=== PATIENT | male | born 1980 | race Caucasian/White ===

== ENCOUNTER 2018-06-07 19:01 | Emergency (ER) | payer OTHER ==
[~2018-06-07] VITALS: Ht 182.9 cm; Wt 86.2 kg
== END 2018-06-07 19:57 | disposition left against medical advice (07) ==
LOC: ED 19:01
DX: Z53.21 Procedure and treatment not carried out due to patient leaving prior to being seen by health care provider (principal)

== ENCOUNTER 2018-06-22 14:40 | Emergency (ER) | payer OTHER ==
[~2018-06-22] VITALS: Ht 182.9 cm; Wt 86.2 kg
--- OUTSIDE RECORDS SUMMARY | ~2018-06-22 | XMS | Encounter Summary ---
Demographics + + + | Address | [address] | | | [place] [address] | + + + | Home Phone | | + + + | Preferred Language | Unknown | + + + | Marital Status | Single | + + + | Baptism Affiliation | Unknown | + + + | Race | White | + + + | Ethnic Group | Not or | + + + Author + + + | Author | [facility] | + + + | Organization | [facility] | + + + | Address | Unknown | + + + | Phone | Unavailable | + + + Support + + +---------+ + | Name | Relationship | Address | Phone | + + +---------+ + | Dandre Acosta | ECON | Unknown | | + + +---------+ + Care Team Providers + +------+ + | Care Template Clerk Name | Role | Phone | + +------+ + | Maddison Sailajabettie PICKETTP | PCP | | + +------+ + Reason for Visit + + + | Reason | Comments | + + + | [facility] | [facility] | | Equipment (DME) | | | Orders | | + + + Encounter Details +--------+--------+ + + + | Date | Type | Department | Care Team | Description | +--------+--------+ + + + | 06/03/ | Refill | Leobardo Pedroza | Lidia Holguin | [facility] | | 2019 | | Diabetes Health | MD Kenny [address] [facility] | Equipment (DME) | | | | Center at Physicians | [address] | Orders ([facility]) | | | | Pavilion [address] | [facility] [place] | | | | | [facility] | [address] | | | | | Road Physicians | [phone] | | | | | [address] | | | | | | Physicians Pavilion | | | | | | [facility] [place] | | | | | | [address] | | | | | | [phone] | | | +--------+--------+ + + + [...] on file | | + + + as of this encounter Plan of Treatment +--------+---------+ + + + | Date | Type | Specialty | Care Team | Description | +--------+---------+ + + + | 08/22/ | Office | Endocrinology, | Lidia Holguin | | | 2019 | Visit | Diabetes & Morris Cox MD [address] | | | | | Metabolism | [address] | | | | | | [place], [place] | | | | | | [address] | | | | | | [phone] | | | | | | | | +--------+---------+ + + + as of this encounter Visit Diagnoses Not on filein this encounter"
--- OUTSIDE RECORDS SUMMARY | ~2018-06-22 | XMS | Clinical Summary ---
Demographics + + + | Address | [address] | | | [place] [address] | + + + | Home Phone | | + + + | Preferred Language | Unknown | + + + | Marital Status | Single | + + + | Yazidi Affiliation | Unknown | + + + [...] Team Providers + +------+ + | Care Bindery Library Technical Assistant Name | Role | Phone | + +------+ + | Sailaja Washburn | PP | | + +------+ + Source Comments JOSE FRANCISCO [facility] InPatient.[facility] Allergies + + + + + [...] | | + + +-------+---------+------+------+-------+ | Insulin Ava | 1 each. | | | / [...] | | + + +-------+---------+------+------+-------+ | Fish Oil-[place]-3 | Take by mouth. | | | [...] of | | Present Illness:CBGs:14-day avg = 55110-wjb avg = 197CBG this AM | | = 325Has new girlfriend - been going out to dinner a lot.Little | | exercise.Planning on taking a contract job for 3 months in | | [place].Needing to get supplies to cover him for this.Has not | | applied for Cover [place] because leaving to [place] soon. Will | | when he returns.Worried [...] of Present Illness:CBGs:14-day avg = | | 70127-lpb avg = 197CBG this AM = 325Has new girlfriend - been | | going out to dinner a lot.Little exercise.Planning on taking a | | contract job for 3 months in [place].Needing to get supplies to | | cover him for this.Has not applied for Cover [place] because | | leaving to [place] soon. Will when he returns.Worried about | [...] a contract job for 3 months in [place]. | |Needing to get supplies to cover him for this. | |Has not applied for Cover [place] because leaving to [place] soon. Will when he returns. | | [...] | Visit | | MD Kenny [address] | | | | | | [address] | | | | | | [place], [place] | | | | | | [address] | | | | | | [phone] | | | | | | | [...] 12/09/2011 | | | vaccination (#1) | 8 | | | + + + + [...] | | | | PST | complication ([facility]) | results section. | + +--------+ + + + | NM COLLECTION | Routin | 04/20/2018 | Type 1 diabetes | | | CAPILLARY BLOOD | e | 9:49 AM | mellitus with | | | SPECIMEN | | PST | complication ([facility]) | | + +--------+ + + + [...] | JOSE FRANCISCO [place] | [address] | [place], [place] | | | KARI RODRIGUEZ OF CARE | [address] | [address] | | | TESTS | | | [...] | | | + +--------+ +--------+-------+---------+ | CURATOR OF PHOTOGRAPHY AND PRINTS MEDICAID | CURATOR OF PHOTOGRAPHY AND PRINTS | xxxxxxxx | Medica | | | [...] | [birth year] | Home: | [address] | | | al/Fam | | 1980 | [phone] | [place] [address] | | | vidal | | | [phone] | | + +--------+ +--------+ + +
--- OUTSIDE RECORDS SUMMARY | ~2018-06-22 | XMS | Encounter Summary ---
Demographics + + + | Address | [address] | | | [place] [address] | + + + | Home Phone | | + + + | Preferred Language | Unknown | + + + | Marital Status | Single | + + + | Pentecostal Affiliation | Unknown | + + + | Race | White | + + + | Ethnic Group | Not or | + + + Author + + + | Author | [facility] | + + + | Organization | [facility] | + + + | Address | Unknown | + + + | Phone | Unavailable | + + + Support + + +---------+ + | Name | Relationship | Address | Phone | + + +---------+ + | Dandre Acosta | ECON | Unknown | | + + +---------+ + Care Team Providers + +------+ + | Care Human Machine Interface Engineer Name | Role | Phone | + +------+ + | Sailaja Washburn PATIENT SUPPORT ASSISTANT | PCP | | + +------+ + [...] | | mellitus | [address] | [facility] | | | | | with | [address] | Mailcode: | | | | | complication | [place], [place] | [address] | | | | | ([facility]) | [address] | Physicians | | | | | Nutrition - | Phone: | Tiar[address] MOREIR[address] | | | | | Analyze carb | [phone] | [address] | | | | | intake at | Fax: | [place], [place] | | | | | meals, | [phone] | [address] | | | | | patterns, | | Phone: | | | | | dosing | | [phone] | | | | | strategy | | Fax: | | | | | Procedures | | [phone] | | | | | CONSULT TO [...] | Visit | Diabetes Health | [address] [facility] | mellitus with | | | | Center at [facility] | [address] | complication (HCC) | | | | Pavilion [address] | [facility] [place] [place] | (Primary Dx) | | | | [facility] | [address] | | | | | Road Mailcode: | [phone] | | | | | [facility]icians | | | | | | [address] | | | | | | [place], [place] | | | | | | [address] | | | | | | [phone] | | | +--------+---------+ + + + [...] at age 13. Circumstance: ryan sosa, in [place] at the time, moved to [place] 14 years ago. Dad has type 1 [...] morning on a good day. Works in [employer], so job is also fairly active. Notices [...] and services clinic has to offer includ [facility]. Offered my continued support and education to [...] Moderately Stable Follow-up: MNT/DSMT Rosita [address]ik RD [facility] DIABETES [facility] AT [address] Mailcode: [address] [place] [address] in this encounter Plan of Treatment +--------+---------+ + + + | Date | Type | Specialty | Care Team | Description | +--------+---------+ + + + | 08/22/ | Office | Endocrinology, | Lidia Holguin | | | 2018 | Visit | Diabetes & | MD Kenny [address] [place] [address] | | | | | Metabolism | [facility] | | | | | | [place], [place] | | | | | | [address] | | | | | | [phone] | | | | | | | | +--------+---------+ + + + as of this encounter Procedures + +--------+ + + + | Procedure Name | Priori | Date/Time | Associated Diagnosis | Comments | | | ty | | | | + +--------+ + + + | NC MNT INITIAL | Routin | 05/25/2018 | [...]
--- OUTSIDE RECORDS SUMMARY | ~2018-06-22 | XMS | Encounter Summary ---
Demographics + + + | Address | [address] | | | [place] [address] | + + + | Home Phone | | + + + | Preferred Language | Unknown | + + + | Marital Status | Single | + + + | Congregation Affiliation | Unknown | + + + [...] Team Providers + +------+ + | Care Highway Engineer Name | Role | Phone | + +------+ + | Sailaja Washburn SUBGRADE ROLLER OPERATOR | PCP | | + +------+ + [...] | | mellitus | [address] | [facility] | | | | | with | [address] | Mailcode: | | | | | complication | [place], [place] | [address] | | | | | ([facility]) | [address] | Physicians | | | | | Nutrition - | Phone: | Tiarra MOREIRA | | | | | Analyze carb | [phone] | [address] | | | | | intake at | Fax: | [place], [place] | | | | | meals, | [phone] | [address] | | | | | patterns, | | Phone: | | | | | dosing | | [phone] | | | | | strategy | | Fax: | | | | | Procedures | | [phone] | | | | | CONSULT TO [...] | Visit | Diabetes Health | [address] [facility] | mellitus with | | | | Center at [facility] | [address] | complication (HCC) | | | | Pavilion [address] | [facility] [place] | (Primary Dx) | | | | [facility] | [address] | | | | | Road Mailcode: | [phone] | | | | | [facility] | | | | | | [address] | | | | | | [place], [place] | | | | | | [address] | | | | | | [phone] | | | +--------+---------+ + + + [...] in [place] at the time, moved to [place] 14 [...] morning on a good day. Works in [employer], so job is also fairly active. Notices [...] and services clinic has to offer includ [facility]. Offered my continued support and education to [...] Moderately Stable Follow-up: MNT/DSMT Rosita Mal[address] RD [facility] DIABETES [facility] AT [address] Mailcode: [address] [place] [address] in this encounter Plan of Treatment +--------+---------+ + + + | Date | Type | Specialty | Care Team | Description | +--------+---------+ + + + | 08/22/ | Office | Endocrinology, | Lidia Holguin | | | 2018 | Visit | Diabetes & | MD Kenny [address] [place] [address] | | | | | Metabolism | [facility] | | | | | | [place], [place] | | | | | | [address] | | | | | | [phone] | | | | | | | | +--------+---------+ + + + as of this encounter Procedures + +--------+ + + + | Procedure Name | Priori | Date/Time | Associated Diagnosis | Comments | | | ty | | | | + +--------+ + + + | ID MNT INITIAL | Routin | 05/25/2018 | [...]
--- OUTSIDE RECORDS SUMMARY | ~2018-06-22 | XMS | Clinical Summary ---
Demographics + + + | Address | [address] | | | [place] [address] | + + + | Home Phone | | + + + | Preferred Language | Unknown | + + + | Marital Status | Single | + + + | Jew Affiliation | Unknown | + + + [...] Team Providers + +------+ + | Care Mud Mill Tender Name | Role | Phone | + +------+ + | Sailaja Washburn | PP | | + +------+ + Source Comments JOSE FRANCISCO [facility] fully [facility] InPatient.[facility] Allergies + + + + + [...] | | + + +-------+---------+------+------+-------+ | Insulin [place] | 1 each. | | | / [...] | | + + +-------+---------+------+------+-------+ | Fish Oil-[place]-3 | Take by mouth. | | | [...] of | | Present Illness:CBGs:14-day avg = 82187-ddl avg = 197CBG this AM | | = 325Has new girlfriend - been going out to dinner a lot.Little | | exercise.Planning on taking a contract job for 3 months in | | [place].Needing to get supplies to cover him for this.Has not | | applied for Cover [place] because leaving to [place] soon. Will | | when he returns.Worried [...] of Present Illness:CBGs:14-day avg = | | 40796-thb avg = 197CBG this AM = 325Has new girlfriend - been | | going out to dinner a lot.Little exercise.Planning on taking a | | contract job for 3 months in [place].Needing to get supplies to | | cover him for this.Has not applied for Cover [place] because | | leaving to [place] soon. Will when he returns.Worried about | [...] a contract job for 3 months in [place]. | |Needing to get supplies to cover him for this. | |Has not applied for Cover [place] because leaving to [place] soon. Will when he returns. | | [...] Rd | | | | | | [place], [place] | | | | | | [address] | | | | | | [phone] | | | | | | | [...] | + +--------+ + + + | HI MNT INITIAL | Routin | 05/25/2018 | [...] | | | | PST | complication ([facility]) | results section. | + +--------+ + + + | HI COLLECTION | Routin | 04/20/2018 | Type 1 diabetes | | | CAPILLARY BLOOD | e | 9:49 AM | mellitus with | | | SPECIMEN | | PST | complication ([facility]) | | + +--------+ + + + [...] [place] | [address] | [place], [place] | | | KARI RODRIGUEZ OF CARE | [address] | [address] | | | TESTS | | | [...] | | | + +--------+ +--------+-------+---------+ | ELECTRIC MOTOR REPAIRMAN MEDICAID | ELECTRIC MOTOR REPAIRMAN | xxxxxxxx | Medica | | | [...] | 1980 | [phone] | [place] [address] | | | vidal | | | [phone] | | + +--------+ +--------+ + +
--- OUTSIDE RECORDS SUMMARY | ~2018-06-22 | XMS | Encounter Summary ---
Demographics + + + | Address | [address] | | | [place] [address] | + + + | Home Phone [...] Author + + + | Author | [facility] | + + + | Organization | [facility] | + + + | Address | Unknown | + + + | Phone | Unavailable | + + + Support + + +---------+ + | Name | Relationship | Address | Phone | + + +---------+ + | Dandre Acosta | ECON | Unknown | | + + +---------+ + Care Team Providers + +------+ + | Care Precision Millwright Name | Role | Phone | + +------+ + | Sailaja Washburn SALES ACCOUNT EXECUTIVE | PCP | | + +------+ + [...] | | mellitus | [address] | [address] | | | | | with | [address] | Mailcode: | | | | | complication | [place], [place] | [address] | | | | | ([facility]) | [address] | Physicians | | | | | Review | Phone: | Tiarra MOREIRA | | | | | optimizing | [phone] | [address] | | | | | sensor | Fax: | [place], [place] | | | | | technology | [phone] | [address] | | | | | Procedures | | Phone: | | | | | CONSULT TO | | [phone] | | | | | ADULT | | Fax: | | | | | DIABETES - | | [phone] | | | | | EDUCATION | [...] | | mellitus | [address] | [facility] | | | | | with | [address] | Mailcode: | | | | | complication | [place], [place] | [address] | | | | | ([facility]) | [address] | Physicians | | | | | Nutrition - | Phone: | Tiarra ANTONIO | | | | | Analyze carb | [phone] | [address] | | | | | intake at | Fax: | [place], [place] | | | | | meals, | [phone] | [address] | | | | | patterns, | | Phone: | | | | | dosing | | [phone] | | | | | strategy | | Fax: | | | | | Procedures | | [phone] | | | | | CONSULT TO [...] | | | | | mellitus | [address] | [facility] | | | | | with | Street | Road | | | | | hypoglycemia | [place], [place] | Physicians | | | | | without | [address] | [address] [facility] | | | | | coma Type 1 | Phone: | [address] | | | | | diabetes | [phone] | Physicians | | | | | mellitus | Fax: | Pavilion | | | | | without | [phone] | [place], [place] | | | | | complication | | [address] | | | | | s | | Phone: | | | | | Procedures | | [phone] | | | | | CONSULT TO | | Fax: | | | | | DIABETES | | [phone] | | | | | ENDO | [...] | | Pavilion [address] | [place], [place] | (Primary Dx) | | | | [address] | [address] | | | | | Road Physicians | [phone] | | | | | [address] | | | | | | Physicians Pavilion | | | | | | [place], [place] | | | | | | [address] | | | | | | [phone] | | | +--------+---------+ + + + [...] schedule as much as possible Please contact [facility] [phone] for any questions Lab Results Component Value [...] a low blood sugar. Please visit the [facility] Website for information on what's [...] may be different f rom the original. [facility] PCP: RODNEY Cardoso Referring Physician: Christian Rodriguez ND [address] [place] [address] Reason for referral: Evaluate Type 1 Diabetes HPI: Gregory is a 38 y.o. male referred for evaluation of Type 1 Diabetes. Diabetes history: He was diagnosed with diabetes in 1992 at age 13. Circumstance: hospitalized, in [place] at the time ---- moved to [place] [...] diabetes care: Living situation: grew up in [place] ---- moved to [place]--wanted to live somewhere [...] by mouth once daily at bedtime. Fish Oil-[place]-3 Fatty Acids 300-1,000 mg oral capsule Take [...] scale, up to 30 units daily Insulin [place] (Disposable) 31 gauge x 5/16" needle 1 [...] ROS: Review of systems as stated in [facility]. Other pertinent review of systems includes: Weight: [...] 1992 at age 13. Circumstance: hospitalized, in [place] at the time ---- moved to [place] 14 years ago Treatment history: Has been on NPH, Novolog, Humalog, Levemir, Lantus and now Basaglar Pump/sensor history-- never on a pump---started Dexcom 6 months ago (G5) but challenges wit h insurance coverage Has working transmitter/sensor right now but every 3 months it takes about a month to proce ss the paperwork through [facility] and insurance History of acute complications: Severe [...] sensor use for awareness of trends In [employer] so very active throughout the day [...] as much as possible Please contact [facility] [phone] for any questions Lab Results Component Value Date A1C 5.5 04/20/2018 Schedule upcoming appointments: Nutrition visit to review meal patterns, activity and stress related trends Technology visit to refine use of sensor Sensor order --- You have history of testing 10 to 12 times daily when not on sensor and Keep up routine monitoring and use of current sensor Ask [facility] to send us supply requests Follow hypoglycemic [...] a low blood sugar. Please visit the [facility] Website for information on what's new at our diabetes center. Let us know if you would like to sign up for a class or a one o n one diabetes education visit. Please meet with your primary care provider routinely for your medical care and annual chec k ups 2. See orders Orders Placed This Encounter ID Collection Capillary Blood Specimen [[id number]] only for Adults CONSULT TO ADULT DIABETES - NUTRITION (MNT) CONSULT TO ADULT DIABETES - EDUCATION (DIABETES SELF-MANAGEMENT) HEMOGLOBIN A1C,POC [[id number]}] Lidia Holguin MD [facility] AT [facility] 1ST FLOOR [address] [facility] [address] [place] [address] I spent 55 minutes with [...] | Diabetes & | MD Kenny [address] [facility] | | | | | Metabolism | [address] | | | | | | [place], [place] | | | | | | [address] | | | | | | [phone] | | | | | | | [...] + +--------+ + + + | ID COLLECTION | Routin | 04/20/2018 | Type 1 diabetes | | | CAPILLARY BLOOD | e | 9:49 AM | mellitus with | | | SPECIMEN | | PST | complication ([facility]) | | + +--------+ + + + [...] [place] | [address] | [place], [place] | | | KARI RODRIGUEZ OF CARE | [facility] | [address] | | | TESTS | | | [...]
--- OUTSIDE RECORDS SUMMARY | ~2018-06-22 | XMS | Encounter Summary ---
Demographics + + + | Address | [address] | | | [place] [address] | + + + | Home Phone [...] Author + + + | Author | [facility] | + + + | Organization | [facility] | + + + | Address | Unknown | + + + | Phone | Unavailable | + + + Support + + +---------+ + | Name | Relationship | Address | Phone | + + +---------+ + | Dandre Acosta | ECON | Unknown | | + + +---------+ + Care Team Providers + +------+ + | Care Feed In Worker Name | Role | Phone | + +------+ + | Maddison Sailajabettie PICKETTP | PCP | | + +------+ + Reason for Visit + + + | Reason | Comments | + + + | [facility] | [place] | | Equipment (DME) | | | Orders | | + + + Encounter Details +--------+--------+ + + + | Date | Type | Department | Care Team | Description | +--------+--------+ + + + | 06/03/ | Refill | Leobardo Pedroza | Lidia Holguin | [facility] | | 2019 | | Diabetes Health | MD Kenny [address] [facility] | Equipment (DME) | | | | Center at Physicians | [address] | Orders ([place]) | | | | Pavilion [address] | [facility] [place] | | | | | [facility] | [address] | | | | | Road Physicians | [phone] | | | | | [address] | | | | | | Physicians Pavilion | | | | | | [facility] [place] | | | | | | [address] | | | | | | [phone] | | | +--------+--------+ + + + [...] | | | | | | [place], [place] | | | | | | [address] | | | | | | [phone] | | | | | | | | +--------+---------+ + + + as of this encounter Visit Diagnoses Not on filein this encounter"
--- OUTSIDE RECORDS SUMMARY | ~2018-06-22 | XMS | Encounter Summary ---
Demographics + + + | Address | [address] | | | [place] [address] | + + + | Home Phone | | + + + | Preferred Language | Unknown | + + + | Marital Status | Single | + + + | Protestant Affiliation | Unknown | + + + [...] Team Providers + +------+ + | Care Operations Research Scientist Name | Role | Phone | + +------+ + | Sailaja Washburn AGRISCIENCE INSTRUCTOR | PCP | | + +------+ [...] | | | | | complication | [place], [place] | [address] | | | | | ([facility]) | [address] | Physicians | | | | | Review | Phone: | Tiarra MOREIRA | | | | | optimizing | [phone] | 140 | | | | | sensor | Fax: | [place], [place] | | | | | technology | [phone] | [address] | | | | | Procedures | | Phone: | | | | | CONSULT TO | | [phone] | | | | | ADULT | | Fax: | | | | | DIABETES - | | [phone] | | | | | EDUCATION | [...] | | mellitus | [address] | [facility] | | | | | with | [address] | Mailcode: | | | | | complication | [place], [place] | [address] | | | | | ([facility]) | [address] | Physicians | | | | | Nutrition - | Phone: | Tiarra ANTONIO | | | | | Analyze carb | [phone] | 140 | | | | | intake at | Fax: | [place], [place] | | | | | meals, | [phone] | [address] | | | | | patterns, | | Phone: | | | | | dosing | | [phone] | | | | | strategy | | Fax: | | | | | Procedures | | [phone] | | | | | CONSULT TO [...] | | | mellitus | [place] | [facility] | | | | | with | Street | Road | | | | | hypoglycemia | [place], [place] | Physicians | | | | | without | [address] | [address] | | | | | coma Type 1 | Phone: | 140 | | | | | diabetes | [phone] | Physicians | | | | | mellitus | Fax: | Pavilion | | | | | without | [phone] | [place], [place] | | | | | complication | | [address] | | | | | s | | Phone: | | | | | Procedures | | [phone] | | | | | CONSULT TO | | Fax: | | | | | DIABETES | | [phone] | | | | | ENDO | [...] | | Pavilion [address] | [place], [place] | (Primary Dx) | | | | [address] | [address] | | | | | Road Physicians | [phone] | | | | | [address] | | | | | | Physicians Pavilion | | | | | | [place], [place] | | | | | | [address] | | | | | | [phone] | | | +--------+---------+ + + + [...] possible Please contact [facility] [phone] for any questions Lab Results Component Value [...] RODNEY Cardoso Referring Physician: Christian Rodriguez ND [address] [place] [address] Reason for referral: Evaluate Type 1 Diabetes HPI: Gregory is a 38 y.o. male referred for evaluation of Type 1 Diabetes. Diabetes history: He was diagnosed with diabetes in 1992 at age 13. Circumstance: hospitalized, in [place] at the time ---- moved to [place] 14 years ago Treatment history: Has been [...] diabetes care: Living situation: grew up in [place] ---- moved to [place]--wanted to live somewhere that was health, mom when he was 23 He grew up with a lot of fried and fast food in the home. Dad has type 1 diabetes. Has t wo sisters. Lives in [place]. Lives alone. In physical therapy for cyst [...] by mouth once daily at bedtime. Fish Oil-[place]-3 Fatty Acids 300-1,000 mg oral capsule Take [...] scale, up to 30 units daily Insulin [place] (Disposable) 31 gauge x 5/16" needle 1 [...] ROS: Review of systems as stated in [facility]. Other pertinent review of systems includes: Weight: [...] 1992 at age 13. Circumstance: hospitalized, in [place] at the time ---- moved to [place] 14 years ago Treatment history: Has been on NPH, Novolog, Humalog, Levemir, Lantus and now Basaglar Pump/sensor history-- never on a pump---started Dexcom 6 months ago (G5) but challenges wit h insurance coverage Has working transmitter/sensor right now but every 3 months it takes about a month to proce ss the paperwork through [place] and insurance History of acute complications: Severe [...] sensor use for awareness of trends In [employer] so very active throughout the day [...] as much as possible Please contact Leobardo [facility] [phone] for any questions Lab Results Component Value Date A1C 5.5 04/20/2018 Schedule upcoming appointments: Nutrition visit to review meal patterns, activity and stress related trends Technology visit to refine use of sensor Sensor order --- You have history of testing 10 to 12 times daily when not on sensor and Keep up routine monitoring and use of current sensor Ask [place] to send us supply requests Follow hypoglycemic [...] 2. See orders Orders Placed This Encounter ME Collection Capillary Blood Specimen [[id number]] only for Adults CONSULT TO ADULT DIABETES - NUTRITION (MNT) CONSULT TO ADULT DIABETES - EDUCATION (DIABETES SELF-MANAGEMENT) HEMOGLOBIN A1C,POC [[id number]}] Lidia Holguin MD [facility] AT PPV 1ST FLOOR [address] [facility] [address] [place] [address] I spent 55 minutes with [...] | Diabetes & | MD Kenny [address] [facility] | | | | | Metabolism | [address] | | | | | | [place], [place] | | | | | | [address] | | | | | | [phone] | | | | | | | [...] + +--------+ + + + | ME COLLECTION | Routin | 04/20/2018 | Type 1 diabetes | | | CAPILLARY BLOOD | e | 9:49 AM | mellitus with | | | SPECIMEN | | PST | complication ([facility]) | | + +--------+ + + [...] [place] | [address] | [place], [place] | | | KARI RODRIGUEZ OF CARE | [facility] | [address] | | | TESTS | | | [...]
--- OUTSIDE RECORDS SUMMARY | 2018-06-22 14:48 | XMS ---
PreManage Notification: DOREEN GRIFFIN Security Architecture Internship Events 1 event(s) in the past 18 months Most recent security events: Elopement at [facility] 06/07/2018 19:01 - Other Details: PATIENT LWBS. CRITERIA MET - [facility] - 2 Visits in 30 Days CARE PROVIDERS RODNEY MARTINEZ Current PHONE: [phone] [address] Clinic/Center: Federally Qualified 11/28/2017-Current [facility] ([facility]) [facility]: [phone] [facility] 12/12/2017-12/12/2018 Behavioral PHONE: [phone] BERNARD SHAFFER Current PHONE: [phone] EDITH GIRON Diesel Truck Mechanic Current PHONE: [phone] Simran Merrill Job Analysis Manager Current PHONE: [phone] CINTHYA MCKEONor: Mental Health Current PHONE: [phone] [facility] Mental Health Provider 06/21/2017-12/21/2017 PHONE: Unknown KADI GARCIA GENESISKEILY Primary Care 11/29/2017-[facility] DENTAL [facility] PHONE: [phone] [facility] Care 02/15/2018-[facility] PRIMARY CARE PHONE: [phone] Simran Merrlil Primary Care Current PHONE: Unknown [facility] Primary [facility] Current PHONE: Unknown [facility] Mental Health Provider 09/15/2017-Current PHONE: Unknown [facility] 08/18/2017-[facility] PHONE: [phone] BERNARD SHAFFER Primary [facility] Current PHONE: Unknown RODNEY MARTINEZ Primary Care Current PHONE: Unknown [facility] 05/05/2017-[facility] INTERNAL [facility] PHONE: [phone] [facility] Primary [facility] Current PHONE: Unknown [facility] Other 10/31/2015-Current MATHEUS PHONE: Unknown JEANNINE YORK Primary Care Current PHONE: Unknown SARABJIT JEAN Primary Care 10/29/2014-Current PHONE: [phone] MANPREET MANRIQUEZ Primary Care Current PHONE: Unknown Brayden has no Care Guidelines for this patient. Kwasi VISIT COUNT (12 MO.) 10 Miguel Michelle 2 FERNANDA Seaman TOTAL 12 NOTE: Visits indicate total known visits. ED/UCC VISIT TRACKING (12 MO.) 06/22/2018 14:41 FERNANDA [place] TYPE: Emergency COMPLAINT: - POSS STAPH INFECTION 06/07/2018 19:01 FERNANDA [place] TYPE[place] Emergency COMPLAINT: - ANXIETY DIAGNOSES: - Procedure and treatment not carried out due to patient leaving prior to being seen by health care provider 10/04/2017 01:24 Legmagdiel Pinto [place] TYPE: Emergency DIAGNOSES: - Abscess - Pain in thoracic spine - Other chronic pain 09/03/2017 14:36 Legmagdiel Pinto [facility] [place] TYPE: Emergency DIAGNOSES: - Shoulder spasm 08/26/2017 12:20 Legmagdiel Pinto [place] TYPE[place] Emergency DIAGNOSES: - MED REQ 08/25/2017 11:34 Legacy Blair [facility] [place] TYPE: Emergency DIAGNOSES: - muscle spasms 08/19/2017 22:35 Shabanamagdiel Blair [place] TYPE: Emergency DIAGNOSES: - Hypoglycemia, unspecified - Hypoglycemia/nerve pain 08/01/2017 08:07 Shabanamagdiel Blair [place] TYPE: Emergency DIAGNOSES: - MUSCLE SPASMS 07/15/2017 10:46 Shabanamagdiel Blair [facility] [place] TYPE: Emergency DIAGNOSES: - Panic Attack 07/15/2017 01:08 Shabanamagdiel Blair [facility] [place] TYPE: Emergency DIAGNOSES: - Generalized anxiety disorder - CYST ON SPINE 07/13/2017 14:19 Legmagdiel Pinto [facility] [place] TYPE: Emergency DIAGNOSES: - Chest pain, unspecified - chest tightness 07/03/2017 09:32 Miguel Pinto Jew [facility] TYPE: Emergency DIAGNOSES: - SOB - Pain in thoracic spine - Chest pain, unspecified - Type 1 diabetes mellitus without complications INPATIENT VISIT TRACKING (12 MO.) No inpatient visits to display in this time frame [email or web address]
[2018-06-22] MEDS ORDERED: LANTUS SOL100 UNIT/1 SUB-Q (14:54)
[2018-06-22] MEDS ORDERED: MIRTAZAPINE15 MG PO (14:54)
[2018-06-22] MEDS ORDERED: GABAPENTIN100 MG PO (14:54)
[2018-06-22] MEDS ORDERED: DULOXETINE HCL60 MG PO (14:54)
[2018-06-22] MEDS ORDERED: VITAMIN D32000 UNI1 PO (14:54)
[2018-06-22] MEDS ORDERED: BACLOFEN5 MG PO (14:55)
[2018-06-22] MEDS ORDERED: DOXYCYCLINE HYC50 M2 PO (15:08)
[2018-06-22] MEDS ORDERED: DOXYCYCLINE HY100 MG PO (15:08)
== END 2018-06-22 15:17 | disposition home or self-care (01) ==
LOC: ED 14:40
DX: A49.02 Methicillin resistant Staphylococcus aureus infection, unspecified site (principal); E10.9 Type 1 diabetes mellitus without complications; Z87.891 Personal history of nicotine dependence; Z88.5 Allergy status to narcotic agent; Z88.0 Allergy status to penicillin; Z79.899 Other long term (current) drug therapy; Z79.4 Long term (current) use of insulin
CPT/HCPCS: 99283

== ENCOUNTER 2018-07-08 14:45 | Emergency (ER) | payer OTHER ==
[~2018-07-08] VITALS: Ht 182.9 cm; Wt 82.6 kg
--- OUTSIDE RECORDS SUMMARY | ~2018-07-08 | XMS | Encounter Summary ---
Demographics + + + | Address | [address] | | | [place] [address] | + + + | Home Phone [...] Team Providers + +------+ + | Care Pick Pack Worker Name | Role | Phone | + +------+ + | Maddison Sailajabettie PICKETTP | PCP | | + +------+ + Reason for Visit + + + | Reason | Comments | + + + | [facility] | [place] | | Equipment (DME) | | | Orders | | + + + Encounter Details +--------+--------+ + + + | Date | Type | Department | Care Team | Description | +--------+--------+ + + + | 06/03/ | Refill | Leobardo Pedroza | Lidia Holguin | [facility] | | 2019 | | Diabetes Health | MD Kenny [address] [facility] | Equipment (DME) | | | | Center at Physicians | [address] | Orders ([place]) | | | | Pavilion [address] | [facility] [place] | | | | | Denis [facility] | [address] | | | | | Road Physicians | [phone] | | | | | [address] | | | | | | Physicians Pavilion | | | | | | [facility] [place] | | | | | | [address] | | | | | | [phone] | | | +--------+--------+ + + + [...] Rd | | | | | | [place], [place] | | | | | | [address] | | | | | | [phone] | | | | | | | | +--------+---------+ + + + as of this encounter Visit Diagnoses Not on filein this encounter"
--- OUTSIDE RECORDS SUMMARY | ~2018-07-08 | XMS | Encounter Summary ---
Demographics + + + | Address | [address] | | | [place] [address] | + + + | Home Phone | | + + + | Preferred Language | Unknown | + + + | Marital Status | Single | + + + | Shinto Affiliation | Unknown | + + + | Race | White | + + + | Ethnic Group | Not or | + + + Author + + + | Author | [facility] | + + + | Organization | [facility] | + + + | Address | Unknown | + + + | Phone | Unavailable | + + + Support + + +---------+ + | Name | Relationship | Address | Phone | + + +---------+ + | Dandre Acosta | ECON | Unknown | | + + +---------+ + Care Team Providers + +------+ + | Care Water Sander Name | Role | Phone | + +------+ + | Sailaja Washburn LATHE SANDER | PCP | | + +------+ + [...] Metabolism | diabetes | [address] | [address] | | | | | mellitus | [address] | [facility] | | | | | with | [address] | Mailcode: | | | | | complication | [place], [place] | [address] | | | | | ([facility]) | [address] | Physicians | | | | | Nutrition - | Phone: | Tiarra MOREIRA | | | | | Analyze carb | [phone] | 140 | | | | | intake at | Fax: | [place], [place] | | | | | meals, | [phone] | [address] | | | | | patterns, | | Phone: | | | | | dosing | | [phone] | | | | | strategy | | Fax: | | | | | Procedures | | [phone] | | | | | CONSULT TO [...] | Visit | Diabetes Health | [address] [facility] | mellitus with | | | | Center at [facility] | [address] | complication (HCC) | | | | Pavilion [address] | [facility] [place] | (Primary Dx) | | | | [facility] | [address] | | | | | Road Mailcode: | [phone] | | | | | PPV Physicians | | | | | | [address] | | | | | | [place], [place] | | | | | | [address] | | | | | | [phone] | | | +--------+---------+ + + + [...] + + + as of this encounter Instructions Patient Instructions - Rosita Malik, RD - 05/24/2018 10:40 AM PDTKeep track of what activ ities are causing the lows and implement tips from the safe exercising with type 1 diabetes handout to help [...] sna ck to help with overnight lows. in this encounter Progress Notes Rosita Malik, RD - 05/24/2018 10:40 AM PDTFormatting of this note may be different from t adarsh romero. Patient Instructions Keep track of what activities [...] diabetes in 1992 at age 13. Circumstance: ryan sosa, in [place] at the time, moved to [place] 14 years ago. Dad has type 1 [...] bar he brought with him to visit. Radha ded him with guidelines for carb counting foods with sugar alcohols. Had discussion around s upplements. Verbalizes understanding Activity- Very active on most days. Activities include Martial Arts, swimming, yoga and fr ee weights. Swims 10 laps per day --- usually 30 minutes in the morning on a good day. Works in [employer], so job is also fairly active. Notices [...] and services clinic has to offer includ [facility]. Offered my continued support and education [...] Moderately Stable Follow-up: MNT/DSMT Rosita Malik RD [facility] DIABETES [facility] AT [address] Mailcode: [address] [place] [address] in this encounter Plan of Treatment +--------+---------+ + + + | Date | Type | Specialty | Care Team | Description | +--------+---------+ + + + | 08/22/ | Office | Endocrinology, | Lidia Holguin | | | 2018 | Visit | Diabetes & | MD Kenny [address] [place] [address] | | | | | Metabolism | [facility] | | | | | | [place], [place] | | | | | | [address] | | | | | | [phone] | | | | | | | | +--------+---------+ + + + as of this encounter Procedures + +--------+ + + + | Procedure Name | Priori | Date/Time | Associated Diagnosis | Comments | | | ty | | | | + +--------+ + + + | [place] MNT INITIAL | Routin | 05/25/2018 | Type 1 diabetes | | | ASSESSMNT X15MIN | e | 4:52 PM | mellitus with | | | | | PDT | complication (HCC) | | + +--------+ + + + in this encounter Visit Diagnoses + + | Diagnosis | + + | Type 1 diabetes mellitus with complication (HCC) - Primary | + + | Type I (juvenile type) diabetes mellitus with unspecified complication, not stated as | | uncontrolled | + +
--- OUTSIDE RECORDS SUMMARY | ~2018-07-08 | XMS | Clinical Summary ---
Demographics + + + | Address | [address] | | | [place] [address] | + + + | Home Phone | | + + + | Preferred Language | Unknown | + + + | Marital Status | Single | + + + | Methodist Affiliation | Unknown | + + + [...] Team Providers + +------+ + | Care Spinal Surgeon Name | Role | Phone | + +------+ + | Sailaja Washburn | PP | | + +------+ + Source Comments JOSE FRANCISCO is fully live on both [facility] and [facility] InPatient.[facility] Allergies + + + + + + [...] + + + Current Medications + + +-------+---------+------+------+-------+ | Prescription | Sig. | Disp. | Refills | Star | End | Statu | | | | | | t | Date | s | | | | | | Date | | | + + +-------+---------+------+------+-------+ | ibuprofen 800 mg | Take by mouth. | | | 08/29 | | Activ | | oral tablet | | | | 2 | | e | | | | | | 16 | | | + + +-------+---------+------+------+-------+ | gabapentin 100 mg | Take 100 mg by mouth | | | 07/30 | | Activ | | oral capsule | once daily at | | | 0/20 | | e | | | bedtime. | | | 18 | | | + + +-------+---------+------+------+-------+ | Insulin [place] | 1 each. | | | / | | Activ | | (Disposable) 31 | | | | 8 | | e | | gauge x 5/16" needle | | | | 15 | | | + + +-------+---------+------+------+-------+ | baclofen 10 mg | Take 10 mg by mouth | | | | | Activ | | oral tablet | once daily at | | | | | e | | | bedtime. | | | | | | + + +-------+---------+------+------+-------+ | DULoxetine 20 mg | Take 20 mg by mouth | | | | | Activ | | oral capsule,delayed | once daily at | | | | | e | | release(DR/EC) | bedtime. | | | | | | + + +-------+---------+------+------+-------+ | magnesium chloride | Take by mouth. | | | | | Activ | | SR 64 mg oral | | | | | | e | | tablet,delayed | | | | | | | | release (DR/EC) | | | | | | | + + +-------+---------+------+------+-------+ | melatonin 3 mg | Dissolve on tongue | | | | | Activ | | oral | and swallow. | | | | | e | | tablet,disintegratin | | | | | | | | g | | | | | | | + + +-------+---------+------+------+-------+ | Fish Oil-[place]-3 | Take by mouth. | | | | | Activ | | Fatty Acids | | | | | | e | | 300-1,000 mg oral | | | | | | | | capsule | | | | | | | + + +-------+---------+------+------+-------+ | Cholecalciferol | TAKE 1 TABLET BY | | 11 | 08/0 | | Activ | | (Vitamin D3) 2,000 | MOUTH EVERY DAY FOR | | | 2/20 | | e | | unit oral tablet | dietary SUPPLEMENT | | | 18 | | | + + +-------+---------+------+------+-------+ | ascorbic acid | Take 500 mg by mouth | | | | | Activ | | (vitamin C) 500 mg | two times daily. | | | | | e | | oral tablet | | | | | | | + + +-------+---------+------+------+-------+ | mirtazapine 15 mg | Take 15 mg by mouth | | | | | Activ | | oral tablet | once daily in the | | | | | e | | | evening. | | | | | | + + +-------+---------+------+------+-------+ | insulin lispro | Inject under the | | | | | Activ | | (Human) [...] | | | | | + + +-------+---------+------+------+-------+ | insulin | Inject 22 Units | | | | | Activ | | glargine,hum.rec.anl | under the skin | | | | | e | | og (BASAGLAR UNIQUEIKPEN | (SUBC) once daily at | | | | | | | U-100 INSULIN SUBQ) | bedtime. | | | | | | + + +-------+---------+------+------+-------+ | Blood-Glucose | 1 each by NOT | | | 09/29 | | Activ | | Sensor (DEXCOM G5-G4 | APPLICABLE route. | | | 10/18 | | e | | SENSOR) device | | | | 17 | | | + + +-------+---------+------+------+-------+ Active Problems + + + | Problem [...] + | Overview: Last Assessment & Plan: Doreen reports that he has | | been [...] | have been stopped or discontinued because Doreen reports that he is | | having adverse drug effects.During today's visit, Celexa was | | discontinued. This is because Doreen reports that in the past, | | SSRIs have contributed to suicidal ideation.Diagnosis of bipolar | | is on the differential. He reports genetic loading of bipolar | | disorder, stating that his mother had a diagnosis of bipolar. He | | denies carrying former diagnosis of bipolar. Most of Doreen's | | late teens and 20s were [...] clonidine 0.1 mg twice | | daily.Given Doreen's history of polysubstance use, I do not [...] + + | Amphetamine and psychostimulant dependence (HCC) | 07/20/2013 | + + + + + | Overview: Overview: | | Early remission. Last use was : 05/09/2013 | + + + + + | Drug dependence (HCC) | 07/20/2013 | + + + + + | Overview: Overview: | | Overview: | | Early remission. Last use was : 05/09/2013 | | | | Overview: | | Overview: | | Early remission. Last use was : 05/09/2013 | + + + + + | Type 1 diabetes mellitus (HCC) | 11/20/2008 | + + + + + | Overview: Overview: T1DM - Uses HumaLOG and Lantus | | insulin.Currently uninsured.Last Assessment & Plan: History of | | Present Illness:CBGs:14-day avg = 19860-zym avg = 197CBG this AM | | = 325Has new girlfriend - been going out to dinner a lot.Little | | exercise.Planning on taking a contract job for 3 months in | | [place].Needing to get supplies to cover him for this.Has not | | applied for Cover [place] because leaving to [place] soon. Will | | when he returns.Worried [...] of Present Illness:CBGs:14-day avg = | | 64796-caw avg = 197CBG this AM = 325Has new girlfriend - been | | going out to dinner a lot.Little exercise.Planning on taking a | | contract job for 3 months in [place].Needing to get supplies to | | cover him for this.Has not applied for Cover [place] because | | leaving to [place] soon. Will when he returns.Worried about | [...] a contract job for 3 months in [place]. | |Needing to get supplies to cover him for this. | |Has not applied for Cover [place] because leaving to [place] soon. Will when he returns. | | [...] Description | +--------+---------+ + + + | 06/03/ | Refill | | Lidia Holguin | Durable Medical | | 2019 | | | MD Kenny | Equipment (DME) | | | | | | Orders (Tosin) | +--------+---------+ + + + | 05/24/ | Office | | Rosita Malik [address] | Type 1 diabetes | | 2019 | Visit | | | mellitus with | | | | | | complication (HCC) | | | | | | (Primary Dx) | +--------+---------+ + + + | 04/20/ | Office | | Lidia Holguin | Type 1 diabetes | | 2019 | Visit | | MD Kenny | [...] Pressure | 118/66 | 04/20/2018 9:49 AM PST | + + + + | Pulse | 78 | 04/20/2018 9:49 AM PST | + + + + | Temperature [...] kg (191 lb) | 04/20/2018 9:49 AM PST | + + + + | Height | 184.8 cm (6' 0.75") | 04/20/2018 9:49 AM PST | + + + + | Body Mass Index | 25.37 | 04/20/2018 9:49 AM PST | + + + + Plan of Treatment +--------+---------+ + + + | Date | Type | Specialty | Care Team | Description | +--------+---------+ + + + | 08/22/ | Office | | Lidia Holguin | | | 2019 | Visit | | MD Kenny [address] | | | | | | [address] | | | | | | [place], [place] | | | | | | [address] | | | | | | [phone] | | | | | | | | +--------+---------+ + + + + + + + + | Health Maintenance | Due Date | Last Done | Comments | + + + + + | CHOLESTEROL | | | | | SCREENING | 2 | | | + + + + + | CREATININE | | | | | | 2 | | | + + + + + | Diabetic eye exam | | | | | | 2 | | | + + + + + | Medical attention | | | | | for nephropathy | 2 | | | + + + + + | HEMOGLOBIN A1C | | 04/20/2018 | | | | 9 | | | + + + + + | Influenza (Flu) | | 12/09/2011 | | | vaccination (Season | 9 | | | | Ended) | | | | + + + + + | MONOFILAMENT FOOT | | 04/20/2018 | | | EXAM | 0 | | | + + + + + | DIABETES | | 05/25/2018 | | | SELF-MANAGEMENT | 0 | | | | EDUCATION | | | | + + + + + | Pneumococcal (Adult) | Completed | 10/08/2011 | | + + + + + Procedures + +--------+ + + + | Procedure Name | Priori | Date/Time | Associated Diagnosis | Comments | | | ty | | | | + +--------+ + + + | MT MNT INITIAL | Routin | 05/25/2018 | [...] | + +--------+ + + + | MT COLLECTION | Routin | 04/20/2018 | Type 1 diabetes | | | CAPILLARY BLOOD | e | 9:49 AM | mellitus with | | | SPECIMEN | | PST | complication (HCC) | | + +--------+ + + + from Last 3 Months Results HEMOGLOBIN A1C,POC (04/20/2018 10:03 AM) + +-------+ + + | Component | Value | Ref Range | Performed At | + +-------+ + + | HEMOGLOBIN A1C,POC | 5.5 | 4.0 - 5.7 % | [facility] | | | | | [facility] | | | | | CARE TESTS | + +-------+ + + + + | Specimen | + + | Blood - Blood | + + + + + + + | Performing | Address | City/State/Zipcode | Phone Number | | Organization | | | | + + + + + | [facility] | [address] | [place], [place] | | | [facility] | [address] | [address] | | | TESTS | | | | + + + + + from Last 3 Months Insurance + +--------+ +--------+-------+---------+ | Payer | Benefi | Subscriber | Type | Phone | Address | | | t Plan | ID | | | | | | / | | | | | | | Group | | | | | + +--------+ +--------+-------+---------+ | RIVER DRIVER MEDICAID | RIVER DRIVER | xxxxxxxx | Medica | | | | | [place] | | id | | | | | [place] | | | | | + +--------+ +--------+-------+---------+ + +--------+ +--------+ + + | Guarantor Name | Accoun | Relation to | Date | Phone | Billing Address | | | t Type | Patient | of | | | | | | | | | | + +--------+ +--------+ + + | DOREEN ACOSTA | Person | Self [birth year] | Home: | [address] | | 1979 | [phone] | [place] [address] | | | [address]idal | | | [phone] | | + +--------+ +--------+ + +
--- OUTSIDE RECORDS SUMMARY | ~2018-07-08 | XMS | Encounter Summary ---
Demographics + + + | Address | [address] | | | [place] [address] | + + + | Home Phone | | + + + | Preferred Language | Unknown | + + + | Marital Status | Single | + + + | Sabianist Affiliation | Unknown | + + + | Race | White | + + + | Ethnic Group | Not or | + + + Author + + + | Author | [facility] | + + + | Organization | [facility] | + + + | Address | Unknown | + + + | Phone | Unavailable | + + + Support + + +---------+ + | Name | Relationship | Address | Phone | + + +---------+ + | Dandre Acosta | ECON | Unknown | | + + +---------+ + Care Team Providers + +------+ + | Care Form Presser Name | Role | Phone | + +------+ + | Sailaja Washburn ASSEMBLER HYDRAULIC BACKHOE | PCP | | + +------+ + [...] | | mellitus | [address] | [address] | | | | | with | [address] | Mailcode: | | | | | complication | [place], [place] | [address] | | | | | ([facility]) | [address] | Physicians | | | | | Review | Phone: | Tiarra MOREIRA | | | | | optimizing | [phone] | [address] | | | | | sensor | Fax: | [place], [place] | | | | | technology | [phone] | [address] | | | | | Procedures | | Phone: | | | | | CONSULT TO | | [phone] | | | | | ADULT | | Fax: | | | | | DIABETES - | | [phone] | | | | | EDUCATION | [...] | | mellitus | [address] | [facility] | | | | | with | [address] | Mailcode: | | | | | complication | [place], [place] | [address] | | | | | ([facility]) | [address] | Physicians | | | | | Nutrition - | Phone: | Tiarra ANTONIO | | | | | Analyze carb | [phone] | [address] | | | | | intake at | Fax: | [place], [place] | | | | | meals, | [phone] | [address] | | | | | patterns, | | Phone: | | | | | dosing | | [phone] | | | | | strategy | | Fax: | | | | | Procedures | | [phone] | | | | | CONSULT TO [...] Diabetes & | Type 1 | Christian Godinez ND | Adult [facility] | | | | Metabolism | diabetes | [address] | | | | | mellitus | [place] | [facility] | | | | | with | Street | Road | | | | | hypoglycemia | [place], [place] | Physicians | | | | | without | [phone] | [facility] | | | | | coma Type 1 | Phone: | [address] | | | | | diabetes | [phone] | Physicians | | | | | mellitus | Fax: | Pavilion | | | | | without | [phone] | [place], [place] | | | | | complication | | [address] | | | | | s | | Phone: | | | | | Procedures | | [phone] | | | | | CONSULT TO | | Fax: | | | | | DIABETES | | [phone] | | | | | ENDO | [...] | | Pavilion [address] | [place], [place] | (Primary Dx) | | | | [address] | [address] | | | | | Road Physicians | [phone] | | | | | [facility] [address] | | | | | | Physicians Pavilion | | | | | | [place], [place] | | | | | | [address] | | | | | | [phone] | | | +--------+---------+ + + + [...] AM PST | + + + + in this encounter Instructions Patient Instructions - Lidia Holguin MD - 04/20/2018 9:45 AM PSTFormatting of this note may be different from the original. Great to [...] schedule as much as possible Please contact [facility] [phone] for any questions Lab Results Component Value [...] a low blood sugar. Please visit the [facility] Website for information on what's new at our diabetes center. Let us know if you would like to sign up for a class or a one o n one diabetes education visit. Please meet with your primary care provider routinely for your medical care and annual chec k ups in this encounter Progress Notes Solange Lucas MA - 04/20/2018 9:49 AM PST Finger stick performed in clinic for a capillary A1c. Lidia Holguin MD - 04/20/2018 9:45 AM PSTFormatting of this note may be different f rom the original. [facility] PCP: RODNEY Cardoso Referring Physician: Christian Rodriguez ND [address] [place] [address] Reason for referral: Evaluate Type 1 Diabetes HPI: Gregory is a 38 y.o. male referred for evaluation of Type 1 Diabetes. Diabetes history: He was diagnosed with diabetes in 1992 at age 13. Circumstance: hospitalized, in [place] at the time ---- moved to [place] 14 years ago Treatment history: Has been [...] diabetes care: Living situation: grew up in [place] ---- moved to [place]--wanted to live somewhere that was health, mom when he was 23 He grew up with a lot of fried and fast food in the home. Dad has type 1 diabetes. Has t wo sisters. Lives in [place]. Lives alone. In physical therapy for cyst [...] by mouth once daily at bedtime. Fish Oil-[place]-3 Fatty Acids 300-1,000 mg oral capsule Take [...] scale, up to 30 units daily Insulin [place] (Disposable) 31 gauge x 5/16" needle 1 [...] ROS: Review of systems as stated in [facility]. Other pertinent review of systems includes: Weight: [...] 1992 at age 13. Circumstance: hospitalized, in [place] at the time ---- moved to [place] 14 years ago Treatment history: Has been on NPH, Novolog, Humalog, Levemir, Lantus and now Basaglar Pump/sensor history-- never on a pump---started Dexcom 6 months ago (G5) but challenges wit h insurance coverage Has working transmitter/sensor right now but every 3 months it takes about a month to proce ss the paperwork through [facility] and insurance History of acute complications: Severe [...] sensor use for awareness of trends In [employer] so very active throughout the day [...] as much as possible Please contact [facility] [phone] for any questions Lab Results Component Value Date A1C 5.5 04/20/2018 Schedule upcoming appointments: Nutrition visit to review meal patterns, activity and stress related trends Technology visit to refine use of sensor Sensor order --- You have history of testing 10 to 12 times daily when not on sensor and Keep up routine monitoring and use of current sensor Ask [facility] to send us supply requests Follow hypoglycemic [...] a low blood sugar. Please visit the [facility] Website for information on what's new at our diabetes center. Let us know if you would like to sign up for a class or a one o n one diabetes education visit. Please meet with your primary care provider routinely for your medical care and annual chec k ups 2. See orders Orders Placed This Encounter [place] Collection Capillary Blood Specimen [[id number]] only for Adults CONSULT TO ADULT DIABETES - NUTRITION (MNT) CONSULT TO ADULT DIABETES - EDUCATION (DIABETES SELF-MANAGEMENT) HEMOGLOBIN A1C,POC [[id number]}] Lidia Holguin MD [facility] 1ST FLOOR [address] [facility] [address] [place] [address] I spent 55 minutes with the patient. Greater than 50% of the time was spent counseling the patient regarding goals of care, glucose monitoring, insulin management,sensor technology, hypoglycemia avoidance, diabetes education, care coordination. in this encounter Plan of Treatment +--------+---------+ + + + | Date | Type | Specialty | Care Team | Description | +--------+---------+ + + + | 08/22/ | Office | Endocrinology, | Lidia Holguin | | | 2019 | Visit | Diabetes & | MD Kenny [address] [facility] | | | | | Metabolism | [address] | | | | | | [place], [place] | | | | | | [address] | | | | | | [phone] | | | | | | | [...] | + +--------+ + + + | WI COLLECTION | Routin | 04/20/2018 | Type 1 diabetes | | | CAPILLARY BLOOD | e | 9:49 AM | mellitus with | | | SPECIMEN | | PST | complication ([facility]) | | + +--------+ + + + in this encounter Results HEMOGLOBIN A1C,POC (04/20/2018 10:03 AM) + [...] [facility] | [address] | [place], [place] | | | [facility]ARE | [facility] | [address] | | | TESTS | | | | + + + + + in this encounter Visit Diagnoses + + | Diagnosis | + + | Type 1 diabetes mellitus with complication (HCC) - Primary | + + | Type I (juvenile type) diabetes mellitus with unspecified complication, not stated as | | uncontrolled | + +
--- OUTSIDE RECORDS SUMMARY | ~2018-07-08 | XMS | Clinical Summary ---
Demographics + + + | Address | [address] | | | [place] [address] | + + + | Home Phone [...] Team Providers + +------+ + | Care Client Architect Name | Role | Phone | + +------+ + | Sailaja Washburn | PP | | + +------+ + Source Comments [facility] and [facility] InPatient.[facility] Allergies + + + + + [...] | | + + +-------+---------+------+------+-------+ | Insulin [place] | 1 each. | | | / [...] | | + + +-------+---------+------+------+-------+ | Fish Oil-[place]-3 | Take by mouth. | | | [...] of | | Present Illness:CBGs:14-day avg = 80905-nhb avg = 197CBG this AM | | = 325Has new girlfriend - been going out to dinner a lot.Little | | exercise.Planning on taking a contract job for 3 months in | | [place].Needing to get supplies to cover him for this.Has not | | applied for Cover [place] because leaving to [place] soon. Will | | when he returns.Worried [...] of Present Illness:CBGs:14-day avg = | | 52868-yjm avg = 197CBG this AM = 325Has new girlfriend - been | | going out to dinner a lot.Little exercise.Planning on taking a | | contract job for 3 months in [place].Needing to get supplies to | | cover him for this.Has not applied for Cover [place] because | | leaving to [place] soon. Will when he returns.Worried about | [...] a contract job for 3 months in [place]. | |Needing to get supplies to cover him for this. | |Has not applied for Cover [place] because leaving to [place] soon. Will when he returns. | | [...] [address] | | | | | | [place], [place] | | | | | | [address] | | | | | | [phone] | | | | | | | [...] + +--------+ + + + | AL MNT INITIAL | Routin | 05/25/2018 | [...] + +--------+ + + + | AL COLLECTION | Routin | 04/20/2018 | Type [...] [facility] | [address] | [place], [place] | | | [facility] | [address] | [address] | | | TESTS | | | [...] | | | + +--------+ +--------+-------+---------+ | IT SOFTWARE DEVELOPER MEDICAID | IT SOFTWARE DEVELOPER | xxxxxxxx | Medica | | | [...] | 1979 | [phone] | [place] [address] | | | vidal | | | [phone] | | + +--------+ +--------+ + +
--- OUTSIDE RECORDS SUMMARY | ~2018-07-08 | XMS | Encounter Summary ---
Demographics + + + | Address | [address] | | | [place] [address] | + + + | Home Phone | | + + + | Preferred Language | Unknown | + + + | Marital Status | Single | + + + | Taoism Affiliation | Unknown | + + + | Race | White | + + + | Ethnic Group | Not or | + + + Author + + + | Author | [facility] | + + + | Organization | [facility] | + + + | Address | Unknown | + + + | Phone | Unavailable | + + + Support + + +---------+ + | Name | Relationship | Address | Phone | + + +---------+ + | Dandre Acosta | ECON | Unknown | | + + +---------+ + Care Team Providers + +------+ + | Care Company Laborer Name | Role | Phone | + +------+ + | Sailaja Washburn DOOR TO DOOR LEAD GENERATION | PCP | | + +------+ + [...] | | mellitus | [address] | [facility] | | | | | with | [address] | Mailcode: | | | | | complication | [place], [place] | [address] | | | | | ([facility]) | [address] | Physicians | | | | | Nutrition - | Phone: | Tiarra MOREIRA | | | | | Analyze carb | [phone] | [address] | | | | | intake at | Fax: | [place], [place] | | | | | meals, | [phone] | [address] | | | | | patterns, | | Phone: | | | | | dosing | | [phone] | | | | | strategy | | Fax: | | | | | Procedures | | [phone] | | | | | CONSULT TO [...] | Visit | Diabetes Health | [address] [facility] | mellitus with | | | | Center at [facility] | [address] | complication (HCC) | | | | Pavilion [address] | [facility] [place] | (Primary Dx) | | | | [facility] | [address] | | | | | Road Mailcode: | [phone] | | | | | [facility] | | | | | | [address] | | | | | | [place], [place] | | | | | | [address] | | | | | | [phone] | | | +--------+---------+ + + + [...] in [place] at the time, moved to [place] 14 years ago. Dad has type 1 [...] morning on a good day. Works in [employer], so job is also fairly active. Notices [...] and services clinic has to offer includ [facility]. Offered my continued support and education to [...] Moderately Stable Follow-up: MNT/DSMT [address]ita [address] [facility] DIABETES [facility] AT [address] Mailcode: [address] [place] [address] in this encounter Plan of Treatment +--------+---------+ + + + | Date | Type | Specialty | Care Team | Description | +--------+---------+ + + + | 08/22/ | Office | Endocrinology, | Lidia Holguin | | | 2018 | Visit | Diabetes & | MD Kenny [address] [place] [address] | | | | | Metabolism | [facility] | | | | | | [place], [place] | | | | | | [address] | | | | | | [phone] | | | | | | | | +--------+---------+ + + + as of this encounter Procedures + +--------+ + + + | Procedure Name | Priori | Date/Time | Associated Diagnosis | Comments | | | ty | | | | + +--------+ + + + | ME MNT INITIAL | Routin | 05/25/2018 | [...]
--- OUTSIDE RECORDS SUMMARY | ~2018-07-08 | XMS | Encounter Summary ---
Demographics + + + | Address | [address] | | | [place] [address] | + + + | Home Phone | | + + + | Preferred Language | Unknown | + + + | Marital Status | Single | + + + | Confucianism Affiliation | Unknown | + + + | Race | White | + + + | Ethnic Group | Not or | + + + Author + + + | Author | [facility] | + + + | Organization | [facility] | + + + | Address | Unknown | + + + | Phone | Unavailable | + + + Support + + +---------+ + | Name | Relationship | Address | Phone | + + +---------+ + | Dandre Acosta | ECON | Unknown | | + + +---------+ + Care Team Providers + +------+ + | Care Data Virtualization Consultant Name | Role | Phone | + +------+ + | Maddison Sailajabettie PICKETTP | PCP | | + +------+ + Reason for Visit + + + | Reason | Comments | + + + | [facility] | [place] | | Equipment (DME) | | | Orders | | + + + Encounter Details +--------+--------+ + + + | Date | Type | Department | Care Team | Description | +--------+--------+ + + + | 06/03/ | Refill | Leobardo Pedroza | Lidia Holguin | [facility] | | 2019 | | Diabetes Health | MD Kenny [address] [facility] | Equipment (DME) | | | | Center at Physicians | [address] | Orders ([place]) | | | | Pavilion [address] | [facility] [place] | | | | | [facility] | [address] | | | | | Road Physicians | [phone] | | | | | [facility] [place] [address] | | | | | | Physicians Pavilion | | | | | | [facility] [place] | | | | | | [address] | | | | | | [phone] | | | +--------+--------+ + + + [...] Rd | | | | | | [place], [place] | | | | | | [address] | | | | | | [phone] | | | | | | | | +--------+---------+ + + + as of this encounter Visit Diagnoses Not on filein this encounter"
--- OUTSIDE RECORDS SUMMARY | ~2018-07-08 | XMS | Encounter Summary ---
Demographics + + + | Address | [address] | | | [place] [address] | + + + | Home Phone [...] Team Providers + +------+ + | Care Canvas Goods Fabricator Name | Role | Phone | + +------+ + | Sailaja Washburn MANUSCRIPT EDITOR | PCP | | + +------+ + [...] | | mellitus | Kevin Staley | [address] | | | | | with | [address] | Mailcode: | | | | | complication | [place], [place] | PPV05 | | | | | ([facility]) | [address] | Physicians | | | | | Review | Phone: | Tiarra MOREIRA | | | | | optimizing | [phone] | [address] | | | | | sensor | Fax: | [place], [place] | | | | | technology | [phone] | [address] | | | | | Procedures | | Phone: | | | | | CONSULT TO | | [phone] | | | | | ADULT | | Fax: | | | | | DIABETES - | | [phone] | | | | | EDUCATION | [...] | | mellitus | Kevin Staley | [facility] | | | | | with | [address] | Mailcode: | | | | | complication | [place], [place] | [address]PV05 | | | | | ([facility]) | [address] | Physicians | | | | | Nutrition - | Phone: | Tiarra ANTONIO | | | | | Analyze carb | [phone] | [address] | | | | | intake at | Fax: | [place], [place] | | | | | meals, | [phone] | [address] | | | | | patterns, | | Phone: | | | | | dosing | | [phone] | | | | | strategy | | Fax: | | | | | Procedures | | [phone] | | | | | CONSULT TO [...] | | | | | mellitus | Chrisman | [facility] | | | | | with | Street | Road | | | | | hypoglycemia | [place], [place] | Physicians | | | | | without | [address] | [facility] | | | | | coma Type 1 | Phone: | [address] | | | | | diabetes | [phone] | Physicians | | | | | mellitus | Fax: | Pavilion | | | | | without | [phone] | [place], [place] | | | | | complication | | [address] | | | | | s | | Phone: | | | | | Procedures | | [phone] | | | | | CONSULT TO | | Fax: | | | | | DIABETES | | [phone] | | | | | ENDO | [...] | Pavilion [address] | [place], [place] | (Primary Dx) | | | | [address] | [address] | | | | | Road Physicians | [phone] | | | | | [facility] [address] | | | | | | Physicians Pavilion | | | | | | [place] | | | | | | [address] | | | | | | [phone] | | | +--------+---------+ + + + [...] schedule as much as possible Please contact [facility] [phone] for any questions Lab Results Component Value [...] a low blood sugar. Please visit the [facility] Website for information on what's [...] may be different f rom the original. [facility] PCP: RODNEY Cardoso Referring Physician: Christian Rodriguez ND [address] [place] [address] Reason for referral: Evaluate Type 1 Diabetes HPI: Gregory is a 38 y.o. male referred for evaluation of Type 1 Diabetes. Diabetes history: He was diagnosed with diabetes in 1992 at age 13. Circumstance: hospitalized, in [place] at the time ---- moved to [place] 14 years ago Treatment history: Has been [...] age 19 ---- attributes this to drugs, tiffnay ellion, parents getting --- no recent hospitalization [...] grew up in [place] ---- moved to [place]--wanted to live somewhere that was health, mom when he was 23 He grew up with a lot of fried and fast food in the home. Dad has type 1 diabetes. Has t wo sisters. Lives in [place]. Lives alone. In physical therapy for cyst [...] by mouth once daily at bedtime. Fish Oil-[place]-3 Fatty Acids 300-1,000 mg oral capsule Take [...] scale, up to 30 units daily Insulin [place] (Disposable) 31 gauge x 5/16" needle 1 [...] ROS: Review of systems as stated in [place]. Other pertinent review of systems includes: Weight: [...] [place] at the time ---- moved to [place] 14 years ago Treatment history: Has been on NPH, Novolog, Humalog, Levemir, Lantus and now Basaglar Pump/sensor history-- never on a pump---started Dexcom 6 months ago (G5) but challenges wit h insurance coverage Has working transmitter/sensor right now but every 3 months it takes about a month to proce ss the paperwork through [employer] and insurance History of acute complications: Severe [...] sensor use for awareness of trends In [employer] so very active throughout the day [...] as much as possible Please contact Leobardo [facility] [phone] for any questions Lab Results Component Value Date A1C 5.5 04/20/2018 Schedule upcoming appointments: Nutrition visit to review meal patterns, activity and stress related trends Technology visit to refine use of sensor Sensor order --- You have history of testing 10 to 12 times daily when not on sensor and Keep up routine monitoring and use of current sensor Ask [employer] to send us supply requests Follow hypoglycemic [...] a low blood sugar. Please visit the [facility] Website for information on what's new at our diabetes center. Let us know if you would like to sign up for a class or a one o n one diabetes education visit. Please meet with your primary care provider routinely for your medical care and annual chec k ups 2. See orders Orders Placed This Encounter [place] Collection Capillary Blood Specimen [[id number]] only for Adults CONSULT TO ADULT DIABETES - NUTRITION (MNT) CONSULT TO ADULT DIABETES - EDUCATION (DIABETES SELF-MANAGEMENT) HEMOGLOBIN A1C,POC [[id number]}] Lidia Holguin MD [facility] 1ST FLOOR [address] [facility] [address] [place] [address] I spent 55 minutes with [...] | Diabetes & | MD Kenny [address] [facility] | | | | | Metabolism | [address] | | | | | | [place], [place] | | | | | | [address] | | | | | | [phone] | | | | | | | [...] | + +--------+ + + + | [place] COLLECTION | Routin | 04/20/2018 | Type [...] [place]LEY | [address] | [place], [place] | | | KARI RODRIGUEZ OF CARE | [facility] | [address] | | | TESTS | | | [...]
[~2018-07-08 14:45] MED LIST: BACLOFEN5 MG PO; DOXYCYCLINE HY100 MG PO; DOXYCYCLINE HYC50 M2 PO; DULOXETINE HCL60 MG PO; GABAPENTIN100 MG PO; LANTUS SOL100 UNIT/1 SUB-Q; MIRTAZAPINE15 MG PO; VITAMIN D32000 UNI1 PO
--- OUTSIDE RECORDS SUMMARY | 2018-07-08 14:48 | XMS ---
PreManage Notification: DOREEN GRIFFIN Security Band Master Events 1 event(s) in the past 18 months Most recent security events: Elopement at [facility] 06/07/2018 19:01 - Other Details: PATIENT LWBS. CRITERIA MET - Group Notification - [facility] - Has Care Guidelines - [facility] - 2 Visits in 30 Days CARE PROVIDERS RODNEY MARTINEZor Current PHONE: [phone] [address] [facility]: Federally Qualified 11/28/2017-Current [facility] ([facility]) PHONE: [phone] [facility]: Multi-Specialty 12/12/2017-12/12/2018 Behavioral PHONE: [phone] BERNARD SHAFFER Current PHONE: [phone] EDITH GIRON Strip Catcher Current PHONE: [phone] Simran Merrill Current PHONE: [phone] CINTHYA [place]: Mental Health Current PHONE: [phone] [facility] Mental Health Provider 06/21/2017-12/21/2017 PHONE: Unknown KADI BIANCHI Primary Care 11/29/2017-[facility] DENTAL CLINIC PHONE: [phone] [facility] 02/15/2018-[facility] PRIMARY CARE PHONE: [phone] Simran Merrill Primary Care Current PHONE: Unknown [facility] Primary [facility] Current PHONE: Unknown Lisa Mensah Mental Health Provider 09/15/2017-Current PHONE: Unknown [facility] Primary Care 08/18/2017-[facility] INTERNAL [facility] PHONE: [phone] BERNARD SHAFFER Primary Care Current PHONE: Unknown RODNEY MARTINEZ Primary Care Current PHONE: Unknown [facility] Current PHONE: Unknown [facility] Other 10/31/2015-Current [facility] PHONE: Unknown JEANNINE YORK Primary Care Current PHONE: Unknown SARABJIT JEAN Primary Care 10/29/2014-Current PHONE: [phone] Brayden has no Care Guidelines for this patient. Care History Medical/Surgical 06/24/2018 [facility] - CHW SPOKE WITH PATIENT- PATIENT HAS BEEN WAITING FOR [facility] TO RECEIVE AND REVIEW MEDICAL RECORDS SINCE APRIL. - CHW PROVIDED [facility] CARE [facility]IN[facility] CONTACT NUMBER AND ADDRESS TO ESTABLISH CARE. PATIENT STATED HE WOULD BE IN CONTACT WITH [facility] ON Wednesday06/27/18 AND WILL CALL CHW WITH UPDATES. E.D. VISIT COUNT (12 MO.) [address] [facility] TOTAL 12 NOTE: Visits indicate total known visits. ED/UCC VISIT TRACKING (12 MO.) 07/08/2018 14:46 [facility] [place] TYPE: Emergency COMPLAINT: - POSS INFECTION 06/22/2018 14:41 [place] [place] TYPE: Emergency COMPLAINT: - POSS STAPH INFECTION DIAGNOSES: - Methicillin resistant Staphylococcus aureus infection, unspecified site - Personal history of nicotine dependence - Other half-way (current) drug therapy - Type 1 diabetes mellitus without complications - Allergy status to narcotic agent status - FPC (current) use of insulin - Allergy status to penicillin 06/07/2018 19:01 [place] TYPE: Emergency COMPLAINT: - ANXIETY DIAGNOSES: - Procedure and treatment not carried out due to patient leaving prior to being seen by health care provider 10/04/2017 01:24 [facility] [place] TYPE: Emergency DIAGNOSES: - Abscess - Pain in thoracic spine - Other chronic pain 09/03/2017 14:36 [facility] [place] TYPE: Emergency DIAGNOSES: - Shoulder spasm 08/26/2017 12:20 [facility] [place] TYPE: Emergency DIAGNOSES: - MED REQ 08/25/2017 11:34 [facility] [place] TYPE: Emergency DIAGNOSES: - muscle spasms 08/19/2017 22:35 Miguel [place] TYPE: Emergency DIAGNOSES: - Hypoglycemia, unspecified - Hypoglycemia/nerve pain 08/01/2017 08:07 [facility] [place] TYPE: Emergency DIAGNOSES: - MUSCLE SPASMS 07/15/2017 10:46 Miguel [place] TYPE: Emergency DIAGNOSES: - Panic Attack 07/15/2017 01:08 Miguel [place] TYPE: Emergency DIAGNOSES: - Generalized anxiety disorder - CYST ON SPINE 07/13/2017 14:19 [place] [place] TYPE: Emergency DIAGNOSES: - Chest pain, unspecified - chest tightness INPATIENT VISIT TRACKING (12 MO.) No inpatient visits to display in this time frame [email or web address]
[2018-07-08] MEDS ORDERED: BACTRIM DS TAB1 EACH PO (15:21)
== END 2018-07-08 15:32 | disposition home or self-care (01) ==
LOC: ED 14:45
DX: S01.20XA Unspecified open wound of nose, initial encounter (principal); S01.80XA Unspecified open wound of other part of head, initial encounter; L08.9 Local infection of the skin and subcutaneous tissue, unspecified; E10.9 Type 1 diabetes mellitus without complications; Z87.891 Personal history of nicotine dependence; Z88.0 Allergy status to penicillin; Z88.5 Allergy status to narcotic agent; Z79.4 Long term (current) use of insulin; Z79.899 Other long term (current) drug therapy; X58.XXXA Exposure to other specified factors, initial encounter
CPT/HCPCS: 87070; 87205; 99283

== ENCOUNTER 2018-07-11 13:18 | Emergency (ER) | payer OTHER ==
[~2018-07-11] VITALS: Ht 182.9 cm; Wt 82.5 kg
--- OUTSIDE RECORDS SUMMARY | ~2018-07-11 | XMS | Encounter Summary ---
Demographics + + + | Address | [address] | | | [place] [address] | + + + | Home Phone | | + + + | Preferred Language | Unknown | + + + | Marital Status | Single | + + + | Latter Day Affiliation | Unknown | + + + | Race | White | + + + | Ethnic Group | Not or | + + + Author + + + | Author | [facility] | + + + | Organization | [facility] | + + + | Address | Unknown | + + + | Phone | Unavailable | + + + Support + + +---------+ + | Name | Relationship | Address | Phone | + + +---------+ + | Dandre Acosta | ECON | Unknown | | + + +---------+ + Care Team Providers + +------+ + | Care Manager Creative Name | Role | Phone | + [...] | | | | | [place], | [place], [place] | | | | | | [place] | [address] | | | | | | [address] | Phone: | | | | | | Phone: | [phone] | | | | | | [phone] | Fax: | | | | | | Fax: | [phone] | | | | | | [phone] | | +--------+--------+ + + + + Encounter Details +--------+---------+ + + + | Date | Type | Department | Care Team | Description | +--------+---------+ + + + | 10/27/ | Office | [facility] at | Alvin Martin MD | Depressive disorder | | 2018 | Visit | [facility] [address] | [address] | (Primary Dx); Type 1 | | | | [address] [place], [place] | [place], [place] | diabetes mellitus | | | | [address] | [address] | with complication | | | | [phone] | [phone] | (HCC); Chest wall | | | [...] 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 He does have well-controlled diabetes with a [...] under the skin (SUBC). Sliding scale Insulin [place] (Disposable) 31 gauge x 5/16" needle 1 [...] use No Alcohol marijuana drugs Originally from [place], relocated to [place] because of health and environment in [facility] , lived briefly in [place]. He states that although he does not have any identified medical decision-maker a person by the name of Gurjit Sawyer (a lean six sigma black belt from [place]) would be that person. He does have 2 sister s and a father in [facility]. Physical Exam: Constitutional: There were no vitals [...] Alvin Martin MD I spent 45 minutes cshk-nt-mfpt with the patient. I spent more than [...] Rd | | | | | | [place], [place] | | | | | | [address] | | | | | | [phone] | | | | | | | [...]
--- OUTSIDE RECORDS SUMMARY | ~2018-07-11 | XMS | Encounter Summary ---
Demographics + + + | Address | [address] | | | [place] [address] | + + + | Home Phone | | + + + | Preferred Language | Unknown | + + + | Marital Status | Single | + + + | Alevism Affiliation | Unknown | + + + | Race | White | + + + | Ethnic Group | Not or | + + + Author + + + | Author | [facility] | + + + | Organization | [facility] | + + + | Address | Unknown | + + + | Phone | Unavailable | + + + Support + + +---------+ + | Name | Relationship | Address | Phone | + + +---------+ + | Dandre Acosta | ECON | Unknown | | + + +---------+ + Care Team Providers + +------+ + | Care Ux Designer Name | Role | Phone | + +------+ + | No Pcp Per Patient | PCP | Unavailable | + +------+ + Reason for Visit Physical Therapy (Routine) +--------+--------+ + + + + | Status | Reason | Specialty | Diagnoses / | Referred By | Referred To | | | | | Procedures | Contact | Contact | +--------+--------+ + + + + | Closed | | Physical | Diagnoses | Neil, | [facility] | | | | Therapy | Myofascial | Camelia D, | [address] | | | | | pain | PA-C [address] | | | | | Arachnoid | [address] | Mailcode: | | | | | cyst | [address] | | | | | Procedures | [place] | for Health | | | | | PHYSICAL | [address] | and Healing, | | | | | THERAPY | Phone: | 1st floor | | | | | REFERRAL | [phone] | [facility] [place] | | | | | | Fax: | [address] | | | | | | [phone] | Phone: | | | | | | | [phone] | | | | | | | Fax: | | | | | | | [phone] | +--------+--------+ + + + + Encounter Details +--------+---------+ + + + | Date | Type | Department | Care Team | Description | +--------+---------+ + + + | 08/19/ | Office | [facility] | Dissinger, | Chronic right-sided | | 2018 | Visit | Therapy Services at | Keely, PT [address] | thoracic back pain | | | | [facility] | [facility] [address] | (Primary Dx); Cyst | | | | [address] | [place], [place] | of spinal meninges | | | | Mailcode: CH3P | [address] | | | | | [facility] | | | | | | and Healing, 1st | | | | | | floor [place], [place] | | | | | | [address] | | | | | | [phone] | | | +--------+---------+ + + + [...] documented as of this encounter Progress Notes Keely Davis, PT - 08/19/2017 10:00 AM PDT Insurance: Payor: [facility] MEDICAID / Plan: [facility] [employer] HEALTH SHARE / Product Type: Medicaid / Non-Medicare [facility] PHYSICAL THERAPY EVALUATION Past Medical History: Diagnosis Date Anxiety and depression Methamphetamine abuse Type 1 diabetes mellitus (HCC) Past Surgical History Procedure Laterality Date None Current Outpatient Prescriptions: acetaminophen 500 mg oral tablet, Take by mouth., Disp: , Rfl: cyclobenzaprine 10 mg oral tablet, Take 5-10 mg by mouth three times daily as needed. , Dis p: , Rfl: gabapentin 100 mg oral capsule, [...] (SUBC). Sliding scale, Disp: , Rfl: Insulin [place] (Disposable) 31 gauge x 5/16" needle, 1 each., Disp: , Rfl: propranolol 10 mg oral tablet, Take 5 mg by mouth once daily., Disp: , Rfl: Previous physical therapy treatment or alternative treatments for this condition includes: physical therapy. Results of previous treatment: Somewhat effective. Concurrent medical treatment: none. SUBJECTIVE: 08/19/2017 History of Presenting Problems: Gregory is a [...] a pain clinic to see a counselo r there, currently seeing someone at [facility]. Tingling static electricity going down his lef [...] body, qi gong daily (adjusted), meditating. OBJECTIVE: Pt ambulation into PT without assistive device. Posture/Observation: rounded shoulders. Strength: 5/5 strength throughout, pain with resisted right shoulder abduction Special Tests: Empty Can positive on right, lift off positive on right Range Of Motion: Generally within functional limits throughout. Sensation: numbness and tingling: location of deficit some tingling in bilateral legs, some intermittent tingling/heaviess in left arm Motor Control: within normal limits Balance: Not formally assessed Gait: Deviations: within normal limits. Vision and eye movements: no problems reported. Treatment: Evaluation and instruction in stretches Education: Rehabilitation diagnosis and plan of FPC program: Exercise Date given Cat/Cow stretch 08/19/2017 Cross body shoulder stretch 08/19/2017 Hamstring stretch seated 08/19/2017 ASSESSMENT: Pt presents with right upper thoracic and low back pain that has been ongoing since last ye ar despite trying many avenues to address it. Suggested pt report his "freezing"/weakness/fa lling symptoms from previous day, in addition to ongoing limb heaviness, to his physician, aure warren these were somewhat concerning given the recent MRI findings of arachnoid spinal cyst. Madhu mane will benefit from skilled physical therapy to address his back pain. Goals: 12 wks Goal: Date Set Status Pt will be 100% independent in home exercise program 08/19/2017 Pt will use less pain medication throughout the day/night 08/19/2017 Pt will be able to return to work 08/19/2017 See topics above to identify problem areas and goals Personal factors/Comorbidities: Musculoskeletal and Neuromuscular Communication: No noted deficits, Psychosocial: No noted deficits, Moderate 1-2 Body structures & functions, Activity limitations, participation restrictions: Musculoskele nichole , ROM and Neuromuscular Work/school, Community, Social and Recreational sport Moderate - 3 or more Stability of condition: Very slow to stagnant progression of recovery Moderate - Evolving Clinical decision making: Moderate level of skill to determine plan of care and implement donna woods Moderate - Moderate complexity Complexity: Moderate - 05037 The patient requires services that can be safely and effectively performed only by a qualif ied therapist to address the aforementioned and highlighted problems and goals. Goals discussed and agreed upon with patient and/or family. Individual cultural and social needs addressed. Rehab Potential: Good, if Gregory carries through with home exercise program. This note is to serve as the discharge summary if the patient fails to attend further Physi khurram Therapy appointments or contact the therapist regarding any change in their status. Keely Davis, PT [facility] 1ST FLOOR Scheduled Appointment time: 10:00 AM Treatment began: 10:05 Treatment ended: 10:50 Patient was seen for a total of 45 minutes of treatment time. 45 minutes was in direct cont act care as described above and on completed flow sheets. Treatment Interventions duration in minutes: Procedure:Physical Therapy Evaluation and Ther apeutic Activities 15 min PLAN OF CARE (Established 08/19/2017 to be updated every 60 days): Treatment Plan Summary: Pain management strategies, strengthening, stretching, manual thera py Procedure Codes: Re-evaluation 57299, Therapeutic Exercise 06456, Manual Therapy 02988, Th erapeutic Activities 50456 and Neuromuscular Reeducation 19646 Minutes per session: 45 Total number of visits: 12 Frequency: 1 per week Duration: 12 weeks (must exceed or match Medicare service period request) Service period from: 08/19/2017 to: - (Medicare must match duration or be no greater than 90 days if proposed duration is greater than 3 months) Start of care: 08/19/2017 Referral information Authorizing Provider: CAMELIA NEIL [[id number]] Onset/Referral Date: 08/17/17 Primary/Referral Diagnosis: M54.6, G89.29 Chronic right-sided thoracic back pain G96.19 Cyst of spinal meninges Next progress report 10/19/2017 Insurance: Payor: [employer] MEDICAID / Plan: [employer] SHARE / Product Type: Medicaid / G-code:Medicare: G-code due by 10/19/2017 Number visits authorized: 1 Number visits used: 1 Outcome Measure 08/19/2017 Start Back 08/20/2017 #1: [...] Assessment Intermediate Risk . documented in this encounter Plan of Treatment +--------+---------+ + + + | Date | Type | Specialty | Care Team | Description | +--------+---------+ + + + | 08/22/ | Office | Endocrinology, | Lidia Holguin | | | 2019 | Visit | Diabetes & | MD Kenny [address] [facility] | | | | | Metabolism | [address] | | | | | | [place], [place] | | | | | | [address] | | | | | | [phone] | | | | | | | | +--------+---------+ + + + documented as of this encounter Procedures + +--------+ + + + | Procedure Name | Priori | Date/Time | Associated Diagnosis | Comments | | | ty | | | | + +--------+ + + + | AL THERAPEUTIC | Routin | 08/20/2017 | Chronic | | | ACTIVITIES | e | 8:58 AM | right-sided thoracic | | | | | PDT | back pain Cyst of | | | | | | spinal meninges | | + +--------+ + + + documented in this encounter Visit Diagnoses + + | Diagnosis | + + | Chronic right-sided thoracic back pain - Primary | + + | Cyst of spinal meninges Disorders of meninges, not elsewhere classified | + + documented in this encounter
--- OUTSIDE RECORDS SUMMARY | ~2018-07-11 | XMS | Encounter Summary ---
Demographics + + + | Address | [address] | | | [place] [address] | + + + | Home Phone | | + + + | Preferred Language | Unknown | + + + | Marital Status | Single | + + + | Tenriism Affiliation | Unknown | + + + [...] Team Providers + +------+ + | Care Fruit Express Agent Name | Role | Phone | + [...] | Myofascial | Edward D, | [address] | | | | | pain | PA-C [address] | | | | | Arachnoid | [address] | Mailcode: | | | | | cyst | [address] | | | | | Procedures | [place] | for Health | | | | | PHYSICAL | [address] | and Healing, | | | | | THERAPY | Phone: | 1st floor | | | | | REFERRAL | [phone] | [facility] [place] | | | | | | Fax: | [address] | | | | | | [phone] | Phone: | | | | | | | [phone] | | | | | | | Fax: | | | | | | | [phone] | +--------+--------+ + + + + Consultation (Routine) +--------+---------+ + + + + | Status | Reason | Specialty | Diagnoses / | Referred By | Referred To | | | | | Procedures | Contact | Contact | +--------+---------+ + + + + | Closed | Other | Pain Medicine | Diagnoses | Neil, | [facility] | | | | / Pain | Myofascial | Edward D, | [address] | | | | Management | pain | [address] | [address] | | | | | Arachnoid | [address] | Code: CH15P | | | | | cyst | [facility] | | | | | Procedures | [place] | Health and | | | | | CONSULT TO | [address] | , | | | | | PAIN | Phone: | Floor | | | | | MANAGEMENT | [phone] | [place], [place] | | | | | | Fax: | [address] | | | | | | [phone] | Phone: | | | | | | | [phone] | | | | | | | Fax: | | | | | | | [phone] | +--------+---------+ + + + + Consultation (Routine) + +--------+ + + + + | Status | Reason | Specialty | Diagnoses / | Referred By | Referred To | | | | | Procedures | Contact | Contact | + +--------+ + + + + | Pending | | | Diagnoses | Jolynn, | | | Review | | | Myofascial | Edward Cerda, | | | | | | pain | PA-C [address] | | | | | | Arachnoid | [address] | | | | | | cyst | [place], | | | | | | Procedures | [place] | | | | | | [facility] | [address] | | | | | | - EXTERNAL | Phone: | | | | | | ONLY | [phone] | | | | | | | Fax: | | | | | | | [phone] | | + +--------+ + + + [...] | | spine | [facility] | [address] | | | | | | [address] | [place], [place] | | | | | | Physicians | [address] | | | | | | [address] | Phone: | | | | | | Mother | [phone] | | | | | | [address] | Fax: | | | | | | [address] | [phone] | | | | | | Susana | | | | | | | [place] [address] | | | | | | | Phone: | | | | | | | [phone] | | | | | | | Fax: | | | | | | | [phone] | | +--------+--------+ + + + + Encounter Details +--------+---------+ + + + | Date | Type | Department | Care Team | Description | +--------+---------+ + + + | 08/17/ | Office | [facility] at | Edward Neil, | Myofascial pain | | 2018 | Visit | [place] [address] | [place] [address] | (Primary Dx); | | | | Ave [place], [place] | Ave [place], [place] | Arachnoid cyst | | | | [address] | [address] | | | | | [phone] | [phone] | | | | | | | [...] questionna cesar that will be scanned into Moment. Current medication list: Current Outpatient Prescriptions Medication [...] under the skin (SUBC). Sliding scale Insulin [place] (Disposable) 31 gauge x 5/16" needle 1 [...] present. I spent at least 40 minutes xxld-hb-jtar with the patient. I spent more than 50% of this vi sit in coordination of care and counseling in which we discussed diagnosis, treatment, imagi ng studies and follow-up. Edward Neil PA-C [facility] [place] [address] [place] [address] [facility] OPEN NOTE [[id number]] documented in this e ncounter Plan of Treatment +--------+---------+ + + + | Date | Type | Specialty | Care Team | Description | +--------+---------+ + + + | 08/22/ | Office | Endocrinology, | Lidia Holguin | | | 2019 | Visit | Diabetes & | MD Kenny [address] | | | | | Metabolism | [address] | | | | | | [place], [place] | | | | | | [address] | | | | | | [phone] | | | | | | | [...]
--- OUTSIDE RECORDS SUMMARY | ~2018-07-11 | XMS | Clinical Summary ---
Demographics + + + | Address | [address] | | | [place] [address] | + + + | Home Phone | | + + + | Preferred Language | Unknown | + + + | Marital Status | Single | + + + | Druze Affiliation | Unknown | + + + [...] Team Providers + +------+ + | Care Penciller Name | Role | Phone | + +------+ + | Sailaja Washburn | PP | | + +------+ + Source Comments JOSE FRANCISCO is fully live on both Epic[facility] Ambulatory and [facility] InPatient.[facility] Allergies + [...] | + + + +---------+------+------+-------+ | Insulin [place] | 1 each. | | 0 | 08/2 | | Activ | | (Disposable) 31 | | | | 8/20 | | e | | gauge x 5/16" needle | | | | 15 | | | + + + +---------+------+------+-------+ | baclofen 10 mg | Take 10 mg by mouth | | 0 | | | Activ | | oral tablet | once daily at | | | | | e | | | bedtime. | | | | | | + + + +---------+------+------+-------+ | DULoxetine 20 mg | Take 20 mg by mouth | | 0 | [...] | + + + +---------+------+------+-------+ | Fish Oil-[place]-3 | Take by mouth. | | 0 [...] | | | e | | og (BASAGLAR KWIKPEN | (SUBC) once daily at | | | | | | | U-100 INSULIN SUBQ) | bedtime. | | | | | | + + + +---------+------+------+-------+ | Blood-Glucose | 1 each by NOT | | 0 | 09/29 | | Activ | | Sensor (DEXCOM G5-G4 | APPLICABLE route. | | | 10/18 | | e | | SENSOR) device [...] of | | Present Illness:CBGs:14-day avg = 05233-qjg avg = 197CBG this AM | | = 325Has new girlfriend - been going out to dinner a lot.Little | | exercise.Planning on taking a contract job for 3 months in | | [place].Needing to get supplies to cover him for this.Has not | | applied for [employer] [place] because leaving to [place] soon. Will | | when he returns.Worried [...] of Present Illness:CBGs:14-day avg = | | 66927-uqa avg = 197CBG this AM = 325Has new girlfriend - been | | going out to dinner a lot.Little exercise.Planning on taking a | | contract job for 3 months in [place].Needing to get supplies to | | cover him for this.Has not applied for [employer] [place] because | | leaving to [place] soon. Will when he returns.Worried about | [...] a contract job for 3 months in [place]. | |Needing to get supplies to cover him for this. | |Has not applied for [employer] [place] because leaving to [place] soon. Will when he returns. | | [...] other CV risks. | + + Encounters +--------+---------+ + + + | Date | Type | Specialty | Care Team | Description | +--------+---------+ + + + | 07/11/ | Refill | | Lidia Holguin | Durable Medical | | 2019 | | | S, | Equipment (DME) | | | | | | Orders ([place]) | +--------+---------+ + + + | 06/03/ | Refill | | Lidia Holguin | Durable Medical | | 2019 | | | S, | Equipment (DME) | | | | | | Orders ([place]) | +--------+---------+ + + + | 05/24/ | Office | | [address] Mal[address] | Type 1 diabetes | | 2018 | Visit | | | mellitus with | | | | | | complication (HCC) | | | | | | (Primary Dx) | +--------+---------+ + + + | 04/20/ | Office | | Lidia Holguin | Type 1 diabetes | | 2018 | Visit | | MD Kenny | mellitus with | | | | | | complication (HCC) | | | | | | (Primary Dx) | +--------+---------+ + + + from Last [...] + + | 08/22/ | Office | | Lidia Holguin | | | 2019 | Visit | | MD Kenny [address] [facility] | | | | | | [address] | | | | | | [place], [place] | | | | | | [address] | | | | | | [phone] | | | | | | | [...] + + + + | Pneumococcal | | | | | vaccination (1 of 1 | 8 | | | | - PPSV23) | | | | + + + + + | Diabetic eye exam | | | | | | 2 | | | + + + + + | Medical attention | | | | | for nephropathy | 2 | | | + + + + + | Hemoglobin A1c | | 04/20/2018 | | | | 9 | | | + + + + + | Influenza (Flu) | | 12/09/2011 | | | vaccination (Season | 9 | | | | Ended) | | | | + + + [...] | + +--------+ + + + | [place] MNT INITIAL | Routin | 05/25/2018 | [...] | + +--------+ + + + | NM COLLECTION | Routin | 04/20/2018 | Type 1 diabetes | | | CAPILLARY BLOOD | e | 9:49 AM | mellitus with | | | SPECIMEN | | PST | complication (HCC) | | + +--------+ + + + from Last 3 Months Results HEMOGLOBIN A1C,POC (04/20/2018 10:03 AM PST) + +-------+ + + + | Component | Value | Ref Range | Performed | Pathologist | | | | | At | Signature | + +-------+ + + + | HEMOGLOBIN | 5.5 | 4.0 - 5.7 % | [facility] - | | | A1C,POC | | | [place] | | | | | | [place], [place] | | | | | | OF [...] [place] | [address] | [place], [place] | | | [place] POINT OF CARE | [facility] | [address] | | | TESTS | | | [...] | | | + +--------+ +--------+-------+---------+--------+ | WASTEWATER DESIGN ENGINEER MEDICAID | WASTEWATER DESIGN ENGINEER | xxxxxxxx | | | | Medica [...] Self | [birth year] | [address] | | | al/Fam | | 1980 | [phone] | [place] [address] | | | vidal | | | 1 (Home) | | + +--------+ +--------+ + +
--- OUTSIDE RECORDS SUMMARY | ~2018-07-11 | XMS | Encounter Summary ---
Demographics + + + | Address | [address] | | | [place] [address] | + + + | Home Phone [...] Team Providers + +------+ + | Care Financial Aid Manager Name | Role | Phone | + +------+ + PCP | Unavailable | + +------+ + Encounter Details +--------+ + + + + | Date | Type | Department | Care Team | Description | +--------+ + + + + | 07/27/ | Document-Sc | UNKNOWN DEPARTMENT | Unknown . | | | 2013 | anned | [address] [facility] | | | | | | [facility] | | | | | | [place], [place] | | | | | | [address] | | | +--------+ + + + [...] Visit | Diabetes & Morris Cox MD [address] | | | | | Metabolism | [address] | | | | | | [place], [place] | | | | | | [address] | | | | | | [phone] | | | | | | | | +--------+---------+ + + + documented as of this encounter Visit Diagnoses Not on filedocumented in this encounter"
--- OUTSIDE RECORDS SUMMARY | ~2018-07-11 | XMS | Encounter Summary ---
Demographics + + + | Address | [address] | | | [place] [address] | + + + | Home Phone [...] + + + | Author | [facility] | + + + | Organization | [facility] | + + + | Address | Unknown | + + + | Phone | Unavailable | + + + Support + + +---------+ + | Name | Relationship | Address | Phone | + + +---------+ + | Dandre Acosta | ECON | Unknown | | + + +---------+ + Care Team Providers + +------+ + | Care Gum Cook Name | Role | Phone | + [...] | | | 2017 | on | [facility] [address] | [place] [address] | | | | | [place] [facility] [place] | [place] [facility] [place] | | | | | [address] | [address] | | | | | [phone] | [phone] | | | | | | | [...] Visit | Diabetes & | MD Kenny [address] [facility] | | | | | Metabolism | [address] | | | | | | [place] | | | | | | [address] | | | | | | [phone] | | | | | | | | +--------+---------+ + + + documented as of this encounter Visit Diagnoses Not on filedocumented in this encounter"
--- OUTSIDE RECORDS SUMMARY | ~2018-07-11 | XMS | Encounter Summary ---
Demographics + + + | Address | [address] | | | [place] [address] | + + + | Home Phone | | + + + | Preferred Language | Unknown | + + + | Marital Status | Single | + + + | Zoroastrian Affiliation | Unknown | + + + | Race | White | + + + | Ethnic Group | Not or | + + + Author + + + | Author | [facility] | + + + | Organization | [facility] | + + + | Address | Unknown | + + + | Phone | Unavailable | + + + Support + + +---------+ + | Name | Relationship | Address | Phone | + + +---------+ + | Dandre Acosta | ECON | Unknown | | + + +---------+ + Care Team Providers + +------+ + | Care Retail Coverage Merchandiser Lead Name | Role | Phone | + [...] visit | | 2018 | | [facility] [address] | [place] [address] | yesterday) | | | | [place] Mailcode: [id number] | [place], [place] | | | | | [facility] | [address] | | | | | and Char[place], | [phone] | | | | | Floor [place], [place] | | | | | | [address] | | | | | | [phone] | | | +--------+ + + + [...] | Diabetes & | MD Kenny [address] [facility] | | | | | Metabolism | [address] | | | | | | [place], [place] | | | | | | [address] | | | | | | [phone] | | | | | | | | +--------+---------+ + + + documented as of this encounter Visit Diagnoses Not on filedocumented in this encounter"
--- OUTSIDE RECORDS SUMMARY | ~2018-07-11 | XMS | Encounter Summary ---
Demographics + + + | Address | [address] | | | [place] [address] | + + + | Home Phone | | + + + | Preferred Language | Unknown | + + + | Marital Status | Single | + + + | Restorationism Affiliation | Unknown | + + + | Race | White | + + + | Ethnic Group | Not or | + + + Author + + + | Author | [facility] | + + + | Organization | [facility] | + + + | Address | Unknown | + + + | Phone | Unavailable | + + + Support + + +---------+ + | Name | Relationship | Address | Phone | + + +---------+ + | Dandre Acosta | ECON | Unknown | | + + +---------+ + Care Team Providers + +------+ + | Care Ict Quality Assurance Engineer Name | Role | Phone | + +------+ + | Sailaja Washburn NAIL GALVANIZER | PCP | | + +------+ + [...] mellitus | [address] | [facility] | | | | | with | [address] | Mailcode: | | | | | complication | [place], [place] | PPV05 | | | | | ([facility]) | [address] | Physicians | | | | | Nutrition - | Phone: | Tiarra [address] | | | | | Analyze carb | [phone] | [address] | | | | | intake at | Fax: | [place], [place] | | | | | meals, | [phone] | [address] | | | | | patterns, | | Phone: | | | | | dosing | | [phone] | | | | | strategy | | Fax: | | | | | Procedures | | [phone] | | | | | CONSULT TO [...] | Visit | Diabetes Health | [address] [facility] | mellitus with | | | | Center at [facility] | [address] | complication (HCC) | | | | Pavilion [address] | [facility] [place] | (Primary Dx) | | | | [facility] | [address] | | | | | Road Mailcode: | [phone] | | | | | [address] Physicians | | | | | | [address] | | | | | | [place], [place] | | | | | | [address] | | | | | | [phone] | | | +--------+---------+ + + + [...] encounter Patient Instructions Patient Instructions Rosita Malik, LORA - 05/24/2018 10:40 AM PDTKeep track of [...] at age 13. Circumstance: ryan sosa, in [place] at the time, moved to [place] 14 years ago. Dad has type 1 [...] bar he brought with him to visit. Provi ded him with guidelines for carb counting foods with sugar alcohols. Had discussion around s upplements. Verbalizes understanding Activity- Very active on most days. Activities include Martial Arts, swimming, yoga and fr ee weights. Swims 10 laps per day --- usually 30 minutes in the morning on a good day. Works in [employer], so job is also fairly active. Notices [...] and services clinic has to offer includ [facility]. Offered my continued support and education [...] Moderately Stable Follow-up: MNT/DSMT Rosita Malik RD [facility] DIABETES [facility] [address] [place] [address] Mailcode: [address] [place] [address] documented in this enc ounter Plan of Treatment +--------+---------+ + + + | Date | Type | Specialty | Care Team | Description | +--------+---------+ + + + | 08/22/ | Office | Endocrinology, | Lidia Holguin | | | 2019 | Visit | Diabetes & | MD Kenny [address] [place] [address] | | | | | Metabolism | [facility] [address] | | | | | | [place], [place] | | | | | | [address] | | | | | | [phone] | | | | | | | | +--------+---------+ + + + documented as of this encounter Procedures + +--------+ + + + | Procedure Name | Priori | Date/Time | Associated Diagnosis | Comments | | | ty | | | | + +--------+ + + + | [place] MNT INITIAL | Routin | 05/25/2018 | [...]
--- OUTSIDE RECORDS SUMMARY | ~2018-07-11 | XMS | Encounter Summary ---
Demographics + + + | Address | [address] | | | [place] [address] | + + + | Home Phone | | + + + | Preferred Language | Unknown | + + + | Marital Status | Single | + + + | Gnosticist Affiliation | Unknown | + + + [...] Team Providers + +------+ + | Care Typewriter Mechanic Name | Role | Phone | + +------+ + | Linda Lizarraga COMMUNICATION CENTER COORDINATOR | PCP | | + +------+ + [...] | | | spine | [facility] | [address] | | | | | | [address] | [place], [place] | | | | | | Physicians | [address] | | | | | | [address] | Phone: | | | | | | Mother | [phone] | | | | | | [address] | Fax: | | | | | | [address] | [phone] | | | | | | [place], | | | | | | | [place] [address] | | | | | | | Phone: | | | | | | | [phone] | | | | | | | Fax: | | | | | | | [phone] | | + +--------+ + + + + Encounter Details +--------+---------+ + + + | Date | Type | Department | Care Team | Description | +--------+---------+ + + + | 12/22/ | Office | [facility] at | Edward Neil, | Arachnoid cyst | | 2018 | Visit | [facility] [address] | PA-C [address] | (Primary Dx) | | | | Ave [place], [place] | Ave [place], [place] | | | | | [address] | [address] | | | | | [phone] | [phone] | | | | | | | [...] symptoms. Sin e his last appointment with il he was evaluated by [facility] spine Surgeon Dr. Martin who did [...] or medial branch blocks, not covered by [facility] -Pain Clinic referral for Pain Psy, [...] by mouth once daily at bedtime. Fish Oil-[place]-3 Fatty Acids 300-1,000 mg oral capsule Take [...] under the skin (SUBC). Sliding scale Insulin [place] (Disposable) 31 gauge x 5/16" needle 1 [...] needed I spent at least 12 minutes ozmv-yq-zbra with the patient. I spent more than 50% of this vi sit in coordination of care and counseling in which we discussed diagnosis, treatment, imagi ng studies and follow-up. Edward Neil PA-C [facility] [address] [place] [address] documented in this e ncounter Plan of Treatment +--------+---------+ + + + | Date | Type | Specialty | Care Team | Description | +--------+---------+ + + + | 08/22/ | Office | Endocrinology, | Lidia Holguin | | | 2019 | Visit | Diabetes & | MD Kenny [address] [place] [address] | | | | | Metabolism | [address] | | | | | | [place], [place] | | | | | | [address] | | | | | | [phone] | | | | | | | | +--------+---------+ + + + documented as of this encounter Visit Diagnoses + + | Diagnosis | + + | Arachnoid cyst - Primary Cerebral cysts | + + documented in this encounter
--- OUTSIDE RECORDS SUMMARY | ~2018-07-11 | XMS | Encounter Summary ---
Demographics + + + | Address | [address] | | | [place] [address] | + + + | Home Phone | | + + + | Preferred Language | Unknown | + + + | Marital Status | Single | + + + | Rastafari Affiliation | Unknown | + + + | Race | White | + + + | Ethnic Group | Not or | + + + Author + + + | Author | [facility] | + + + | Organization | [facility] | + + + | Address | Unknown | + + + | Phone | Unavailable | + + + Support + + +---------+ + | Name | Relationship | Address | Phone | + + +---------+ + | Dandre Acosta | ECON | Unknown | | + + +---------+ + Care Team Providers + +------+ + | Care It Applications Developer Name | Role | Phone | + +------+ + | Sailaja WashburnP | PCP | | + +------+ + Encounter Details +--------+ + + + + | Date | Type | Department | Care Team | Description | +--------+ + + + + | 11/09/ | Documentati | Spine Center at | Edward Neil, | | | 2017 | on | [facility] [address] | [place] [address] | | | | | [place], [place] | [place], [place] | | | | | [address] | [address] | | | | | [phone] | [phone] | | | | | | | [...] | Diabetes & | MD Kenny [address] [facility] | | | | | Metabolism | [address] | | | | | | [place] | | | | | | [address] | | | | | | [phone] | | | | | | | | +--------+---------+ + + + documented as of this encounter Visit Diagnoses Not on filedocumented in this encounter"
--- OUTSIDE RECORDS SUMMARY | ~2018-07-11 | XMS | Encounter Summary ---
Demographics + + + | Address | [address] | | | [place] [address] | + + + | Home Phone | | + + + | Preferred Language | Unknown | + + + | Marital Status | Single | + + + | Cheondoism Affiliation | Unknown | + + + [...] Team Providers + +------+ + | Care Curator Of Manuscripts Name | Role | Phone | + [...] | | | | | cyst | [place], | [address] | | | | | Procedures | [place] | for Health | | | | | PHYSICAL | [address] | and Healing, | | | | | THERAPY | Phone: | 1st floor | | | | | REFERRAL | [phone] | [place], [place] | | | | | | Fax: | [address] | | | | | | [phone] | Phone: | | | | | | | [phone] | | | | | | | Fax: | | | | | | | [phone] | +--------+--------+ + + + + Encounter Details +--------+---------+ + + + | Date | Type | Department | Care Team | Description | +--------+---------+ + + + | 09/20/ | Office | [facility] Physical | Vinny Chatman, | Back pain, | | 2018 | Visit | Therapy Services at | PT [facility] [place] | unspecified back | | | | [facility] | [address] | location, | | | | [address] | | unspecified back | | | | Mailcode: CH3P | | pain laterality, | | | | [facility] | | unspecified | | | | and Healing, 1st | | chronicity (Primary | | | | floor [place], [place] | | Dx) | | | | [address] | | | | | | [phone] | | | +--------+---------+ + + + [...] different fro m the original. 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 Sliding scale, Disp: , Rfl: Insulin [place] (Disposable) 31 gauge x 5/16" needle, 1 [...] counselo terri there, currently seeing someone at [facility]. Tingling static electricity going down his lef [...] change in their status. Vinny Chatman DPT [facility] Outpatient Rehabilitation Services Mailcode: CH3T [address] 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
--- OUTSIDE RECORDS SUMMARY | ~2018-07-11 | XMS | Encounter Summary ---
Demographics + + + | Address | [address] | | | [place] [address] | + + + | Home Phone [...] Team Providers + +------+ + | Care Scratch Finisher Name | Role | Phone | + +------+ + | Maddison Sailajabettie PICKETTP | PCP | | + +------+ + Reason for Visit + + + | Reason | Comments | + + + | [facility] | [place] | | Equipment (DME) | | | Orders | | + + + Encounter Details +--------+--------+ + + + | Date | Type | Department | Care Team | Description | +--------+--------+ + + + | 06/03/ | Refill | Leobardo Pedroza | Lidia Holguin | [facility] | | 2019 | | Diabetes Health | MD Kenny [address] [facility] | Equipment (DME) | | | | Center at Physicians | [address] | Orders ([place]) | | | | Pavilion [address] | [place], [place] | | | | | [facility] | [address] | | | | | Road Physicians | [phone] | | | | | [address] | | | | | | Physicians Pavilion | | | | | | [facility] [place] | | | | | | [address] | | | | | | [phone] | | | +--------+--------+ + + + [...] | Diabetes & | MD Kenny [address] [facility] | | | | | Metabolism | [address] | | | | | | [place] | | | | | | [address] | | | | | | [phone] | | | | | | | | +--------+---------+ + + + documented as of this encounter Visit Diagnoses Not on filedocumented in this encounter"
--- OUTSIDE RECORDS SUMMARY | ~2018-07-11 | XMS | Encounter Summary ---
Demographics + + + | Address | [address] | | | [place] [address] | + + + | Home Phone [...] Team Providers + +------+ + | Care Ore Bridge Operator Name | Role | Phone | + +------+ + | Maddison Sailajabettie PICKETTP | PCP | | + +------+ + Reason for Visit + + + | Reason | Comments | + + + | [facility] | [place] | | Equipment (DME) | | | Orders | | + + + Encounter Details +--------+--------+ + + + | Date | Type | Department | Care Team | Description | +--------+--------+ + + + | 07/11/ | Refill | Leobardo Pedroza | Lidia Holguin | [facility] | | 2019 | | Diabetes Health | MD Kenny [address] [facility] | Equipment (DME) | | | | Center at Physicians | [address] | Orders ([place]) | | | | Pavilion [address] | [place], [place] | | | | | [facility] | [address] | | | | | Road Physicians | [phone] | | | | | [address] | | | | | | Physicians Pavilion | | | | | | [facility] [place] | | | | | | [address] | | | | | | [phone] | | | +--------+--------+ + + + [...] | Diabetes & | MD Kenny [address] [facility] | | | | | Metabolism | [address] | | | | | | [place] | | | | | | [address] | | | | | | [phone] | | | | | | | | +--------+---------+ + + + documented as of this encounter Visit Diagnoses Not on filedocumented in this encounter"
--- OUTSIDE RECORDS SUMMARY | ~2018-07-11 | XMS | Encounter Summary ---
Demographics + + + | Address | [address] | | | [place] [address] | + + + | Home Phone | | + + + | Preferred Language | Unknown | + + + | Marital Status | Single | + + + | Yarsani Affiliation | Unknown | + + + | Race | White | + + + | Ethnic Group | Not or | + + + Author + + + | Author | [facility] | + + + | Organization | [facility] | + + + | Address | Unknown | + + + | Phone | Unavailable | + + + Support + + +---------+ + | Name | Relationship | Address | Phone | + + +---------+ + | Dandre Acosta | ECON | Unknown | | + + +---------+ + Care Team Providers + +------+ + | Care Lumber Hacker Name | Role | Phone | + +------+ + | Sailaja Washburn CERTIFIED VEHICLE FIRE INVESTIGATOR | PCP | | + +------+ + [...] | | mellitus | Kevin Staley | [address] | | | | | with | [address] | Mailcode: | | | | | complication | [place], [place] | [address]PV[address] | | | | | ([facility]) | [address] | Physicians | | | | | Review | Phone: | Tiarra MOREIRA | | | | | optimizing | [phone] | [address] | | | | | sensor | Fax: | [place], [place] | | | | | technology | [phone] | [address] | | | | | Procedures | | Phone: | | | | | CONSULT TO | | [phone] | | | | | ADULT | [...] | | mellitus | Kevin Staley | [facility] | | | | | with | [address] | Mailcode: | | | | | complication | [place], [place] | [address] | | | | | ([facility]) | [address] | Physicians | | | | | Nutrition - | Phone: | Tiarra ANTONIO | | | | | Analyze carb | [phone] | [address] | | | | | intake at | Fax: | [place], [place] | | | | | meals, | [phone] | [address] | | | | | patterns, | | Phone: | | | | | dosing | | [phone] | | | | | strategy | | Fax: | | | | | Procedures | | [phone] | | | | | CONSULT TO [...] | | | | | mellitus | [place] | [address] | | | | | with | Street | Road | | | | | hypoglycemia | [place], [place] | Physicians | | | | | without | [address] | [address] | | | | | coma Type 1 | Phone: | 140 | | | | | diabetes | [phone] | Physicians | | | | | mellitus | Fax: | Pavilion | | | | | without | [phone] | [place], [place] | | | | | complication | | [address] | | | | | s | | Phone: | | | | | Procedures | | [phone] | | | | | CONSULT TO | | Fax: | | | | | DIABETES | | [phone] | | | | | ENDO | [...] | | Pavilion [address] | [facility] [place] | (Primary Dx) | | | | Kevin Staley [address] | [address] | | | | | Road Physicians | [phone] | | | | | [address] | | | | | | Physicians Pavilion | | | | | | [place], [place] | | | | | | [address] | | | | | | [phone] | | | +--------+---------+ + + + [...] schedule as much as possible Please contact [facility] [phone] for any questions Lab Results Component Value Date A1C 5.5 04/20/2018 Schedule upcoming appointments: Nutrition visit to review meal patterns, activity and stress related trends Technology visit to refine use of sensor Sensor order --- You have history of testing 10 to 12 times daily when not on sensor and Keep up routine monitoring and use of current sensor Ask [employer] to send us supply requests Follow hypoglycemic [...] a low blood sugar. Please visit the [facility] Website for information on what's new at our diabetes center. Let us know if you would like to sign up for a class or a one o n one diabetes education visit. Please meet with your primary care provider routinely for your medical care and annual [facility] k ups documented in this encounter Progress Notes Solange Lucas MA - 04/20/2018 9:49 AM PST Finger stick performed in clinic for a capillary A1c. Lidia Alas M D - 04/20/2018 9:45 AM PST [facility] PCP: RODNEY Cardoso Referring Physician: Christian Rodriguez ND [address] [place] [address] Reason for referral: Evaluate Type 1 Diabetes HPI: Gregory is a 38 y.o. male referred for evaluation of Type 1 Diabetes. Diabetes history: He was diagnosed with diabetes in 1992 at age 13. Circumstance: hospitalized, in [place] at the time ---- moved to [place] 14 years ago Treatment history: Has been [...] up in [place] ---- moved to [place]--wanted to live somewhere that was health, mom when he was 23 He grew up with a lot of fried and fast food in the home. Dad has type 1 diabetes. Has t wo sisters. Lives in [place]. Lives alone. In physical therapy for cyst [...] mouth once daily at bedtime. Blood-Glucose Sensor (StarsVu G5-G4 SENSOR) device 1 each by NOT APPLICABLE route. Cholecalciferol (Vitamin D3) 2,000 unit oral tablet TAKE 1 TABLET BY MOUTH EVERY DAY FO R dietary SUPPLEMENT DULoxetine 20 mg oral capsule,delayed release(DR/EC) Take 20 mg by mouth once daily at bedtime. Fish Oil-[place]-3 Fatty Acids 300-1,000 mg oral capsule Take [...] scale, up to 30 units daily Insulin [place] (Disposable) 31 gauge x 5/16" needle 1 [...] ROS: Review of systems as stated in [facility]. Other pertinent review of systems includes: Weight: [...] [place] at the time ---- moved to [place] 14 years ago Treatment history: Has been on NPH, Novolog, Humalog, Levemir, Lantus and now Basaglar Pump/sensor history-- never on a pump---started Dexcom 6 months ago (G5) but challenges wit h insurance coverage Has working transmitter/sensor right now but every 3 months it takes about a month to proce ss the paperwork through [employer] and insurance History of acute complications: Severe [...] sensor use for awareness of trends In [place] so very active throughout the day --- [...] as possible Please contact Leobardo Kasia Diabetes [facility] [phone] for any questions Lab Results Component Value [...] a low blood sugar. Please visit the [facility] Website for information on what's new at our diabetes center. Let us know if you would like to sign up for a class or a one o n one diabetes education visit. Please meet with your primary care provider routinely for your medical care and annual [facility] k ups 2. See orders Orders Placed This Encounter [place] Collection Capillary Blood Specimen [[id number]] only for Adults CONSULT TO ADULT DIABETES - NUTRITION (MNT) CONSULT TO ADULT DIABETES - EDUCATION (DIABETES SELF-MANAGEMENT) HEMOGLOBIN A1C,POC [[id number]}] Lidia Holguin MD [facility] 1ST FLOOR [address] [facility] Physicians [facility] [address] [place] [address] I spent 55 minutes with [...] | Diabetes & | MD Kenny [address] [facility] | | | | | Metabolism | [address] | | | | | | [place], [place] | | | | | | [address] | | | | | | [phone] | | | | | | | [...] + +--------+ + + + | [place] COLLECTION | Routin | 04/20/2018 | Type [...] [place] | [address] | [place], [place] | | | KARI RODRIGUEZ OF CARE | [address] | [address] | | | TESTS | | | [...]
--- OUTSIDE RECORDS SUMMARY | ~2018-07-11 | XMS | Encounter Summary ---
Demographics + + + | Address | [address] | | | [place] [address] | + + + | Home Phone [...] + + + | Author | [facility] | + + + | Organization | [facility] | + + + | Address | Unknown | + + + | Phone | Unavailable | + + + Support + + +---------+ + | Name | Relationship | Address | Phone | + + +---------+ + | Dandre Acosta | ECON | Unknown | | + + +---------+ + Care Team Providers + +------+ + | Care Rehab Services Aide Name | Role | Phone | + [...] | | | [facility] | [place], [place] | | | | | | Physicians | [address] | | | | | | [address] | Phone: | | | | | | Mother | [phone] | | | | | | Gaetano Weir | Fax: | | | | | | [address] | [phone] | | | | | | [place], | | | | | | | [place] [address] | | | | | | | Phone: | | | | | | | [phone] | | | | | | | Fax: | | | | | | | [phone] | | + +--------+ + + + + Encounter Details +--------+---------+ + + + | Date | Type | Department | Care Team | Description | +--------+---------+ + + + | 08/31/ | Office | [facility] at | Edward Neil, | Chronic pain | | 2018 | Visit | [facility] [address] | NONI [address] | syndrome (Primary | | | | [address] [place], [place] | Ave [place], [place] | Dx); Myofascial | | | | [address] | [address] | pain; Arachnoid cyst | | | | [phone] | [phone] | | | | | | | [...] under the skin (SUBC). Sliding scale Insulin [place] (Disposable) 31 gauge x 5/16" needle 1 [...] issues). I spent at least 25 minutes [id number] with the patient. I spent more than 50% of this vi sit in coordination of care and counseling in which we discussed diagnosis, treatment, imagi ng studies and follow-up. Edward Neil PA-C [facility] [address] [place] [address] documented in this e ncounter Plan of Treatment +--------+---------+ + + + | Date | Type | Specialty | Care Team | Description | +--------+---------+ + + + | 08/22/ | Office | Endocrinology, | Lidia Holguin | | | 2019 | Visit | Diabetes & | MD Kenny [address] | | | | | Metabolism | [address] | | | | | | [place], [place] | | | | | | [address] | | | | | | [phone] | | | | | | | [...]
[~2018-07-11 13:18] MED LIST changes: +BACTRIM DS TAB1 EACH PO
--- OUTSIDE RECORDS SUMMARY | 2018-07-11 13:22 | XMS ---
PreManage Notification: DOREEN GRIFFIN Security Grocery Associate Events 1 event(s) in the past 18 months Most recent security events: Elopement at [facility] 06/07/2018 19:01 - Other Details: PATIENT LWBS. CRITERIA MET - Group Notification - [facility] - Has Care Guidelines - [facility] - 2 Visits in 30 Days CARE PROVIDERS RODNEY MARTINEZor Current PHONE: [phone] [address] [facility]: Federally Qualified 11/28/2017-Current [facility] ([facility]) PHONE: [phone] [facility]: Multi-Specialty 12/12/2017-12/12/2018 Behavioral PHONE: [phone] BERNARD SHAFFER Current PHONE: [phone] EDITH GIRON Housing Installer Current PHONE: [phone] Simran Merrill Current PHONE: [phone] CINTHYA [place]: Mental Health Current PHONE: [phone] [facility] Mental Health Provider 06/21/2017-12/21/2017 PHONE: Unknown KADI BIANCHI Primary Care 11/29/2017-[facility] D[facility]AL CLINIC PHONE: [phone] [facility] 02/15/2018-[facility] PRIMARY CARE PHONE: [phone] Simran Merrill Primary Care Current PHONE: Unknown [facility] Primary [facility] Current PHONE: Unknown Lisa Mensah Mental Health Provider 09/15/2017-Current PHONE: Unknown [facility] Primary Care 08/18/2017-[facility] INTERNAL [facility] PHONE: [phone] BERNARD SHAFFER Primary Care Current PHONE: Unknown [facility] Current PHONE: Unknown [facility] Other 10/31/2015-Benita JARVIS PHONE: Unknown JEANNINE YORK Primary Care Current PHONE: Unknown SARABJIT JEAN Primary Care 10/29/2014-Current PHONE: [phone] MANPREET Kenny DECLAN Primary Care Current PHONE: Unknown Brayden has no Care Guidelines for this patient. Care History Medical/Surgical 06/24/2018 [facility] - CHW SPOKE WITH PATIENT- PATIENT HAS BEEN WAITING FOR [facility] TO RECEIVE AND REVIEW MEDICAL RECORDS SINCE APRIL. - [facility] CONTACT NUMBER AND ADDRESS TO ESTABLISH CARE. PATIENT STATED HE WOULD BE IN CONTACT WITH [facility] ON Wednesday06/27/18 AND WILL CALL CHW WITH UPDATES. E.D. VISIT COUNT (12 MO.) 9 Miguel Michelle 4 [facility] TOTAL 13 NOTE: Visits indicate total known visits. ED/UCC VISIT TRACKING (12 MO.) 07/11/2018 13:19 [place] TYPE: Emergency COMPLAINT: - HEADACHE 07/08/2018 14:46 [place] [place] TYPE: Emergency COMPLAINT: - POSS INFECTION 06/22/2018 14:41 [place] [place] TYPE: Emergency COMPLAINT: - POSS STAPH INFECTION DIAGNOSES: - Methicillin resistant Staphylococcus aureus infection, unspecified site - Personal history of nicotine dependence - Other manager intermediate (current) drug therapy - Type 1 diabetes mellitus without complications - Allergy status to narcotic agent status - nursing home (current) use of insulin - Allergy status to penicillin 06/07/2018 19:01 [place] TYPE: Emergency COMPLAINT: - ANXIETY DIAGNOSES: - Procedure and treatment not carried out due to patient leaving prior to being seen by health care provider 10/04/2017 01:24 Miguel Gayle [place] TYPE: Emergency DIAGNOSES: - Abscess - Pain in thoracic spine - Other chronic pain 09/03/2017 14:36 Miguel Gayle [place] TYPE: Emergency DIAGNOSES: - Shoulder spasm 08/26/2017 12:20 Legmagdiel Gay[place] TYPE: Emergency DIAGNOSES: - MED REQ 08/25/2017 11:34 Miguel Pinto Miguel Angel [place] TYPE: Emergency DIAGNOSES: - muscle spasms 08/19/2017 22:35 Miguel Pinto [facility] [place] TYPE: Emergency DIAGNOSES: - Hypoglycemia, unspecified - Hypoglycemia/nerve pain 08/01/2017 08:07 Miguel Blair [place] TYPE: Emergency DIAGNOSES: - MUSCLE SPASMS 07/15/2017 10:46 Miguel Pinto [facility] [place] TYPE: Emergency DIAGNOSES: - Panic Attack 07/15/2017 01:08 Shabanamagdiel Barriosarikole [place] TYPE: Emergency DIAGNOSES: - Generalized anxiety disorder - CYST ON SPINE 07/13/2017 14:19 Miguel Gayle [place] TYPE: Emergency DIAGNOSES: - Chest pain, unspecified - chest tightness INPATIENT VISIT TRACKING (12 MO.) No inpatient visits to display in this time frame [email or web address]
[2018-07-11] MEDS ORDERED: NU-MAG71.5 MG PO (13:41)
[2018-07-11] MEDS ORDERED: KEFLEX500 MG PO (17:31)
== END 2018-07-11 17:43 | disposition home or self-care (01) ==
LOC: ED 13:18
DX: L03.211 Cellulitis of face (principal); E10.9 Type 1 diabetes mellitus without complications; Z87.891 Personal history of nicotine dependence; Z88.0 Allergy status to penicillin; Z88.5 Allergy status to narcotic agent; Z79.899 Other long term (current) drug therapy; Z79.4 Long term (current) use of insulin
CPT/HCPCS: 70487; 80053; 85025; 99284-25; J7040; Q9967

== ENCOUNTER 2018-07-24 19:02 | Emergency (ER) | payer OTHER ==
[~2018-07-24] VITALS: Ht 185.4 cm; Wt 83.5 kg
--- OUTSIDE RECORDS SUMMARY | ~2018-07-24 | XMS | Encounter Summary ---
Demographics + + + | Address | [address] | | | [place] [address] | + + + | Home Phone | | + + + | Preferred Language | Unknown | + + + | Marital Status | Single | + + + | Christianity Affiliation | Unknown | + + + | Race | White | + + + | Ethnic Group | Not or | + + + Author + + + | Author | [facility] | + + + | Organization | [facility] | + + + | Address | Unknown | + + + | Phone | Unavailable | + + + Support + + +---------+ + | Name | Relationship | Address | Phone | + + +---------+ + | Dandre Acosta | ECON | Unknown | | + + +---------+ + Care Team Providers + +------+ + | Care Speech Assistant Name | Role | Phone | + +------+ + | Maddison Sailaja Brionna STEVENS | PCP | | + +------+ + Reason for Visit + + + | Reason | Comments | + + + | [facility] | [place] | | Equipment (DME) | | | Orders | | + + + | Refill Request | | + + + Encounter Details +--------+--------+ + + + | Date | Type | Department | Care Team | Description | +--------+--------+ + + + | 07/11/ | Refill | Leobardo Pedroza | Lidia Holguin | [facility] | | 2019 | | Diabetes Health | MD Kenny [address] | Equipment (DME) | | | | Center at [facility] | [facility] [address] | Orders ([place]); | | | | Pavilion [address] | [place], [place] | Refill Request | | | | [facility] | [address] | | | | | Road Physicians | [phone] | | | | | [address] | | | | | | Physicians Pavilion | | | | | | [place], [place] | | | | | | [address] | | | | | | [phone] | | | +--------+--------+ + + + Social History + +-------+ +--------+ + | Tobacco Use | Types | Packs/Day | Years | Date | | | | | Used | | + +-------+ +--------+ + | Former Smoker | | | | Quit: 08/18/2015 | + +-------+ +--------+ + + +---+---+---+ | Smokeless Tobacco: | | | | | Never Used | | | | + +---+---+---+ + + + | Sex Assigned at | Date Recorded | | | | + + + | Not on file | | + + + + + + + | Job Start Date | Occupation | Industry | + + + + | Not on file | Not on file | Not on file | + + + + + + + + | Travel History | Travel Start | Travel End | + + + + + + | No recent travel history available. | + + documented as of this encounter Plan of Treatment +--------+---------+ + + + | Date | Type | Specialty | Care Team | Description | +--------+---------+ + + + | 08/22/ | Office | Endocrinology, | Lidia Holguin | | | 2019 | Visit | Diabetes & | MD Kenny [address] [facility] | | | | | Metabolism | [address] | | | | | | [place], [place] | | | | | | [address] | | | | | | [phone] | | | | | | | | +--------+---------+ + + + documented as of this encounter Visit Diagnoses Not on filedocumented in this encounter"
--- OUTSIDE RECORDS SUMMARY | ~2018-07-24 | XMS | Encounter Summary ---
Demographics + + + | Address | [address] | | | [place] [address] | + + + | Home Phone | | + + + | Preferred Language | Unknown | + + + | Marital Status | Single | + + + | Faith Affiliation | Unknown | + + + | Race | White | + + + | Ethnic Group | Not or | + + + Author + + + | Author | [facility] | + + + | Organization | [facility] | + + + | Address | Unknown | + + + | Phone | Unavailable | + + + Support + + +---------+ + | Name | Relationship | Address | Phone | + + +---------+ + | Dandre Acosta | ECON | Unknown | | + + +---------+ + Care Team Providers + +------+ + | Care [place] Guide Name | Role | Phone | + +------+ + | Linda Lizarraga NP | PCP | | + +------+ + Reason for Visit + + + | Reason | Comments | + + + | New patient | | | consultation | | + + + Consultation (Routine) +--------+--------+ + + + + | Status | Reason | Specialty | Diagnoses / | Referred By | Referred To | | | | | Procedures | Contact | Contact | +--------+--------+ + + + + | Closed | | Spine | | Jolynn, | Mario, | | | | | | Edward Cerda, | Alvin Parham MD | | | | | | [address] | [address] | | | | | | [address] | Ave | | | | | | [place], | [place], [place] | | | | | | [place] | [address] | | | | | | [address] | Phone: | | | | | | Phone: | [phone] | | | | | | [phone] | Fax: | | | | | | Fax: | [phone] | | | | | | [phone] | | +--------+--------+ + + + + Encounter Details +--------+---------+ + + + | Date | Type | Department | Care Team | Description | +--------+---------+ + + + | 10/27/ | Office | [facility] at | Alvin Martin MD | Depressive disorder | | 2018 | Visit | [facility] [address] | [address] | (Primary Dx); Type [address] | | | | [address] [place], [place] | [place], [place] | diabetes mellitus | | | | [address] | [address] | with complication | | | | [phone] | [phone] | (HCC); Chest wall | | | | | | pain; Anxiety; | | | | | | Tobacco use | | | | | | disorder; Arachnoid | | | | | | cyst of spine | +--------+---------+ + + + Social History + +-------+ [...] + + documented as of this encounter Last Filed Vital Signs + + + + + | Vital Sign | Reading | Time Taken | Comments | + + + + + | Blood Pressure | - | - | | + + + + + | Pulse | - | - | | + + + + + | Temperature | - | - | | + + + + + | Respiratory Rate | - | - | | + + + + + | Oxygen Saturation | - | - | | + + + + + | Inhaled Oxygen | - | - | | | Concentration | | | | + + + + + | Weight | 83.9 kg (185 lb) | 10/27/2017 11:34 AM | | | | | PDT | | + + + + + | Height | 182.9 cm (6') | 10/27/2017 11:34 AM | | | | | PDT | | + + + + + | Body Mass Index | 25.09 | 10/27/2017 11:34 AM | | | | | PDT | | + + + + + documented in this encounter Progress Notes Alvin Martin MD - 10/27/2017 11:30 AM PDT NEUROSURGERY Chief Complaint: Thoracic pain History of Present Illness: Mr. Acosta is a 37 year old male who presents to clinic today after being seen by Grant Neil. He states that for the last 1.5 year he has had what he characterizes as a "T4 outle t syndrome" this is characterized by a right arm discomfort of an electrical type as well as a heat sensation in his left armpit. He states that his right scapula is with some stiffne ss. He also states that when he holds his phone up and his elbow above his shoulder for 45 minutes he feels some tingling in his hand. He has had a subsequent right scapula MRI of ab normality. He has done some research on his own and has reviewed some literature by Dr. Krissy thomson that has expanded on what he calls facilitated segmentation. He does a wide range of co nservative therapies including acupuncture 3 days a week, massage once a week, aqua therapy, and daily balance exercises through Chi gong. He states that he stretches an hour a day in the morning and night and as the only way he is able to continue on with his daily activiti es. He has also concurrent mental health training with what sounds to be like biofeedback t chacorta his social director/therapist. He does have well-controlled diabetes with a reported hemoglobin A1c to be 5.8. He has a 2 5 year history of diabetes and on insulin. He actively checks and monitors his sugars throu gh the eye watch antonio. He also is taking Cymbalta and gabapentin for the past year for the d iscomfort that he episodically experiences over 3 months. Denies changes in bowel or bladder. Review of Systems: All other systems were reviewed on patient questionaire. Current medication list: Current Outpatient Prescriptions Medication Sig acetaminophen 500 mg oral tablet Take by mouth. baclofen 10 mg oral tablet Take 10 mg by mouth once daily at bedtime. DULoxetine 20 mg oral capsule,delayed release(DR/EC) Take 20 mg by mouth once daily at bedtime. gabapentin 100 mg oral capsule Take 300 mg by mouth once daily at bedtime. ibuprofen 800 mg oral tablet Take by mouth. insulin glargine 100 unit/mL subcutaneous solution Inject 22 Units under the skin (SUBC ) once daily at bedtime. INSULIN LISPRO SUBQ Inject under the skin (SUBC). Sliding scale Insulin [place] (Disposable) 31 gauge x 5/16" needle 1 each. propranolol 10 mg oral tablet Take 5 mg by mouth once daily. No current facility-administered medications for this visit. Allergies: Allergies Allergen Reactions Penicillins Unknown Past surgical history: Past Surgical History Procedure Laterality Date None Past medical history: Past Medical History: Diagnosis Date Anxiety and depression Methamphetamine abuse clean since 2014 Type 1 diabetes mellitus (HCC) History Smoking Status Former Smoker Quit date: 08/18/2015 Smokeless Tobacco Never Used History Alcohol use Not on file Family History: I asked and the patient's family history is non-contributory for presenting complaint and findings. Social History: No Nicotine use No Alcohol marijuana drugs Originally from [place], relocated to [place] because of health and environment in [facility] , lived briefly in [place]. He states that although he does not have any identified medical decision-maker a person by the name of Gurjit Sawyer (a presidential support specialist from [place]) would be that person. He does have 2 sister s and a father in [facility]. Physical Exam: Constitutional: There were no vitals taken for this visit. No acute distress, well-groomed. Heent: NC/AT Spine: Cervical: ROM full Spurling's: Left - Right - Musculoskeletal: MOTOR SCORE LEFT RIGHT C5 (Shoulder Abduct) 5 5 C6 (Elbow Flex) 5 5 C7 (Elbow Ext) 5 5 C8 (Wrist Ext) 5 5 T1 (Pinky Abd) 5 5 L2 (Hip Flex) 5 5 L3 (Knee Ext) 5 5 L4 (Dorsiflexion) 5 5 L5 (EHL) 5 5 S1 (Plantar Flex) 5 5 Gait: Normal. Ambulates on heels and toes, performs deep knee bend. Station: Normal. Tone: Normal tone in upper and lower extremities. No rigidity, atrophy, or abnormal moveme nts. Neurological:neg romberg Sensation grossly intact to light touch throughout. Sensation intact to proprioception. Anal Sphincter: Deferred. TENDON REFLEXES LEFT RIGHT C5-6 (Biceps) 2 2 C6 (Brachioradialis) 1 1 C7-8 (Triceps) 1 1 L3-4 (Knee jerk) 2 2 S1-2 (Achilles) 1 1 PATHOLOGIC REFLEXES LEFT RIGHT Sanders neg neg Plantar Flexion neg neg Clonus neg neg Studies: I performed an imaging review. MRI of thoracic spine (date, 06/27/2017), multi-level spondylotic changes, and an arachnoid cyst causing some deformation and encroachment and effacement of the dorsal spinal cord. Th ere is a mild amount of T2 signal change immediately cranial to the deformed spinal cord. Diganosis: 1. Thoracic arachnoid cyst 2. Insulin-dependent diabetes 3. Anxiety and depression Plan: 37-year-old otherwise healthy man with a 25 year history of diabetes on insulin comes to e clinic today with a 1.5 year history of some thoracic localized pain that is associated wi th right upper extremity discomfort as well as a left axillary temperature sensation. Upon my evaluation of him I do not believe that he is myelopathic. I do not believe he has any r adiculopathy. For these reasons I recommended that he continue with conservative therapies. From a surgical standpoint I have made sure that he understands the risks and benefits of surgery and the lack of any benefit at present time given the fact that he is otherwise quit e functional and well. I do not detect any need for any additional imaging or any clear fol low-up unless he has symptomatically deteriorated in some way. Alvin Martin MD I spent 45 minutes btqe-so-idln with the patient. I spent more than 50% of this visit in co ordination of care and counseling in which we discussed diagnosis, treatment, imaging studie s and follow-up. documented in this enc ounter Plan of Treatment +--------+---------+ + + + | Date | Type | Specialty | Care Team | Description | +--------+---------+ + + + | 08/22/ | Office | Endocrinology, | Lidia Holguin | | | 2019 | Visit | Diabetes & | MD Kenny [address] | | | | | Metabolism | [address] | | | | | | [place], [place] | | | | | | [address] | | | | | | [phone] | | | | | | | | +--------+---------+ + + + documented as of this encounter Visit Diagnoses + + | Diagnosis | + + | Depressive disorder - Primary Depressive disorder, not elsewhere classified | + + | Type 1 diabetes mellitus with complication (HCC) Type I (juvenile type) diabetes | | mellitus with unspecified complication, not stated as uncontrolled | + + | Chest wall pain Painful respiration | + + | Anxiety Anxiety state, unspecified | + + | Tobacco use disorder | + + | Arachnoid cyst of spine | + + documented in this encounter
--- OUTSIDE RECORDS SUMMARY | ~2018-07-24 | XMS | Encounter Summary ---
Demographics + + + | Address | [address] | | | [place] [address] | + + + | Home Phone | | + + + | Preferred Language | Unknown | + + + | Marital Status | Single | + + + | Synagogue Affiliation | Unknown | + + + | Race | White | + + + | Ethnic Group | Not or | + + + Author + + + | Author | [facility] | + + + | Organization | [facility] | + + + | Address | Unknown | + + + | Phone | Unavailable | + + + Support + + +---------+ + | Name | Relationship | Address | Phone | + + +---------+ + | Dandre Acosta | ECON | Unknown | | + + +---------+ + Care Team Providers + +------+ + | Care [place] Name | Role | Phone | + +------+ + | No Pcp Per Patient | PCP | Unavailable | + +------+ + Reason for Visit + + + | Reason | Comments | + + + | Follow-up visit | | + + + Office Visit - E/M Services (Routine) + +--------+ + + + + | Status | Reason | Specialty | Diagnoses / | Referred By | Referred To | | | | | Procedures | Contact | Contact | + +--------+ + + + + | Pending | | Spine | Diagnoses | Mario, | Jolynn, | | Review | | | Pain in | Julissa Toledo MD | Edward Cerda PA-C | | | | | thoracic | Rebound at | [address] | | | | | spine | [facility] | [address] | | | | | | [facility] | [place], [place] | | | | | | Physicians | [address] | | | | | | [address] | Phone: | | | | | | Mother | [phone] | | | | | | [address] | Fax: | | | | | | [address] | [phone] | | | | | | [place], | | | | | | | [place] [address] | | | | | | | Phone: | | | | | | | [phone] | | | | | | | Fax: | | | | | | | [phone] | | + +--------+ + + + + Encounter Details +--------+---------+ + + + | Date | Type | Department | Care Team | Description | +--------+---------+ + + + | 08/31/ | Office | Spine Center at | Edward Neil, | Chronic pain | | 2018 | Visit | [facility] [address] | [facility] [address] | syndrome (Primary | | | | [address] [place], [place] | [address] [place], [place] | Dx); Myofascial | | | | [address] | [address] | pain; Arachnoid cyst | | | | [phone] | [phone] | | | | | | | [...] Weight | 83.9 kg (185 lb) | 08/31/2017 8:53 AM | | | | | PDT | | + + + + + | Height | 182.9 cm (6') | 08/31/2017 8:53 AM | | | | | PDT | | + + + + + | Body Mass Index | 25.09 | 08/31/2017 8:53 AM | | | | | PDT | | + + + + + documented in this encounter Progress Notes Edward Neil PA-C - 08/31/2017 9:00 AM PDTFormatting of this note might be different fr om the original. NEUROLOGICAL SURGERY SPINE CLINIC - FOLLOW UP VISIT Chief Complaint: Diffuse migratory symptoms. History of Present Illness: Mr. Acosta is a 37 year old male with a history of meth abuse (clean x 3 years), DMI, anxi ety and depression. He has known T4 cystic structure on recent imaging with plan for serial monitoring and presents today for an acute increase in diffuse/migratory symptoms while [employer] groceries after his last visit. He reports palpable fluid around his left scapula, Nerv e pain in bilateral soles of feet that radiates up to his left knee, tingling in his left ar m at recent PT appointment but today reports diffuse nerve pain in his entire RUE. He report s short episodes of diffuse and migratory weakness, but no persistent numbness, specific mus reta weakness or loss of control of bowel/bladder. His chief complaint continues to be right sided upper thoracic "Muscle spasm". Since his last appointment he reports passive SI. State s his PCP is aware, states he will not follow through with these thoughts, he is already in counseling, and has contact info for suicide hotline if things worsen. Since his last appoin tment he has: -Started Cymbalta with moderate relief in depression and pain -Baclofen with moderate -PT with moderate -Acupuncture with some relief -Pain Clinic referral for Pain Psy in process The patient has tried: -Acupuncture with moderate relief -Physical Therapy, 4 months ago x 5 sessions without relief -NSAIDs with moderate relief -Heat and massage with moderate relief -Tylenol with moderate relief -Muscle relaxants with moderate relief -Gabapentin with moderate relief -Propanolol for anxiety and tachycardia, increased dizziness -Trigger point injection worsened symptoms The patient has not tried: -Epidural steroid injections or medial branch blocks, not covered by [facility] Current medication list: Current Outpatient Prescriptions Medication Sig acetaminophen 500 mg oral tablet Take by mouth. cyclobenzaprine 10 mg oral tablet Take 5-10 mg by mouth three times daily as needed. gabapentin 100 mg oral capsule Take 300 mg by mouth once daily at bedtime. ibuprofen 800 mg oral tablet Take by mouth. insulin glargine 100 unit/mL subcutaneous solution Inject 22 Units under the skin (SUBC ) once daily at bedtime. INSULIN LISPRO SUBQ Inject under the skin (SUBC). Sliding scale Insulin [place] (Disposable) 31 gauge x 5/16" needle 1 [...] since 2014 Type 1 diabetes mellitus (HCC) Social History: History Smoking Status Former Smoker Quit date: 08/18/2015 Smokeless Tobacco Never Used History Alcohol use Not on file Physical Exam: Vital Signs: Ht 1.829 m (6') | Wt 83.9 kg (185 lb) | BMI 25.09 kg/(m^2) General Appearance: No acute distress, well-groomed. Psych: Appropriate and cooperative Musculoskeletal: MOTOR SCORE LEFT RIGHT C5 (Shoulder Abduct) 5 5 C6 (Elbow Flex) 5 5 C7 (Elbow Ext) 5 5 C8 (Wrist Ext) 5 5 T1 (Pinky Abd) 5 5 L2 (Hip Flex) 5 5 L3 (Knee Ext) 5 5 L4 (Dorsiflexion) 5 5 L5 (EHL) 5 5 S1 (Plantar Flex) 5 5 Gait: Normal. No ataxia with heel to toe Tone: Normal tone in upper and lower extremities. No rigidity, atrophy, or abnormal moveme nts. Able to stand on heels and toes bilaterally Neurological: Sensation grossly intact to light touch throughout and to pinpoint sensation throughout TENDON REFLEXES LEFT RIGHT C5-6 (Biceps) 1+ 1+ C6 (Brachioradialis) 1+ 1+ C7-8 (Triceps) 1+ 1+ L3-4 (Knee jerk) 1+ 1+ S1-2 (Achilles) 1+ 1+ PATHOLOGIC REFLEXES LEFT RIGHT Sanders neg neg Babinkski neg neg Clonus neg neg Straight leg raise: (-) Right, (-) Left Imaging: MRI THORACIC SPINE WITHOUT CONTRAST CLINICAL DATA: Back pain COMPARISON: No prior studies available for comparison. PROCEDURAL TECHNIQUE: Sagittal T1 and T2 thoracic spine scans were acquired. Axial T1 and T2 scans also obtained. FINDINGS: Vertebral body height and sagittal alignment are maintained.Bone marrow signal is normal.No evidence of a focal disk protrusion, central canal stenosis, or significant foraminal stenosis at any visualized thoracic level. There is a change in spinal cord caliber at the level of mid T4 segment best discerned on sagittal T2 images. Slight parenchymal cord hyperintensity is also present at this junction which appears to be primarily a dorsal marginal cord compressive abnormality. Axial T2 images suggest a space-occupying T2 hyperintense abnormality at this level, series 7 image #15 resulting in mild flattening of the dorsal margin of the spinal cord. Tiny focal disc protrusion T8-9 with no ventral defect, doubtful relevance. Minimal disc desiccation. No findings of foraminal stenosis. IMPRESSION: 1.Findings suggesting mass effect along the dorsal margin of the thoracic spinal cord at the level of mid T4 which may be related to an overlying dorsal arachnoid cyst or other cystic intradural mass, based on imaging findings. Slight parenchymal spinal cord signal hyperintensity also present at the level of the demarcation, described above. RECOMMENDATIONS: Initially, a short-term follow-up MRI of thoracic spine utilizing gadolinium based contrast agent (MRI thoracic spine contrast only). Based on the findings on the follow-up contrast MRI study, a thoracic myelogram may be of benefit. Verified by Abundio Hanna DO on 06/28/2017 9:18 AM Contrast-enhanced MRI of the thoracic spine. INDICATION: Spinal stenosis. TECHNIQUE: Sagittal and axial T1 sequences following the intravenous administration of 17 mL of gadolinium obtained. Note: This examination complements an unenhanced study [...] findings and or an unusual, nonenhancing lesion. Verified by Ze Jade MD on 07/07/2017 11:01 AM Assessment: Mr. Acosta is a 37 year old male with a history of meth abuse (clean x 3 years) DMI, anxie ty and depression. He has known T4 finding compatible with arachnoid cyst, but he does not have neurological deficits on exam or overt signs of myelopathy. He reports chronic diffuse/ migratory symptoms, many of which could not be caused by thoracic stenosis and these are imp roving with conservative therapies Plan: -Continue conservative therapies -Follow up in 2.5 months with MRI Thoracic w/wo prior. -Patient counseled on urgent signs/symptoms and will seek immediate medical evaluation if n ew/worsening symptoms present (i.e persistent BLE weakness, numbness, loss of control of bow el/bladder, or BLE coordination/balance issues). I spent at least 25 minutes lres-uj-oees with the patient. I spent more than 50% of this vi sit in coordination of care and counseling in which we discussed diagnosis, treatment, imagi ng studies and follow-up. Edward Neil PA-C [facility] [address] [place] [address] documented in this e ncounter Plan of Treatment +--------+---------+ + + + | Date | Type | Specialty | Care Team | Description | +--------+---------+ + + + | 08/22/ | Office | Endocrinology, | Lidia Holguin | | | 2019 | Visit | Diabetes & | MD Kenny [address] | | | | | Metabolism | [address] | | | | | | [place], [place] | | | | | | [address] | | | | | | [phone] | | | | | | | | +--------+---------+ + + + documented as of this encounter Visit Diagnoses + + | Diagnosis | + + | Chronic pain syndrome - Primary | + + | Myofascial pain Mylagia and myositis, unspecified | + + | Arachnoid cyst Cerebral cysts | + + documented in this encounter
--- OUTSIDE RECORDS SUMMARY | ~2018-07-24 | XMS | Encounter Summary ---
Demographics + + + | Address | [address] | | | [place] [address] | + + + | Home Phone | | + + + | Preferred Language | Unknown | + + + | Marital Status | Single | + + + | Jewish Affiliation | Unknown | + + + | Race | White | + + + | Ethnic Group | Not or | + + + Author + + + | Author | [facility] | + + + | Organization | [facility] | + + + | Address | Unknown | + + + | Phone | Unavailable | + + + Support + + +---------+ + | Name | Relationship | Address | Phone | + + +---------+ + | Dandre Acosta | ECON | Unknown | | + + +---------+ + Care Team Providers + +------+ + | Care Battery Hand Name | Role | Phone | + +------+ + | Linda Lizarraga PRINT WASHER | PCP | | + +------+ + Reason for Visit + + + | Reason | Comments | + + + | Return Patient | | + + + Office Visit [...] | | | [facility] | [place], [place] | | | | | | Physicians | [address] | | | | | | [address] | Phone: | | | | | | Mother | [phone] | | | | | | Gaetano Weir | Fax: | | | | | | [address] | [phone] | | | | | | [place], | | | | | | | [place] [address] | | | | | | | Phone: | | | | | | | [phone] | | | | | | | Fax: | | | | | | | [phone] | | + +--------+ + + + + Encounter Details +--------+---------+ + + + | Date | Type | Department | Care Team | Description | +--------+---------+ + + + | 12/22/ | Office | Spine Center at | Edward Neil, | Arachnoid cyst | | 2018 | Visit | [facility] [address] | PA-C [address] | (Primary Dx) | | | | Ave [place], [place] | Ave [place], [place] | | | | | [address] | [address] | | | | | [phone] | [phone] | | | | | | | [...] + + + + | Weight | 81.6 kg (180 lb) | 12/22/2017 3:40 PM | | | | | PDT | | + + + + + | Height | 182.9 cm (6') | 12/22/2017 3:40 PM | | | | | PDT | | + + + + + | Body Mass Index | 24.41 | 12/22/2017 3:40 PM | | | | | PDT | | + + + + + documented in this encounter Progress Notes Edward Neil PA-C - 12/22/2017 3:50 PM PDTFormatting of this note might be different fr om the original. NEUROLOGICAL SURGERY SPINE CLINIC - FOLLOW UP VISIT Chief complaint Diffuse migratory symptoms. History of Present Illness: Mr. Acosta is a 37 year old male with a history of meth abuse (clean x 3 years), DMI, anxi ety and depression and Thoracic arachnoid cyst with chronic diffuse migratory symptoms. Sin e his last appointment with va he was evaluated by [facility] spine Surgeon Dr. Martin who did not recommend surgical intervention or further interventions. He presents today for follow u p and reports he has had significant improvement with PT and he attributes this to treatment of "facilitated segmentation at T4". He denies new pain, neurological deficits, coordinatio n issues/falls, or changes to B/B. The patient has tried: -Acupuncture with moderate relief -Physical Therapy: with significant relief and performing HEP/Aquatherapy regularly -NSAIDs with moderate relief -Heat and massage with moderate relief -Tylenol with moderaterelief -Muscle relaxants with moderate relief -Cymbalta with moderate relief in depression and pain -Gabapentin with moderate relief -Propanolol for anxiety and tachycardia, increased dizziness -Trigger point injection worsened symptoms The patient has not tried: -Epidural steroid injections or medial branch blocks, not covered by [facility] -Pain Clinic referral for Pain Psy, insurance never approved referral Current medication list: Current Outpatient Prescriptions Medication Sig acetaminophen 500 mg oral tablet Take by mouth. baclofen 10 mg oral tablet Take 10 mg by mouth once daily at bedtime. Cholecalciferol (Vitamin D3) 2,000 unit oral tablet TAKE 1 TABLET BY MOUTH EVERY DAY FO R dietary SUPPLEMENT cloNIDine HCl 0.1 mg oral tablet TAKE 1 TABLET BY MOUTH AT BEDTIME FOR ANXIETY DULoxetine 20 mg oral capsule,delayed release(DR/EC) Take 20 mg by mouth once daily at bedtime. Fish Oil-[place]-3 Fatty Acids 300-1,000 mg oral capsule Take by mouth. gabapentin 100 mg oral capsule Take 300 mg by mouth once daily at bedtime. hydrOXYzine pamoate 25 mg oral capsule TAKE 1 CAPSULE BY MOUTH 3 TIMES DAILY NEEDED FOR ANXIETY ibuprofen 800 mg oral tablet Take by mouth. insulin glargine 100 unit/mL subcutaneous solution Inject 22 Units under the skin (SUBC ) once daily at bedtime. INSULIN LISPRO SUBQ Inject under the skin (SUBC). Sliding scale Insulin [place] (Disposable) 31 gauge x 5/16" needle 1 each. magnesium chloride SR 64 mg oral tablet,delayed release (DR/EC) Take by mouth. melatonin 3 mg oral tablet,disintegrating Dissolve on tongue and swallow. propranolol 10 mg oral tablet Take 5 [...] Not on file Physical Exam: Vital Signs: Filed Vitals 10/27/2017 11:36 AM 12/22/2017 3:40 PM Height: 1.829 m (6') 1.829 m (6') Weight: 83.9 kg (185 lb) 81.6 kg (180 lb) PainSc: 02 - Mild 01 - None to Mild PainLoc: Shoulder (Right) Shoulder (Right) BMI: 24.41 kg/(m^2) General Appearance: No acute distress, well-groomed. [...] lower extremities. No rigidity, atrophy, or abnormal movem ents. Able to stand on heels and toes [...] x 3 years) DMI, anxie ty and depression, and T4 arachnoid cyst. His symptoms are significantly improving with cons ervative therapies and he does not have neurological deficits or overt signs of myelopathy. Dr. Martin has already recommended against surgical intervention and his recent improvement w ith conservative therapies supports this continued course of action. Plan: -Continue conservative therapies -Follow up as needed I spent at least 12 minutes pwul-bm-nzbn with the patient. I spent more than 50% of this vi sit in coordination of care and counseling in which we discussed diagnosis, treatment, imagi ng studies and follow-up. Edward Neil PA-C [facility] [address] [place] [address] documented in this e ncounter Plan of Treatment +--------+---------+ + + + | Date | Type | Specialty | Care Team | Description | +--------+---------+ + + + | 08/22/ | Office | Endocrinology, | Lidia Holguin | | | 2019 | Visit | Diabetes & | MD Kenny [address] [place] [address] | | | | | Metabolism | [address] | | | | | | [place], [place] | | | | | | [address] | | | | | | [phone] | | | | | | | | +--------+---------+ + + + documented as of this encounter Visit Diagnoses + + | Diagnosis | + + | Arachnoid cyst - Primary Cerebral cysts | + + documented in this encounter
--- OUTSIDE RECORDS SUMMARY | ~2018-07-24 | XMS | Encounter Summary ---
Demographics + + + | Address | [address] | | | [place] [address] | + + + | Home Phone [...] Author + + + | Author | [facility] | + + + | Organization | [facility] | + + + | Address | Unknown | + + + | Phone | Unavailable | + + + Support + + +---------+ + | Name | Relationship | Address | Phone | + + +---------+ + | Dandre Acosta | ECON | Unknown | | + + +---------+ + Care Team Providers + +------+ + | Care Service Trainer Name | Role | Phone | + [...] visit | | 2018 | | [facility] [address] | [facility] [address] | yesterday) | | | | S[address] Mailcode: [id number] | [place], [place] | | | | | [facility] | [address] | | | | | and [address], | [phone] | | | | | Floor [place], [place] | | | | | | [address] | | | | | | [phone] | | | +--------+ + + + [...] | Diabetes & | MD Kenny [address] [facility] | | | | | Metabolism | [address] | | | | | | [place], [place] | | | | | | [address] | | | | | | [phone] | | | | | | | | +--------+---------+ + + + documented as of this encounter Visit Diagnoses Not on filedocumented in this encounter"
--- OUTSIDE RECORDS SUMMARY | ~2018-07-24 | XMS | Encounter Summary ---
Demographics + + + | Address | [address] | | | [place] [address] | + + + | Home Phone | | + + + | Preferred Language | Unknown | + + + | Marital Status | Single | + + + | Jehovah'S Witness Affiliation | Unknown | + + + | Race | White | + + + | Ethnic Group | Not or | + + + Author + + + | Author | [facility] | + + + | Organization | [facility] | + + + | Address | Unknown | + + + | Phone | Unavailable | + + + Support + + +---------+ + | Name | Relationship | Address | Phone | + + +---------+ + | Dandre Acosta | ECON | Unknown | | + + +---------+ + Care Team Providers + +------+ + | Care Photography Teacher Name | Role | Phone | + +------+ + PCP | Unavailable | + +------+ + Encounter Details +--------+ + + + + | Date | Type | Department | Care Team | Description | +--------+ + + + + | 07/27/ | Document-Sc | UNKNOWN DEPARTMENT | Unknown . | | | 2013 | anned | [address] [facility] | | | | | | [facility] | | | | | | [place], [place] | | | | | | [address] | | | +--------+ + + + [...] Visit | Diabetes & Morris Cox MD [address] | | | | | Metabolism | [address] | | | | | | [place], [place] | | | | | | [address] | | | | | | [phone] | | | | | | | | +--------+---------+ + + + documented as of this encounter Visit Diagnoses Not on filedocumented in this encounter"
--- OUTSIDE RECORDS SUMMARY | ~2018-07-24 | XMS | Encounter Summary ---
Demographics + + + | Address | [address] | | | [place] [address] | + + + | Home Phone | | + + + | Preferred Language | Unknown | + + + | Marital Status | Single | + + + | Orthodox Affiliation | Unknown | + + + | Race | White | + + + | Ethnic Group | Not or | + + + Author + + + | Author | [facility] | + + + | Organization | [facility] | + + + | Address | Unknown | + + + | Phone | Unavailable | + + + Support + + +---------+ + | Name | Relationship | Address | Phone | + + +---------+ + | Dandre Acosta | ECON | Unknown | | + + +---------+ + Care Team Providers + +------+ + | Care Assistant Controller Name | Role | Phone | + [...] visit | | 2018 | | [facility] [address] | [facility] [address] | yesterday) | | | | [address] Mailcode: [id number] | [place], [place] | | | | | [facility] | [address] | | | | | and [address], | [phone] | | | | | Floor [place], [place] | | | | | | [address] | | | | | | [phone] | | | +--------+ + + + [...] | Diabetes & | MD Kenny [address] [facility] | | | | | Metabolism | [address] | | | | | | [place], [place] | | | | | | [address] | | | | | | [phone] | | | | | | | | +--------+---------+ + + + documented as of this encounter Visit Diagnoses Not on filedocumented in this encounter"
--- OUTSIDE RECORDS SUMMARY | ~2018-07-24 | XMS | Encounter Summary ---
Demographics + + + | Address | [address] | | | [place] [address] | + + + | Home Phone [...] Team Providers + +------+ + | Care International First Officer Name | Role | Phone | + +------+ + | No Pcp Per Patient | PCP | Unavailable | + +------+ + Encounter Details +--------+ + + + + | Date | Type | Department | Care Team | Description | +--------+ + + + + | 08/19/ | Documentati | Spine Center at | Edward Neil, | | | 2017 | on | [facility] [address] | [address] | | | | | [place] [facility] [place] | [place] [facility] [place] | | | | | [address] | [address] | | | | | [phone] | [phone] | | | | | | | [...] Visit | Diabetes & | MD Kenny [address] [facility] | | | | | Metabolism | [address] | | | | | | [place] | | | | | | [address] | | | | | | [phone] | | | | | | | | +--------+---------+ + + + documented as of this encounter Visit Diagnoses Not on filedocumented in this encounter"
--- OUTSIDE RECORDS SUMMARY | ~2018-07-24 | XMS | Encounter Summary ---
Demographics + + + | Address | [address] | | | [place] [address] | + + + | Home Phone [...] Team Providers + +------+ + | Care Rn Iv Therapy Name | Role | Phone | + [...] | | | | | cyst | [address] | | | | | Procedures | [place] | for Health | | | | | PHYSICAL | [address] | and Healing, | | | | | THERAPY | Phone: | 1st floor | | | | | REFERRAL | [phone] | [facility] [place] | | | | | | Fax: | [address] | | | | | | [phone] | Phone: | | | | | | | [phone] | | | | | | | Fax: | | | | | | | [phone] | +--------+--------+ + + + + Consultation (Routine) +--------+---------+ + + + + | Status | Reason | Specialty | Diagnoses / | Referred By | Referred To | | | | | Procedures | Contact | Contact | +--------+---------+ + + + + | Closed | Other | Pain Medicine | Diagnoses | Neil, | [facility] | | | | / Pain | Myofascial | Edward D, | [address] | | | | Management | pain | [address] | [address] | | | | | Arachnoid | [address] | Code: CH15P | | | | | cyst | [facility] | | | | | Procedures | [place] | Health and | | | | | CONSULT TO | [address] | , | | | | | PAIN | Phone: | Floor | | | | | MANAGEMENT | [phone] | [place], [place] | | | | | | Fax: | [address] | | | | | | [phone] | Phone: | | | | | | | [phone] | | | | | | | Fax: | | | | | | | [phone] | +--------+---------+ + + + + Consultation [...] | | | | pain | PA-C [address] | | | | | | Arachnoid | [address] | | | | | | cyst | [place], | | | | | | Procedures | [place] | | | | | | [facility] | [address] | | | | | | - EXTERNAL | Phone: | | | | | | ONLY | [phone] | | | | | | | Fax: | | | | | | | [phone] | | + +--------+ + + + [...] | | | [facility] | [place], [place] | | | | | | Physicians | [address] | | | | | | [address] | Phone: | | | | | | Mother | [phone] | | | | | | Gaetano Weir | Fax: | | | | | | [address] | [phone] | | | | | | [place] | | | | | | | [place] [address] | | | | | | | Phone: | | | | | | | [phone] | | | | | | | Fax: | | | | | | | [phone] | | +--------+--------+ + + + + Encounter Details +--------+---------+ + + + | Date | Type | Department | Care Team | Description | +--------+---------+ + + + | 08/17/ | Office | Spine Center at | Edward Neil, | Myofascial pain | | 2018 | Visit | [facility] [address] | [address] | (Primary Dx); | | | | Ave [place], [place] | Ave [place], [place] | Arachnoid cyst | | | | [address] | [address] | | | | | [phone] | [phone] | | | | | | | [...] questionna cesar that will be scanned into [employer]. Current medication list: Current Outpatient Prescriptions Medication [...] under the skin (SUBC). Sliding scale Insulin [place] (Disposable) 31 gauge x 5/16" needle 1 [...] present. I spent at least 40 minutes oeal-qp-boge with the patient. I spent more than 50% of this vi sit in coordination of care and counseling in which we discussed diagnosis, treatment, imagi ng studies and follow-up. Edward Neil PA-C [facility] [address] [place] [address] [facility] OPEN NOTE [[id number]] documented in this e ncounter Plan of Treatment +--------+---------+ + + + | Date | Type | Specialty | Care Team | Description | +--------+---------+ + + + | 08/22/ | Office | Endocrinology, | Lidia Holguin | | | 2019 | Visit | Diabetes & | MD Kenny [address] | | | | | Metabolism | [address] | | | | | | [place], [place] | | | | | | [address] | | | | | | [phone] | | | | | | | [...]
--- OUTSIDE RECORDS SUMMARY | ~2018-07-24 | XMS | Clinical Summary ---
Demographics + + + | Address | [address] | | | [place] [address] | + + + | Home Phone [...] Team Providers + +------+ + | Care Buttermilk Drier Operator Name | Role | Phone | + +------+ + | Sailaja Washburn | PP | | + +------+ + Source Comments JOSE FRANCISCO is fully live on both EpicCare Ambulatory and [employer] InPatient.[facility] Allergies + + + + + + [...] | + + + +---------+------+------+-------+ | Insulin [place] | 1 each. | | 0 | [...] | + + + +---------+------+------+-------+ | Fish Oil-Elizabeth-3 | Take by mouth. | | 0 [...] of | | Present Illness:CBGs:14-day avg = 11948-gnl avg = 197CBG this AM | | = 325Has new girlfriend - been going out to dinner a lot.Little | | exercise.Planning on taking a contract job for 3 months in | | [place].Needing to get supplies to cover him for this.Has not | | applied for Cover [place] because leaving to [place] soon. Will | | when he returns.Worried [...] of Present Illness:CBGs:14-day avg = | | 82937-dfa avg = 197CBG this AM = 325Has new girlfriend - been | | going out to dinner a lot.Little exercise.Planning on taking a | | contract job for 3 months in [place].Needing to get supplies to | | cover him for this.Has not applied for Cover [place] because | | leaving to [place] soon. Will when he returns.Worried about | [...] a contract job for 3 months in [place]. | |Needing to get supplies to cover him for this. | |Has not applied for Cover [place] because leaving to [place] soon. Will when he returns. | | [...] | | | | | | Orders ([place]); | | | | | | Refill Request | +--------+---------+ + + + | 06/03/ | Refill | | Lidia Holguin | Durable Medical | | 2019 | | | SMD | Equipment (DME) | | | | | | Orders ([place]) | +--------+---------+ + + + | 05/24/ | Office | | Rosita Malik, LORA | Type 1 diabetes | | 2019 [...] | Visit | | MD Kenny [address] [facility] | | | | | | [address] | | | | | | [place], [place] | | | | | | [address] | | | | | | [phone] | | | | | | | [...] | + +--------+ + + + | [place] MNT INITIAL | Routin | 05/25/2018 | [...] | | | + +--------+ +--------+-------+---------+--------+ | LOCAL COMPANY [employer] MEDICAID | LOCAL [employer] | xxxxxxxx | | | | Medica [...] | 1980 | [phone] | [place] [address] | | | vidal | | | 1 (Home) | | + +--------+ +--------+ + +
--- OUTSIDE RECORDS SUMMARY | ~2018-07-24 | XMS | Encounter Summary ---
Demographics + + + | Address | [address] | | | [place] [address] | + + + | Home Phone [...] Author + + + | Author | [facility] | + + + | Organization | [facility] | + + + | Address | Unknown | + + + | Phone | Unavailable | + + + Support + + +---------+ + | Name | Relationship | Address | Phone | + + +---------+ + | Dandre Acosta | ECON | Unknown | | + + +---------+ + Care Team Providers + +------+ + | Care Head Of Science Name | Role | Phone | + +------+ + | Sailaja Washburn IT QUALITY ASSURANCE ANALYST | PCP | | + +------+ + [...] mellitus | Denis Staley | [facility] | | | | | with | [address] | Mailcode: | | | | | complication | [place], [place] | [address] | | | | | ([facility]) | [address] | Physicians | | | | | Nutrition - | Phone: | Tiarra MOREIRA | | | | | Analyze carb | [phone] | [address] | | | | | intake at | Fax: | [place], [place] | | | | | meals, | [phone] | [address] | | | | | patterns, | | Phone: | | | | | dosing | | [phone] | | | | | strategy | | Fax: | | | | | Procedures | | [phone] | | | | | CONSULT TO [...] | Visit | Diabetes Health | [address] [facility] | mellitus with | | | | [facility] | [address] | complication (HCC) | | | | Pavilion [address] | [facility] [place] | (Primary Dx) | | | | [facility] | [address] | | | | | Road Mailcode: | [phone] | | | | | [address] Physicians | | | | | | [address] | | | | | | [place], [place] | | | | | | [address] | | | | | | [phone] | | | +--------+---------+ + + + [...] at age 13. Circumstance: ryan sosa, in [place] at the time, moved to [place] 14 years ago. Dad has type 1 [...] morning on a good day. Works in [employer], so job is also fairly active. Notices [...] and services clinic has to offer includ [facility]. Offered my continued support and education [...] Moderately Stable Follow-up: MNT/DSMT Rosita Mal[address] RD [facility] DIABETES [facility] [address] [place] [address] Mailcode: [address] [place] [address] documented in this enc ounter Plan of Treatment +--------+---------+ + + + | Date | Type | Specialty | Care Team | Description | +--------+---------+ + + + | 08/22/ | Office | Endocrinology, | Lidia Holguin | | | 2019 | Visit | Diabetes & | MD Kenny [address] [place] [address] | | | | | Metabolism | [facility] [address] | | | | | | [place], [place] | | | | | | [address] | | | | | | [phone] | | | | | | | [...]
--- OUTSIDE RECORDS SUMMARY | ~2018-07-24 | XMS | Encounter Summary ---
Demographics + + + | Address | [address] | | | [place] [address] | + + + | Home Phone [...] Author + + + | Author | [facility] | + + + | Organization | [facility] | + + + | Address | Unknown | + + + | Phone | Unavailable | + + + Support + + +---------+ + | Name | Relationship | Address | Phone | + + +---------+ + | Dandre Acosta | ECON | Unknown | | + + +---------+ + Care Team Providers + +------+ + | Care Lawyer Criminal Name | Role | Phone | + [...] | | | | | cyst | [address] | | | | | Procedures | [place] | for Health | | | | | PHYSICAL | [address] | and Healing, | | | | | THERAPY | Phone: | 1st floor | | | | | REFERRAL | [phone] | [facility] [place] | | | | | | Fax: | [address] | | | | | | [phone] | Phone: | | | | | | | [phone] | | | | | | | Fax: | | | | | | | [phone] | +--------+--------+ + + + + Encounter Details +--------+---------+ + + + | Date | Type | Department | Care Team | Description | +--------+---------+ + + + | 08/19/ | Office | [facility] Physical | Dissinger, | Chronic right-sided | | 2018 | Visit | Therapy Services at | Keely, PT [address] | thoracic back pain | | | | [facility] | [facility] [address] | (Primary Dx); Cyst | | | | [address] | [place], [place] | of spinal meninges | | | | Mailcode: CH3P | [address] | | | | | [facility] | | | | | | and Healing, 1st | | | | | | floor [place], [place] | | | | | | [address] | | | | | | [phone] | | | +--------+---------+ + + + [...] - 08/19/2017 10:00 AM PDT Insurance: [place] [facility] [place] [facility] [place] [employer] [employer] / Product Type: Medicaid / Non-Medicare [facility] PHYSICAL THERAPY EVALUATION Past Medical History: Diagnosis [...] (SUBC). Sliding scale, Disp: , Rfl: Insulin [place] (Disposable) 31 gauge x 5/16" needle, 1 [...] counselo r there, currently seeing someone at [place]. Tingling static electricity going down his lef [...] stretches Education: Rehabilitation diagnosis and plan of residential program: Exercise Date given Cat/Cow stretch 08/19/2017 [...] Moderate - Moderate complexity Complexity: Moderate - 89641 The patient requires services that can be [...] status. Keely Davis, PT [facility] 1ST FLOOR Scheduled Appointment time: 10:00 AM [...] stretching, manual thera py Procedure Codes: Re-evaluation 50120, Therapeutic Exercise 67210, Manual Therapy 26369, Th erapeutic Activities 00894 and Neuromuscular Reeducation 47413 Minutes per session: 45 Total number of [...] meninges Next progress report 10/19/2017 Insurance: Payor: [employer] / Plan: [employer] HE[employer] SHARE / Product Type: Medicaid [...] | Diabetes & | MD Kenny [address] [facility] | | | | | Metabolism | [address] | | | | | | [place], [place] | | | | | | [address] | | | | | | [phone] | | | | | | | | +--------+---------+ + + + documented as of this encounter Procedures + +--------+ + + + | Procedure Name | Priori | Date/Time | Associated Diagnosis | Comments | | | ty | | | | + +--------+ + + + | [place] THERAPEUTIC | Routin | 08/20/2017 | Chronic [...]
--- OUTSIDE RECORDS SUMMARY | ~2018-07-24 | XMS | Encounter Summary ---
Demographics + + + | Address | [address] | | | [place] [address] | + + + | Home Phone [...] + + + | Author | [facility] | + + + | Organization | [facility] | + + + | Address | Unknown | + + + | Phone | Unavailable | + + + Support + + +---------+ + | Name | Relationship | Address | Phone | + + +---------+ + | Dandre Acosta | ECON | Unknown | | + + +---------+ + Care Team Providers + +------+ + | Care Casino Banker Name | Role | Phone | + [...] | | | | | cyst | YELLOW JACKET, | [address] | | | | | Procedures | [place] | for Health | | | | | PHYSICAL | [address] | and Healing, | | | | | THERAPY | Phone: | 1st floor | | | | | REFERRAL | [phone] | [place], [place] | | | | | | Fax: | [address] | | | | | | [phone] | Phone: | | | | | | | [phone] | | | | | | | Fax: | | | | | | | [phone] | +--------+--------+ + + + + Encounter Details +--------+---------+ + + + | Date | Type | Department | Care Team | Description | +--------+---------+ + + + | 09/20/ | Office | [facility] | Vinny Chatman, | Back pain, | | 2018 | Visit | Therapy Services at | PT [facility], [place] | unspecified back | | | | [facility] | [address] | location, | | | | [address] | | unspecified back | | | | Mailcode: CH3P | | pain laterality, | | | | [facility] | | unspecified | | | | and Healing, 1st | | chronicity (Primary | | | | floor [place], [place] | | Dx) | | | | [address] | | | | | | [phone] | | | +--------+---------+ + + + [...] different fro m the original. Insurance: Payor: [employer]ICA[employer] / Plan: [facility] / Product Type: Medicaid / Non-Medicare [facility] PHYSICAL THERAPY PROGRESS NOTE Past Medical History: [...] (SUBC). Sliding scale, Disp: , Rfl: Insulin [place] (Disposable) 31 gauge x 5/16" needle, 1 [...] counselo terri there, currently seeing someone at [place]. Tingling static electricity going down his lef [...] change in their status. Vinny Chatman DPT [facility] Outpatient Rehabilitation Services Mailcode: CH3T [address] [facility], 1st [facility] [address] Treatment began: 1130 Treatment ended: 1210 Therapeutic exercise 40 PLAN OF CARE (Established 08/19/2017 to be updated every 60 days): Treatment Plan Summary: Pain management strategies, strengthening, stretching, manual thera py Procedure Codes: Re-evaluation 24502, Therapeutic Exercise 92486, Manual Therapy 29707, Th erapeutic Activities 19270 and Neuromuscular Reeducation 34514 Minutes per session: 45 Total number of [...] chronicity Next progress report 11/19/2017 Insurance: Payor: [employer]ICAID / Plan: [employer] HE[employer] SHARE / Product Type: Medicaid [...] Visit | Diabetes & | MD Kenny [facility] [address] | | | | | Metabolism | [address] | | | | | | [place], [place] | | | | | | [address] | | | | | | [phone] | | | | | | | | +--------+---------+ + + + documented as of this encounter Procedures + +--------+ + + + | Procedure Name | Priori | Date/Time | Associated Diagnosis | Comments | | | ty | | | | + +--------+ + + + | [place] THERAPEUTIC | Routin | 09/20/2017 | Back [...]
--- OUTSIDE RECORDS SUMMARY | ~2018-07-24 | XMS | Encounter Summary ---
Demographics + + + | Address | [address] | | | [place] [address] | + + + | Home Phone [...] Team Providers + +------+ + | Care Needle Felt Making Machine Operator Name | Role | Phone [...] | | | | | [place], | [place], [place] | | | | | | [place] | [address] | | | | | | [address] | Phone: | | | | | | Phone: | [phone] | | | | | | [phone] | Fax: | | | | | | Fax: | [phone] | | | | | | [phone] | | +--------+--------+ + + + + Encounter Details +--------+---------+ + + + | Date | Type | Department | Care Team | Description | +--------+---------+ + + + | 10/27/ | Office | Spine Center at | Alvin Martin MD | Depressive disorder | | 2018 | Visit | [facility] [address] | [address] | (Primary Dx); Type 1 | | | | Ave [place], [place] | [place], [place] | diabetes mellitus | | | | [address] | [address] | with complication | | | | [phone] | [phone] | (HCC); Chest wall | | | [...] be 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 He does have well-controlled diabetes with a [...] under the skin (SUBC). Sliding scale Insulin [place] (Disposable) 31 gauge x 5/16" needle 1 [...] use No Alcohol marijuana drugs Originally from [place], relocated to [place] because of health and environment [facility] , lived briefly in [place]. He states that although he does not have any identified medical decision-maker a person by the name of Gurjit Sawyer (a construction operations manager from [place]) would be that person. He does have 2 sister s and a father in [facility]. Physical Exam: Constitutional: There were no [...] Alvin Martin MD I spent 45 minutes tsez-yl-kekk with the patient. I spent more than [...] Rd | | | | | | [place], [place] | | | | | | [address] | | | | | | [phone] | | | | | | | [...]
--- OUTSIDE RECORDS SUMMARY | ~2018-07-24 | XMS | Encounter Summary ---
Demographics + + + | Address | [address] | | | [place] [address] | + + + | Home Phone [...] Author | [facility] | + + + | Organization | [facility] | + + + | Address | Unknown | + + + | Phone | Unavailable | + + + Support + + +---------+ + | Name | Relationship | Address | Phone | + + +---------+ + | Dandre Acosta | ECON | Unknown | | + + +---------+ + Care Team Providers + +------+ + | Care Information Resources Director Name | Role | Phone | + [...] | | | [facility] | [place], [place] | | | | | | Physicians | [address] | | | | | | [address] | Phone: | | | | | | Mother | [phone] | | | | | | Gaetano Weir | Fax: | | | | | | [address] | [phone] | | | | | | [place], | | | | | | | [place] [address] | | | | | | | Phone: | | | | | | | [phone] | | | | | | | Fax: | | | | | | | [phone] | | + +--------+ + + + + Encounter Details +--------+---------+ + + + | Date | Type | Department | Care Team | Description | +--------+---------+ + + + | 08/31/ | Office | Spine Center at | Edward Neil, | Chronic pain | | 2018 | Visit | [facility] [address] | [place] [address] | syndrome (Primary | | | | Ave [place], [place] | Ave [place], [place] | Dx); Myofascial | | | | [address] | [address] | pain; Arachnoid cyst | | | | [phone] | [phone] | | | | | | | [...] under the skin (SUBC). Sliding scale Insulin [place] (Disposable) 31 gauge x 5/16" needle 1 [...] issues). I spent at least 25 minutes oikb-un-bhnt with the patient. I spent more than 50% of this vi sit in coordination of care and counseling in which we discussed diagnosis, treatment, imagi ng studies and follow-up. Edward Neil PA-C [facility] [address] [place] [address] documented in this e ncounter Plan of Treatment +--------+---------+ + + + | Date | Type | Specialty | Care Team | Description | +--------+---------+ + + + | 08/22/ | Office | Endocrinology, | Lidia Holguin | | | 2019 | Visit | Diabetes & | MD Kenny [address] | | | | | Metabolism | [address] | | | | | | [place], [place] | | | | | | [address] | | | | | | [phone] | | | | | | | [...]
--- OUTSIDE RECORDS SUMMARY | ~2018-07-24 | XMS | Encounter Summary ---
Demographics + + + | Address | [address] | | | [place] [address] | + + + | Home Phone [...] + + | Author | [facility] | + + + | Organization | [facility] | + + + | Address | Unknown | + + + | Phone | Unavailable | + + + Support + + +---------+ + | Name | Relationship | Address | Phone | + + +---------+ + | Dandre Acosta | ECON | Unknown | | + + +---------+ + Care Team Providers + +------+ + | Care Reconciliation Coordinator Name | Role | Phone | + +------+ + | Sailaja Washburn SPOKE MAKER | PCP | | + +------+ + [...] | | mellitus | Kevin Staley | [address] | | | | | with | Carmencita Avalos | Mailcode: | | | | | complication | [place], [place] | [address] | | | | | ([facility]) | [address] | Physicians | | | | | Review | Phone: | Tiarra MOREIRA | | | | | optimizing | [phone] | [address] | | | | | sensor | Fax: | [place], [place] | | | | | technology | [phone] | [address] | | | | | Procedures | | Phone: | | | | | CONSULT TO | | [phone] | | | | | ADULT | [...] | | | | mellitus | Kevin Satley | [facility] | | | | | with | [address] | Mailcode: | | | | | complication | [place], [place] | [address] | | | | | ([facility]) | [address] | Physicians | | | | | Nutrition - | Phone: | Tiarra ANTONIO | | | | | Analyze carb | [phone] | [address] | | | | | intake at | Fax: | [place], [place] | | | | | meals, | [phone] | [address] | | | | | patterns, | | Phone: | | | | | dosing | | [phone] | | | | | strategy | | Fax: | | | | | Procedures | | [phone] | | | | | CONSULT TO [...] | | | | | mellitus | Inlet | [address] | | | | | with | Street | Road | | | | | hypoglycemia | [place], [place] | Physicians | | | | | without | [address] | [facility] | | | | | coma Type 1 | Phone: | 140 | | | | | diabetes | [phone] | Physicians | | | | | mellitus | Fax: | Pavilion | | | | | without | [phone] | [place], [place] | | | | | complication | | [address] | | | | | s | | Phone: | | | | | Procedures | | [phone] | | | | | CONSULT TO | | Fax: | | | | | DIABETES | | [phone] | | | | | ENDO | [...] | | Pav[address] | [facility] [place] | (Primary Dx) | | | | Kevin Staley [address] | [address] | | | | | Road Physicians | [phone] | | | | | [facility] [address] | | | | | | Physicians Pavilion | | | | | | [place], [place] | | | | | | [address] | | | | | | [phone] | | | +--------+---------+ + + + [...] schedule as much as possible Please contact [facility] [phone] for any questions Lab Results Component Value Date A1C 5.5 04/20/2018 Schedule upcoming appointments: Nutrition visit to review meal patterns, activity and stress related trends Technology visit to refine use of sensor Sensor order --- You have history of testing 10 to 12 times daily when not on sensor and Keep up routine monitoring and use of current sensor Ask [place] to send us supply requests Follow hypoglycemic [...] a low blood sugar. Please visit the [facility] Website for information on what's new at our diabetes center. Let us know if you would like to sign up for a class or a one o n one diabetes education visit. Please meet with your primary care provider routinely for your medical care and annual [facility] k ups documented in this encounter Progress Notes Solange Lucas MA - 04/20/2018 9:49 AM PST Finger stick performed in clinic for a capillary A1c. Lidia Alas M D - 04/20/2018 9:45 AM PST [facility] PCP: RODNEY Cardoso Referring Physician: Christian Rodriguez ND [address] [place] [address] Reason for referral: Evaluate Type 1 Diabetes HPI: Gregory is a 38 y.o. male referred for evaluation of Type 1 Diabetes. Diabetes history: He was diagnosed with diabetes in 1992 at age 13. Circumstance: hospitalized, in [place] at the time ---- moved to [place] 14 years ago Treatment history: Has been [...] diabetes care: Living situation: grew up in [place] ---- moved to [place]--wanted to live somewhere that was health, mom when he was 23 He grew up with a lot of fried and fast food in the home. Dad has type 1 diabetes. Has t wo sisters. Lives in [place]. Lives alone. In physical therapy for cyst [...] mouth once daily at bedtime. Blood-Glucose Sensor (ProxToMe G5-G4 SENSOR) device 1 each by NOT APPLICABLE route. Cholecalciferol (Vitamin D3) 2,000 unit oral tablet TAKE 1 TABLET BY MOUTH EVERY DAY FO R dietary SUPPLEMENT DULoxetine 20 mg oral capsule,delayed release(DR/EC) Take 20 mg by mouth once daily at bedtime. Fish Oil-[place]-3 Fatty Acids 300-1,000 mg oral capsule Take [...] scale, up to 30 units daily Insulin [place] (Disposable) 31 gauge x 5/16" needle 1 [...] ROS: Review of systems as stated in [place]. Other pertinent review of systems includes: Weight: [...] 1992 at age 13. Circumstance: hospitalized, in [place] at the time ---- moved to [place] 14 years ago Treatment history: Has been on NPH, Novolog, Humalog, Levemir, Lantus and now Basaglar Pump/sensor history-- never on a pump---started Dexcom 6 months ago (G5) but challenges wit h insurance coverage Has working transmitter/sensor right now but every 3 months it takes about a month to proce ss the paperwork through [place] and insurance History of acute complications: Severe [...] sensor use for awareness of trends In [employer] so very active throughout the day --- [...] as possible Please contact Leobardo Kasia Diabetes [facility] [phone] for any questions Lab Results Component Value [...] a low blood sugar. Please visit the [facility] Website for information on what's new at our diabetes center. Let us know if you would like to sign up for a class or a one o n one diabetes education visit. Please meet with your primary care provider routinely for your medical care and annual [facility] k ups 2. See orders Orders Placed This Encounter [place] Collection Capillary Blood Specimen [[id number]] only for Adults CONSULT TO ADULT DIABETES - NUTRITION (MNT) CONSULT TO ADULT DIABETES - EDUCATION (DIABETES SELF-MANAGEMENT) HEMOGLOBIN A1C,POC [[id number]}] Lidia Holguin MD [facility] AT [facility]PV 1ST FLOOR [address] [facility] [address] [place] [address] I spent 55 minutes with [...] | Diabetes & | MD Kenny [address] [facility] | | | | | Metabolism | [address] | | | | | | [place], [place] | | | | | | [address] | | | | | | [phone] | | | | | | | [...] | + +--------+ + + + | [place] COLLECTION | Routin | 04/20/2018 | Type [...] [place] | [address] | [place], [place] | | | KARI RODRIGUEZ OF CARE | [address] | [address] | | | TESTS | | | [...]
--- OUTSIDE RECORDS SUMMARY | ~2018-07-24 | XMS | Encounter Summary ---
Demographics + + + | Address | [address] | | | [place] [address] | + + + | Home Phone [...] + + + | Author | [facility] | + + + | Organization | [facility] | + + + | Address | Unknown | + + + | Phone | Unavailable | + + + Support + + +---------+ + | Name | Relationship | Address | Phone | + + +---------+ + | Dandre Acosta | ECON | Unknown | | + + +---------+ + Care Team Providers + +------+ + | Care Industrial Accountant Name | Role | Phone | + [...] | | | 2017 | on | [facility] [address] | [place] [address] | | | | | [place] [facility] [place] | [place] [facility] [place] | | | | | [address] | [address] | | | | | [phone] | [phone] | | | | | | | [...] Visit | Diabetes & | MD Kenny [address] [facility] | | | | | Metabolism | [address] | | | | | | [place] | | | | | | [address] | | | | | | [phone] | | | | | | | | +--------+---------+ + + + documented as of this encounter Visit Diagnoses Not on filedocumented in this encounter"
--- OUTSIDE RECORDS SUMMARY | ~2018-07-24 | XMS | Encounter Summary ---
Demographics + + + | Address | [address] | | | [place] [address] | + + + | Home Phone [...] Author + + + | Author | [facility] | + + + | Organization | [facility] | + + + | Address | Unknown | + + + | Phone | Unavailable | + + + Support + + +---------+ + | Name | Relationship | Address | Phone | + + +---------+ + | Dandre Acosta | ECON | Unknown | | + + +---------+ + Care Team Providers + +------+ + | Care Preschool Education Director Name | Role | Phone | + +------+ + | Sailaja WashburnP | PCP | | + +------+ + Encounter Details +--------+ + + + + | Date | Type | Department | Care Team | Description | +--------+ + + + + | 11/09/ | Documentati | Spine Center at | Edward Neil, | | | 2017 | on | [facility] [address] | [address] [address] | | | | | [place], [place] | [place], [place] | | | | | [address] | [address] | | | | | [phone] | [phone] | | | | | | | [...] | Diabetes & | MD Kenny [address] [facility] | | | | | Metabolism | [address] | | | | | | [place] | | | | | | [address] | | | | | | [phone] | | | | | | | | +--------+---------+ + + + documented as of this encounter Visit Diagnoses Not on filedocumented in this encounter"
--- OUTSIDE RECORDS SUMMARY | ~2018-07-24 | XMS | Encounter Summary ---
Demographics + + + | Address | [address] | | | [place] [address] | + + + | Home Phone | | + + + | Preferred Language | Unknown | + + + | Marital Status | Single | + + + | Rastafarian Affiliation | Unknown | + + + [...] Team Providers + +------+ + | Care Chain Maker Loom Control Name | Role | Phone | + +------+ + | Sailaja Washburn SENIOR WINDOWS SYSTEMS ADMINISTRATOR | PCP | | + +------+ + [...] | | mellitus | [address] | [address] | | | | | with | Carmencita Avalos | Mailcode: | | | | | complication | [place], [place] | [address] | | | | | ([facility]) | [address] | Physicians | | | | | Review | Phone: | Tiarra MOREIRA | | | | | optimizing | [phone] | 140 | | | | | sensor | Fax: | [place], [place] | | | | | technology | [phone] | [address] | | | | | Procedures | | Phone: | | | | | CONSULT TO | | [phone] | | | | | ADULT | [...] | | mellitus | Kevin Staley | [facility] | | | | | with | [address] | Mailcode: | | | | | complication | [place], [place] | [address] | | | | | ([facility]) | [address] | Physicians | | | | | Nutrition - | Phone: | Tiarra ANTONIO | | | | | Analyze carb | [phone] | 140 | | | | | intake at | Fax: | [place], [place] | | | | | meals, | [phone] | [address] | | | | | patterns, | | Phone: | | | | | dosing | | [phone] | | | | | strategy | | Fax: | | | | | Procedures | | [phone] | | | | | CONSULT TO [...] | | | | | mellitus | [place] | [address] | | | | | with | Street | Road | | | | | hypoglycemia | [place], [place] | Physicians | | | | | without | [address] | [facility] | | | | | coma Type 1 | Phone: | 140 | | | | | diabetes | [phone] | Physicians | | | | | mellitus | Fax: | Pavilion | | | | | without | [phone] | [place] | | | | | complication | | [address] | | | | | s | | Phone: | | | | | Procedures | | [phone] | | | | | CONSULT TO | | Fax: | | | | | DIABETES | | [phone] | | | | | ENDO | [...] | | [address] | [facility] [place] | (Primary Dx) | | | | Kevin St[address] | [address] | | | | | Road Physicians | [phone] | | | | | [address] | | | | | | Physicians Pavilion | | | | | | [place], [place] | | | | | | [address] | | | | | | [phone] | | | +--------+---------+ + + + [...] schedule as much as possible Please contact [facility] [phone] for any questions Lab Results Component Value Date A1C 5.5 04/20/2018 Schedule upcoming appointments: Nutrition visit to review meal patterns, activity and stress related trends Technology visit to refine use of sensor Sensor order --- You have history of testing 10 to 12 times daily when not on sensor and Keep up routine monitoring and use of current sensor Ask [place] to send us supply requests Follow hypoglycemic [...] a low blood sugar. Please visit the [facility] Website for information on what's new at our diabetes center. Let us know if you would like to sign up for a class or a one o n one diabetes education visit. Please meet with your primary care provider routinely for your medical care and annual [facility] k ups documented in this encounter Progress Notes Solange Lucas MA - 04/20/2018 9:49 AM PST Finger stick performed in clinic for a capillary A1c. Lidia Alas M D - 04/20/2018 9:45 AM PST [facility] PCP: RODNEY Cardoso Referring Physician: Christian Rodriguez ND [address] [place] [address] Reason for referral: Evaluate Type 1 Diabetes HPI: Gregory is a 38 y.o. male referred for evaluation of Type 1 Diabetes. Diabetes history: He was diagnosed with diabetes in 1992 at age 13. Circumstance: hospitalized, in [place] at the time ---- moved to [place] 14 years ago Treatment history: Has been [...] diabetes care: Living situation: grew up in [place] ---- moved to [place]--wanted to live somewhere that was health, mom when he was 23 He grew up with a lot of fried and fast food in the home. Dad has type 1 diabetes. Has t wo sisters. Lives in [place]. Lives alone. In physical therapy for cyst [...] mouth once daily at bedtime. Blood-Glucose Sensor ([employer] G5-G4 SENSOR) device 1 each by NOT APPLICABLE route. Cholecalciferol (Vitamin D3) 2,000 unit oral tablet TAKE 1 TABLET BY MOUTH EVERY DAY FO R dietary SUPPLEMENT DULoxetine 20 mg oral capsule,delayed release(DR/EC) Take 20 mg by mouth once daily at bedtime. Fish Oil-[place]-3 Fatty Acids 300-1,000 mg oral capsule Take [...] scale, up to 30 units daily Insulin [place] (Disposable) 31 gauge x 5/16" needle 1 [...] ROS: Review of systems as stated in [place]. Other pertinent review of systems includes: Weight: [...] 1992 at age 13. Circumstance: hospitalized, in [place] at the time ---- moved to [place] 14 years ago Treatment history: Has been on NPH, Novolog, Humalog, Levemir, Lantus and now Basaglar Pump/sensor history-- never on a pump---started Dexcom 6 months ago (G5) but challenges wit h insurance coverage Has working transmitter/sensor right now but every 3 months it takes about a month to proce ss the paperwork through [place] and insurance History of acute complications: Severe [...] sensor use for awareness of trends In [employer]! so very active throughout the day --- [...] as possible Please contact Leobardo Kasia Diabetes [facility] [phone] for any questions Lab Results Component Value [...] a low blood sugar. Please visit the [facility] Website for information on what's new at our diabetes center. Let us know if you would like to sign up for a class or a one o n one diabetes education visit. Please meet with your primary care provider routinely for your medical care and annual [facility] k ups 2. See orders Orders Placed This Encounter [place] Collection Capillary Blood Specimen [[id number]] only for Adults CONSULT TO ADULT DIABETES - NUTRITION (MNT) CONSULT TO ADULT DIABETES - EDUCATION (DIABETES SELF-MANAGEMENT) HEMOGLOBIN A1C,POC [[id number]}] Lidia Holguin MD [facility] AT PPV 1ST FLOOR [address] [facility] Physicians [facility] [address] [place] [address] I spent 55 minutes with [...] | Diabetes & | MD Kenny [address] [facility] | | | | | Metabolism | [address] | | | | | | [place], [place] | | | | | | [address] | | | | | | [phone] | | | | | | | [...] | + +--------+ + + + | [place] COLLECTION | Routin | 04/20/2018 | Type [...] [place] | [address] | [place], [place] | | | KARI RODRIGUEZ OF CARE | [address] | [address] | | | TESTS | | | [...]
--- OUTSIDE RECORDS SUMMARY | ~2018-07-24 | XMS | Encounter Summary ---
Demographics + + + | Address | [address] | | | [place] [address] | + + + | Home Phone [...] + + + | Author | [facility] | + + + | Organization | [facility] | + + + | Address | Unknown | + + + | Phone | Unavailable | + + + Support + + +---------+ + | Name | Relationship | Address | Phone | + + +---------+ + | Dandre Acosta | ECON | Unknown | | + + +---------+ + Care Team Providers + +------+ + | Care Fire Technology Instructor Name | Role | Phone | + +------+ + | Maddison Sailajabettie PICKETTP | PCP | | + +------+ + Reason for Visit + + + | Reason | Comments | + + + | Durable Medical | Purchase | | Equipment (DME) | | | Orders | | + + + Encounter Details +--------+--------+ + + + | Date | Type | Department | Care Team | Description | +--------+--------+ + + + | 06/03/ | Refill | Leobardo Pedroza | Lidia Holguin | Durable Medical | | 2019 | | [facility] | MD Kenny [address] [facility] | Equipment (DME) | | | | Center at Physicians | [address] | Orders (Purchase) | | | | Pavilion [address] | [place], [place] | | | | | [facility] | [address] | | | | | Road Physicians | [phone] | | | | | [address] | | | | | | Physicians Pavilion | | | | | | [facility] [place] | | | | | | [address] | | | | | | [phone] | | | +--------+--------+ + + + [...] Rd | | | | | | [place] | | | | | | [address] | | | | | | [phone] | | | | | | | | +--------+---------+ + + + documented as of this encounter Visit Diagnoses Not on filedocumented in this encounter"
--- OUTSIDE RECORDS SUMMARY | ~2018-07-24 | XMS | Encounter Summary ---
Demographics + + + | Address | [address] | | | [place] [address] | + + + | Home Phone | | + + + | Preferred Language | Unknown | + + + | Marital Status | Single | + + + | Baptist Affiliation | Unknown | + + + [...] Providers + +------+ + | Care Cnc Service Engineer Name | Role | Phone | + +------+ + | Sailaja Washburn PARACHUTE HARNESS RIGGER | PCP | | + +------+ + [...] | | mellitus | Denis Staley | [facility] | | | | | with | [address] | Mailcode: | | | | | complication | [place], [place] | PPV05 | | | | | ([facility]) | [address] | Physicians | | | | | Nutrition - | Phone: | Tiarra MOREIRA | | | | | Analyze carb | [phone] | 140 | | | | | intake at | Fax: | [place], [place] | | | | | meals, | [phone] | [address] | | | | | patterns, | | Phone: | | | | | dosing | | [phone] | | | | | strategy | | Fax: | | | | | Procedures | | [phone] | | | | | CONSULT TO [...] | Visit | Diabetes Health | [address] [facility] | mellitus with | | | | Center at [facility] | [address] | complication (HCC) | | | | Pavilion [address] | [facility], [place] | (Primary Dx) | | | | [facility] | [address] | | | | | Road Mailcode: | [phone] | | | | | [address] Physicians | | | | | | [address] | | | | | | [place], [place] | | | | | | [address] | | | | | | [phone] | | | +--------+---------+ + + + [...] at age 13. Circumstance: ryan sosa, in [place] at the time, moved to [place] 14 years ago. Dad has type 1 [...] morning on a good day. Works in [employer], so job is also fairly active. Notices [...] and services clinic has to offer includ [facility]. Offered my continued support and education [...] Moderately Stable Follow-up: MNT/DSMT Rosita Malik RD [facility] DIABETES [facility] [address] [place] [address] Mailcode: Ppv05 [place] [address] documented in this enc ounter Plan of Treatment +--------+---------+ + + + | Date | Type | Specialty | Care Team | Description | +--------+---------+ + + + | 08/22/ | Office | Endocrinology, | Lidia Holguin | | | 2019 | Visit | Diabetes & | MD Kenny [address] [place] [address] | | | | | Metabolism | [facility] | | | | | | [place], [place] | | | | | | [address] | | | | | | [phone] | | | | | | | [...]
--- OUTSIDE RECORDS SUMMARY | ~2018-07-24 | XMS | Encounter Summary ---
Demographics + + + | Address | [address] | | | [place] [address] | + + + | Home Phone [...] Providers + +------+ + | Care Service Cashier Name | Role | Phone | + [...] | | | | cyst | [address] | | | | | Procedures | [place] | for Health | | | | | PHYSICAL | [address] | and Healing, | | | | | THERAPY | Phone: | 1st floor | | | | | REFERRAL | [phone] | [facility] [place] | | | | | | Fax: | [address] | | | | | | [phone] | Phone: | | | | | | | [phone] | | | | | | | Fax: | | | | | | | [phone] | +--------+--------+ + + + + Encounter Details +--------+---------+ + + + | Date | Type | Department | Care Team | Description | +--------+---------+ + + + | 08/19/ | Office | [facility] | Dissinger, | Chronic right-sided | | 2018 | Visit | Therapy Services at | Keely, PT [address] | thoracic back pain | | | | [facility] | [facility] [address] | (Primary Dx); Cyst | | | | [address] | [place], [place] | of spinal meninges | | | | Mailcode: CH3P | [address] | | | | | [facility] | | | | | | and Healing, 1st | | | | | | floor [place], [place] | | | | | | [address] | | | | | | [phone] | | | +--------+---------+ + + + [...] - 08/19/2017 10:00 AM PDT Insurance: Payor: [facility] MEDICAID / Plan: [facility] [employer]ARE / Product Type: Medicaid / Non-Medicare [facility] PHYSICAL THERAPY EVALUATION Past Medical History: [...] (SUBC). Sliding scale, Disp: , Rfl: Insulin [place] (Disposable) 31 gauge x 5/16" needle, 1 [...] counselo r there, currently seeing someone at [facility]. Tingling static electricity going down his lef [...] stretches Education: Rehabilitation diagnosis and plan of half-way program: Exercise Date given Cat/Cow stretch 08/19/2017 [...] Moderate - Moderate complexity Complexity: Moderate - 84533 The patient requires services that can be [...] regarding any change in their status. Keely Dvais, PT [facility] 1ST FLOOR Scheduled Appointment time: 10:00 [...] stretching, manual thera py Procedure Codes: Re-evaluation 60536, Therapeutic Exercise 38880, Manual Therapy 46830, Th erapeutic Activities 13141 and Neuromuscular Reeducation 55443 Minutes per session: 45 Total number of [...] meninges Next progress report 10/19/2017 Insurance: Payor: [employer] MEDICAID / Plan: [employer] CAREOR HEALTH SHARE / Product Type: Medicaid [...] | Diabetes & | MD Kenny [address] [facility] | | | | | Metabolism | [address] | | | | | | [place], [place] | | | | | | [address] | | | | | | [phone] | | | | | | | | +--------+---------+ + + + documented as of this encounter Procedures + +--------+ + + + | Procedure Name | Priori | Date/Time | Associated Diagnosis | Comments | | | ty | | | | + +--------+ + + + | CT THERAPEUTIC | Routin | 08/20/2017 | Chronic [...]
--- OUTSIDE RECORDS SUMMARY | ~2018-07-24 | XMS | Encounter Summary ---
Demographics + + + | Address | [address] | | | [place] [address] | + + + | Home Phone | | + + + | Preferred Language | Unknown | + + + | Marital Status | Single | + + + | Caodaism Affiliation | Unknown | + + + | Race | White | + + + | Ethnic Group | Not or | + + + Author + + + | Author | [facility] | + + + | Organization | [facility] | + + + | Address | Unknown | + + + | Phone | Unavailable | + + + Support + + +---------+ + | Name | Relationship | Address | Phone | + + +---------+ + | Dandre Acosta | ECON | Unknown | | + + +---------+ + Care Team Providers + +------+ + | Care Floor Covering Layer Name | Role | Phone | + +------+ + | Linda Lizarraga LIVESTOCK SLAUGHTERER | PCP | | + +------+ + [...] | | | | | Physicians | [address] | | | | | | [address] | Phone: | | | | | | Mother | [phone] | | | | | | [address]et[address] | Fax: | | | | | | [address] | [phone] | | | | | | [place], | | | | | | | [place] [address] | | | | | | | Phone: | | | | | | | [phone] | | | | | | | Fax: | | | | | | | [phone] | | + +--------+ + + + + Encounter Details +--------+---------+ + + + | Date | Type | Department | Care Team | Description | +--------+---------+ + + + | 12/22/ | Office | Spine Center at | Edward Neil, | Arachnoid cyst | | 2018 | Visit | [facility] [address] | PA-C [address] | (Primary Dx) | | | | Ave [place], [place] | Ave [place], [place] | | | | | [address] | [address] | | | | | [phone] | [phone] | | | | | | | [...] symptoms. Sin e his last appointment with sc he was evaluated by [facility] spine Surgeon Dr. Martin who did [...] or medial branch blocks, not covered by [facility]Pain Clinic referral for Pain Psy, insurance [...] by mouth once daily at bedtime. Fish Oil-Cisne-3 Fatty Acids 300-1,000 mg oral capsule Take [...] under the skin (SUBC). Sliding scale Insulin [place] (Disposable) 31 gauge x 5/16" needle 1 [...] needed I spent at least 12 minutes lmts-ic-rqib with the patient. I spent more than 50% of this vi sit in coordination of care and counseling in which we discussed diagnosis, treatment, imagi ng studies and follow-up. Edward Neil PA-C [facility] AT [facility] [address] [place] [address] documented in this e ncounter Plan of Treatment +--------+---------+ + + + | Date | Type | Specialty | Care Team | Description | +--------+---------+ + + + | 08/22/ | Office | Endocrinology, | Lidia Holguin | | | 2019 | Visit | Diabetes & | MD Kenny [address] [place] [address] | | | | | Metabolism | [address] | | | | | | [place], [place] | | | | | | [address] | | | | | | [phone] | | | | | | | | +--------+---------+ + + + documented as of this encounter Visit Diagnoses + + | Diagnosis | + + | Arachnoid cyst - Primary Cerebral cysts | + + documented in this encounter
--- OUTSIDE RECORDS SUMMARY | ~2018-07-24 | XMS | Encounter Summary ---
Demographics + + + | Address | [address] | | | [place] [address] | + + + | Home Phone [...] Team Providers + +------+ + | Care Heel Burnisher Name | Role | Phone | + +------+ + | Maddison Sailajabettie PICKETTP | PCP | | + +------+ + Reason for Visit + + + | Reason | Comments | + + + | Durable Medical | [place] | | Equipment (DME) | | | Orders | | + + + Encounter Details +--------+--------+ + + + | Date | Type | Department | Care Team | Description | +--------+--------+ + + + | 06/03/ | Refill | Leobardo Pedroza | Lidia Holguin | Durable Medical | | 2019 | | [facility] | MD Kenny [address] [facility] | Equipment (DME) | | | | Center at Physicians | [address] | Orders ([place]) | | | | Pavilion [address] | [place], [place] | | | | | [facility] | [address] | | | | | Road Physicians | [phone] | | | | | [address] | | | | | | Physicians Pavilion | | | | | | [facility] [place] | | | | | | [address] | | | | | | [phone] | | | +--------+--------+ + + + [...] Rd | | | | | | [place] | | | | | | [address] | | | | | | [phone] | | | | | | | | +--------+---------+ + + + documented as of this encounter Visit Diagnoses Not on filedocumented in this encounter"
--- OUTSIDE RECORDS SUMMARY | ~2018-07-24 | XMS | Encounter Summary ---
Demographics + + + | Address | [address] | | | [place] [address] | + + + | Home Phone [...] Providers + +------+ + | Care Communications Controller Name | Role | Phone | + +------+ + | Sailaja WashburnP | PCP | | + +------+ + Encounter Details +--------+ + + + + | Date | Type | Department | Care Team | Description | +--------+ + + + + | 11/09/ | Documentati | Spine Center at | Edward Neil, | | | 2017 | on | [facility] [address] | [address] | | | | | [place], [place] | [place], [place] | | | | | [address] | [address] | | | | | [phone] | [phone] | | | | | | | [...] | Diabetes & | MD Kenny [address] [facility] | | | | | Metabolism | [address] | | | | | | [place] | | | | | | [address] | | | | | | [phone] | | | | | | | | +--------+---------+ + + + documented as of this encounter Visit Diagnoses Not on filedocumented in this encounter"
--- OUTSIDE RECORDS SUMMARY | ~2018-07-24 | XMS | Encounter Summary ---
Demographics + + + | Address | [address] | | | [place] [address] | + + + | Home Phone | | + + + | Preferred Language | Unknown | + + + | Marital Status | Single | + + + | Temple Affiliation | Unknown | + + + [...] Team Providers + +------+ + | Care Operating Systems Programmer Name | Role | Phone | + +------+ + PCP | Unavailable | + +------+ + Encounter Details +--------+ + + + + | Date | Type | Department | Care Team | Description | +--------+ + + + + | 07/27/ | Document-Sc | UNKNOWN DEPARTMENT | Unknown . | | | 2013 | anned | [address] [facility] | | | | | | [facility] | | | | | | [place], [place] | | | | | | [address] | | | +--------+ + + + [...] Visit | Diabetes & Morris Cox MD [address] | | | | | Metabolism | [address] | | | | | | [place], [place] | | | | | | [address] | | | | | | [phone] | | | | | | | | +--------+---------+ + + + documented as of this encounter Visit Diagnoses Not on filedocumented in this encounter"
--- OUTSIDE RECORDS SUMMARY | ~2018-07-24 | XMS | Clinical Summary ---
Demographics + + + | Address | [address] | | | [place] [address] | + + + | Home Phone [...] Team Providers + +------+ + | Care Tape Folding Machine Operator Name | Role | Phone | + +------+ + | Sailaja Washburn | PP | | + +------+ + Source Comments JOSE FRANCISCO is fully live on both [facility] and [facility] InPatient.[facility] Allergies + + + + + + [...] | + + + +---------+------+------+-------+ | Insulin Eagar | 1 each. | | 0 | [...] | + + + +---------+------+------+-------+ | Fish Oil-[place]-3 | Take by mouth. | | 0 [...] of | | Present Illness:CBGs:14-day avg = 76751-qzc avg = 197CBG this AM | | = 325Has new girlfriend - been going out to dinner a lot.Little | | exercise.Planning on taking a contract job for 3 months in | | [place].Needing to get supplies to cover him for this.Has not | | applied for Cover [place] because leaving to [place] soon. Will | | when he returns.Worried [...] of Present Illness:CBGs:14-day avg = | | 56826-srz avg = 197CBG this AM = 325Has new girlfriend - been | | going out to dinner a lot.Little exercise.Planning on taking a | | contract job for 3 months in [place].Needing to get supplies to | | cover him for this.Has not applied for Cover [place] because | | leaving to [place] soon. Will when he returns.Worried about | [...] a contract job for 3 months in [place]. | |Needing to get supplies to cover him for this. | |Has not applied for Cover [place] because leaving to [place] soon. Will when he returns. | | [...] | | | | | | Orders ([facility]); | | | | | | Refill [...] | Visit | | MD Kenny [address] [facility] | | | | | | [address] | | | | | | [place], [place] | | | | | | [address] | | | | | | [phone] | | | | | | | [...] | | | + +--------+ +--------+-------+---------+--------+ | HAND TOOL FILER MEDICAID | HAND TOOL FILER | [id number] | | | | Medica [...] | 1980 | [phone] | [place] [address] | | | vidal | | | 1 (Home) | | + +--------+ +--------+ + +
--- OUTSIDE RECORDS SUMMARY | ~2018-07-24 | XMS | Encounter Summary ---
Demographics + + + | Address | [address] | | | [place] [address] | + + + | Home Phone [...] Team Providers + +------+ + | Care Air And Missile Defense Crewmember Name | Role | Phone | + [...] | | | | | cyst | [address] | | | | | Procedures | [place] | for Health | | | | | PHYSICAL | [address] | and Healing, | | | | | THERAPY | Phone: | 1st floor | | | | | REFERRAL | [phone] | [facility] [place] | | | | | | Fax: | [address] | | | | | | [phone] | Phone: | | | | | | | [phone] | | | | | | | Fax: | | | | | | | [phone] | +--------+--------+ + + + + Consultation (Routine) +--------+---------+ + + + + | Status | Reason | Specialty | Diagnoses / | Referred By | Referred To | | | | | Procedures | Contact | Contact | +--------+---------+ + + + + | Closed | Other | Pain Medicine | Diagnoses | Neil, | [facility] | | | | / Pain | Myofascial | Edward D, | [address] | | | | Management | pain | [address] | | | | | Arachnoid | [address] | Code: CH15P | | | | | cyst | [facility] | | | | | Procedures | [place] | Health and | | | | | CONSULT TO | [address] | , | | | | | PAIN | Phone: | Floor | | | | | MANAGEMENT | [phone] | [place], [place] | | | | | | Fax: | [address] | | | | | | [phone] | Phone: | | | | | | | [phone] | | | | | | | Fax: | | | | | | | [phone] | +--------+---------+ + + + + Consultation [...] | | | | pain | PA-C [address] | | | | | | Arachnoid | [address] | | | | | | cyst | [place], | | | | | | Procedures | [place] | | | | | | [facility] | [address] | | | | | | - EXTERNAL | Phone: | | | | | | ONLY | [phone] | | | | | | | Fax: | | | | | | | [phone] | | + +--------+ + + + [...] | | | [facility] | [place], [place] | | | | | | Physicians | [address] | | | | | | [address] | Phone: | | | | | | Mother | [phone] | | | | | | Gaetano Weir | Fax: | | | | | | [address] | [phone] | | | | | | [place] | | | | | | | [place] [address] | | | | | | | Phone: | | | | | | | [phone] | | | | | | | Fax: | | | | | | | [phone] | | +--------+--------+ + + + + Encounter Details +--------+---------+ + + + | Date | Type | Department | Care Team | Description | +--------+---------+ + + + | 08/17/ | Office | Spine Center at | Edward Neil, | Myofascial pain | | 2018 | Visit | [facility] [address] | [address] | (Primary Dx); | | | | Ave [place], [place] | Ave [place], [place] | Arachnoid cyst | | | | [address] | [address] | | | | | [phone] | [phone] | | | | | | | [...] questionna cesar that will be scanned into [employer]. Current medication list: Current Outpatient Prescriptions Medication [...] under the skin (SUBC). Sliding scale Insulin [place] (Disposable) 31 gauge x 5/16" needle 1 [...] present. I spent at least 40 minutes rlmm-ps-ebrc with the patient. I spent more than 50% of this vi sit in coordination of care and counseling in which we discussed diagnosis, treatment, imagi ng studies and follow-up. Edward Neil PA-C [facility] [address] [place] [address] [facility] OPEN NOTE [[id number]] documented in this e ncounter Plan of Treatment +--------+---------+ + + + | Date | Type | Specialty | Care Team | Description | +--------+---------+ + + + | 08/22/ | Office | Endocrinology, | Lidia Holguin | | | 2019 | Visit | Diabetes & | MD Kenny [address] | | | | | Metabolism | [address] | | | | | | [place], [place] | | | | | | [address] | | | | | | [phone] | | | | | | | [...]
--- OUTSIDE RECORDS SUMMARY | ~2018-07-24 | XMS | Encounter Summary ---
Demographics + + + | Address | [address] | | | [place] [address] | + + + | Home Phone [...] + + + | Author | [facility] | + + + | Organization | [facility] | + + + | Address | Unknown | + + + | Phone | Unavailable | + + + Support + + +---------+ + | Name | Relationship | Address | Phone | + + +---------+ + | Dandre Acosta | ECON | Unknown | | + + +---------+ + Care Team Providers + +------+ + | Care Plant Breeder Scientist Name | Role | Phone | [...] | | | | | cyst | [place], | [address] | | | | | Procedures | [place] | for Health | | | | | PHYSICAL | [address] | and Healing, | | | | | THERAPY | Phone: | 1st floor | | | | | REFERRAL | [phone] | [place], [place] | | | | | | Fax: | [address] | | | | | | [phone] | Phone: | | | | | | | [phone] | | | | | | | Fax: | | | | | | | [phone] | +--------+--------+ + + + + Encounter Details +--------+---------+ + + + | Date | Type | Department | Care Team | Description | +--------+---------+ + + + | 09/20/ | Office | [facility] Physical | Vinny Chatman, | Back pain, | | 2018 | Visit | Therapy Services at | [facility] [place] | unspecified back | | | | [facility] | [address] | location, | | | | [address] | | unspecified back | | | | Mailcode: CH3P | | pain laterality, | | | | [facility] | | unspecified | | | | and Healing, 1st | | chronicity (Primary | | | | floor [place], [place] | | Dx) | | | | [address] | | | | | | [phone] | | | +--------+---------+ + + + [...] documented as of this encounter Progress Notes Vniny Chatman, PT - 09/20/2017 11:30 AM PDTFormatting of this note might be different fro m the original. Insurance: Payor: RESPIRATORY CARE PROGRAM DIRECTOR MEDICAID / Plan: [facility] CARESD HEALTH SHARE / Product Type: Medicaid / Non-Medicare [facility] PHYSICAL THERAPY PROGRESS NOTE Past Medical [...] (SUBC). Sliding scale, Disp: , Rfl: Insulin [place] (Disposable) 31 gauge x 5/16" needle, 1 [...] counselo terri there, currently seeing someone at [place]. Tingling static electricity going down his lef [...] change in their status. Vinny Chatman DPT [facility] Outpatient Rehabilitation Services Mailcode: CH3T [address] [facility], [address] [facility] [address] Treatment began: 1130 Treatment ended: 1210 Therapeutic exercise 40 PLAN OF CARE (Established 08/19/2017 to be updated every 60 days): Treatment Plan Summary: Pain management strategies, strengthening, stretching, manual thera py Procedure Codes: Re-evaluation 25703, Therapeutic Exercise 67866, Manual Therapy 90417, Th erapeutic Activities 53308 and Neuromuscular Reeducation 36128 Minutes per session: 45 Total number of [...] chronicity Next progress report 11/19/2017 Insurance: Payor: RESPIRATORY CARE PROGRAM DIRECTOR MEDICAID / Plan: RESPIRATORY CARE PROGRAM DIRECTOR [employer] HEALTH SHARE / Product Type: Medicaid [...] Visit | Diabetes & | MD Kenny [address] [address] | | | | | Metabolism | [address] | | | | | | [place], [place] | | | | | | [address] | | | | | | [phone] | | | | | | | | +--------+---------+ + + + documented as of this encounter Procedures + +--------+ + + + | Procedure Name | Priori | Date/Time | Associated Diagnosis | Comments | | | ty | | | | + +--------+ + + + | ID THERAPEUTIC | Routin | 09/20/2017 | Back [...]
--- OUTSIDE RECORDS SUMMARY | ~2018-07-24 | XMS | Encounter Summary ---
Demographics + + + | Address | [address] | | | [place] [address] | + + + | Home Phone | | + + + | Preferred Language | Unknown | + + + | Marital Status | Single | + + + | Mosque Affiliation | Unknown | + + + | Race | White | + + + | Ethnic Group | Not or | + + + Author + + + | Author | [facility] | + + + | Organization | [facility] | + + + | Address | Unknown | + + + | Phone | Unavailable | + + + Support + + +---------+ + | Name | Relationship | Address | Phone | + + +---------+ + | Dandre Acosta | ECON | Unknown | | + + +---------+ + Care Team Providers + +------+ + | Care Toe Closing Machine Tender Name | Role | Phone | + +------+ + | Maddison Sailaja Brionna STEVENS | PCP | | + +------+ + Reason for Visit + + + | Reason | Comments | + + + | Durable Medical | [facility] | | Equipment (DME) | | | [...] | | | | Center at [facility] | [address] | Orders ([place]); | | | | Pavilion [address] | [place], [place] | Refill Request | | | | [facility] | [address] | | | | | Road Physicians | [phone] | | | | | [address] | | | | | | Physicians Pavilion | | | | | | [place], [place] | | | | | | [address] | | | | | | [phone] | | | +--------+--------+ + + + [...] | Diabetes & | MD Kenny [address] [facility] | | | | | Metabolism | [address] | | | | | | [place], [place] | | | | | | [address] | | | | | | [phone] | | | | | | | | +--------+---------+ + + + documented as of this encounter Visit Diagnoses Not on filedocumented in this encounter"
[~2018-07-24 19:02] MED LIST changes: +KEFLEX500 MG PO; +NU-MAG71.5 MG PO
--- OUTSIDE RECORDS SUMMARY | 2018-07-24 19:06 | XMS ---
PreManage Notification: DOREEN GRIFFIN Security Program Coordinator Executive Education Events 1 event(s) in the past 18 months Most recent security events: Elopement at [facility] 06/07/2018 19:01 - Other Details: PATIENT LWBS. CRITERIA MET - [facility] - Has Care Guidelines - [facility] - 2 Visits in 30 Days CARE PROVIDERS RODNEY MARTINEZ Current PHONE: [phone] [address]: Federally Qualified 11/28/2017-Current [facility] ([facility]) PHONE: [phone] [facility]: Multi-Specialty 12/12/2017-12/12/2018 Behavioral PHONE: [phone] YECENIA MCBRIDE Physician Sql Manager 07/18/2018-Current PHONE: [phone] BERNARD SHAFFERpractchaparrita Current PHONE: [phone] EDITH GIRON Cribber Current PHONE: [phone] Simran Merrill Manager Contract Current PHONE: [phone] CINTHYA [place]: Mental Health Current PHONE: [phone] [facility] Mental Health Provider 06/21/2017-12/21/2017 PHONE: Unknown KADI BIANCHI Primary Care 11/29/2017-Current DENTAL CLINIC PHONE: [phone] [facility] 02/15/2018-[facility] PRIMARY CARE PHONE: [phone] Simran Merrill Primary Care Current PHONE: Unknown [facility] Primary Care Current PHONE: Unknown [facility] Mental Health Provider 09/15/2017-Current PHONE: Unknown [facility] Primary Care 08/18/2017-Benita [facility] INTERNAL MEDICINE PHONE: [phone] BERNARD SHAFFER Primary Care Current PHONE: Unknown RODNEY MARTINEZ Primary Care Current PHONE: Unknown [facility] Current PHONE: Unknown [facility] Other 10/31/2015-Current RIO PHONE: Unknown JEANNINE YORK Primary Care Current PHONE: Unknown SARABJIT JEAN Primary Care 10/29/2014-Current PHONE: [phone] MANPREET MANRIQUEZ Primary Care Current PHONE: Unknown Brayden has no Care Guidelines for this patient. Care History Medical/Surgical 06/24/2018 [facility] - W SPOKE WITH PATIENT- PATIENT HAS BEEN WAITING FOR [facility] TO RECEIVE AND REVIEW MEDICAL RECORDS SINCE APRIL. - W PROVIDED [facility] CONTACT NUMBER AND ADDRESS TO ESTABLISH CARE. PATIENT STATED HE WOULD BE IN CONTACT WITH [facility] ON Wednesday06/27/18 AND WILL CALL [facility] WITH UPDATES. Kwasi VISIT COUNT (12 MO.) 6 Miguel Michelle 5 FERNANDA Seaman TOTAL 11 NOTE: Visits indicate total known visits. ED/UCC VISIT TRACKING (12 MO.) 07/24/2018 19:03 [place] TYPE: Emergency COMPLAINT: - BLOOD SUGAR PROBLEM, INFLAMATION OF INFECTION 07/11/2018 13:19 [place] [place] TYPE: Emergency COMPLAINT: - HEADACHE DIAGNOSES: - Headache - custodial (current) use of insulin - Other ferry terminal agent (current) drug therapy - Cellulitis of face - Allergy status to penicillin - Personal history of nicotine dependence - Allergy status to narcotic agent status - Type 1 diabetes mellitus without complications 07/08/2018 14:46 [place] TYPE: Emergency COMPLAINT: - POSS INFECTION DIAGNOSES: - Local infection of the skin and subcutaneous tissue, unspecified - Allergy status to narcotic agent status - Local infection of the skin and subcutaneous tissue, unspecified - Other ferry terminal agent (current) drug therapy - Type 1 diabetes mellitus without complications - Unspecified open wound of nose, initial encounter - Exposure to other specified factors, initial encounter - Personal history of nicotine dependence - Unspecified open wound of other part of head, initial encounter - ferry terminal agent (current) use of insulin - Allergy status to penicillin 06/22/2018 14:41 [place] TYPE: Emergency COMPLAINT: - POSS STAPH INFECTION DIAGNOSES: - Methicillin resistant Staphylococcus aureus infection, unspecified site - Personal history of nicotine dependence - Other senior living (current) drug therapy - Type 1 diabetes mellitus without complications - Allergy status to narcotic agent status - ferry terminal agent (current) use of insulin - Allergy status to penicillin 06/07/2018 19:01 [place] TYPE: Emergency COMPLAINT: - ANXIETY DIAGNOSES: - Procedure and treatment not carried out due to patient leaving prior to being seen by health care provider 10/04/2017 01:24 Miguel Pinto [place] TYPE: Emergency DIAGNOSES: - Abscess - Pain in thoracic spine - Other chronic pain 09/03/2017 14:36 Miguel Pinto [place] TYPE: Emergency DIAGNOSES: - Shoulder spasm 08/26/2017 12:20 Miguel Pinto [facility] [place] TYPE: Emergency DIAGNOSES: - MED REQ 08/25/2017 11:34 [place] [place] TYPE: Emergency DIAGNOSES: - muscle spasms 08/19/2017 22:35 [place] [place] TYPE: Emergency DIAGNOSES: - Hypoglycemia, unspecified - Hypoglycemia/nerve pain 08/01/2017 08:07 [place] [place] TYPE: Emergency DIAGNOSES: - MUSCLE SPASMS INPATIENT VISIT TRACKING (12 MO.) No inpatient visits to display in this time frame [email or web address]
[2018-07-24] MEDS ORDERED: CLEOCIN HCL300 MG PO (21:59)
== END 2018-07-24 22:10 | disposition home or self-care (01) ==
LOC: ED 19:02
DX: E13.65 Other specified diabetes mellitus with hyperglycemia (principal); L98.9 Disorder of the skin and subcutaneous tissue, unspecified; Z87.891 Personal history of nicotine dependence; Z88.0 Allergy status to penicillin; Z88.5 Allergy status to narcotic agent; Z79.4 Long term (current) use of insulin; Z79.899 Other long term (current) drug therapy
CPT/HCPCS: 80053; 81001; 85025; 99283

== ENCOUNTER 2018-08-06 16:45 | Emergency (ER) | payer OTHER ==
[~2018-08-06] VITALS: Ht 185.4 cm; Wt 86.0 kg
--- OUTSIDE RECORDS SUMMARY | ~2018-08-06 | XMS | Encounter Summary ---
Demographics + + + | Address | [address] | | | [place] [address] | + + + | Home Phone | | + + + | Preferred Language | Unknown | + + + | Marital Status | Single | + + + | Restoration Affiliation | Unknown | + + + | Race | White | + + + | Ethnic Group | Not or | + + + Author + + + | Author | [facility] | + + + | Organization | [facility] | + + + | Address | Unknown | + + + | Phone | Unavailable | + + + Support + + +---------+ + | Name | Relationship | Address | Phone | + + +---------+ + | Dandre Acosta | ECON | Unknown | | + + +---------+ + Care Team Providers + +------+ + | Care Science Faculty Member Name | Role | Phone | + +------+ + | Linda Lizarraga NP | PCP | | + +------+ + Reason for Visit + + + | Reason | Comments | + + + | LBP - Low back pain | | + + + Physical Therapy (Routine) +--------+--------+ + + + + | Status | Reason | Specialty | Diagnoses / | Referred By | Referred To | | | | | Procedures | Contact | Contact | +--------+--------+ + + + + | Closed | | Physical | Diagnoses | Jolynn, | [facility] | | | | Therapy | Myofascial | Camelia Cerda, | [address] | | | | | pain | PA-C [address] | | | | | Arachnoid | [address] | Mailcode: | | | | | cyst | [place], | [address] | | | | | Procedures | [place] | for Health | | | | | PHYSICAL | [address] | and Healing, | | | | | THERAPY | Phone: | 1st floor | | | | | REFERRAL | [phone] | [place], [place] | | | | | | Fax: | [address] | | | | | | [phone] | Phone: | | | | | | | [phone] | | | | | | | Fax: | | | | | | | [phone] | +--------+--------+ + + + + Encounter Details +--------+---------+ + + + | Date | Type | Department | Care Team | Description | +--------+---------+ + + + | 09/20/ | Office | [facility] | Vinny Chatman, | Back pain, | | 2018 | Visit | Therapy Services at | PT [place], [place] | unspecified back | | | | [facility] | [address] | location, | | | | [address] | | unspecified back | | | | Mailcode: CH3P | | pain laterality, | | | | [facility] | | unspecified | | | | and Healing, 1st | | chronicity (Primary | | | | floor [place], [place] | | Dx) | | | | [address] | | | | | | [phone] | | | +--------+---------+ + + + Social History [...] + + documented as of this encounter Progress Notes Vinny Chatman, PT - 09/20/2017 11:30 AM PDTFormatting of this note might be different fro m the original. Insurance: Payor: AN[employer] MEDICAID / Plan[place] [facility] [place] [facility] [place] / Product Type: Medicaid / Non-Medicare [facility] PHYSICAL THERAPY PROGRESS NOTE Past Medical History: Diagnosis Date Anxiety and depression Methamphetamine abuse Type 1 diabetes mellitus (HCC) Past Surgical History Procedure Laterality Date None Current Outpatient Prescriptions: acetaminophen 500 mg oral tablet, Take by mouth., Disp: , Rfl: baclofen 10 mg oral tablet, Take 10 mg by mouth once daily at bedtime., Disp: , Rfl: DULoxetine 20 mg oral capsule,delayed release(DR/EC), Take 20 mg by mouth once daily at bed time., Disp: , Rfl: gabapentin 100 mg oral capsule, Take 300 mg by mouth once daily at bedtime. , Disp: , Rfl: ibuprofen 800 mg oral tablet, Take by mouth., Disp: , Rfl: insulin glargine 100 unit/mL subcutaneous solution, Inject 22 Units under the skin (SUBC) o nce daily at bedtime. , Disp: , Rfl: INSULIN LISPRO SUBQ, Inject under the skin (SUBC). Sliding scale, Disp: , Rfl: Insulin Starbuck (Disposable) 31 gauge x 5/16" needle, 1 each., Disp: , Rfl: propranolol 10 mg oral tablet, Take 5 mg by mouth once daily., Disp: , Rfl: Previous physical therapy treatment or alternative treatments for this condition includes: physical therapy. Results of previous treatment: Somewhat effective. Concurrent medical treatment: none. SUBJECTIVE: Current: Pt reports the cat/cow exercise increased the pain near his right scapula. Had an injection near the right scapula, and that helped. Has had four injections near his right sc apula and those have all been helpful for about a month. Interested in MRI to find out what is wrong with shoulder blade. History of Presenting Problems: Gregory is a 37 y.o. person with complaints of back pain for t he past year. History of depression and in recovery from methamphetamine drug addiction. See MRI results below regarding arachnoid cyst on spinal cord. The pain "starts at T4 area and moves to different places" in the right upper back. One trigger point medial to right scapul a has been there for about 3 months. Was feeling light headed yesterday, went to stand up an d froze in place and arms on the desk, arms gave out and felt frozen for 5 seconds. Also had nerve pain and tingling going down his legs yesterday afternoon. Then went to get up and e verything felt heavy slow and fatigued. Has had lower body numbness a couple of times prior to this. Thought the heaviness was depression but now that he's on cymbalta, realizes it ace ht have been going on for a while. Waiting for a referral to a pain clinic to see a counselo terri there, currently seeing someone at [facility]. Tingling static electricity going down his lef t arm, warmth in left armpit yesterday. Recent Thoracic Spine MRI results Contrast-enhanced MRI of the thoracic spine. INDICATION: Spinal stenosis. Note: This examination complements an unenhanced study dated 06/27/2017. FINDINGS: As noted on the previous examination, there is a mild focal indentation of the posterior margin of the spinal cord at the T4 level. There is no evident cord, intrathecal, or epidural enhancement in the region to suggest a lesion. Note that subtle increased signal within the thecal sac at the T5 and T6 levels should reflect flow artifact.As previously noted, findings may reflect a posterior arachnoid cyst at the T4 level causing mild extrinsic compression however given mild increased signal within the cord on the prior study and no evident enhancement on the current study, the finding could also reflect focal atrophy/involution secondary to remote ischemia, contusion, or myelitis. While significantly less likely, a developing, unusual, nonenhancing posterior spinal cord lesion at this level is not completely excluded. The remainder of the visualized portions of the thoracic spinal cord, spinal canal, and neural foramina are unremarkable. Bone marrow signal is normal throughout without pathologic enhancement. As on the prior examination, all ligamentous structures appear intact. No paravertebral soft tissue abnormality. IMPRESSION: 1.No acute abnormality or definite evidence of a lesion. 2.Focal indentation of the spinal cord at T4 as described may be secondary to extrinsic compression, possibly from an arachnoid cyst, but also consider focal atrophy from remote ischemia, contusion, or myelitis. 3.Consider follow-up examination in 3-6 months to exclude progression of these findings and or an unusual, nonenhancing lesion. Prior Level of Function: Prior to 1 year ago, once in a while muscle spasms, yoga 2x/week, running 5 miles The patient is requesting the following family members or friends involved with rehabilita tion therapy: no Activity limitations and participation restrictions:not able to work for the past 2 months Patient's Activity and participation goal(s) with therapy: help with the pain and get more mobile, learn exercises to do with nerve pain Condition Specific Evaluation: Including Body functions, Body structures and Impairments Pain: pain is a significant clinical problem 2/10 in right upper back, goes up to 7/10. Ta kes OTC pain medication daily, flexeril every night and sometimes during the day. Uses heati ng pad, rolling on tennis ball, acupuncture, ice/heat, shiatsu massage infrequently, heating pad helps the most. Lidocaine/steroid injection at ER has helped more than anything else. Living situation: lives with roomates. Lives in a multi level house. Work History: [employer], currently unable to work Equipment patient currently has: none Exercise: home hatha yoga that's mostly lower body, qi gong daily (adjusted), meditating. OBJECTIVE: Observation: pt alone and in no apparent distress Treatment: Home program: Exercise Date given painful 08/19/2017 Cross body shoulder stretch 08/19/2017 Hamstring stretch seated 08/19/2017 Added 09/20/17: 1. Standing chin tucks against wall 2. Supine thoracic extension over towel roll ASSESSMENT: Pt tolerated all exercise without increased pain. Reported decreased right scap ular pain after exercises. Advanced home exercise program. Continue with posture exercises a nd advance to scapular stabilization exercises. Pt presents with right upper thoracic and low back pain that has been ongoing since last ye ar despite trying many avenues to address it. Suggested pt report his "freezing"/weakness/fa lling symptoms from previous day, in addition to ongoing limb heaviness, to his physician, a s these were somewhat concerning given the recent MRI findings of arachnoid spinal cyst. Madhu mane will benefit from skilled physical therapy to address his back pain. Goals: 12 wks Goal: Date Set Status Pt will be 100% independent in home exercise program 08/19/2017 Pt will use less pain medication throughout the day/night 08/19/2017 Pt will be able to return to work 08/19/2017 This note is to serve as the discharge summary if the patient fails to attend further Physi khurram Therapy appointments or contact the therapist regarding any change in their status. Vinny Chatman DPT [facility] Outpatient Rehabilitation Services Mailcode: [id number] [id number] [facility], [address] [facility] [phone] Treatment began: 1130 Treatment ended: 1210 Therapeutic exercise 40 PLAN OF CARE (Established 08/19/2017 to be updated every 60 days): Treatment Plan Summary: Pain management strategies, strengthening, stretching, manual thera py Procedure Codes: Re-evaluation 61311, Therapeutic Exercise 52590, Manual Therapy 16259, Th erapeutic Activities 41899 and Neuromuscular Reeducation 55472 Minutes per session: 45 Total number of visits: 12 Frequency: 1 per week Duration: 12 weeks (must exceed or match Medicare service period request) Service period from: 08/19/2017 to: - (Medicare must match duration or be no greater than 90 days if proposed duration is greater than 3 months) Start of care: 08/19/2017 Referral information Authorizing Provider: CAMELIA HERNANDEZ [[id number]] Onset/Referral Date: 08/17/17 Primary/Referral Diagnosis: M54.9 Back pain, unspecified back location, unspecified back p ain laterality, unspecified chronicity Next progress report 11/19/2017 Insurance: Payor: [employer] MEDICAID / Plan: [employer] SHARE / Product Type: Medicaid / G-code:Medicare: G-code due by 11/19/2017 Number visits authorized: 1 Number visits used: 2 Outcome Measure 08/19/2017 Start Back 08/20/2017 #1: My back pain has spread down my leg(s) at some time in the last 2 weeks. 1 - Yes #2: I have had pain in the shoulder or neck at some time in the last 2 weeks. 1 - Yes #3: I have only walked short distances because of my back pain. 0 - No #4: In the last 2 weeks, I have dressed more slowly than usual because of back pain 1 - Yes #5: It's not really safe for a person with a condition like mine to be physically active. 0 - No #6: Worrying thoughts have been going through my mind a lot of the time. 1 - Yes #7: I feel that my back pain is terrible and it's never going to get any better. 0 - No #8: In general I have not enjoyed all the things I used to enjoy. 1 - Yes #9: Overall, how bothersome has your back pain been in the last 2 weeks? 1 - Extremely Total Score 6 Risk Assessment Intermediate Risk . documented in this en counter Plan of Treatment +--------+---------+ + + + | Date | Type | Specialty | Care Team | Description | +--------+---------+ + + + | 08/22/ | Office | Endocrinology, | Lidia Holguin | | | 2019 | Visit | Diabetes & | MD Kenny [address] [address] | | | | | Metabolism | [address] | | | | | | [place], [place] | | | | | | [address] | | | | | | [phone] | | | | | | | | +--------+---------+ + + + documented as of this encounter Procedures + +--------+ + + + | Procedure Name | Priori | Date/Time | Associated Diagnosis | Comments | | | ty | | | | + +--------+ + + + | WA THERAPEUTIC | Routin | 09/20/2017 | Back pain, | | | EXERCISES | e | 3:30 PM | unspecified back | | | | | PDT | location, | | | | | | unspecified back | | | | | | pain laterality, | | | | | | unspecified | | | | | | chronicity | | + +--------+ + + + documented in this encounter Visit Diagnoses + + | Diagnosis | + + | Back pain, unspecified back location, unspecified back pain laterality, unspecified | | chronicity - Primary | + + documented in this encounter
--- OUTSIDE RECORDS SUMMARY | ~2018-08-06 | XMS | Encounter Summary ---
Demographics + + + | Address | [address] | | | [place] [address] | + + + | Home Phone | | + + + | Preferred Language | Unknown | + + + | Marital Status | Single | + + + | Adventism Affiliation | Unknown | + + + | Race | White | + + + | Ethnic Group | Not or | + + + Author + + + | Author | [facility] | + + + | Organization | [facility] | + + + | Address | Unknown | + + + | Phone | Unavailable | + + + Support + + +---------+ + | Name | Relationship | Address | Phone | + + +---------+ + | Dandre Acosta | ECON | Unknown | | + + +---------+ + Care Team Providers + +------+ + | Care Tour Conductor Name | Role | Phone | + +------+ + | Sailaja WashburnP | PCP | | + +------+ + Reason for Visit +--------+ + | Reason | Comments | +--------+ + | Other | ED visit yesterday | +--------+ + Encounter Details +--------+ + + + + | Date | Type | Department | Care Team | Description | +--------+ + + + + | 10/04/ | Telephone | Neurosurgery at | Edward Neil, | Other (ED visit | | 2018 | | [facility] [address] | [address] | yesterday) | | | | [place] Mailcode: [id number] | [place], [place] | | | | | [facility] | [address] | | | | | and [place], | [phone] | | | | | Floor [place], [place] | | | | | | [address] | | | | | | [phone] | | | +--------+ + + + [...] | Diabetes & | MD Kenny [address] [facility] | | | | | Metabolism | [address] | | | | | | [place], [place] | | | | | | [address] | | | | | | [phone] | | | | | | | | +--------+---------+ + + + documented as of this encounter Visit Diagnoses Not on filedocumented in this encounter"
--- OUTSIDE RECORDS SUMMARY | ~2018-08-06 | XMS | Encounter Summary ---
Demographics + + + | Address | [address] | | | [place] [address] | + + + | Home Phone [...] Author + + + | Author | [facility] | + + + | Organization | [facility] | + + + | Address | Unknown | + + + | Phone | Unavailable | + + + Support + + +---------+ + | Name | Relationship | Address | Phone | + + +---------+ + | Dandre Acosta | ECON | Unknown | | + + +---------+ + Care Team Providers + +------+ + | Care Senior Sales Executive Name | Role | Phone | + [...] | | | | | cyst | [place], | [address] | | | | | Procedures | [place] | for Health | | | | | PHYSICAL | [address] | and Healing, | | | | | THERAPY | Phone: | 1st floor | | | | | REFERRAL | [phone] | [place], [place] | | | | | | Fax: | [address] | | | | | | [phone] | Phone: | | | | | | | [phone] | | | | | | | Fax: | | | | | | | [phone] | +--------+--------+ + + + + Encounter Details +--------+---------+ + + + | Date | Type | Department | Care Team | Description | +--------+---------+ + + + | 09/20/ | Office | [facility] | Vinny Chatman, | Back pain, | | 2018 | Visit | Therapy Services at | PT [place], [place] | unspecified back | | | | [facility] | [address] | location, | | | | [address] | | unspecified back | | | | Mailcode: CH3P | | pain laterality, | | | | [facility] | | unspecified | | | | and Healing, 1st | | chronicity (Primary | | | | floor [place], [place] | | Dx) | | | | [address] | | | | | | [phone] | | | +--------+---------+ + + + [...] different fro m the original. Insurance: Payor: [employer] MEDICAID / Plan: [facility] / Product Type: Medicaid / Non-Medicare [facility] PHYSICAL THERAPY PROGRESS NOTE Past Medical [...] (SUBC). Sliding scale, Disp: , Rfl: Insulin Stanton (Disposable) 31 gauge x 5/16" needle, 1 [...] counselo terri there, currently seeing someone at [place]. Tingling static electricity going down his lef [...] change in their status. Vinny Chatman DPT [facility] Outpatient Rehabilitation Services Mailcode: CH3T [address] [facility], 1st [facility] [address] Treatment began: 1130 Treatment ended: 1210 Therapeutic exercise 40 PLAN OF CARE (Established 08/19/2017 to be updated every 60 days): Treatment Plan Summary: Pain management strategies, strengthening, stretching, manual thera py Procedure Codes: Re-evaluation 95421, Therapeutic Exercise 58026, Manual Therapy 39080, Th erapeutic Activities 79520 and Neuromuscular Reeducation 99373 Minutes per session: 45 Total number of [...] chronicity Next progress report 11/19/2017 Insurance: Payor: [employer] MEDICAID / Plan: [employer] HE[employer] SHARE / Product Type: Medicaid [...] Visit | Diabetes & | MD Kenny [address] [address] | | | | | Metabolism | [address] | | | | | | [place], [place] | | | | | | [address] | | | | | | [phone] | | | | | | | | +--------+---------+ + + + documented as of this encounter Procedures + +--------+ + + + | Procedure Name | Priori | Date/Time | Associated Diagnosis | Comments | | | ty | | | | + +--------+ + + + | TN THERAPEUTIC | Routin | 09/20/2017 | Back [...]
--- OUTSIDE RECORDS SUMMARY | ~2018-08-06 | XMS | Encounter Summary ---
Demographics + + + | Address | [address] | | | [place] [address] | + + + | Home Phone | | + + + | Preferred Language | Unknown | + + + | Marital Status | Single | + + + | Oriental Orthodox Affiliation | Unknown | + + + | Race | White | + + + | Ethnic Group | Not or | + + + Author + + + | Author | [facility] | + + + | Organization | [facility] | + + + | Address | Unknown | + + + | Phone | Unavailable | + + + Support + + +---------+ + | Name | Relationship | Address | Phone | + + +---------+ + | Dandre Acosta | ECON | Unknown | | + + +---------+ + Care Team Providers + +------+ + | Care Costume Maker Name | Role | Phone | + +------+ + | Maddison Sailaja Brionna STEVENS | PCP | | + +------+ + Reason for Visit + + + | Reason | Comments | + + + | Durable Medical | [place] | | Equipment (DME) | | | [...] (DME) | | | | Center at [facility] | [facility] [address] | Orders ([place]); | | | | Pavilion [address] | [place], [place] | Refill Request | | | | [facility] | [address] | | | | | Road Physicians | [phone] | | | | | [address] | | | | | | Physicians Pavilion | | | | | | [place], [place] | | | | | | [address] | | | | | | [phone] | | | +--------+--------+ + + + [...] | Diabetes & | MD Kenny [address] [facility] | | | | | Metabolism | [address] | | | | | | [place], [place] | | | | | | [address] | | | | | | [phone] | | | | | | | | +--------+---------+ + + + documented as of this encounter Visit Diagnoses Not on filedocumented in this encounter"
--- OUTSIDE RECORDS SUMMARY | ~2018-08-06 | XMS | Encounter Summary ---
Demographics + + + | Address | [address] | | | [place] [address] | + + + | Home Phone | | + + + | Preferred Language | Unknown | + + + | Marital Status | Single | + + + | Catholic Affiliation | Unknown | + + + [...] Team Providers + +------+ + | Care Processing Spec Name | Role | Phone | + +------+ + | Sailaja Washbrun SUPERVISOR [employer] | PCP | | + +------+ + Reason for Referral Other (Routine) +--------+--------+ + + + + | Status | Reason | Specialty | Diagnoses / | Referred By | Referred To | | | | | Procedures | Contact | Contact | +--------+--------+ + + + + | Closed | | Endocrinology | Diagnoses | Chelsie | Frank Diab Ed | | | | , Diabetes & | Type 1 | Lidia Cox, | [address] | | | | Metabolism | diabetes | MD [address] | | | | | mellitus | [address] | [address] | | | | | with | [address] Avalos | Mailcode: | | | | | complication | [place], [place] | [address] | | | | | ([facility]) | [address] | Physicians | | | | | Review | Phone: | Tiarra MOREIRA | | | | | optimizing | [phone] | [address] | | | | | sensor | Fax: | [place], [place] | | | | | technology | [phone] | [address] | | | | | Procedures | | Phone: | | | | | CONSULT TO | | [phone] | | | | | ADULT | | Fax: | | | | | DIABETES - | | | | | | | EDUCATION | | | | | | | (DIABETES | | | | | | | SELF-MANAGEM | | | | | | | ENT) | | | +--------+--------+ + + + + Other (Routine) + +--------+ + + + + | Status | Reason | Specialty | Diagnoses / | Referred By | Referred To | | | | | Procedures | Contact | Contact | + +--------+ + + + + | New Request | | Endocrinology | Diagnoses | Chelsie, | Dbt Diab Ed | | | | , Diabetes & | Type 1 | Lidia Cox, | [address] | | | | Metabolism | diabetes | MD [address] | [address] | | | | | mellitus | [address] | [facility] | | | | | with | [address] | Mailcode: | | | | | complication | [place], [place] | [address] | | | | | ([facility]) | [address] | Physicians | | | | | Nutrition - | Phone: | Tiarra ANTONIO | | | | | Analyze carb | [phone] | [address] | | | | | intake at | Fax: | [place], [place] | | | | | meals, | [phone] | [address] | | | | | patterns, | | Phone: | | | | | dosing | | [phone] | | | | | strategy | | Fax: | | | | | Procedures | | [phone] | | | | | CONSULT TO | | | | | | | ADULT | | | | | | | DIABETES - | | | | | | | NUTRITION | | | | | | | (MNT) | | | + +--------+ + + + + Reason for Visit Benefits Check (Routine) [...] Diabetes & | Type 1 | Christian ROMAIRA | Adult Ppv | | | | Metabolism | diabetes | [address] | [address] | | | | | mellitus | [place] | [address] | | | | | with | Street | Road | | | | | hypoglycemia | [place], [place] | Physicians | | | | | without | [address] | [address] | | | | | coma Type 1 | Phone: | [address] | | | | | diabetes | [phone] | Physicians | | | | | mellitus | Fax: | Pavilion | | | | | without | [phone] | [place], [place] | | | | | complication | | [address] | | | | | s | | Phone: | | | | | Procedures | | [phone] | | | | | CONSULT TO | | Fax: | | | | | DIABETES | | [phone] | | | | | ENDO | | | + +--------+ + + + + Encounter Details +--------+---------+ + + + | Date | Type | Department | Care Team | Description | +--------+---------+ + + + | 04/20/ | Office | Leobardo Pedroza | Lidia Holguin | Type 1 diabetes | | 2019 | Visit | Diabetes Health | MD [address] | mellitus with | | | | Center at Physicians | [address] | complication (HCC) | | | | Pavilion [address] | [facility] [place] | (Primary Dx) | | | | [address] | [address] | | | | | Road Physicians | [phone] | | | | | [address] | | | | | | Physicians Pavilion | | | | | | [place], [place] | | | | | | [address] | | | | | | [phone] | | | +--------+---------+ + + + [...] + + + | Blood Pressure | 118/66 | 04/20/2018 9:49 AM | | | | | PST | | + + + + + | Pulse | 78 | 04/20/2018 9:49 AM | | | [...] + + + + | Weight | 86.6 kg (191 lb) | 04/20/2018 9:49 AM | | | | | PST | | + + + + + | Height | 184.8 cm (6' 0.75") | 04/20/2018 9:49 AM | | | | | PST | | + + + + + | Body Mass Index | 25.37 | 04/20/2018 9:49 AM | | | | | PST | | + + + + + documented in this encounter Patient Instructions Patient Instructions Lidia Holguin MD - 04/20/2018 9:45 AM PSTFormatting of this no te might be different from the original. Great to meet with you! Thanks for your visit! Plan for today: 1. Focus on gathering data/tracking Track food [...] and maintain schedule as much as possible Please contact [facility] [phone] for any questions Lab Results Component Value Date A1C 5.5 04/20/2018 Schedule upcoming appointments: Nutrition visit to review meal patterns, activity and stress related trends Technology visit to refine use of sensor Sensor order --- You have history of testing 10 to 12 times daily when not on sensor and Keep up routine monitoring and use of current sensor Ask [employer] to send us supply requests Follow hypoglycemic precautions and driving safety. Review [...] a low blood sugar. Please visit the [facility] Website for information on what's new at our diabetes center. Let us know if you would like to sign up for a class or a one o n one diabetes education visit. Please meet with your primary care provider routinely for your medical care and annual [facility] k ups documented in this encounter Progress Notes Solange Lucas MA - 04/20/2018 9:49 AM PST Finger stick performed in clinic for a capillary A1c. Lidia Alas M D - 04/20/2018 9:45 AM PST [facility] PCP: RODNEY Cardoso Referring Physician: Christian Rodriguez [place] [address] [place] [address] Reason for referral: Evaluate Type 1 Diabetes HPI: Gregory is a 38 y.o. male referred for evaluation of Type 1 Diabetes. Diabetes history: He was diagnosed with diabetes in 1992 at age 13. Circumstance: hospitalized, in [place] at the time ---- moved to [place] 14 years ago Treatment history: Has been [...] this made a significant impression on him Autoimmune history: Thyroid: none known Celiac: none known CV health history: History of high cholesterol? Last ldl 51 (grandfather from a stroke, uncle from b rain aneurysm -- dad's side age 36) No results found for: CHOL, LDL, HDL, TRI History of elevated blood pressure? None except during episode when he had elevation associ ated with pain and tachycardia Dad has HTN and hyperlipidemia Greatest challenges with diabetes care: Living situation: grew up in [place] ---- moved to [place]--wanted to live somewhere that was health, mom when he was 23 He grew up with a lot of fried and fast food in the home. Dad has type 1 diabetes. Has t wo sisters. Lives in [place]. Lives alone. In physical therapy for cyst in his spine and trying to get back to work. Has magnesium deficiency he is also working on. Recent health history: no recent health changes Lifestyle: involved in Martial Arts so very active throughout the day --- involves Gabriel Chi , breathing exercises, stretching Also swims 10 laps per day --- usually 30 minutes in the morning on a good day ---- otherwi se right before bed Glucose Control: Historical trends: Lab Results Component Value Date A1C 5.5 04/20/2018 Recent trends: Hypoglycemia unawareness history: Monitoring: Has a One Touch Ultra meter and monitors 8 -12 times daily when not on sensor, and maintains 2-3 times per day when on sensor. 100% sensor use when he has it available. If not wearing it is due to lack of supplies. Oral diabetes medications previously tried (and any known intolerances) None Current insulin regimen Insulin delivery via vial [...] protein vegetable but usually more veggie s History of insulin allergy or Intolerance: none known History of Insulin Pump: no History of Glucose Sensor/ CGM Yes-- Dexcom Safety: Knows how to treat a low blood sugar Meds: Current Outpatient Prescriptions Medication Sig ascorbic acid (vitamin C) 500 mg oral tablet Take 500 mg by mouth two times daily. baclofen 10 mg oral tablet Take 10 mg by mouth once daily at bedtime. Blood-Glucose Sensor (Culturalite G5-G4 SENSOR) device 1 each by NOT APPLICABLE route. Cholecalciferol (Vitamin D3) 2,000 unit oral tablet TAKE 1 TABLET BY MOUTH EVERY DAY FO R dietary SUPPLEMENT DULoxetine 20 mg oral capsule,delayed release(DR/EC) Take 20 mg by mouth once daily at bedtime. Fish Oil-Alabaster-3 Fatty Acids 300-1,000 mg oral capsule Take by mouth. gabapentin 100 mg oral capsule Take 100 [...] Sliding scale, up to 30 units daily Insulin Humphrey (Disposable) 31 gauge x 5/16" needle 1 each. magnesium chloride SR 64 mg oral tablet,delayed release (DR/EC) Take by mouth. melatonin 3 mg oral tablet,disintegrating Dissolve on tongue and swallow. mirtazapine 15 mg oral tablet Take 15 mg by mouth once daily in the evening. No current facility-administered medications for this visit. Allergies: Penicillins and Hydrocodone-acetaminophen PMH: Past Medical History: Diagnosis Date Anxiety Anxiety and depression Arachnoid cyst of spine diagnosed 2017, chronic pain associated with this, primarily shoulder pain and left leg pa in Depression History of posttraumatic stress disorder (PTSD) Methamphetamine abuse (HCC) clean since 2014 Type 1 diabetes mellitus (HCC) Family History: Grandfather from a stroke, uncle from brain aneurysm -- dad's side age 36 Dad has HTN and hyperlipidemia Social History: Social History Social History Marital status: Single Spouse name: N/A Number of children: N/A Years of education: N/A Social History Main Topics Smoking status: Former Smoker Quit date: 08/18/2015 Smokeless tobacco: Never Used Alcohol use Not on file Drug use: Unknown Sexual activity: Not on file Other Topics Concern Not on file Social History Narrative No narrative on file ROS: Review of systems as stated in [place]. Other pertinent review of systems includes: Weight: Wt Readings from Last 3 Encounters: 04/20/18 86.6 kg (191 lb) 12/22/17 81.6 kg (180 lb) 10/27/17 83.9 kg (185 lb) General: Denies fatigue, depression, anxiety, pain, stress, poor sleeping. Eyes: Denies changes in vision. Ears, Nose, Throat: Denies any symptoms or changes in hearing. Respiratory: Denies any issues with breathing. Musculoskeletal: Denies reduced strength, joint or muscle pain. Cardiovascular: has palpitations, history of tachycardia Gastrointestinal: [...] All other ROS negative. PE: Vitals: BP 118/66 | Pulse 78 | Ht 1.848 m (6' 0.75") | Wt 86.6 kg (191 lb) | BMI 25.37 kg/m | BSA 2.11 m General: alert, oriented, nad HEENT: perrla, eomi, sclera anicteric, no stare, lid lag or exophthalmos, Dentition: fair Neck: normal thyroid texture; No palpable nodules or lymphadenopathy appreciated Lungs: clear to auscultation CV: regular rate and rhythm; no murmur, rub or gallop appreciated Abdomen: soft, non-tender Ext: no edema Feet: warm, well perfused, callus--none deformity--none onychomycosis--none Neuro: Monofilament examination performed, normal. Vibration sense intact: positional sensation intact, DTR's normal, no hyper-reflexia Vascular: DP ++, PT ++ Skin: no acanthosis;no hyperpigmentation;no vitiligo, no pathologic striae Additional skin lesions: Labs: Lab Results Component Value Date A1C 5.5 04/20/2018 Assessment: Type 1 diabetes He was diagnosed with diabetes in 1992 at age 13. Circumstance: hospitalized, in [place] at the time ---- moved to [place] 14 years ago Treatment history: Has been on NPH, Novolog, Humalog, Levemir, Lantus and now Basaglar Pump/sensor history-- never on a pump---started Dexcom 6 months ago (G5) but challenges wit h insurance coverage Has working transmitter/sensor right now but every 3 months it takes about a month to proce ss the paperwork through [employer] and insurance History of acute complications: Severe hypoglycemia or hypoglycemia unawareness? Has hypoglycemia unawareness, can't tell w hen he is hungry -- no recent hospitalization DKA or other hospitalization? DKA 3 times around age 19 ---- attributes this to drugs, tiffany mikhail, parents getting --- no recent hospitalization History of chronic complications: no known DR, neuropathy or microalbuminuria History of gastroparesis: unknown Dad has high insulin requirement, poor diet-- this made a significant impression on him Glycemic Control Glucose trends and insulin requirement likely impacted by activity--- encourage sensor use for awareness of trends In [employer] so very active throughout the day --- involves Gabriel Chi, breathing exercise s, stretching Also swims 10 laps per day --- usually 30 minutes in the morning on a good day ---- otherwi se right before bed CV health: Blood pressure: normal Last lipids: No results found for: CHOL, LDL, HDL, TRI Autoimmune: Thyroid--none known No results found for: TSH Celiac : none known No results found for: GLIADIN, GLIADINIGG, GLIADINIGA, TTG, ENDOMYSIAL, IGA Health Maintenance up to date: Last eye exam --- 10 gram monofilament completed Flu shot advised annually Behavioral Health: History [...] for your visit! Plan for today: 1. Focus on gathering data/tracking Track food [...] and maintain schedule as much as possible Please contact Leobardo Kasia [facility] [phone] for any questions Lab Results Component Value Date A1C 5.5 04/20/2018 Schedule upcoming appointments: Nutrition visit to review meal patterns, activity and stress related trends Technology visit to refine use of sensor Sensor order --- You have history of testing 10 to 12 times daily when not on sensor and Keep up routine monitoring and use of current sensor Ask [employer] to send us supply requests Follow hypoglycemic precautions and driving safety. Review [...] a low blood sugar. Please visit the [facility] Website for information on what's new at our diabetes center. Let us know if you would like to sign up for a class or a one o n one diabetes education visit. Please meet with your primary care provider routinely for your medical care and annual [facility] k ups 2. See orders Orders Placed This Encounter MA Collection Capillary Blood Specimen [[id number]] only for Adults CONSULT TO ADULT DIABETES - NUTRITION (MNT) CONSULT TO ADULT DIABETES - EDUCATION (DIABETES SELF-MANAGEMENT) HEMOGLOBIN A1C,POC [[id number]}] Lidia Holguin MD [facility] 1ST FLOOR [address] [facility] Physicians [facility] [address] [place] [address] I spent 55 minutes with the patient. Greater than 50% of the time was spent counseling the patient regarding goals of care, glucose monitoring, insulin management,sensor technology, hypoglycemia avoidance, diabetes education, care coordination. documented in thi s encounter Plan of Treatment +--------+---------+ + + + | Date | Type | Specialty | Care Team | Description | +--------+---------+ + + + | 08/22/ | Office | Endocrinology, | Lidia Holguin | | | 2018 | Visit | Diabetes & | MD [address] [facility] | | | | | Metabolism | [address] | | | | | | [place], [place] | | | | | | [address] | | | | | | [phone] | | | | | | | | +--------+---------+ + + + documented as of this encounter Procedures + +--------+ + + + | Procedure Name | Priori | Date/Time | Associated Diagnosis | Comments | | | ty | | | | + +--------+ + + + | HEMOGLOBIN A1C, POC | Routin | 04/20/2018 | Type 1 diabetes | Results for this | | | e | 10:03 AM | mellitus with | procedure are in the | | | | PST | complication (HCC) | results section. | + +--------+ + + + | MA COLLECTION | Routin | 04/20/2018 | Type 1 diabetes | | | CAPILLARY BLOOD | e | 9:49 AM | mellitus with | | | SPECIMEN | | PST | complication (HCC) | | + +--------+ + + + documented in this encounter Results HEMOGLOBIN A1C,POC (04/20/2018 10:03 AM PST) + +-------+ + + + | Component | Value | Ref Range | Performed | Pathologist | | | | | At | Signature | + +-------+ + + + | HEMOGLOBIN | 5.5 | 4.0 - 5.7 % | [facility] - | | | A1C,POC | | | [facility] | | | | | | [facility] | | | | | | OF CARE | | | | | | TESTS | | + +-------+ + + + + + | Specimen | + + | Blood | + + + + + + + | Performing | Address | City/State/Zipcode | Phone Number | | Organization | | | | + + + + + | [facility] | [address] | [place], [place] | | | [facility] | [address] | [address] | | | TESTS | | | | + + + + + documented in this encounter Visit Diagnoses + + | Diagnosis | + + | Type 1 diabetes mellitus with complication (HCC) - Primary Type I (juvenile type) | | diabetes mellitus with unspecified complication, not stated as uncontrolled | + + documented in this encounter
--- OUTSIDE RECORDS SUMMARY | ~2018-08-06 | XMS | Encounter Summary ---
Demographics + + + | Address | [address] | | | [place] [address] | + + + | Home Phone | | + + + | Preferred Language | Unknown | + + + | Marital Status | Single | + + + | Sikh Affiliation | Unknown | + + + | Race | White | + + + | Ethnic Group | Not or | + + + Author + + + | Author | [facility] | + + + | Organization | [facility] | + + + | Address | Unknown | + + + | Phone | Unavailable | + + + Support + + +---------+ + | Name | Relationship | Address | Phone | + + +---------+ + | Dandre Acosta | ECON | Unknown | | + + +---------+ + Care Team Providers + +------+ + | Care Associate Dean Of Students Name | Role | Phone | + +------+ + | Maddison Sailaja Brionna STEVENS | PCP | | + +------+ + Reason for Visit + + + | Reason | Comments | + + + | Durable Medical | [place] | | Equipment (DME) | | | [...] (DME) | | | | Center at [facility] | [facility] [address] | Orders ([place]); | | | | Pavilion [address] | [place], [place] | Refill Request | | | | [facility] | [address] | | | | | Road Physicians | [phone] | | | | | [address] | | | | | | Physicians Pavilion | | | | | | [place], [place] | | | | | | [address] | | | | | | [phone] | | | +--------+--------+ + + + [...] | Diabetes & | MD Kenny [address] [facility] | | | | | Metabolism | [address] | | | | | | [place], [place] | | | | | | [address] | | | | | | [phone] | | | | | | | | +--------+---------+ + + + documented as of this encounter Visit Diagnoses Not on filedocumented in this encounter"
--- OUTSIDE RECORDS SUMMARY | ~2018-08-06 | XMS | Encounter Summary ---
Demographics + + + | Address | [address] | | | [place] [address] | + + + | Home Phone | | + + + | Preferred Language | Unknown | + + + | Marital Status | Single | + + + | Confucianist Affiliation | Unknown | + + + | Race | White | + + + | Ethnic Group | Not or | + + + Author + + + | Author | [facility] | + + + | Organization | [facility] | + + + | Address | Unknown | + + + | Phone | Unavailable | + + + Support + + +---------+ + | Name | Relationship | Address | Phone | + + +---------+ + | Dandre Acosta | ECON | Unknown | | + + +---------+ + Care Team Providers + +------+ + | Care Elevator Conductor Name | Role | Phone | + +------+ + | Linda Lizarraga ACID PATROLLER | PCP | | + +------+ + [...] | | | | | Physicians | [address] | | | | | | [address] | Phone: | | | | | | Mother | [phone] | | | | | | Gaetano Weir | Fax: | | | | | | [address] | [phone] | | | | | | [place], | | | | | | | [place] [address] | | | | | | | Phone: | | | | | | | [phone] | | | | | | | Fax: | | | | | | | [phone] | | + +--------+ + + + + Encounter Details +--------+---------+ + + + | Date | Type | Department | Care Team | Description | +--------+---------+ + + + | 12/22/ | Office | [facility] at | Edward Neil, | Arachnoid cyst | | 2018 | Visit | [facility] [address] | PA-C [address] | (Primary Dx) | | | | [address] [place], [place] | Ave [place], [place] | | | | | [address] | [address] | | | | | [phone] | [phone] | | | | | | | [...] symptoms. Sin e his last appointment with ga he was evaluated by [facility] spine Surgeon Dr. Martin who did not [...] or medial branch blocks, not covered by [facility] referral for Pain Psy, [...] by mouth once daily at bedtime. Fish Oil-[place]-3 Fatty Acids 300-1,000 mg oral capsule Take [...] under the skin (SUBC). Sliding scale Insulin [place] (Disposable) 31 gauge x 5/16" needle 1 [...] needed I spent at least 12 minutes eciz-wk-qecg with the patient. I spent more than 50% of this vi sit in coordination of care and counseling in which we discussed diagnosis, treatment, imagi ng studies and follow-up. Edward Neil PA-C [facility] [address] [place] [address] documented in this e ncounter Plan of Treatment +--------+---------+ + + + | Date | Type | Specialty | Care Team | Description | +--------+---------+ + + + | 08/22/ | Office | Endocrinology, | Lidia Holguin | | | 2019 | Visit | Diabetes & | MD Kenny [address] [place] [address] | | | | | Metabolism | [address] | | | | | | [place], [place] | | | | | | [address] | | | | | | [phone] | | | | | | | | +--------+---------+ + + + documented as of this encounter Visit Diagnoses + + | Diagnosis | + + | Arachnoid cyst - Primary Cerebral cysts | + + documented in this encounter
--- OUTSIDE RECORDS SUMMARY | ~2018-08-06 | XMS | Encounter Summary ---
Demographics + + + | Address | [address] | | | [place] [address] | + + + | Home Phone | | + + + | Preferred Language | Unknown | + + + | Marital Status | Single | + + + | Anabaptism Affiliation | Unknown | + + + [...] Team Providers + +------+ + | Care Feather Trimmer Name | Role | Phone | + +------+ + PCP | Unavailable | + +------+ + Encounter Details +--------+ + + + + | Date | Type | Department | Care Team | Description | +--------+ + + + + | 07/27/ | Document-Sc | UNKNOWN DEPARTMENT | Unknown . | | | 2013 | anned | [address] [facility] | | | | | | [facility] | | | | | | [place], [place] | | | | | | [address] | | | +--------+ + + + [...] Visit | Diabetes & Morris Cox MD [address] | | | | | Metabolism | [address] | | | | | | [place], [place] | | | | | | [address] | | | | | | [phone] | | | | | | | | +--------+---------+ + + + documented as of this encounter Visit Diagnoses Not on filedocumented in this encounter"
--- OUTSIDE RECORDS SUMMARY | ~2018-08-06 | XMS | Encounter Summary ---
Demographics + + + | Address | [address] | | | [place] [address] | + + + | Home Phone | | + + + | Preferred Language | Unknown | + + + | Marital Status | Single | + + + | Hinduism Affiliation | Unknown | + + + | Race | White | + + + | Ethnic Group | Not or | + + + Author + + + | Author | [facility] | + + + | Organization | [facility] | + + + | Address | Unknown | + + + | Phone | Unavailable | + + + Support + + +---------+ + | Name | Relationship | Address | Phone | + + +---------+ + | Dandre Acosta | ECON | Unknown | | + + +---------+ + Care Team Providers + +------+ + | Care Millinery Department Manager Name | Role | Phone | [...] | | | | | [place], | [place], [place] | | | | | | [place] | [address] | | | | | | [address] | Phone: | | | | | | Phone: | [phone] | | | | | | [phone] | Fax: | | | | | | Fax: | [phone] | | | | | | [phone] | | +--------+--------+ + + + + Encounter Details +--------+---------+ + + + | Date | Type | Department | Care Team | Description | +--------+---------+ + + + | 10/27/ | Office | Sp[facility] Center at | Alvin Martin MD | Depressive disorder | | 2018 | Visit | [facility] [address] | [address] | (Primary Dx); Type 1 | | | | Ave [place], [place] | [place], [place] | diabetes mellitus | | | | [address] | [address] | with complication | | | | [phone] | [phone] | (HCC); Chest wall | | | [...] be like biofeedback t chacorta 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 He does have well-controlled diabetes [...] under the skin (SUBC). Sliding scale Insulin [place] (Disposable) 31 gauge x 5/16" needle 1 [...] use No Alcohol marijuana drugs Originally from [place], relocated to [place] because of health and environment in [facility] , lived briefly in [place]. He states that although he does not have any identified medical decision-maker a person by the name of Gurjit Swayer (a paint department supervisor from [place]) would be that person. He does have 2 sister s and a father in [facility]. Physical Exam: Constitutional: There were no vitals [...] Alvin Martin MD I spent 45 minutes ztjd-wu-qwnj with the patient. I spent more than [...] Rd | | | | | | [place], [place] | | | | | | [address] | | | | | | [phone] | | | | | | | [...]
--- OUTSIDE RECORDS SUMMARY | ~2018-08-06 | XMS | Encounter Summary ---
Demographics + + + | Address | [address] | | | [place] [address] | + + + | Home Phone | | + + + | Preferred Language | Unknown | + + + | Marital Status | Single | + + + | Scientologist Affiliation | Unknown | + + + | Race | White | + + + | Ethnic Group | Not or | + + + Author + + + | Author | [facility] | + + + | Organization | [facility] | + + + | Address | Unknown | + + + | Phone | Unavailable | + + + Support + + +---------+ + | Name | Relationship | Address | Phone | + + +---------+ + | Dandre Acosta | ECON | Unknown | | + + +---------+ + Care Team Providers + +------+ + | Care Histotechnician Name | Role | Phone | + [...] | | | | | cyst | [address] | | | | | Procedures | [place] | for Health | | | | | PHYSICAL | [address] | and Healing, | | | | | THERAPY | Phone: | 1st floor | | | | | REFERRAL | [phone] | [facility] [place] | | | | | | Fax: | [address] | | | | | | [phone] | Phone: | | | | | | | [phone] | | | | | | | Fax: | | | | | | | [phone] | +--------+--------+ + + + + Consultation (Routine) +--------+---------+ + + + + | Status | Reason | Specialty | Diagnoses / | Referred By | Referred To | | | | | Procedures | Contact | Contact | +--------+---------+ + + + + | Closed | Other | Pain Medicine | Diagnoses | Neil, | [facility] | | | | / Pain | Myofascial | Edward D, | [address] | | | | Management | pain | [address] | [address] | | | | | Arachnoid | [address] | Code: CH15P | | | | | cyst | [facility] | | | | | Procedures | [place] | Health and | | | | | CONSULT TO | [address] | , | | | | | PAIN | Phone: | Floor | | | | | MANAGEMENT | [phone] | [place], [place] | | | | | | Fax: | [address] | | | | | | [phone] | Phone: | | | | | | | [phone] | | | | | | | Fax: | | | | | | | [phone] | +--------+---------+ + + + + Consultation [...] | | | | pain | PA-C [address] | | | | | | Arachnoid | [address] | | | | | | cyst | [place], | | | | | | Procedures | [place] | | | | | | [facility] | [address] | | | | | | - EXTERNAL | Phone: | | | | | | ONLY | [phone] | | | | | | | Fax: | | | | | | | [phone] | | + +--------+ + + + [...] | | | [facility] | [place], [place] | | | | | | Physicians | [address] | | | | | | [address] | Phone: | | | | | | Mother | [phone] | | | | | | Gaetano Weir | Fax: | | | | | | [address] | [phone] | | | | | | [place] | | | | | | | [place] [address] | | | | | | | Phone: | | | | | | | [phone] | | | | | | | Fax: | | | | | | | [phone] | | +--------+--------+ + + + + Encounter Details +--------+---------+ + + + | Date | Type | Department | Care Team | Description | +--------+---------+ + + + | 08/17/ | Office | Spine Center at | Edward Neil, | Myofascial pain | | 2018 | Visit | [facility] [address] | [address] | (Primary Dx); | | | | Ave [place], [place] | Ave [place], [place] | Arachnoid cyst | | | | [address] | [address] | | | | | [phone] | [phone] | | | | | | | [...] documented in this encounter Progress Notes Edward Neli PA-C - 08/17/2017 8:15 AM PDTFormatting of [...] questionna cesar that will be scanned into [employer]. Current medication list: Current Outpatient Prescriptions Medication [...] under the skin (SUBC). Sliding scale Insulin [place] (Disposable) 31 gauge x 5/16" needle 1 [...] present. I spent at least 40 minutes zimn-ev-cptx with the patient. I spent more than 50% of this vi sit in coordination of care and counseling in which we discussed diagnosis, treatment, imagi ng studies and follow-up. Edward Neil PA-C [facility] [address] [place] [address] [facility] OPEN NOTE [[id number]] documented in this e ncounter Plan of Treatment +--------+---------+ + + + | Date | Type | Specialty | Care Team | Description | +--------+---------+ + + + | 08/22/ | Office | Endocrinology, | Lidia Holguin | | | 2019 | Visit | Diabetes & | MD Kenny [address] | | | | | Metabolism | [address] | | | | | | [place], [place] | | | | | | [address] | | | | | | [phone] | | | | | | | [...]
--- OUTSIDE RECORDS SUMMARY | ~2018-08-06 | XMS | Clinical Summary ---
Demographics + + + | Address | [address] | | | [place] [address] | + + + | Home Phone | | + + + | Preferred Language | Unknown | + + + | Marital Status | Single | + + + | Yazidism Affiliation | Unknown | + + + [...] Team Providers + +------+ + | Care Visor Installer Name | Role | Phone | + +------+ + | Sailaja Washburn | PP | | + +------+ + Source Comments JOSE FRANCISCO is fully live on both Epic[facility] Ambulatory and [facility] In[facility] Allergies + + + + + + [...] | + + + +---------+------+------+-------+ | Insulin [place] | 1 each. | | 0 | [...] | + + + +---------+------+------+-------+ | Fish Oil-[place]-3 | Take by mouth. | | 0 [...] of | | Present Illness:CBGs:14-day avg = 15967-hfs avg = 197CBG this AM | | = 325Has new girlfriend - been going out to dinner a lot.Little | | exercise.Planning on taking a contract job for 3 months in | | [place].Needing to get supplies to cover him for this.Has not | | applied for Cover [place] because leaving to [place] soon. Will | | when he returns.Worried [...] of Present Illness:CBGs:14-day avg = | | 32596-rsr avg = 197CBG this AM = 325Has new girlfriend - been | | going out to dinner a lot.Little exercise.Planning on taking a | | contract job for 3 months in [place].Needing to get supplies to | | cover him for this.Has not applied for Cover [place] because | | leaving to [place] soon. Will when he returns.Worried about | [...] a contract job for 3 months in [place]. | |Needing to get supplies to cover him for this. | |Has not applied for Cover [place] because leaving to [place] soon. Will when he returns. | | [...] + + + + | 07/28/ | MyChart | | Lidia Holguin | 2 months of | | 2019 | Encounter | | MD Kenny | antibiotics | +--------+ + + + + | 07/11/ | Refill | | Lidia Holguin | [facility] | | 2019 | | | MD Kenny | Equipment (DME) | | | | | | Orders ([place]); | | | | | | Refill Request | +--------+ + + + + | 06/03/ | Refill | | Lidia Holguin | [facility] | | 2019 | | | MD Kenny | Equipment (DME) | | | | | | Orders ([place]) | +--------+ + + + + | 05/24/ | Office | | [address] | Type 1 diabetes | | 2018 | Visit | | | mellitus with | | | | | | complication (HCC) | | | | | | (Primary Dx) | +--------+ + + + + from [...] | Visit | | MD Kenny [address] [facility] | | | | | | [address] | | | | | | [place], [place] | | | | | | [address] | | | | | | [phone] | | | | | | | [...] | + +--------+ + + + | [place] MNT INITIAL | Routin | 05/25/2018 | Type 1 diabetes | | | ASSESSMNT X15MIN | e | 4:52 PM | mellitus with | | | | | PDT | complication (HCC) | | + +--------+ + + + from Last 3 Months Results Not on filefrom Last 3 Months Insurance + +--------+ +--------+-------+---------+--------+ | Payer | Benefi | Subscriber | Effect | Phone | Address | Type | | | t Plan | ID | [place] | | | | | | / | | Dates | | | | | | Group | | | | | | + +--------+ +--------+-------+---------+--------+ | LEAD QUALITY TECHNICIAN MEDICAID | LEAD QUALITY TECHNICIAN | xxxxxxxx | | | | Medica [...] | Self | [birth year] | [address] | | | al/Fam | | 1980 | [phone] | [place] [address] | | | vidal | | | 1 (Home) | | + +--------+ +--------+ + +
--- OUTSIDE RECORDS SUMMARY | ~2018-08-06 | XMS | Encounter Summary ---
Demographics + + + | Address | [address] | | | [place] [address] | + + + | Home Phone | | + + + | Preferred Language | Unknown | + + + | Marital Status | Single | + + + | Worship Affiliation | Unknown | + + + | Race | White | + + + | Ethnic Group | Not or | + + + Author + + + | Author | [facility] | + + + | Organization | [facility] | + + + | Address | Unknown | + + + | Phone | Unavailable | + + + Support + + +---------+ + | Name | Relationship | Address | Phone | + + +---------+ + | Dandre Acosta | ECON | Unknown | | + + +---------+ + Care Team Providers + +------+ + | Care Stroke Coordinator Name | Role | Phone | [...] visit | | 2018 | | [facility] [address] | [address] | yesterday) | | | | [place] Mailcode: [id number] | [place], [place] | | | | | [facility] | [address] | | | | | and [place], | [phone] | | | | | Floor [place], [place] | | | | | | [address] | | | | | | [phone] | | | +--------+ + + + [...] | Diabetes & | MD Kenny [address] [facility] | | | | | Metabolism | [address] | | | | | | [place], [place] | | | | | | [address] | | | | | | [phone] | | | | | | | | +--------+---------+ + + + documented as of this encounter Visit Diagnoses Not on filedocumented in this encounter"
--- OUTSIDE RECORDS SUMMARY | ~2018-08-06 | XMS | Encounter Summary ---
Demographics + + + | Address | [address] | | | [place] [address] | + + + | Home Phone | | + + + | Preferred Language | Unknown | + + + | Marital Status | Single | + + + | Yarsanism Affiliation | Unknown | + + + | Race | White | + + + | Ethnic Group | Not or | + + + Author + + + | Author | [facility] | + + + | Organization | [facility] | + + + | Address | Unknown | + + + | Phone | Unavailable | + + + Support + + +---------+ + | Name | Relationship | Address | Phone | + + +---------+ + | Dandre Acosta | ECON | Unknown | | + + +---------+ + Care Team Providers + +------+ + | Care Fruit Harvester Machine Operator Name | Role | Phone | + +------+ + | Sailaja WashburnP | PCP | | + +------+ + Encounter Details +--------+ + + + + | Date | Type | Department | Care Team | Description | +--------+ + + + + | 11/09/ | Documentati | Spine Center at | Edward Neil, | | | 2017 | on | [facility] [address] | [address] | | | | | [place], [place] | [place], [place] | | | | | [address] | [address] | | | | | [phone] | [phone] | | | | | | | [...] | Diabetes & | MD Kenny [address] [facility] | | | | | Metabolism | [address] | | | | | | [place] | | | | | | [address] | | | | | | [phone] | | | | | | | | +--------+---------+ + + + documented as of this encounter Visit Diagnoses Not on filedocumented in this encounter"
--- OUTSIDE RECORDS SUMMARY | ~2018-08-06 | XMS | Clinical Summary ---
Demographics + + + | Address | [address] | | | [place] [address] | + + + | Home Phone | | + + + | Preferred Language | Unknown | + + + | Marital Status | Single | + + + | Hoahaoism Affiliation | Unknown | + + + [...] Team Providers + +------+ + | Care Appraiser Boats And Marine Name | Role | Phone | + +------+ + | Sailaja Washburn | PP | | + +------+ + Source Comments JOSE FRANCISCO is fully live on both EpicCare Ambulatory and [facility] InPatient.[facility] Allergies + + + + + + [...] | + + + +---------+------+------+-------+ | Insulin [place] | 1 each. | | 0 | [...] | + + + +---------+------+------+-------+ | Fish Oil-[place]-3 | Take by mouth. | | 0 [...] of | | Present Illness:CBGs:14-day avg = 82281-cnd avg = 197CBG this AM | | = 325Has new girlfriend - been going out to dinner a lot.Little | | exercise.Planning on taking a contract job for 3 months in | | [place].Needing to get supplies to cover him for this.Has not | | applied for Cover [place] because leaving to [place] soon. Will | | when he returns.Worried [...] of Present Illness:CBGs:14-day avg = | | 52918-eug avg = 197CBG this AM = 325Has new girlfriend - been | | going out to dinner a lot.Little exercise.Planning on taking a | | contract job for 3 months in [place].Needing to get supplies to | | cover him for this.Has not applied for Cover [place] because | | leaving to [place] soon. Will when he returns.Worried about | [...] a contract job for 3 months in [place]. | |Needing to get supplies to cover him for this. | |Has not applied for Cover [place] because leaving to [place] soon. Will when he returns. | | [...] | | | | | | Orders ([place]); | | | | | | Refill Request | +--------+ + + + + | 06/03/ | Refill | | Lidia Holguin | [facility] | | 2019 | | | MD Kenny | Equipment (DME) | | | | | | Orders ([place]) | +--------+ + + + + | [...] | Visit | | MD Kenny [address] [facility] | | | | | | [address] | | | | | | [place], [place] | | | | | | [address] | | | | | | [phone] | | | | | | | [...] | + +--------+ + + + | [place] M[place] INITIAL | Routin | 05/25/2018 | [...] | | | + +--------+ +--------+-------+---------+--------+ | SSN/SSBN ASSISTANT NAVIGATOR MEDICAID | SSN/SSBN ASSISTANT NAVIGATOR | xxxxxxxx | | | | Medica [...] | | al/Fam | | 1980 | [phone] | [place] [address] | | | vidal | | | 1 (Home) | | + +--------+ +--------+ + +
--- OUTSIDE RECORDS SUMMARY | ~2018-08-06 | XMS | Encounter Summary ---
Demographics + + + | Address | [address] | | | [place] [address] | + + + | Home Phone | | + + + | Preferred Language | Unknown | + + + | Marital Status | Single | + + + | Orthodoxy Affiliation | Unknown | + + + | Race | White | + + + | Ethnic Group | Not or | + + + Author + + + | Author | [facility] | + + + | Organization | [facility] | + + + | Address | Unknown | + + + | Phone | Unavailable | + + + Support + + +---------+ + | Name | Relationship | Address | Phone | + + +---------+ + | Dandre Acosta | ECON | Unknown | | + + +---------+ + Care Team Providers + +------+ + | Care Hot Knife Foxing Cutter Name | Role | Phone | + +------+ + | Maddison Sailajabettie PICKETTP | PCP | | + +------+ + Reason for Visit + + + | Reason | Comments | + + + | [facility] | [facility] | | Equipment (DME) | | | Orders | | + + + Encounter Details +--------+--------+ + + + | Date | Type | Department | Care Team | Description | +--------+--------+ + + + | 06/03/ | Refill | Leobardo Pedroza | Lidia Holguin | [facility] | | 2019 | | Diabetes Health | MD Kenny [address] [facility] | Equipment (DME) | | | | Center at Phys[facility] | [address] | Orders ([facility]) | | | | Pavilion [address] | [place], [place] | | | | | [address] [facility] | [address] | | | | | Road Physicians | [phone] | | | | | [address] | | | | | | Physicians Pavilion | | | | | | [facility] [place] | | | | | | [address] | | | | | | [phone] | | | +--------+--------+ + + + [...] | Diabetes & | MD Kenny [address] [facility] | | | | | Metabolism | [address] | | | | | | [place] | | | | | | [address] | | | | | | [phone] | | | | | | | | +--------+---------+ + + + documented as of this encounter Visit Diagnoses Not on filedocumented in this encounter"
--- OUTSIDE RECORDS SUMMARY | ~2018-08-06 | XMS | Encounter Summary ---
Demographics + + + | Address | [address] | | | [place] [address] | + + + | Home Phone [...] Author + + + | Author | [facility] | + + + | Organization | [facility] | + + + | Address | Unknown | + + + | Phone | Unavailable | + + + Support + + +---------+ + | Name | Relationship | Address | Phone | + + +---------+ + | Dandre Acosta | ECON | Unknown | | + + +---------+ + Care Team Providers + +------+ + | Care Measurement Specialist Name | Role | Phone | [...] | | | | | cyst | [address] | | | | | Procedures | [place] | for Health | | | | | PHYSICAL | [address] | and Healing, | | | | | THERAPY | Phone: | 1st floor | | | | | REFERRAL | [phone] | [facility] [place] | | | | | | Fax: | [address] | | | | | | [phone] | Phone: | | | | | | | [phone] | | | | | | | Fax: | | | | | | | [phone] | +--------+--------+ + + + + Encounter Details +--------+---------+ + + + | Date | Type | Department | Care Team | Description | +--------+---------+ + + + | 08/19/ | Office | [facility] | Dissinger, | Chronic right-sided | | 2018 | Visit | Therapy Services at | Keely, PT [address] | thoracic back pain | | | | [facility] | [facility] [address] | (Primary Dx); Cyst | | | | [address] | [place], [place] | of spinal meninges | | | | Mailcode: CH3P | [address] | | | | | [facility] | | | | | | and Healing, 1st | | | | | | floor [place], [place] | | | | | | [address] | | | | | | [phone] | | | +--------+---------+ + + + [...] - 08/19/2017 10:00 AM PDT Insurance: Payor: [facility] MEDICAID / Plan: [facility] ConvrrtSC HEALTH SHARE / Product Type: Medicaid / Non-Medicare [facility] PHYSICAL THERAPY EVALUATION Past Medical [...] (SUBC). Sliding scale, Disp: , Rfl: Insulin [place] (Disposable) 31 gauge x 5/16" needle, [...] counselo r there, currently seeing someone at [place]. Tingling static electricity going down his [...] stretches Education: Rehabilitation diagnosis and plan of [facility] program: Exercise Date given Cat/Cow stretch 08/19/2017 [...] Moderate - Moderate complexity Complexity: Moderate - 20383 The patient requires services that can be [...] status. Keely Davis, PT [facility] 1ST FLOOR Scheduled Appointment time: 10:00 [...] stretching, manual thera py Procedure Codes: Re-evaluation 64272, Therapeutic Exercise 69226, Manual Therapy 35805, Th erapeutic Activities 73427 and Neuromuscular Reeducation 84150 Minutes per session: 45 Total number of [...] meninges Next progress report 10/19/2017 Insurance: Payor: [employer] MED[employer] / Plan: [employer] HEALTH SHARE / Product Type: Medicaid [...] | Diabetes & | MD Kenny [address] [facility] | | | | | Metabolism | [address] | | | | | | [place], [place] | | | | | | [address] | | | | | | [phone] | | | | | | | | +--------+---------+ + + + documented as of this encounter Procedures + +--------+ + + + | Procedure Name | Priori | Date/Time | Associated Diagnosis | Comments | | | ty | | | | + +--------+ + + + | [place] [facility] | Routin | 08/20/2017 | Chronic [...]
--- OUTSIDE RECORDS SUMMARY | ~2018-08-06 | XMS | Encounter Summary ---
Demographics + + + | Address | [address] | | | [place] [address] | + + + | Home Phone | | + + + | Preferred Language | Unknown | + + + | Marital Status | Single | + + + | Jain Affiliation | Unknown | + + + | Race | White | + + + | Ethnic Group | Not or | + + + Author + + + | Author | [facility] | + + + | Organization | [facility] | + + + | Address | Unknown | + + + | Phone | Unavailable | + + + Support + + +---------+ + | Name | Relationship | Address | Phone | + + +---------+ + | Dandre Acosta | ECON | Unknown | | + + +---------+ + Care Team Providers + +------+ + | Care Metal Trim Erector Name | Role | Phone | + [...] | | | | | cyst | [address] | | | | | Procedures | [place] | for Health | | | | | PHYSICAL | [address] | and Healing, | | | | | THERAPY | Phone: | 1st floor | | | | | REFERRAL | [phone] | [facility] [place] | | | | | | Fax: | [address] | | | | | | [phone] | Phone: | | | | | | | [phone] | | | | | | | Fax: | | | | | | | [phone] | +--------+--------+ + + + + Consultation (Routine) +--------+---------+ + + + + | Status | Reason | Specialty | Diagnoses / | Referred By | Referred To | | | | | Procedures | Contact | Contact | +--------+---------+ + + + + | Closed | Other | Pain Medicine | Diagnoses | Neil, | [facility] | | | | / Pain | Myofascial | Edward D, | [address] | | | | Management | pain | [address] | [address] | | | | | Arachnoid | [address] | Code: CH15P | | | | | cyst | [facility] | | | | | Procedures | [place] | Health and | | | | | CONSULT TO | [address] | , | | | | | PAIN | Phone: | Floor | | | | | MANAGEMENT | [phone] | [place], [place] | | | | | | Fax: | [address] | | | | | | [phone] | Phone: | | | | | | | [phone] | | | | | | | Fax: | | | | | | | [phone] | +--------+---------+ + + + + Consultation [...] | | | | pain | [address] | | | | | | Arachnoid | [address] | | | | | | cyst | [place], | | | | | | Procedures | [place] | | | | | | [facility] | [address] | | | | | | - EXTERNAL | Phone: | | | | | | ONLY | [phone] | | | | | | | Fax: | | | | | | | [phone] | | + +--------+ + + + [...] | | | [facility] | [place], [place] | | | | | | Physicians | [address] | | | | | | [address] | Phone: | | | | | | Mother | [phone] | | | | | | [address] | Fax: | | | | | | [address] | [phone] | | | | | | [place] | | | | | | | [place] [address] | | | | | | | Phone: | | | | | | | [phone] | | | | | | | Fax: | | | | | | | [phone] | | +--------+--------+ + + + + Encounter Details +--------+---------+ + + + | Date | Type | Department | Care Team | Description | +--------+---------+ + + + | 08/17/ | Office | Spine Center at | Edward Neil, | Myofascial pain | | 2018 | Visit | [facility] [address] | [address] | (Primary Dx); | | | | Ave [place], [place] | Ave [place], [place] | Arachnoid cyst | | | | [address] | [address] | | | | | [phone] | [phone] | | | | | | | [...] questionna cesar that will be scanned into [employer]. Current medication list: Current Outpatient Prescriptions Medication [...] under the skin (SUBC). Sliding scale Insulin [place] (Disposable) 31 gauge x 5/16" needle 1 [...] present. I spent at least 40 minutes nbpp-uj-nnuq with the patient. I spent more than 50% of this vi sit in coordination of care and counseling in which we discussed diagnosis, treatment, imagi ng studies and follow-up. Edward Neil PA-C [facility] [address] [place] [address] [facility] OPEN NOTE [[id number]] documented in this e ncounter Plan of Treatment +--------+---------+ + + + | Date | Type | Specialty | Care Team | Description | +--------+---------+ + + + | 08/22/ | Office | Endocrinology, | Lidia Holguin | | | 2019 | Visit | Diabetes & | MD Kenny [address] | | | | | Metabolism | [address] | | | | | | [place], [place] | | | | | | [address] | | | | | | [phone] | | | | | | | [...]
--- OUTSIDE RECORDS SUMMARY | ~2018-08-06 | XMS | Encounter Summary ---
Demographics + + + | Address | [address] | | | [place] [address] | + + + | Home Phone | | + + + | Preferred Language | Unknown | + + + | Marital Status | Single | + + + | Nondenominational Affiliation | Unknown | + + + | Race | White | + + + | Ethnic Group | Not or | + + + Author + + + | Author | [facility] | + + + | Organization | [facility] | + + + | Address | Unknown | + + + | Phone | Unavailable | + + + Support + + +---------+ + | Name | Relationship | Address | Phone | + + +---------+ + | Dandre Acosta | ECON | Unknown | | + + +---------+ + Care Team Providers + +------+ + | Care High School Foreign Language Tutor Name | Role | Phone | + [...] | | | | | | Edward Cedra, | Alvin Parham MD | | | | | | [address] | [address] | | | | | | [address] | Ave | | | | | | [place], | [place], [place] | | | | | | [place] | [address] | | | | | | [address] | Phone: | | | | | | Phone: | [phone] | | | | | | [phone] | Fax: | | | | | | Fax: | [phone] | | | | | | [phone] | | +--------+--------+ + + + + Encounter Details +--------+---------+ + + + | Date | Type | Department | Care Team | Description | +--------+---------+ + + + | 10/27/ | Office | Spine Center at | Alvin Martin MD | Depressive disorder | | 2018 | Visit | [facility] [address] | [address] | (Primary Dx); Type 1 | | | | Ave [place], [place] | [place], [place] | diabetes mellitus | | | | [address] | [address] | with complication | | | | [phone] | [phone] | (HCC); Chest wall | | | [...] be like biofeedback t chacorta his social media manager/therapist. He does have [...] under the skin (SUBC). Sliding scale Insulin [place] (Disposable) 31 gauge x 5/16" needle 1 [...] No Alcohol marijuana drugs Originally from [place], relocated to [place] because of health and environment in [facility] , lived briefly in [place]. He states that although he does not have any identified medical decision-maker a person by the name of Gurjit Sawyer (a patrol officer from [place]) would be that person. He does have 2 sister s and a father in [facility]. Physical Exam: Constitutional: There were no [...] Alvin Martin MD I spent 45 minutes jkag-np-xqxs with the patient. I spent more than [...] Rd | | | | | | [place], [place] | | | | | | [address] | | | | | | [phone] | | | | | | | [...]
--- OUTSIDE RECORDS SUMMARY | ~2018-08-06 | XMS | Encounter Summary ---
Demographics + + + | Address | [address] | | | [place] [address] | + + + | Home Phone | | + + + | Preferred Language | Unknown | + + + | Marital Status | Single | + + + | Uatsdin Affiliation | Unknown | + + + | Race | White | + + + | Ethnic Group | Not or | + + + Author + + + | Author | [facility] | + + + | Organization | [facility] | + + + | Address | Unknown | + + + | Phone | Unavailable | + + + Support + + +---------+ + | Name | Relationship | Address | Phone | + + +---------+ + | Dandre Acosta | ECON | Unknown | | + + +---------+ + Care Team Providers + +------+ + | Care Stretch Press Operator Name | Role | Phone | [...] | | | [facility] | [place], [place] | | | | | | Physicians | [address] | | | | | | [address] | Phone: | | | | | | Mother | [phone] | | | | | | [address]et[address] | Fax: | | | | | | [address] | [phone] | | | | | | [place], | | | | | | | [place] [address] | | | | | | | Phone: | | | | | | | [phone] | | | | | | | Fax: | | | | | | | [phone] | | + +--------+ + + + + Encounter Details +--------+---------+ + + + | Date | Type | Department | Care Team | Description | +--------+---------+ + + + | 08/31/ | Office | Spine Center at | Edward Neil, | Chronic pain | | 2018 | Visit | [facility] [address] | [address] | syndrome (Primary | | | | Ave [place], [place] | Ave [place], [place] | Dx); Myofascial | | | | [address] | [address] | pain; Arachnoid cyst | | | | [phone] | [phone] | | | | | | | [...] under the skin (SUBC). Sliding scale Insulin [place] (Disposable) 31 gauge x 5/16" needle 1 [...] issues). I spent at least 25 minutes hmug-pp-rorw with the patient. I spent more than 50% of this vi sit in coordination of care and counseling in which we discussed diagnosis, treatment, imagi ng studies and follow-up. Edward Neil PA-C [facility] [address] [place] [address] documented in this e ncounter Plan of Treatment +--------+---------+ + + + | Date | Type | Specialty | Care Team | Description | +--------+---------+ + + + | 08/22/ | Office | Endocrinology, | Lidia Holguin | | | 2019 | Visit | Diabetes & | MD Kenny [address] | | | | | Metabolism | [address] | | | | | | [place], [place] | | | | | | [address] | | | | | | [phone] | | | | | | | [...]
--- OUTSIDE RECORDS SUMMARY | ~2018-08-06 | XMS | Encounter Summary ---
Demographics + + + | Address | [address] | | | [place] [address] | + + + | Home Phone | | + + + | Preferred Language | Unknown | + + + | Marital Status | Single | + + + | Islam Affiliation | Unknown | + + + [...] Team Providers + +------+ + | Care Hat Maker Name | Role | Phone | + +------+ + | Sailaja Washburn LIFE INSURANCE UNDERWRITER | PCP | | + +------+ + Encounter Details +--------+ + + + + | Date | Type | Department | Care Team | Description | +--------+ + + + + | 07/28/ | Sacha | Leobardo Pedroza | Lidia Holguin | 2 months of | | 2019 | Encounter | Diabetes Health | MD Kenny [address] | antibiotics | | | | Center at Physicians | [address] | | | | | Pavilion [address] | [facility] [place] | | | | | [address] | [address] | | | | | Road Physicians | [phone] | | | | | [address] | | | | | | Physicians Pavilion | | | | | | [facility] [place] | | | | | | [address] | | | | | | [phone] | | | +--------+ + + + [...] | Diabetes & | MD Kenny [address] [facility] | | | | | Metabolism | [address] | | | | | | [place] | | | | | | [address] | | | | | | [phone] | | | | | | | | +--------+---------+ + + + documented as of this encounter Visit Diagnoses Not on filedocumented in this encounter"
--- OUTSIDE RECORDS SUMMARY | ~2018-08-06 | XMS | Encounter Summary ---
Demographics + + + | Address | [address] | | | [place] [address] | + + + | Home Phone [...] Team Providers + +------+ + | Care Motor Hotel Manager Name | Role | Phone | [...] | | | 2017 | on | [facility] [address] | [address] | | | | | [place] [facility] [place] | [address] [facility] [place] | | | | | [address] | [address] | | | | | [phone] | [phone] | | | | | | | [...] Visit | Diabetes & | MD Kenny [address] [facility] | | | | | Metabolism | [address] | | | | | | [place] | | | | | | [address] | | | | | | [phone] | | | | | | | | +--------+---------+ + + + documented as of this encounter Visit Diagnoses Not on filedocumented in this encounter"
--- OUTSIDE RECORDS SUMMARY | ~2018-08-06 | XMS | Encounter Summary ---
Demographics + + + | Address | [address] | | | [place] [address] | + + + | Home Phone [...] + + + | Author | [facility] | + + + | Organization | [facility] | + + + | Address | Unknown | + + + | Phone | Unavailable | + + + Support + + +---------+ + | Name | Relationship | Address | Phone | + + +---------+ + | Dandre Acosta | ECON | Unknown | | + + +---------+ + Care Team Providers + +------+ + | Care Agricultural Equipment Design Engineer Name | Role | Phone | [...] | | | 2017 | on | [facility] [address] | [address] | | | | | [place] [facility] [place] | [address] [facility] [place] | | | | | [address] | [address] | | | | | [phone] | [phone] | | | | | | | [...] Visit | Diabetes & | MD Kenny [address] [facility] | | | | | Metabolism | [address] | | | | | | [place] | | | | | | [address] | | | | | | [phone] | | | | | | | | +--------+---------+ + + + documented as of this encounter Visit Diagnoses Not on filedocumented in this encounter"
--- OUTSIDE RECORDS SUMMARY | ~2018-08-06 | XMS | Encounter Summary ---
Demographics + + + | Address | [address] | | | [place] [address] | + + + | Home Phone [...] Team Providers + +------+ + | Care Fsr Name | Role | Phone | + +------+ + | Maddison Sailajabettie PICKETTP | PCP | | + +------+ + Reason for Visit + + + | Reason | Comments | + + + | [facility] | [place] | | Equipment (DME) | | | Orders | | + + + Encounter Details +--------+--------+ + + + | Date | Type | Department | Care Team | Description | +--------+--------+ + + + | 06/03/ | Refill | Leobardo Pedroza | Lidia Holguin | [facility] | | 2019 | | Diabetes Health | MD Kenny [address] [facility] | Equipment (DME) | | | | Center at Physicians | [address] | Orders ([place]) | | | | Pavilion [address] | [place], [place] | | | | | Denis [facility] | [address] | | | | | Road Physicians | [phone] | | | | | [address] | | | | | | Physicians Pavilion | | | | | | [facility] [place] | | | | | | [address] | | | | | | [phone] | | | +--------+--------+ + + + [...] Rd | | | | | | [place] | | | | | | [address] | | | | | | [phone] | | | | | | | | +--------+---------+ + + + documented as of this encounter Visit Diagnoses Not on filedocumented in this encounter"
--- OUTSIDE RECORDS SUMMARY | ~2018-08-06 | XMS | Encounter Summary ---
Demographics + + + | Address | [address] | | | [place] [address] | + + + | Home Phone [...] Author + + + | Author | [facility] | + + + | Organization | [facility] | + + + | Address | Unknown | + + + | Phone | Unavailable | + + + Support + + +---------+ + | Name | Relationship | Address | Phone | + + +---------+ + | Dandre Acosta | ECON | Unknown | | + + +---------+ + Care Team Providers + +------+ + | Care Alley Tender Name | Role | Phone | + +------+ + PCP | Unavailable | + +------+ + Encounter Details +--------+ + + + + | Date | Type | Department | Care Team | Description | +--------+ + + + + | 07/27/ | Document-Sc | UNKNOWN DEPARTMENT | Unknown . | | | 2013 | anned | [address] [facility] | | | | | | [facility] | | | | | | [place], [place] | | | | | | [address] | | | +--------+ + + + [...] Visit | Diabetes & Morris Cox MD [address] | | | | | Metabolism | [address] | | | | | | [place], [place] | | | | | | [address] | | | | | | [phone] | | | | | | | | +--------+---------+ + + + documented as of this encounter Visit Diagnoses Not on filedocumented in this encounter"
--- OUTSIDE RECORDS SUMMARY | ~2018-08-06 | XMS | Encounter Summary ---
Demographics + + + | Address | [address] | | | [place] [address] | + + + | Home Phone [...] Team Providers + +------+ + | Care Beam Sealer Name | Role | Phone | + +------+ + | Sailaja Washburn GAS WELL PUMPER | PCP | | + +------+ + [...] mellitus | [address] | [facility] | | | | | with | [address] | Mailcode: | | | | | complication | [place], [place] | [id number] | | | | | ([facility]) | [address] | Physicians | | | | | Nutrition - | Phone: | [address] | | | | | Analyze carb | [phone] | [address] | | | | | intake at | Fax: | [place], [place] | | | | | meals, | [phone] | [address] | | | | | patterns, | | Phone: | | | | | dosing | | [phone] | | | | | strategy | | Fax: | | | | | Procedures | | [phone] | | | | | CONSULT TO [...] | Visit | Diabetes Health | [address] [facility] | mellitus with | | | | Center at [facility] | [address] | complication (HCC) | | | | Pavilion [address] | [facility] [place] | (Primary Dx) | | | | [facility] | [address] | | | | | Road Mailcode: | [phone] | | | | | [id number] Physicians | | | | | | [address] | | | | | | [place], [place] | | | | | | [address] | | | | | | [phone] | | | +--------+---------+ + + + [...] at age 13. Circumstance: ryan sosa, in [place] at the time, moved to [place] 14 years ago. Dad has type 1 [...] morning on a good day. Works in [employer], so job is also fairly active. Notices [...] and services clinic has to offer includ [facility]. Offered my continued support and education [...] Moderately Stable Follow-up: MNT/DSMT [address]ita [address] [facility] DIABETES [facility] [address] [place] [address] Mailcode: [id number] [place] [address] documented in this enc ounter Plan of Treatment +--------+---------+ + + + | Date | Type | Specialty | Care Team | Description | +--------+---------+ + + + | 08/22/ | Office | Endocrinology, | Lidia Holguin | | | 2019 | Visit | Diabetes & | MD Kenny [address] [place] [address] | | | | | Metabolism | [facility] [address] | | | | | | [place], [place] | | | | | | [address] | | | | | | [phone] | | | | | | | | +--------+---------+ + + + documented as of this encounter Procedures + +--------+ + + + | Procedure Name | Priori | Date/Time | Associated Diagnosis | Comments | | | ty | | | | + +--------+ + + + | [place] MNT INITIAL | Routin | 05/25/2018 | [...]
--- OUTSIDE RECORDS SUMMARY | ~2018-08-06 | XMS | Encounter Summary ---
Demographics + + + | Address | [address] | | | [place] [address] | + + + | Home Phone [...] + + + | Author | [facility] | + + + | Organization | [facility] | + + + | Address | Unknown | + + + | Phone | Unavailable | + + + Support + + +---------+ + | Name | Relationship | Address | Phone | + + +---------+ + | Dandre Acosta | ECON | Unknown | | + + +---------+ + Care Team Providers + +------+ + | Care Progress Man Name | Role | Phone | + +------+ + | Sailaja WashburnP | PCP | | + +------+ + Encounter Details +--------+ + + + + | Date | Type | Department | Care Team | Description | +--------+ + + + + | 11/09/ | Documentati | Spine Center at | Edward Neil, | | | 2017 | on | [facility] [address] | [address] | | | | | [place], [place] | [place], [place] | | | | | [address] | [address] | | | | | [phone] | [phone] | | | | | | | [...] | Diabetes & | MD Kenny [address] [facility] | | | | | Metabolism | [address] | | | | | | [place] | | | | | | [address] | | | | | | [phone] | | | | | | | | +--------+---------+ + + + documented as of this encounter Visit Diagnoses Not on filedocumented in this encounter"
--- OUTSIDE RECORDS SUMMARY | ~2018-08-06 | XMS | Encounter Summary ---
Demographics + + + | Address | [address] | | | [place] [address] | + + + | Home Phone [...] Author + + + | Author | [facility] | + + + | Organization | [facility] | + + + | Address | Unknown | + + + | Phone | Unavailable | + + + Support + + +---------+ + | Name | Relationship | Address | Phone | + + +---------+ + | Dandre Acosta | ECON | Unknown | | + + +---------+ + Care Team Providers + +------+ + | Care Specialty Person Name | Role | Phone | + [...] | | | | | cyst | [address] | | | | | Procedures | [place] | for Health | | | | | PHYSICAL | [address] | and Healing, | | | | | THERAPY | Phone: | 1st floor | | | | | REFERRAL | [phone] | [facility] [place] | | | | | | Fax: | [address] | | | | | | [phone] | Phone: | | | | | | | [phone] | | | | | | | Fax: | | | | | | | [phone] | +--------+--------+ + + + + Encounter Details +--------+---------+ + + + | Date | Type | Department | Care Team | Description | +--------+---------+ + + + | 08/19/ | Office | [facility] | Dissinger, | Chronic right-sided | | 2018 | Visit | Therapy Services at | Keely, PT [address] | thoracic back pain | | | | [facility] | [address] | (Primary Dx); Cyst | | | | [address] | [place], [place] | of spinal meninges | | | | Mailcode: CH3P | [address] | | | | | [facility] | | | | | | and Healing, 1st | | | | | | floor [place], [place] | | | | | | [address] | | | | | | [phone] | | | +--------+---------+ + + + [...] - 08/19/2017 10:00 AM PDT Insurance: Payor: [facility] MEDICAID / Plan: [facility] [id number] HEALTH SHARE / Product Type: Medicaid / Non-Medicare [facility] PHYSICAL THERAPY EVALUATION Past Medical [...] (SUBC). Sliding scale, Disp: , Rfl: Insulin [place] (Disposable) 31 gauge x 5/16" needle, 1 [...] counselo r there, currently seeing someone at [place]. Tingling static electricity going down his lef [...] Moderate - Moderate complexity Complexity: Moderate - 54086 The patient requires services that can be [...] status. Keely Davis, PT [facility] 1ST FLOOR Scheduled Appointment time: 10:00 AM [...] stretching, manual thera py Procedure Codes: Re-evaluation 51299, Therapeutic Exercise 54481, Manual Therapy 49140, Th erapeutic Activities 37568 and Neuromuscular Reeducation 65347 Minutes per session: 45 Total number of [...] meninges Next progress report 10/19/2017 Insurance: Payor: [employer] MEDICAID / Plan: [employer] SEA[employer] MANAGER CAREOR HEALTH SHARE / Product Type: [...] | Diabetes & | MD Kenny [address] [facility] | | | | | Metabolism | [address] | | | | | | [place], [place] | | | | | | [address] | | | | | | [phone] | | | | | | | | +--------+---------+ + + + documented as of this encounter Procedures + +--------+ + + + | Procedure Name | Priori | Date/Time | Associated Diagnosis | Comments | | | ty | | | | + +--------+ + + + | [facility] | Routin | 08/20/2017 | Chronic [...]
--- OUTSIDE RECORDS SUMMARY | ~2018-08-06 | XMS | Encounter Summary ---
Demographics + + + | Address | [address] | | | [place] [address] | + + + | Home Phone [...] Team Providers + +------+ + | Care Ironer Name | Role | Phone | + +------+ + | Sailaja Washburn HEEL TOP LIFT SPLITTER | PCP | | + +------+ + [...] | | mellitus | [address] | [facility] | | | | | with | [address] | Mailcode: | | | | | complication | [place], [place] | [address] | | | | | ([facility]) | [address] | Physicians | | | | | Nutrition - | Phone: | Tiarra MOREIRA | | | | | Analyze carb | [phone] | [address] | | | | | intake at | Fax: | [place], [place] | | | | | meals, | [phone] | [address] | | | | | patterns, | | Phone: | | | | | dosing | | [phone] | | | | | strategy | | Fax: | | | | | Procedures | | [phone] | | | | | CONSULT TO [...] | Visit | Diabetes Health | [address] [facility] | mellitus with | | | | Center at [facility] | [address] | complication (HCC) | | | | Pavilion [address] | [facility] [place] | (Primary Dx) | | | | [facility] | [address] | | | | | Road Mailcode: | [phone] | | | | | [address] Physicians | | | | | | [address] | | | | | | [place], [place] | | | | | | [address] | | | | | | [phone] | | | +--------+---------+ + + + [...] in [place] at the time, moved to [place] 14 years ago. Dad has type 1 [...] morning on a good day. Works in [employer], so job is also fairly active. Notices [...] and services clinic has to offer includ [facility]. Offered my continued support and education [...] Stable Follow-up: MNT/DSMT [address] [facility] DIABETES [facility] [address] [place] [address] Mailcode: [address] [place] [address] documented in this enc ounter Plan of Treatment +--------+---------+ + + + | Date | Type | Specialty | Care Team | Description | +--------+---------+ + + + | 08/22/ | Office | Endocrinology, | Lidia Holguin | | | 2019 | Visit | Diabetes & | MD Kenny [address] [place] [address] | | | | | Metabolism | [facility] | | | | | | [place], [place] | | | | | | [address] | | | | | | [phone] | | | | | | | | +--------+---------+ + + + documented as of this encounter Procedures + +--------+ + + + | Procedure Name | Priori | Date/Time | Associated Diagnosis | Comments | | | ty | | | | + +--------+ + + + | IN MNT INITIAL | Routin | 05/25/2018 | [...]
--- OUTSIDE RECORDS SUMMARY | ~2018-08-06 | XMS | Encounter Summary ---
Demographics + + + | Address | [address] | | | [place] [address] | + + + | Home Phone [...] Team Providers + +------+ + | Care Vocal Music Instructor Name | Role | Phone | [...] | | | [facility] | [place], [place] | | | | | | Physicians | [address] | | | | | | [address] | Phone: | | | | | | Mother | [phone] | | | | | | [address]et[address] | Fax: | | | | | | [address] | [phone] | | | | | | [place], | | | | | | | [place] [address] | | | | | | | Phone: | | | | | | | [phone] | | | | | | | Fax: | | | | | | | [phone] | | + +--------+ + + + + Encounter Details +--------+---------+ + + + | Date | Type | Department | Care Team | Description | +--------+---------+ + + + | 08/31/ | Office | Spine Center at | Edward Neil, | Chronic pain | | 2018 | Visit | [facility] [address] | NONI [address] | syndrome (Primary | | | | Ave [place], [place] | Ave [place], [place] | Dx); Myofascial | | | | [address] | [address] | pain; Arachnoid cyst | | | | [phone] | [phone] | | | | | | | [...] under the skin (SUBC). Sliding scale Insulin [place] (Disposable) 31 gauge x 5/16" needle [...] issues). I spent at least 25 minutes [id number] with the patient. I spent more than 50% of this vi sit in coordination of care and counseling in which we discussed diagnosis, treatment, imagi ng studies and follow-up. Edward Neil PA-C [facility] AT [facility] [address] [place] [address] documented in this e ncounter Plan of Treatment +--------+---------+ + + + | Date | Type | Specialty | Care Team | Description | +--------+---------+ + + + | 08/22/ | Office | Endocrinology, | Lidia Holguin | | | 2019 | Visit | Diabetes & | MD Kenny [address] | | | | | Metabolism | [address] | | | | | | [place], [place] | | | | | | [address] | | | | | | [phone] | | | | | | | [...]
--- OUTSIDE RECORDS SUMMARY | ~2018-08-06 | XMS | Encounter Summary ---
Demographics + + + | Address | [address] | | | [place] [address] | + + + | Home Phone [...] Team Providers + +------+ + | Care Community Marketing Coordinator Name | Role | Phone | + +------+ + | Linda Lizarraga TECHNICAL PRODUCER | PCP | | + +------+ + [...] | | | | | Physicians | [address] | | | | | | [address] | Phone: | | | | | | Mother | [phone] | | | | | | [address]et[address] | Fax: | | | | | | [address] | [phone] | | | | | | [place], | | | | | | | [place] [address] | | | | | | | Phone: | | | | | | | [phone] | | | | | | | Fax: | | | | | | | [phone] | | + +--------+ + + + + Encounter Details +--------+---------+ + + + | Date | Type | Department | Care Team | Description | +--------+---------+ + + + | 12/22/ | Office | Spine Center at | Edward Neil, | Arachnoid cyst | | 2018 | Visit | [facility] [address] | PA-C [address] | (Primary Dx) | | | | Ave [place], [place] | Ave [place], [place] | | | | | [address] | [address] | | | | | [phone] | [phone] | | | | | | | [...] symptoms. Sin e his last appointment with ut he was evaluated by [facility] spine Surgeon Dr. Martin who [...] or medial branch blocks, not covered by [facility] Clinic referral for Pain Psy, [...] by mouth once daily at bedtime. Fish Oil-[place]-3 Fatty Acids 300-1,000 mg oral capsule Take [...] under the skin (SUBC). Sliding scale Insulin [place] (Disposable) 31 gauge x 5/16" needle 1 [...] needed I spent at least 12 minutes cmzb-ji-vgis with the patient. I spent more than 50% of this vi sit in coordination of care and counseling in which we discussed diagnosis, treatment, imagi ng studies and follow-up. Edward Neil PA-C [facility] [address] [place] [address] documented in this e ncounter Plan of Treatment +--------+---------+ + + + | Date | Type | Specialty | Care Team | Description | +--------+---------+ + + + | 08/22/ | Office | Endocrinology, | Lidia Holguin | | | 2019 | Visit | Diabetes & | MD Kenny [address] [place] [address] | | | | | Metabolism | [address] | | | | | | [place], [place] | | | | | | [address] | | | | | | [phone] | | | | | | | | +--------+---------+ + + + documented as of this encounter Visit Diagnoses + + | Diagnosis | + + | Arachnoid cyst - Primary Cerebral cysts | + + documented in this encounter
--- OUTSIDE RECORDS SUMMARY | ~2018-08-06 | XMS | Encounter Summary ---
Demographics + + + | Address | [address] | | | [place] [address] | + + + | Home Phone | | + + + | Preferred Language | Unknown | + + + | Marital Status | Single | + + + | Denominational Affiliation | Unknown | + + + [...] Team Providers + +------+ + | Care Customer Supply Chain Analyst Name | Role | Phone | + +------+ + | Sailaja Washburn NETWORK SECURITY ARCHITECT | PCP | | + +------+ + [...] diabetes | MD [address] | [address] | | | | | mellitus | [address] | [address] | | | | | with | [address] | Mailcode: | | | | | complication | [place], [place] | [address] | | | | | ([facility]) | [address] | Physicians | | | | | Review | Phone: | Tiarra MOREIRA | | | | | optimizing | [phone] | [address] | | | | | sensor | Fax: | [place], [place] | | | | | technology | [phone] | [address] | | | | | Procedures | | Phone: | | | | | CONSULT TO | | [phone] | | | | | ADULT | [...] , Diabetes & | Type 1 | Ldiia Cox, | [address] | | | | Metabolism | diabetes | MD [address] | [address] | | | | | mellitus | [address] | [facility] | | | | | with | [address] | Mailcode: | | | | | complication | [place], [place] | [address] | | | | | ([facility]) | [address] | Physicians | | | | | Nutrition - | Phone: | Tiarra ANTONIO | | | | | Analyze carb | [phone] | [address] | | | | | intake at | Fax: | [place], [place] | | | | | meals, | [phone] | [address] | | | | | patterns, | | Phone: | | | | | dosing | | [phone] | | | | | strategy | | Fax: | | | | | Procedures | | [phone] | | | | | CONSULT TO [...] | | | | | mellitus | [place] | [address] | | | | | with | Street | Road | | | | | hypoglycemia | [place], [place] | Physicians | | | | | without | [address] | [address] | | | | | coma Type 1 | Phone: | 140 | | | | | diabetes | [phone] | Physicians | | | | | mellitus | Fax: | Pavilion | | | | | without | [phone] | [place], [place] | | | | | complication | | [address] | | | | | s | | Phone: | | | | | Procedures | | [phone] | | | | | CONSULT TO | | Fax: | | | | | DIABETES | | [phone] | | | | | ENDO | [...] | | Pavilion [address] | [facility] [place] | (Primary Dx) | | | | [address] | [address] | | | | | Road Physicians | [phone] | | | | | [address] | | | | | | Physicians Pavilion | | | | | | [place], [place] | | | | | | [address] | | | | | | [phone] | | | +--------+---------+ + + + [...] schedule as much as possible Please contact [facility] [phone] for any questions Lab Results Component Value Date A1C 5.5 04/20/2018 Schedule upcoming appointments: Nutrition visit to review meal patterns, activity and stress related trends Technology visit to refine use of sensor Sensor order --- You have history of testing 10 to 12 times daily when not on sensor and Keep up routine monitoring and use of current sensor Ask [employer] to send us supply requests Follow hypoglycemic [...] a low blood sugar. Please visit the [facility] Website for information on what's new at our diabetes center. Let us know if you would like to sign up for a class or a one o n one diabetes education visit. Please meet with your primary care provider routinely for your medical care and annual [facility] k ups documented in this encounter Progress Notes Solange Lucas MA - 04/20/2018 9:49 AM PST Finger stick performed in clinic for a capillary A1c. Lidia Alas M D - 04/20/2018 9:45 AM PST [facility] PCP: RODNEY Cardoso Referring Physician: Christian Rodriguez ND [address] [place] [address] Reason for referral: Evaluate Type 1 Diabetes HPI: Gregory is a 38 y.o. male referred for evaluation of Type 1 Diabetes. Diabetes history: He was diagnosed with diabetes in 1992 at age 13. Circumstance: hospitalized, in [place] at the time ---- moved to [place] 14 years ago Treatment history: Has been [...] diabetes care: Living situation: grew up in [place] ---- moved to [place]--wanted to live somewhere that was health, mom when he was 23 He grew up with a lot of fried and fast food in the home. Dad has type 1 diabetes. Has t wo sisters. Lives in [place]. Lives alone. In physical therapy for cyst [...] mouth once daily at bedtime. Blood-Glucose Sensor ([employer]istics G5-G4 SENSOR) device 1 each by NOT APPLICABLE route. Cholecalciferol (Vitamin D3) 2,000 unit oral tablet TAKE 1 TABLET BY MOUTH EVERY DAY FO R dietary SUPPLEMENT DULoxetine 20 mg oral capsule,delayed release(DR/EC) Take 20 mg by mouth once daily at bedtime. Fish Oil-[place]-3 Fatty Acids 300-1,000 mg oral capsule Take [...] scale, up to 30 units daily Insulin [place] (Disposable) 31 gauge x 5/16" needle 1 [...] ROS: Review of systems as stated in [place]. Other pertinent review of systems includes: Weight: [...] 1992 at age 13. Circumstance: hospitalized, in [place] at the time ---- moved to [place] 14 years ago Treatment history: Has been on NPH, Novolog, Humalog, Levemir, Lantus and now Basaglar Pump/sensor history-- never on a pump---started Dexcom 6 months ago (G5) but challenges wit h insurance coverage Has working transmitter/sensor right now but every 3 months it takes about a month to proce ss the paperwork through [employer] and insurance History of acute complications: Severe [...] sensor use for awareness of trends [place] so very active throughout the day --- [...] as possible Please contact Leobardo Kasia Diabetes [facility] [phone] for any questions Lab Results Component Value [...] a low blood sugar. Please visit the [facility] Website for information on what's new at our diabetes center. Let us know if you would like to sign up for a class or a one o n one diabetes education visit. Please meet with your primary care provider routinely for your medical care and annual [facility] k ups 2. See orders Orders Placed This Encounter [place] Collection Capillary Blood Specimen [[id number]] only for Adults CONSULT TO ADULT DIABETES - NUTRITION (MNT) CONSULT TO ADULT DIABETES - EDUCATION (DIABETES SELF-MANAGEMENT) HEMOGLOBIN A1C,POC [[id number]}] Lidia Holguin MD [facility] 1ST FLOOR [address] [facility] Phys[address] [facility] [address] [place] [address] I spent 55 minutes with [...] Rd | | | | | | [place], [place] | | | | | | [address] | | | | | | [phone] | | | | | | | [...] [place] | [address] | [place], [place] | | | KARI RODRIGUEZ OF CARE | [address] | [address] | | | TESTS | | | [...]
--- OUTSIDE RECORDS SUMMARY | ~2018-08-06 | XMS | Encounter Summary ---
Demographics + + + | Address | [address] | | | [place] [address] | + + + | Home Phone [...] + + | Author | [facility] | + + + | Organization | [facility] | + + + | Address | Unknown | + + + | Phone | Unavailable | + + + Support + + +---------+ + | Name | Relationship | Address | Phone | + + +---------+ + | Dandre Acosta | ECON | Unknown | | + + +---------+ + Care Team Providers + +------+ + | Care Energy Auditor Name | Role | Phone | + +------+ + | Sailaja Washburn SUPERVISOR RUBBER COVERING | PCP | | + +------+ + [...] | | Pavilion [address] | [facility] [place] | | | | | [address] | [address] | | | | | Road Physicians | [phone] | | | | | [address] | | | | | | Physicians Pavilion | | | | | | [facility] [place] | | | | | | [address] | | | | | | [phone] | | | +--------+ + + + [...] & | MD Kenny [address] [facility] | | | | | Metabolism | [address] | | | | | | [place] | | | | | | [address] | | | | | | [phone] | | | | | | | | +--------+---------+ + + + documented as of this encounter Visit Diagnoses Not on filedocumented in this encounter"
[~2018-08-06 16:45] MED LIST changes: +CLEOCIN HCL300 MG PO
--- OUTSIDE RECORDS SUMMARY | 2018-08-06 16:48 | XMS ---
PreManage Notification: DOREEN GRIFFIN Security Agricultural Real Estate Agent Events 1 event(s) in the past 18 months Most recent security events: Elopement at [facility] 06/07/2018 19:01 - Other Details: PATIENT LWBS. CRITERIA MET - 6 ED Visits in [address] Mon[address] - [facility] - Has Care Guidelines - [facility] - 2 Visits in 30 Days CARE PROVIDERS RODNEY MARTINEZ Current PHONE: [phone] [address]/Center: Federally Qualified 11/28/2017-Current [facility] ([facility]) PHONE: [phone] [facility]: Multi-Specialty 12/12/2017-12/12/2018 Behavioral PHONE: [phone] YECENIA MCBRIDE Physician Software Engineering Associate Manager 07/18/2018-Current PHONE: [phone] BERNARD SHAFFERpractchaparrita Current PHONE: [phone] [place] Agricultural Agent Current PHONE: [phone] Simran Merrill Recreation Coordinator Current PHONE: [phone] CINTHYA [place] Counselor: Mental Health Current PHONE: [phone] [facility] Mental Health Provider 06/21/2017-12/21/2017 PHONE: Unknown KADI BIANCHI Primary Care 11/29/2017-Current [facility] PHONE: [phone] [facility] 02/15/2018-[facility] PHONE: [phone] Simran Merrill Primary Care Current PHONE: Unknown [facility] Primary Care Current PHONE: Unknown [facility] Mental Health Provider 09/15/2017-Current [facility]ONE: [facility] 08/18/2017-[facility] PHONE: [phone] BERNARD SHAFFER Primary [facility] Current PHONE: Unknown RODNEY MARTINEZ Primary Care Current PHONE: [facility] 05/05/2017-[facility] INTERNAL [facility] PHONE: [phone] [facility] Current PHONE: Unknown [facility] Other 10/31/2015-Current [facility] PHONE: Unknown JEANNINE YORK Primary Care Current PHONE: Unknown SARABJIT JEAN Primary Care 10/29/2014-Current PHONE: [phone] MANPREET MANRIQUEZ Primary Care Current PHONE: Unknown Brayden has no Care Guidelines for this patient. Care History Medical/Surgical 07/26/2018 [facility] - EOIPA REFERRAL MADE- DUE TO PATIENT CHRONIC HEALTH CONDITIONS. 06/24/2018 [facility] - [facility] SPOKE WITH PATIENT- PATIENT HAS BEEN WAITING FOR [facility] TO RECEIVE AND REVIEW MEDICAL RECORDS SINCE APRIL. - [facility] PROVIDED [facility] CONTACT NUMBER AND ADDRESS TO ESTABLISH CARE. PATIENT STATED HE WOULD BE IN CONTACT WITH [facility] ON Wednesday06/27/18 AND WILL CALL [facility] WITH UPDATES. E.DSarath VISIT COUNT (12 MO.) 5 Miguel Michelle 6 [facility]. TOTAL 11 NOTE: Visits indicate total known visits. ED/UCC VISIT TRACKING (12 MO.) 08/06/2018 16:45 [facility] [place] TYPE: Emergency COMPLAINT: - FACIAL INFECTION 07/24/2018 19:03 [facility] [place] TYPE: Emergency COMPLAINT: - BLOOD SUGAR PROBLEM, INFLAMATION OF INFECTION DIAGNOSES: - Personal history of nicotine dependence - Allergy status to narcotic agent status - Allergy status to penicillin - Other retirement (current) drug therapy - Other specified diabetes mellitus with hyperglycemia - long-term (current) use of insulin - Disorder of the skin and subcutaneous tissue, unspecified 07/11/2018 13:19 [facility] [place] TYPE: Emergency COMPLAINT: - HEADACHE DIAGNOSES: - Headache - circuit court clerk (current) use of insulin - Other retirement (current) drug therapy - Cellulitis of face [...] skin and subcutaneous tissue, unspecified - Other retirement (current) drug therapy - Type 1 diabetes mellitus without complications - Unspecified open wound of nose, initial encounter - Exposure to other specified factors, initial encounter - Personal history of nicotine dependence - Unspecified open wound of other part of head, initial encounter - circuit court clerk (current) use of insulin - Allergy status to penicillin 06/22/2018 14:41 [facility] [place] TYPE: Emergency COMPLAINT: - POSS STAPH INFECTION DIAGNOSES: - Methicillin resistant Staphylococcus aureus infection, unspecified site - Personal history of nicotine dependence - Other emergency manager (current) drug therapy - Type 1 diabetes mellitus without complications - Allergy status to narcotic agent status - circuit court clerk (current) use of insulin - Allergy status [...] - MED REQ 08/25/2017 11:34 [facility] [place] TYPE: Emergency DIAGNOSES: - muscle spasms 08/19/2017 22:35 [facility] [place] TYPE: Emergency DIAGNOSES: - Hypoglycemia, unspecified - Hypoglycemia/nerve pain INPATIENT VISIT TRACKING (12 MO.) No inpatient visits to display in this time frame [id number]
[2018-08-06] MEDS ORDERED: CLEOCIN HCL300 MG PO (17:18)
== END 2018-08-06 17:27 | disposition home or self-care (01) ==
LOC: ED 16:45
DX: L03.211 Cellulitis of face (principal); E10.9 Type 1 diabetes mellitus without complications; Z87.891 Personal history of nicotine dependence; Z88.0 Allergy status to penicillin; Z88.5 Allergy status to narcotic agent; Z79.899 Other long term (current) drug therapy
CPT/HCPCS: 99283

== ENCOUNTER 2018-09-01 14:47 | Emergency (ER) | payer OTHER ==
[~2018-09-01] VITALS: Ht 185.4 cm; Wt 85.7 kg
--- OUTSIDE RECORDS SUMMARY | 2018-09-01 14:50 | XMS ---
PreManage Notification: DOREEN GRIFFIN Security Corporate Fitness Program Coordinator Events 1 event(s) in the past 18 months Most recent security events: Elopement at [facility] 06/07/2018 19:01 - Other Details: PATIENT LWBS. CRITERIA MET - 6 ED Visits in 6 Months - [facility] - Has Care Guidelines - [facility] - 2 Visits in 30 Days CARE PROVIDERS RODNEY MARTINEZ Current PHONE: [phone] [address] [facility]: Federally Qualified 11/28/2017-Current [facility] PH[facility]: [phone] [facility]: Multi-Specialty 12/12/2017-12/12/2018 Behavioral PHONE: [phone] YECENIA MCBRIDE Physician Delivery Motorcycle Driver 07/18/2018-Current PHONE: [phone] BERNARD SHAFFERpractchaparrita Current PHONE: [phone] EDITH GIRON Rpg Programmer Analyst Current PHONE: [phone] Simran Merrill Capacity Analyst Current PHONE: [phone] C[place]YA [place] Counselor: Mental Health Current PHONE: [phone] [facility] Mental Health Provider 06/21/2017-12/21/2017 PHONE: Unknown KADI BIANCHI Primary Care 11/29/2017-Current [facility]AL CLINIC PHONE: [phone] [facility] 02/15/2018-[facility] PHONE: [phone] Simran Merrill Primary Care Current PHONE: Unknown [facility] Primary Care Current PHONE: Unknown [facility] Mental Health Provider 09/15/2017-Current PHONE: Unknown [facility] 08/18/2017-[facility] PHONE: [phone] BERNARD SHAFFER Primary Care Current PHONE: Unknown [facility] Primary Care 05/05/2017-[facility] PHONE: [phone] [facility] Current PHONE: Unknown [facility] Other 10/31/2015-Current FLO PHONE: Unknown SARABJIT JEAN Primary Care 10/29/2014-Current PHONE: [phone] MANPREET MANRIQUEZ Primary Care Current PHONE: Unknown Brayden has no Care Guidelines for this patient. Care History Medical/Surgical 08/09/2018 [facility] - PATIENT DECLINED [facility] CASE MANAGEMENT. 07/26/2018 [facility] - [facility] REFERRAL MADE- DUE TO PATIENT CHRONIC HEALTH CONDITIONS. 06/24/2018 [facility] - [facility]W SPOKE WITH PATIENT- PATIENT HAS BEEN WAITING FOR [facility] TO RECEIVE AND REVIEW MEDICAL RECORDS SINCE APRIL. - W PROVIDED [facility] CONTACT NUMBER AND ADDRESS TO ESTABLISH CARE. PATIENT STATED HE WOULD BE IN CONTACT WITH [facility] ON Wednesday06/27/18 AND WILL CALL [facility] WITH UPDATES. E.PrashantSarath VISIT COUNT (12 MO.) 2 Miguel Michelle 7 FERNANDA Seaman TOTAL 9 NOTE: Visits indicate total known visits. ED/UCC VISIT TRACKING (12 MO.) 09/01/2018 14:47 FERNANDA [place] TYPE: Emergency COMPLAINT: - ABD PAIN 08/06/2018 16:45 [place]ERNANDA [place] TYPE: Emergency COMPLAINT: - FACIAL INFECTION DIAGNOSES: - Other intermodal owner operator truck driver (current) drug therapy - Allergy status to narcotic agent status - Type 1 diabetes mellitus without complications - Disorder of the skin and subcutaneous tissue, unspecified - Personal history of nicotine dependence - Cellulitis of face - Allergy status to penicillin 07/24/2018 19:03 FERNANDA [place] TYPE: Emergency COMPLAINT: - BLOOD SUGAR PROBLEM, INFLAMATION OF INFECTION DIAGNOSES: - Personal history of nicotine dependence - Allergy status to narcotic agent status - Allergy status to penicillin - Other chcf (current) drug therapy - Other specified diabetes mellitus with hyperglycemia - ferry terminal supervisor (current) use of insulin - Disorder of the skin and subcutaneous tissue, unspecified 07/11/2018 13:19 FERNANDA [place] TYPE: Emergency COMPLAINT: - HEADACHE DIAGNOSES: - Headache - ferry terminal supervisor (current) use of insulin - Other intermodal owner operator truck driver (current) drug therapy - Cellulitis of face [...] skin and subcutaneous tissue, unspecified - Other chcf (current) drug therapy - Type 1 diabetes mellitus without complications - Unspecified open wound of nose, initial encounter - Exposure to other specified factors, initial encounter - Personal history of nicotine dependence - Unspecified open wound of other part of head, initial encounter - [facility] (current) use of insulin - Allergy status to penicillin 06/22/2018 14:41 FERNANDA [place] TYPE: Emergency COMPLAINT: - POSS STAPH INFECTION DIAGNOSES: - Methicillin resistant Staphylococcus aureus infection, unspecified site - Personal history of nicotine dependence - Other intermodal owner operator truck driver (current) drug therapy - Type 1 diabetes mellitus without complications - Allergy status to narcotic agent status - ferry terminal supervisor (current) use of insulin - Allergy status to penicillin 06/07/2018 19:01 FERNANDA [place] TYPE: Emergency COMPLAINT: - ANXIETY DIAGNOSES: - Procedure and treatment not carried out due to patient leaving prior to being seen by health care provider 10/04/2017 01:24 Legmagdiel Barriosaritan Nalini [place] TYPE: Emergency DIAGNOSES: - Abscess - Pain in thoracic spine - Other chronic pain 09/03/2017 14:36 Legmagdiel Blair Catholicjonas [place] TYPE: Emergency DIAGNOSES: - Shoulder spasm INPATIENT VISIT TRACKING (12 MO.) No inpatient visits to display in this time frame [email or web address]
== END 2018-09-01 16:28 | disposition home or self-care (01) ==
LOC: ED 14:47
DX: M54.6 Pain in thoracic spine (principal); E10.9 Type 1 diabetes mellitus without complications; Z87.891 Personal history of nicotine dependence; Z88.0 Allergy status to penicillin; Z88.5 Allergy status to narcotic agent; Z79.899 Other long term (current) drug therapy
CPT/HCPCS: 96372; 99283-25; J1885; J2060

== ENCOUNTER 2018-12-19 19:38 | Emergency (ER) | payer OTHER ==
[~2018-12-19] VITALS: Ht 185.4 cm; Wt 81.6 kg
--- OUTSIDE RECORDS SUMMARY | ~2018-12-19 | XMS | Encounter Summary ---
Demographics + + + | Address | [address] | | | [place] [address] | + + + | Home Phone | | + + + | Preferred Language | Unknown | + + + | Marital Status | Single | + + + | Protestant Affiliation | 1050 | + + + | Race | Unknown | + + + | Ethnic Group | Unknown | + + + Author + + + | Author | [facility] | | | and [place] | + + + | Organization | [facility] | | | and [place] | + + + | Address | Unknown | + + + | Phone | Unavailable | + + + Support + + + + + | Name | Relationship | Address | Phone | + + + + + | Naida Acosta | ECON | [place] [address] | | + + + + + Care Team Providers + +------+ + | Care Rail Car Maintenance Mechanic Name | Role | Phone | + +------+ + | Sahil Billings | PCP | | + +------+ + Reason for Visit + + + | Reason | Comments | + + + | Injections | Left subscapular Bursa | + + + Encounter Details +--------+ + + + + | Date | Type | Department | Care Team | Description | +--------+ + + + + | 11/01/ | Telephone | [facility] | Michele Howard | Injections (Left | | 2019 | | [address] | subscapular Bursa) | | | | [place], | [place], [place] | | | | | [place] [address] | [address] | | | | | [phone] | | | +--------+ + + + + Social History + +-------+ +--------+------+ | Tobacco Use | Types | Packs/Day | Years | Date | | | | | Used | | + +-------+ +--------+------+ | Current Every Day | | | | | | Smoker | | | | | + +-------+ +--------+------+ + +---+---+---+ | Smokeless Tobacco: | | | | | Never Used | | | | + +---+---+---+ + + | Comments: vap | + + + + +---------+ + | Alcohol Use | Drinks/We | oz/Week | Comments | | | ek | | | + + +---------+ + | Never | | | | + + +---------+ + + + + + | Alcohol Habits | Answer | Date Recorded | + + + + | How often do you have a drink containing | Never | 09/04/2018 | | alcohol? | | | + + + + | How many drinks containing alcohol do you | Not asked | | | have on a typical day when you are | | | | drinking? | | | + + + + | How often do you have six or more drinks on | Not asked | | | one occasion? | | | + + + + + + + | Sex Assigned at [...] as of this encounter Plan of Treatment Not on filedocumented as of this encounter Visit Diagnoses Not on filedocumented in this encounter"
--- OUTSIDE RECORDS SUMMARY | ~2018-12-19 | XMS | Encounter Summary ---
Demographics + + + | Address | [address] | | | [place] [address] | + + + | Home Phone | | + + + | Preferred Language | Unknown | + + + | Marital Status | Single | + + + | Restoration Affiliation | 1050 | + + + | Race | Unknown | + + + | Ethnic Group | Unknown | + + + Author + + + | Author | [facility] | | | and [place] | + + + | Organization | [facility] | | | and [place] | + + + | Address | Unknown | + + + | Phone | Unavailable | + + + Support + + + + + | Name | Relationship | Address | Phone | + + + + + | Naida Acosta | ECON | [place] [address] | | + + + + + Care Team Providers + +------+ + | Care Children'S Service Worker Name | Role | Phone | + [...] + + | 11/01/ | Telephone | [facility] | Michele Howard | Injections (Left | | 2019 | | [address] | subscapular Bursa) | | | | [place], | [place], [place] | | | | | [place] [phone] | [address] | | | | | [phone] | | | +--------+ + + + [...]
--- OUTSIDE RECORDS SUMMARY | ~2018-12-19 | XMS | Clinical Summary ---
Demographics + + + | Address | [address] | | | [place] [address] | + + + | Home Phone | | + + + | Preferred Language | Unknown | + + + | Marital Status | Single | + + + | Sikhism Affiliation | Unknown | + + + | Race | White | + + + | Ethnic Group | Not or | + + + Author + + + | Author | NON REVENUE LOCATIONS | + + + | Organization | NON REVENUE LOCATIONS | + + + | Address | Unknown | + + + | Phone | Unavailable | + + + Support + + +---------+ + | Name | Relationship | Address | Phone | + + +---------+ + | Dandre Acosta | ECON | Unknown | | + + +---------+ + Care Team Providers + +------+ + | Care 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 Operator Submerged Arc Name | Role | Phone | + +------+ + | aShil Billings PA-C | PCP | | + +------+ + Source Comments JOSE FRANCISCO is [facility] both [facility] and [facility] Allergies + + + + + + | Active Allergy | Reactions | Severity | Noted | Comments | | | | | Date | | + + + + + + | Hydrocodone-Acetamin | Nausea | Low | 11/04/19 | | | ophen | | | 13 | | + + + + + + | Penicillins | Unknown | | 05/11/19 | | | | | | 15 | | + + + + + + Medications + + + +---------+------+------+-------+ | Medication | Sig | Dispensed | Refills | Star | End | Statu | | | | | | t | Date | s | | | | | | Date | | | + + + +---------+------+------+-------+ | ibuprofen 800 mg | Take by mouth. | | 0 | 07/1 | | Activ | | oral tablet | | | | 2/20 | | e | | | | | | 16 | | | + + + +---------+------+------+-------+ | gabapentin 100 mg | Take 100 mg by mouth | | 0 | 06/1 | | Activ | | oral capsule | once daily at | | | 0/20 | | e | | | bedtime. | | | 18 | | | + + + +---------+------+------+-------+ | Insulin [place] | 1 each. | | 0 | 08/2 | | Activ | | (Disposable) 31 | | | | 8/20 | | e | | gauge x 5/16" needle | | | | 15 | | | + + + +---------+------+------+-------+ | DULoxetine 20 mg | Take 60 mg by mouth | | 0 | | | Activ | | oral capsule,delayed | once daily at | | | | | e | | release(DR/EC) | bedtime. | | | | | | + + + +---------+------+------+-------+ | magnesium chloride | Take by mouth. | | 0 | | | Activ | | SR 64 mg oral | | | | | | e | | tablet,delayed | | | | | | | | release (DR/EC) | | | | | | | + + + +---------+------+------+-------+ | melatonin 3 mg | Dissolve on tongue | | 0 | | | Activ | | oral | and swallow. | | | | | e | | tablet,disintegratin | | | | | | | | g | | | | | | | + + + +---------+------+------+-------+ | Fish Oil-Antrim-3 | Take by mouth. | | 0 | | | Activ | | Fatty Acids | | | | | | e | | 300-1,000 mg oral | | | | | | | | capsule | | | | | | | + + + +---------+------+------+-------+ | Cholecalciferol | TAKE 1 TABLET BY | | 11 | 08/0 | | Activ | | (Vitamin D3) 2,000 | MOUTH EVERY DAY FOR | | | 2/20 | | e | | unit oral tablet | dietary SUPPLEMENT | | | 18 | | | + + + +---------+------+------+-------+ | ascorbic acid | Take 500 mg by mouth | | 0 | | | Activ | | (vitamin C) 500 mg | two times daily. | | | | | e | | oral tablet | | | | | | | + + + +---------+------+------+-------+ | mirtazapine 15 mg | Take 15 mg by mouth | | 0 | | | Activ | | oral tablet | once daily in the | | | | | e | | | evening. | | | | | | + + + +---------+------+------+-------+ | insulin lispro | Inject under the | | 0 | | | Activ | | (Human) (ADMELOG | skin (SUBC). Sliding | | | | | e | | SOLOSTAR U-100 | scale, up to 30 | | | | | | | INSULIN) 100 unit/mL | units daily | | | | | | | subcutaneous | | | | | | | | insulin pen | | | | | | | + + + +---------+------+------+-------+ | insulin | Inject 22 Units | | 0 | | | Activ | | glargine,[email or web address].anl | under the skin | | | | | e | | og (BASAGLJULIO CESAR TORRESPEN | (SUBC) once daily at | | | | | | | U-100 INSULIN SUBQ) | bedtime. | | | | | | + + + +---------+------+------+-------+ | Blood-Glucose | 1 each by NOT | | 0 | 08/1 | | Activ | | Sensor (DEXCOM G5-G4 | APPLICABLE route. | | | 8/20 | | e | | SENSOR) device | | | | 17 | | | + + + +---------+------+------+-------+ | lamoTRIgine 25 mg | Take 50 mg by mouth | | 0 | | | Activ | | oral tablet | once daily. | | | | | e | + + + +---------+------+------+-------+ | fluconazole 150 mg | Once weekly for | 12 | 0 | 09/1 | | Activ | | oral tablet | three months | tablet | | 8/20 | | e | | | | | | 19 | | | + + + +---------+------+------+-------+ | cyclobenzaprine | Take 10 mg by mouth. | | 0 | | | Activ | | HCl (FLEXERIL ORAL) | | | | | | e | + + + +---------+------+------+-------+ | insulin lispro | 1-2 units with | 15 mL | 3 | 10/31 | | Activ | | (Human) (HUMALOG | meals. Max dose of | | | 09/17 | | e | | KWIKPEN INSULIN) 100 | 20 units total daily | | | 19 | | | | unit/mL | dose Indications: | | | | | | | subcutaneous insulin | poor diabetes | | | | | | | penIndications: | control and greater | | | | | | | poor diabetes | variability with | | | | | | | control and greater | admelog with | | | | | | | variability with | inconsistent insulin | | | | | | | admelog with | delievery. | | | | | | | inconsistent insulin | Previously well | | | | | | | delievery. | controlled on | | | | | | | Previously well | humalog | | | | | | | controlled on | | | | | | | | humalog | | | | | | | + + + +---------+------+------+-------+ | glucagon 1 mg | Inject 1 mg into the | 1 kit | 3 | 10/31 | 10/31 | Expir | | injection | muscle (IM) once | | | 09/17 | 09/17 | ed | | kitIndications: Type | for 1 dose. As | | | 19 | 19 | | | 1 diabetes mellitus | directed | | | | | | | with complication | | | | | | | | (HCC) | | | | | | | + + + +---------+------+------+-------+ Active Problems + + + | Problem | Noted Date | + + + | Arachnoid cyst of spine | 10/27/2017 | + + + | Depressive disorder | 10/18/2017 | + + + | Rotator cuff syndrome of right shoulder | 09/30/2017 | + + + | Back pain | 09/20/2017 | + + + | MARGARET (generalized anxiety disorder) | 04/17/2017 | + + + + + | Overview: Last Assessment & Plan: Gregory reports that he has | | been having acute anxiety over the last 6 months, which has been | | exacerbated by muscle spasms. His symptoms have impacted his | | life significantly. He has lost his job and he is running out of | | money.There have been multiple frequent, frantic my chart | | exchanges since the beginning of the year, with frequency | | increasing at the beginning of June.At this time he is denying use | | of methamphetamine to control his anxiety; however, he does | | state that he has been smoking a large amount of marijuana, and | | using his friend's Ativan.He has been prescribed handful of | | psychotropic medications since April including: Cymbalta, | | Celexa, BuSpar, Inderal, gabapentin. Most of these medications | | have been stopped or discontinued because Gregory reports that he is | | having adverse drug effects.During today's visit, Celexa was | | discontinued. This is because Gregory reports that in the past, | | SSRIs have contributed to suicidal ideation.Diagnosis of bipolar | | is on the differential. He reports genetic loading of bipolar | | disorder, stating that his mother had a diagnosis of bipolar. He | | denies carrying former diagnosis of bipolar. Most of Gregory's | | late teens and 20s were consumed with polysubstance use. This | | may have modeled the expression of a bipolar condition during | | that time.I suggest that we start a second generation | | antipsychotic, Abilify. Abilify works well for bipolar leoncio and | | depression. Starting dose is 5 mg at bedtime.I am also | | discontinuing the Inderal. We are going to do a gradual taper. | | Plan will be to take 1 tablet by mouth 2 times daily for 3 days; | | then 1 tablet by mouth daily for 3 days; then stop.Once | | propanolol is tapered off, he can start clonidine 0.1 mg twice | | daily.Given Gregory's history of polysubstance use, I do not think | | he is a good candidate for benzodiazepines. It is my suggestion | | moving forward that he be managed on antipsychotics and/or mood | | stabilizing agents.I asked that he come back to follow up in 2 | | weeks. | + + + + + | Myalgia | 09/14/2016 | + + + | Segmental and somatic dysfunction of cervical region | 09/14/2016 | + + + | Segmental and somatic dysfunction of thoracic region | 09/14/2016 | + + + | TOS (thoracic outlet syndrome) | 09/14/2016 | + + + | Anxiety | 08/18/2016 | + + + | Chest wall pain | 10/12/2014 | + + + + + | Overview: Overview: Overview: Overview: 10/12/14: Onset mid | | August 2014 with trauma to area. No x-rays, low concern for | | fracture on PE. Improving steadily. Ibuprofen for pain.Overview: | | Overview: 10/12/14: Onset mid August 2014 with trauma to area. No | | x-rays, low concern for fracture on PE. Improving steadily. | | Ibuprofen for pain. | |Overview: | |10/12/14: Onset mid August 2014 with trauma to area. No x-rays, low concern for fracture on PE . Improving steadily. Ibuprofen for pain. | + + + + + | Tobacco dependence syndrome | 06/22/2014 | + + + | Tobacco use disorder | 06/22/2014 | + + + | Posttraumatic stress disorder | 08/18/2013 | + + + | PTSD (post-traumatic stress disorder) | 08/18/2013 | + + + | Examination of participant in clinical trial | 07/28/2013 | + + + | Amphetamine and psychostimulant dependence | 07/20/2013 | + + + + + | Overview: Overview: | | Early remission. Last use was : 05/09/2013 | + + + + + | Drug dependence | 07/20/2013 | + + + + + | Overview: Overview: | | Overview: | | Early remission. Last use was : 05/09/2013 | | | | Overview: | | Overview: | | Early remission. Last use was : 05/09/2013 | + + + + + | Type 1 diabetes mellitus | 11/20/2008 | + + + + + | Overview: Overview: T1DM - Uses HumaLOG and Lantus | | insulin.Currently uninsured.Last Assessment & Plan: History of | | Present Illness:CBGs:14-day avg = [id number]-erf avg = 197CBG this AM | | = 325Has new girlfriend - been going out to dinner a lot.Little | | exercise.Planning on taking a contract job for 3 months in | | [place].Needing to get supplies to cover him for this.Has not | | applied for Cover [place] because leaving to [place] soon. Will | | when he returns.Worried about getting his A1C done today because | | he is not ready for it.Assessment & Plan:1. Agrees to tomorrow | | A1C with other labs being measured.2. Discussed new studies and | | guidelines surrounding benefit of statin for patients with | | controlled cholesterol due to other CV risks.Overview: Overview: | | T1DM - Uses HumaLOG and Lantus insulin.Currently uninsured.Last | | Assessment & Plan: History of Present Illness:CBGs:14-day avg = | | 29377-dxs avg = 197CBG this AM = 325Has new girlfriend - been | | going out to dinner a lot.Little exercise.Planning on taking a | | contract job for 3 months in [place].Needing to get supplies to | | cover him for this.Has not applied for Cover [place] because | | leaving to [place] soon. Will when he returns.Worried about | | getting his A1C done today because he is not ready for | | it.Assessment & Plan:1. Agrees to tomorrow A1C with other labs | | being measured.2. Discussed new studies and guidelines | | surrounding benefit of statin for patients with controlled | | cholesterol due to other CV risks. | |2. Discussed new studies and guidelines surrounding benefit of statin for patients with co ntrolled cholesterol due to other CV risks. | | | |Overview: | |Overview: | |T1DM - Uses HumaLOG and Lantus insulin. | |Currently uninsured. | | | |Last Assessment & Plan: | |History of Present Illness: | | | |CBGs: | |14-day avg = 182 | |30-day avg = 197 | |CBG this AM = 325 | | | |Has new girlfriend - been going out to dinner a lot. | |Little exercise. | | | |Planning on taking a contract job for 3 months in [place]. | |Needing to get supplies to cover him for this. | |Has not applied for Cover [place] because leaving to [place] soon. Will when he returns. | | | |Worried about getting his A1C done today because he is not ready for it. | | | |Assessment & Plan: | | | |1. Agrees to tomorrow A1C with other labs being measured. | |2. Discussed new studies and guidelines surrounding benefit of statin for patients with co ntrolled cholesterol due to other CV risks. | + + Encounters +--------+ + + + + | Date | Type | Specialty | Care Team | Description | +--------+ + + + + | 12/13/ | Refill | Endocrinology, | Lidia Holguin | [facility] | | 2018 | | Diabetes & Morris Cox MD | Equipment (DME) | | | | Metabolism | | Orders (Tosin); | | | | | | Refill Request; | | | | | | Refill Request | +--------+ + + + + | 11/28/ | Telephone | Dermatology | Clive Power, | Discussion | | 2019 | | | Greg Hamm MD | | +--------+ + + + + | 11/25/ | Office | Endocrinology, | Lidia Holguin | Type 1 diabetes | | 2019 | Visit | Diabetes & | MD Kenny | mellitus with | | | | Metabolism | | complication (HCC) | | | | | | (Primary Dx); Other | | | | | | chronic pain; | | | | | | Anxiety about health | +--------+ + + + + | 11/25/ | Travel | | | | | 2018 | | | | | +--------+ + + + + | 11/16/ | Office | Dermatology | Duffy Jannet, | Other specified | | 2018 | Visit | | Greg Hamm MD | follicular disorders | | | | | | (Primary Dx) | +--------+ + + + + | 11/16/ | Travel | | | | | 2018 | | | | | +--------+ + + + + from Last 3 Months Social History + +-------+ +--------+ + | [...] recent travel history available. | + + Last Filed Vital Signs + + + + + | Vital Sign | Reading | Time Taken | Comments | + + + + + | Blood Pressure | 98/54 | 11/25/2018 11:34 AM | | | | | PDT | | + + + + + | Pulse | 57 | 11/25/2018 11:34 AM | | | | | PDT | | + + + + + | Temperature | - | - | | + + + + + | Respiratory Rate | 14 | 11/16/2018 2:00 PM | | | | | PDT | | + + + + + | Oxygen Saturation | - | - | | + + + + + | Inhaled Oxygen | - | - | | | Concentration | | | | + + + + + | Weight | 83.2 kg (183 lb 6.4 | 11/25/2018 11:34 AM | | | | oz) | PDT | | + + + + + | Height | 184.8 cm (6' 0.75") | 04/20/2018 9:49 AM | | | | | PST | | + + + + + | Body Mass Index | 24.36 | 04/20/2018 9:49 AM | | | | | PST | | + + + + + Plan of Treatment +--------+---------+ + + + | Date | Type | Specialty | Care Team | Description | +--------+---------+ + + + | 12/30/ | Office | Dermatology | Clive Power, | | | 2019 | Visit | | Greg Hamm MD [address] | | | | | | [address] | | | | | | [place], [place] | | | | | | [address] | | | | | | [phone] | | | | | | | | +--------+---------+ + + + | 02/27/ | Office | Endocrinology, | Daniella Tejeda | | | 2019 | Visit | Diabetes & | NON[facility] Cox [address] | | | | | Metabolism | [address] | | | | | | Physician Tiarra | | | | | | [address] [place], | | | | | | [place] [address] | | | | | | [phone] | | | | | | | | +--------+---------+ + + + + + + + + | Health Maintenance | Due Date | Last Done | Comments | + + + + + | Cholesterol | | | | | screening | 2 | | | + + + + + | Creatinine | | | | | | 2 | | | + + + + + | Diabetic eye exam | | | | | | 2 | | | + + + + + | Medical attention | | | | | for nephropathy | 2 | | | + + + + + | Influenza (Flu) | | 12/09/2011 | | | vaccination (#1) | 9 | | | + + + + + | Monofilament foot | | 04/20/2018 | | | exam | 0 | | | + + + + + | Diabetes | | 05/25/2018 | | | self-management | 0 | | | | education | | | | + + + + + | Hemoglobin A1c | | 11/25/2018, 04/20/2018 | | | | 0 | | | + + + + + | Pneumococcal | Completed | 10/08/2011 | | | vaccination | | | | + + + + + Procedures + +--------+ + + + | Procedure Name | Priori | Date/Time | Associated Diagnosis | Comments | | | ty | | | | + +--------+ + + + | HEMOGLOBIN A1C, POC | Routin | 11/25/2018 | Type 1 diabetes | Results for this | | | e | 11:29 AM | mellitus with | procedure are in the | | | | PDT | complication (HCC) | results section. | + +--------+ + + + | FL COLLECTION | Routin | 11/25/2018 | Type 1 diabetes | | | CAPILLARY BLOOD | e | 11:22 AM | mellitus with | | | SPECIMEN | | PDT | complication (HCC) | | + +--------+ + + + from Last 3 Months Results HEMOGLOBIN A1C,POC (11/25/2018 11:29 AM PDT) + +-------+ + + + | Component | Value | Ref Range | Performed | Pathologist | | | | | At | Signature | + +-------+ + + + | HEMOGLOBIN | 5.7 | 4.0 - 5.7 % | [facility] - | | | A1C,POC | | | [facility] | | | | | | [facility] | | | | | | [facility] CARE | | | | | | TESTS | | + +-------+ + + + + + | Specimen | + + | Blood - Blood | | (substance) | + + + + + + + | Performing | Address | City/State/Zipcode | Phone Number | | Organization | | | | + + + + + | [facility] | [address] | [place], [place] | | | [facility] | [address] | [address] | | | TESTS | | | | + + + + + from Last 3 Months Insurance + +--------+ +--------+-------+---------+--------+ | Payer | Benefi | Subscriber | Effect | Phone | Address | Type | | | t Plan | ID | [place] | | | | | | / | | Dates | | | | | | Group | | | | | | + +--------+ +--------+-------+---------+--------+ | [employer] | [employer] | xxxxxxxx | | | | Medica | | | [place] | | [id number] | | | id | | | [place] | | esent | | | | + +--------+ +--------+-------+---------+--------+ + +--------+ +--------+ + + | Guarantor Name | Accoun | Relation to | Date | Phone | Billing Address | | | t Type | Patient | of | | | | | | | | | | + +--------+ +--------+ + + | Gregory Acosta | Person | Self [birth year] | [address] | | | al/Fam | | 1980 | [phone] | [place] [address] | | | vidal | | | 1 (Home) | | + +--------+ +--------+ + +
--- OUTSIDE RECORDS SUMMARY | ~2018-12-19 | XMS | Encounter Summary ---
Demographics + + + | Address | [address] | | | [place] [address] | + + + | Home Phone | | + + + | Preferred Language | Unknown | + + + | Marital Status | Single | + + + | Quaker Affiliation | Unknown | + + + | Race | White | + + + | Ethnic Group | Not or | + + + Author + + + | Author | [facility] | + + + | Organization | [facility] | + + + | Address | Unknown | + + + | Phone | Unavailable | + + + Support + + +---------+ + | Name | Relationship | Address | Phone | + + +---------+ + | Dandre Acosta | ECON | Unknown | | + + +---------+ + Care Team Providers + +------+ + | Care Industrial Sales Manager Name | Role | Phone | + +------+ + | Sahil Billings PA-C | PCP | | + +------+ + Reason for Visit Benefits Check (Routine) + +--------+ + + + + | Status | Reason | Specialty | Diagnoses / | Referred By | Referred To | | | | | Procedures | Contact | Contact | + +--------+ + + + + | Authorized | | Endocrinology | Diagnoses | Jennifer, | [facility] | | | | , Diabetes & | Type 1 | [place], [place] | Adult Ppv | | | | Metabolism | diabetes | [address] | | | | | mellitus | Dorie | [facility] | | | | | with | Street | Rd | | | | | hypoglycemia | [place], [place] | Physician's | | | | | without | [phone] | [facility] | | | | | coma Type 1 | Phone: | [address] | | | | | diabetes | [phone] | [facility] [place] | | | | | mellitus | Fax: | [address] | | | | | without | [phone] | Phone: | | | | | complication | | [phone] | | | | | s | | Fax: | | | | | Procedures | | [phone] | | | | | CONSULT TO | | | | | | | DIABETES | | | | | | | ENDO | | | + +--------+ + + + + Encounter Details +--------+---------+ + + + | Date | Type | Department | Care Team | Description | +--------+---------+ + + + | 11/25/ | Office | Leobardo Pedroza | Lidia Holguin | Type 1 diabetes | | 2019 | Visit | Diabetes Health | MD Kenny [address] | mellitus with | | | | [facility] | [address] | complication (HCC) | | | | [address] | [place], [place] | (Primary Dx); Other | | | | [address] | [address] | chronic pain; | | | | Physician's | [phone] | Anxiety about health | | | | [facility] [address] | | | | | | [place], [place] | | | | | | [address] | | | | | | [phone] | | | +--------+---------+ + + + [...] + + + + | Height | - | - | | + + + + + | Body Mass Index | 24.36 | 04/20/2018 9:49 AM | | | | | PST | | + + + + + documented in this encounter Patient Instructions Patient Instructions Amparo Cross - 11/25/2018 11:05 AM PDTFormatting of this note jenna mane different from the original. Great to meet with you! Thanks for your visit! Plan for today: 1. Try taking 1/2 dose before a meal and 1/2 the dose after the meal to avoid post-meal hig hs with meals that are high in fat 2. Insulin sensitivity is increased given weight loss and less inflammation -- let's reduce your Basaglar dose range by 2 untis --- Basaglar 20 units to 24 units --- reduce the Basagl ar further if challenges with hypoglycemia 3. Discuss long-term pneumonia vaccine with primary care. Consider annual flu shot. 4. Consider Humalog/Novolog Inpen in the future which combines with Dexcom G6 5. Eye exam due in March 2019 6. Foot exam completed recently Please contact [facility] [phone] for any questions Lab Results Component Value Date A1C 5.7 11/25/2018 Follow hypoglycemic precautions and driving safety. Review the rule of 15 (15 grams carboh ydrate every 10-15 minutes for hypoglycemia (blood sugar < 70) until blood sugar is stable a t a level greater than 70). Always test your blood sugar before driving. Treat all low blo od sugars and do not drive if you have a low blood sugar or feel like you might have a low blood sugar. Exercise related hypoglycemia may occur during and several hours after the time of exercise . Prepare for exercise so that you can reduce your risk of hypoglycemia. There are many wa ys to do this. Options include reducing your insulin doses before and after exercise. Also , having a serving of carbohydrate and protein before and if needed after exercise can help keep your blood sugar more stable and in a moderate range. Alcohol related hypoglycemia is a risk if you drink alcohol. Alcohol reduces your ability to recover from a low blood sugar. Increase in glucose monitoring, conservative doses of in sulin and food (complex carb/protein) can help reduce your risk of a low blood sugar. Please visit the [facility] Website for information on what's new at our diabetes center. Let us know if you would like to sign up for a class or a one o n one diabetes education visit. Please meet with your primary care provider routinely for your medical care and annual chec k ups documented in this encounter Progress Notes Darryl Moncada MA - 11/25/2018 11:05 AM PDT Finger stick performed in clinic for a capillary A1c. Lidia Rivera MD - 11/25/2018 11:05 AM PDT [facility] PCP: RODNEY Cardoso Referring Physician: Christian Rodriguez ND [address] [place], [place] [id number] Reason for referral: Evaluate Type 1 Diabetes HPI: Gregory is a 38 y.o. male referred for evaluation of Type 1 Diabetes. Diabetes history: He was diagnosed with diabetes in 1992 at age 13. Circumstance: hospitalized, in [place] at the time ---- moved to [place] 14 years ago Treatment history: Has been on NPH, Novolog, Humalog, Levemir, Lantus and now Basaglar Pump/sensor history-- never on a pump---started DexcomG5 History of acute complications: Has hypoglycemia unawareness, can't tell when he is hungry -- no recent hospitalization DKA 3 times around age 19 ---- attributes this to drugs, rebellion, parents getting divorc ed--- no recent hospitalization History of chronic complications: no known DR, neuropathy or microalbuminuria History of gastroparesis: unknown Autoimmune history: no known thyroid or celiac CV health history: Last ldl 51 (grandfather from a stroke, uncle from brain aneur ys -- dad's side age 36) History of elevated blood pressure? None except during episode when he had elevation associ ated with pain and tachycardia Dad has HTN and hyperlipidemia Interval history: Moved to [facility]. Health updates He reports multiple health concerns. Describes that his pH was off and that he was diagnos ed with folliculitis on his face. Previously diagnosed with acne. He was on multiple antibi otics 3 months ago with resolution. Last took antibiotics 1 month ago. Suspects acne was mis diagnosis. Had his kidney function tested. Creatinine was normal, GFR was normal, electrolytes were no rmal, CO2 level was normal, anion gap was normal. No signs of anemia. LDL <50, 5 months ago . For 2 weeks, he was lethargic, sleeping 11 hours/day, and eating a lot more carbs This has been frustrating for him Currently on fluconazole and has been helping Switched his pcp to Dr. 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 ED August 2018--- acute on chronic left scapular pain---[facility] ED vis it, visit at [facility] day prior--was treated with percocet, medrol dose pack and ice pack and prn referral. Recent office visit --diagnosed with likely "left subscapular bursitis" Has magnesium deficiency he is also working on. Glycemic control: Has switched from Humalog to Admelog. Has noticed he has to take 1 additional units with Ad melog. Reports greater variability in his blood sugars with Admelog. Believes that the pen only di spenses 0.5 units when he tries to take 1 unit. CGM/Sensor use Has noticed his sensor readings in the 40s. Talked to Dexcom and it was due to rolling in h is sleep. When he checked his blood sugar, it was in the 80s. Has not tried splitting doses due to concerns of stacking insulin doses Current insulin regimen Insulin delivery via vial or pen: pen and 31 guage pen needle Basal Or Long Acting Insulin Basaglar Pen -- 22- 26 units depending on metabolic rate and insulin consumption---- adjusts depending on activity --takes at night Bolus or Short Acting Insulin Admelog Pen about 1:40 to correct hyperglycemia --ends up hav ing about 2 to 3 units per meal typically (usually protein and veggies) --- Usually mostly vegetables---- 90% vegetable at times, often 50/50 protein vegetable but usually more veggie s Carb ratio 1:16 to 1:20 depending on metabolic rate History of insulin allergy or Intolerance: none known Safety: Knows how to treat a low blood sugar Lifestyle: involved in Martial Arts so very active throughout the day --- involves Gabriel Chi , breathing exercises, stretching Also swims 10 laps per day --- usually 30 minutes in the morning on a good day ---- otherwi se right before bed Diet--has cut out red meat and dairy--has helped him feel better in general and with his fo lliculitis Instructions last visit: 1. Focus on gathering data/tracking Track food Exercise - swimming vs Gabriel Chi trends Work activity Stress MJ use 2. Reduce the Basaglar dose by 1 unit less than your usual amount and track the trend 3. Fuel for activity/exercise 4. Notice trends with stress/anxiety Hydrate well Try 10 minute breathing exercise in the face of stress Stay active Remember to eat and maintain schedule as much as possible Meds: Current Outpatient Medications Medication Sig ascorbic acid (vitamin C) 500 mg oral tablet Take 500 mg by mouth two times daily. Blood-Glucose Sensor (DEXCOM G5-G4 SENSOR) device 1 each by NOT APPLICABLE route. Cholecalciferol (Vitamin D3) 2,000 unit oral tablet TAKE 1 TABLET BY MOUTH EVERY DAY FO R dietary SUPPLEMENT cyclobenzaprine HCl (FLEXERIL ORAL) Take 10 mg by mouth. DULoxetine 20 mg oral capsule,delayed release(DR/EC) Take 60 mg by mouth once daily at bedtime. Fish Oil-[place]-3 Fatty Acids 300-1,000 mg oral capsule Take by mouth. fluconazole 150 mg oral tablet Once weekly for three months gabapentin 100 mg oral capsule Take 100 mg by mouth once daily at bedtime. ibuprofen 800 mg oral tablet Take by mouth. insulin glargine,hum.rec.anlog (BASAGLAR KWIKPEN U-100 INSULIN SUBQ) Inject 22 Units un guillaume the skin (SUBC) once daily at bedtime. insulin lispro (Human) (ADMELOG SOLOSTAR U-100 INSULIN) 100 unit/mL subcutaneous insuli n pen Inject under the skin (SUBC). Sliding scale, up to 30 units daily insulin lispro (Human) (HUMALOG KWIKPEN INSULIN) 100 unit/mL subcutaneous insulin pen 1 -2 units with meals. Max dose of 20 units total daily dose Indications: poor diabetes contro l and greater variability with admelog with inconsistent insulin delievery. Previously well controlled on humalog Insulin [place] (Disposable) 31 gauge x 5/16" needle 1 each. lamoTRIgine 25 mg oral tablet Take 50 mg by mouth once daily. magnesium chloride SR 64 mg oral tablet,delayed release (DR/EC) Take by mouth. melatonin 3 mg oral tablet,disintegrating Dissolve on tongue and swallow. mirtazapine 15 mg oral tablet Take 15 mg by mouth once daily in the evening. No current facility-administered medications for this visit. Allergies: Penicillins and Hydrocodone-acetaminophen PMH: Past Medical History: Diagnosis Date Anxiety Anxiety and depression Arachnoid cyst of spine diagnosed 2018, chronic pain associated with this, primarily shoulder pain and left leg pa in Depression History of posttraumatic stress disorder (PTSD) Methamphetamine abuse (HCC) clean since 2014 Type 1 diabetes mellitus (HCC) Family History: Grandfather from a stroke, uncle from brain aneurysm -- dad's side age 36 Dad has HTN and hyperlipidemia Social History: Social History Socioeconomic History Marital status: Single Spouse name: Not on file Number of children: Not on file Years of education: Not on file Highest education level: Not on file Occupational History Not on file Social Needs Financial resource strain: Not on file Food insecurity: Worry: Not on file Inability: Not on file Transportation needs: Medical: Not on file Non-medical: Not on file Tobacco Use Smoking status: Former Smoker Last attempt to quit: 08/18/2015 Years since quittin.2 Smokeless tobacco: Never Used Substance and Sexual Activity Alcohol use: Not on file Drug use: Not on file Sexual activity: Not on file Lifestyle Physical activity: Days per week: Not on file Minutes per session: Not on file Stress: Not on file Relationships Social connections: Talks on phone: Not on file Gets together: Not on file Attends confucianism service: Not on file Active member of club or organization: Not on file Attends meetings of clubs or organizations: Not on file Relationship status: Not on file Other Topics Concern Not on file Social History Narrative 2019 notes--- Living situation: grew up in [place] ---- moved to [place]--wanted to live somewhere carlitos t was health, mom when he was 23 He grew up with a lot of fried and fast food in the home. Dad has type 1 diabetes. Has two sisters. Lives in [place]. Lives alone. ROS: Review of systems as stated in [place]. Other pertinent review of systems includes: Weight: Recent weight loss Wt Readings from Last 3 Encounters: 11/25/18 83.2 kg (183 lb 6.4 oz) 04/20/18 86.6 kg (191 lb) 12/22/17 81.6 kg (180 lb) General: Denies fatigue, depression, anxiety, pain, stress, poor sleeping. Eyes: Denies changes in vision. Ears, Nose, Throat: Denies any symptoms or changes in hearing. Respiratory: Denies any issues with breathing. Musculoskeletal: recurrent pain associated with cyst in his spine Cardiovascular: has palpitations, history of tachycardia Gastrointestinal: history of recurrent nausea and pain associated with eating, has poor antonio etite, mj helps Neurologic: Denies loss of strength or problems with balance or coordination. Peripheral neuropathy symptoms --none reported Skin: no change in skin pigmentation or recent rash Insulin injection sites: legs, abdomen, arms Psychological: History of anxiety, depression, PTSD Additional detailed review of systems is noted in HPI. All other ROS negative. PE: Vitals: BP 98/54 (BP Location: Right upper arm, Patient Position: Sitting) | Pulse 57 | W t 83.2 kg (183 lb 6.4 oz) | BMI 24.36 kg/m | BSA 2.07 m General: alert, oriented, nad HEENT: perrla, eomi, sclera anicteric, no stare, lid lag or exophthalmos, Dentition: fair Neck: normal thyroid texture; No palpable nodules or lymphadenopathy appreciated Lungs: clear to auscultation CV: regular rate and rhythm; no murmur, rub or gallop appreciated Abdomen: soft, non-tender Ext: no edema Feet: warm, well perfused, callus--none deformity--none onychomycosis--none Skin: no acanthosis;no hyperpigmentation;no vitiligo, Labs: Lab Results Component Value Date A1C 5.7 11/25/2018 Assessment: Type 1 diabetes He was diagnosed with diabetes in 1992 at age 13. Circumstance: hospitalized, in [place] at the time ---- moved to [place] 14 years ago Treatment history: Has been on NPH, Novolog, Humalog, Levemir, Lantus and now Basaglar Pump/sensor history-- never on a pump---started Dexcom 6 months ago (G5) but challenges wit h insurance coverage Has working transmitter/sensor right now but every 3 months it takes about a month to proce ss the paperwork through [employer] and insurance History of acute complications: Severe hypoglycemia or hypoglycemia unawareness? Has hypoglycemia unawareness, can't tell w hen he is hungry -- no recent hospitalization DKA or other hospitalization? DKA 3 times around age 19 ---- attributes this to drugs, tiffany ellion, parents getting --- no recent hospitalization History of chronic complications: no known DR, neuropathy or microalbuminuria History of gastroparesis: unknown Dad has high insulin requirement, poor diet-- this made a significant impression on him Glycemic Control Glucose trends and insulin requirement likely impacted by activity--- encourage sensor use for awareness of trends Activities that influence glycemic trends include --Martial Arts----- involves Gabriel Chi, audi athing exercises, stretching Swimming---10 laps per day --- usually 30 minutes in the morning on a good day ---- otherwi se right before bed Change in insulin has been barrier for him-- Has observedvgreater variability in blood glucose with switch to Admelog Few hypoglycemia episodes associated with inaccurate sensor reading Sensitivity to fats in food, hyperglycemia lasting 4 hours CV health: Blood pressure: normal Last lipids: No results found for: CHOL, LDL, HDL, TRI Autoimmune: Thyroid--none known No results found for: TSH Celiac : none known No results found for: GLIADIN, GLIADINIGG, GLIADINIGA, TTG, ENDOMYSIAL, IGA Health Maintenance up to date: Last eye exam ---03/2018 10 gram monofilament completed 04/2018 Flu shot advised annually Behavioral Health: History of PTSD, anxiety and depression History of recurrent nausea and pain associated with eating, has poor appetite, mj helps Plan: 1. Counseling and discussion about goals of care, structured glucose monitoring, medicatio n management, safety and avoidance of complications. Plan as above and per patient instructions: Patient Instructions Great to meet with you! Thanks for your visit! Plan for today: 1. Try taking 1/2 dose before a meal and 1/2 the dose after the meal to avoid post-meal hig hs with meals that are high in fat 2. Insulin sensitivity is increased given weight loss and less inflammation -- let's reduce your Basaglar dose range by 2 untis --- Basaglar 20 units to 24 units --- reduce the Basagl ar further if challenges with hypoglycemia 3. Discuss long-term pneumonia vaccine with primary care. Consider annual flu shot. 4. Consider Humalog/Novolog Inpen in the future which combines with Dexcom G6 5. Eye exam due in March 2019 6. Foot exam completed recently Please contact [facility] [phone] for any questions Lab Results Component Value Date A1C 5.7 11/25/2018 Follow hypoglycemic precautions and driving safety. Review the rule of 15 (15 grams carboh ydrate every 10-15 minutes for hypoglycemia (blood sugar < 70) until blood sugar is stable a t a level greater than 70). Always test your blood sugar before driving. Treat all low blo od sugars and do not drive if you have a low blood sugar or feel like you might have a low blood sugar. Exercise related hypoglycemia may occur during and several hours after the time of exercise . Prepare for exercise so that you can reduce your risk of hypoglycemia. There are many wa ys to do this. Options include reducing your insulin doses before and after exercise. Also , having a serving of carbohydrate and protein before and if needed after exercise can help keep your blood sugar more stable and in a moderate range. Alcohol related hypoglycemia is a risk if you drink alcohol. Alcohol reduces your ability to recover from a low blood sugar. Increase in glucose monitoring, conservative doses of in sulin and food (complex carb/protein) can help reduce your risk of a low blood sugar. Please visit the [facility] Website for information on what's new at our diabetes center. Let us know if you would like to sign up for a class or a one o n one diabetes education visit. Please meet with your primary care provider routinely for your medical care and annual [facility] k ups 2. See orders Orders Placed This Encounter CA Collection Capillary Blood Specimen [43784] only for Adults HEMOGLOBIN A1C,POC [[id number]}] glucagon 1 mg injection kit insulin lispro (Human) (HUMALOG KWIKPEN INSULIN) 100 unit/mL subcutaneous insulin pen I am Amparo Cross functioning as a scribe for Lidia Holguin MD at 11:58 AM on 11/26/19 19 I have reviewed and verified the above scribed note of my visit with this patient as record ed by Amparo Cross. Lidia Holguin MD [facility] AT [facility] [address] FLOOR [address] [address] I spent 31 minutes with the patient. Greater than 50% of the time was spent counseling the patient regarding goals of care, glucose monitoring, insulin management,sensor technology, hypoglycemia avoidance, diabetes education, care coordination. documented in this encounter Plan of Treatment +--------+---------+ + + + | Date | Type | Specialty | Care Team | Description | +--------+---------+ + + + | 12/30/ | Office | Dermatology | Clive Power, | | | 2018 | Visit | | Greg Hamm MD [address] | | | | | | [address] | | | | | | [place], [place] | | | | | | [address] | | | | | | [phone] | | | | | | | | +--------+---------+ + + + | 02/27/ | Office | Endocrinology, | Daniella Tejeda | | | 2018 | Visit | Diabetes & Morris Cox PA-C [address] | | | | | Metabolism | [address] | | | | | | Physician [place] | | | | | | [address], | | | | | | [place] [address] | | | | | | [phone] | | | | | | | [...] | + +--------+ + + + | CA COLLECTION | Routin | 11/25/2018 | Type 1 diabetes | | | CAPILLARY BLOOD | e | 11:22 AM | mellitus with | | | SPECIMEN | | PDT | complication (HCC) | | + +--------+ + + + documented in this encounter Results HEMOGLOBIN A1C,POC (11/25/2018 11:29 AM PDT) + +-------+ + + + | Component | Value | Ref Range | Performed | Pathologist | | | | | At | Signature | + +-------+ + + + | HEMOGLOBIN | 5.7 | 4.0 - 5.7 % | [facility] - | | | A1C,POC | | | [facility] | | | | | | KARI [...] | + + + + + | [facility] | [address] | [place], [place] | | | [facility] | [address] | [address] | | | TESTS | | | | + + + + + documented in this encounter Visit Diagnoses + + | Diagnosis | + + | Type 1 diabetes mellitus with complication (HCC) - Primary Type I (juvenile type) | | diabetes mellitus with unspecified complication, not stated as uncontrolled | + + | Other chronic pain | + + | Anxiety about health | + + documented in this encounter
--- OUTSIDE RECORDS SUMMARY | ~2018-12-19 | XMS | Encounter Summary ---
Demographics + + + | Address | [address] | | | [place] [address] | + + + | Home Phone | | + + + | Preferred Language | Unknown | + + + | Marital Status | Single | + + + | Adventist Affiliation | 1050 | + + + | Race | Unknown | + + + | Ethnic Group | Unknown | + + + Author + + + | Author | [facility] | | | and [place] | + + + | Organization | [facility] | | | and [place] | + + + | Address | Unknown | + + + | Phone | Unavailable | + + + Support + + + + + | Name | Relationship | Address | Phone | + + + + + | Naida Acosta | ECON | [place] [address] | | + + + + + Care Team Providers + +------+ + | Care Plush Cutter Name | Role | Phone | + +------+ + | Sahil Billings | PCP | | + +------+ + Reason for Referral Diagnostic/Screening (Routine) +--------+--------+ + + + + | Status | Reason | Specialty | Diagnoses / | Referred By | Referred To | | | | | Procedures | Contact | Contact | +--------+--------+ + + + + | Closed | | Radiology | Diagnoses | Sonu, | | | | | | Subscapular | NONI Cassidy | | | | | | bursitis | [address] | | | | | | Procedures | [address] | | | | | | [place] Asp | [address] | | | | | | and/or Inj | [place], | | | | | | Major Joint | [place] [address] | | | | | | Right | Phone: | | | | | | | [phone] | | | | | | | Fax: | | | | | | | [phone] | | +--------+--------+ + + + + Diagnostic/Screening (Routine) +--------+--------+ + + + + | Status | Reason | Specialty | Diagnoses / | Referred By | Referred To | | | | | Procedures | Contact | Contact | +--------+--------+ + + + + | Closed | | Radiology | Diagnoses | Sonu, | | | | | | Subscapular | Khanh, PA-C | | | | | | bursitis | [address] | | | | | | Procedures | [address] | | | | | | [place] Asp | [address] | | | | | | and/or Inj | [place], | | | | | | Major Joint | [place] [address] | | | | | | Right | Phone: | | | | | | | [phone] | | | | | | | Fax: | | | | | | | [phone] | | +--------+--------+ + + + + Diagnostic/Screening (Routine) +--------+--------+ + + + + | Status | Reason | Specialty | Diagnoses / | Referred By | Referred To | | | | | Procedures | Contact | Contact | +--------+--------+ + + + + | Closed | | Radiology | Diagnoses | Sonu, | | | | | | Chronic | NONI Cassidy | | | | | | bilateral | [address] | | | | | | thoracic | [address] | | | | | | back pain | [address] | | | | | | Subscapular | [place], | | | | | | bursitis | [place] [address] | | | | | | Procedures | Phone: | | | | | | [place] Asp | [phone] | | | | | | and/or Inj | Fax: | | | | | | Major Joint | [phone] | | | | | | Left | | | +--------+--------+ + + + + Diagnostic/Screening (Routine) +--------+--------+ + + + + | Status | Reason | Specialty | Diagnoses / | Referred By | Referred To | | | | | Procedures | Contact | Contact | +--------+--------+ + + + + | Closed | | Radiology | Diagnoses | Sonu, | | | | | | Chronic | NONI Cassidy | | | | | | bilateral | [address] | | | | | | thoracic | [address] | | | | | | back pain | [address] | | | | | | Subscapular | [place], | | | | | | bursitis | [place] [address] | | | | | | Procedures | Phone: | | | | | | [place] Asp | [phone] | | | | | | and/or Inj | Fax: | | | | | | Major Joint | [phone] | | | | | | Left | | | +--------+--------+ + + + + Reason for Visit Service/Procedure (Routine) +--------+--------+ + + + + | Status | Reason | Specialty | Diagnoses / | Referred By | Referred To | | | | | Procedures | Contact | Contact | +--------+--------+ + + + + | Closed | | Radiology | Diagnoses | | [facility] | | | | | Subscapular | Anita, | [address] | | | | | bursitis | Michele Bell MD | [place], | | | | | Procedures | [address] | [place] | | | | | [place] | [place] | [address] | | | | | ARTHROCENTES | [facility], [place] | Phone: | | | | | [place] | [address] | [phone] | | | | | ASPIR&/INJ | Phone: | Fax: | | | | | MAJOR | [phone] | [phone] | | | | | JT/BATOOLA W/O | Fax: | | | | | | [place] | [phone] | | | | | | TRIAMCINOLON | | | | | | | E ACET INJ | | | | | | | NOS, 10 MG | | | | | | | Left | | | | | | | subscapular | | | | | | | Bursa | | | +--------+--------+ + + + + Encounter Details +--------+ + + + + | Date | Type | Department | Care Team | Description | +--------+ + + + + | 10/26/ | Hospital | [facility] | Khanh Ascencio, | Chronic bilateral | | 2019 | Encounter | MED CTR XRAY [address] | PA-C [address] | thoracic back pain; | | | | [place] | [address] [place] | Subscapular bursitis | | | | [place] [address] | [place] [address] | | | | | [phone] | [phone] | | | | | | | | | | | | Computer Systems Design AnalystVanessa | | +--------+ + + + + [...] this encounter Last Filed Vital Signs + +---------+ + | Vital Sign | Reading | Time Taken | + +---------+ + | Blood Pressure | 134/76 | 10/26/2018 1625 PDT | + +---------+ + | Pulse | 63 | 10/26/2018 1625 PDT | + +---------+ + | Temperature | - | - | + +---------+ + | Respiratory Rate | - | - | + +---------+ + | Oxygen Saturation | - | - | + +---------+ + | Inhaled Oxygen | - | - | | Concentration | | | + +---------+ + | Weight | - | - | + +---------+ + | Height | - | - | + +---------+ + | Body Mass Index | - | - | + +---------+ + documented in this encounter Medications at Time of Discharge + + + +---------+--------+ + | Medication | Sig | Dispensed | Refills | Start | End Date | | | | | | Date | | + + + +---------+--------+ + | cyclobenzaprine | Take 10 mg by mouth | | 0 | | | | (FLEXERIL) 10 mg | 3 times daily as | | | | | | tablet | needed for Muscle | | | | | | | spasms. | | | | | + + + +---------+--------+ + | DULoxetine | Take 60 mg by mouth | | 0 | | | | (CYMBALTA) [address] | Daily. | | | | | | capsule | | | | | | + + + +---------+--------+ + | gabapentin | Take 200 mg by mouth | | 0 | | | | (NEURONTIN) 100 mg | 3 times daily. | | | | | | capsule | | | | | | + + + +---------+--------+ + | insulin glargine | Inject 22 Units | | 0 | | | | (LANTUS) 100 | under the skin | | | | | | units/mL injection | nightly. | | | | | | (vial) | | | | | | + + + +---------+--------+ + | insulin lispro | Inject under the | | 0 | | | | (ADMELOG) 100 | skin 3 times daily | | | | | | units/mL injection | (before meals). | | | | | | (vial) | Sliding scale | | | | | + + + +---------+--------+ + | mirtazapine | Take 15 mg by mouth | | 0 | | | | (REMERON) 15 MG | nightly. | | | | | | tablet | | | | | | + + + +---------+--------+ + | naproxen | Take 500 mg by mouth | | 0 | | | | (NAPROSYN) 500 mg | 2 times daily (with | | | | | | tablet | breakfast & | | | | | | | dinner). | | | | | + + + +---------+--------+ + | sucralfate | Take 1 g by mouth 4 | | 0 | | | | (CARAFATE) 1 g/10 mL | times daily. | | | | | | suspension | | | | | | + + + +---------+--------+ + documented as of this encounter Plan of Treatment Not on filedocumented as of this encounter Procedures + +--------+ + + + | Procedure Name | Priori | Date/Time | Associated Diagnosis | Comments | | | ty | | | | + +--------+ + + + | FL ASPIRATION | Routin | 10/26/2018 | Subscapular | Results for this | | INJECTION MAJOR | e | 16:07 PDT | bursitis | procedure are in the | | JOINT RIGHT | | | | results section. | + +--------+ + + + | FL ASPIRATION | Routin | 10/26/2018 | Chronic bilateral | Results for this | | INJECTION MAJOR | e | 16:07 PDT | thoracic back pain | procedure are in the | | JOINT LEFT | | | Subscapular bursitis | results section. | + +--------+ + + + documented in this encounter Results FL Asp and/or Inj Major Joint Right (10/26/2018 16:07 PDT) + + | Specimen | + + | | + + + + + | Narrative | Performed At | + + + | 10/26/2018 | [facility] | | RIGHT SUBSCAPULAR BURSA INJECTION CLINICAL HISTORY: ICD-10 CODE | | | M75.50, SUBSCAPULAR BURSITIS Gregory Acosta presents to the | | | fluoroscopy suite for a fluoroscopically-guided left subscapular bursa | | | injection as part of conservative management for chronic posterior | | | shoulder pain and left subscapular bursitis. After informed consent | | | was obtained, the patient laid in the prone position on the | | | fluoroscopy table. The area was located under fluoroscopic guidance. | | | The area was prepped and draped in a sterile fashion. Then a 25-gauge | | | 1.5 inch needle was inserted into this region and approximately 3 mL | | | buffered 1% lidocaine was infused. Next a 22-gauge spinal needle | | | was inserted under the right scapula under fluoroscopic guidance. | | | Confirmation into the appropriate location was obtained with infusion | | | of approximately 1 mL Omnipaque contrast, which showed no vascular | | | uptake. Then, a combination of 1 mL of 40 mg/mL Kenalog and 2 mL 1% | | | lidocaine was infused. The patient tolerated the procedure well | | | without complications. Pre- and post-procedure blood pressures were | | | stable. The patient was given verbal as well as written followup | | | instructions. Prior to the start of the procedure, the following were | | | performed or verified, including correct patient identity, correct | | | site/side marked and verified, agreement of the procedure to be done, | | | correct patient positioning and an accurate procedure consent form. | | | Any safety precautions based on clinical history and/or medication use | | | have been addressed. I personally performed the procedure above. | | | Estimated blood loss: MinimalComplications: NoneFindings: As | | | expectedAnesthesia: Local 1% Lidocaine | | |based on clinical history and/or medication use have been addressed. | | | | | |I personally performed the procedure above. | | | | | |Estimated blood loss: Minimal | | |Complications: None | | |Findings: As expected | | |Anesthesia: Local 1% Lidocaine | | + + + + +---------+ + + | Performing | Address | City/State/Zipcode | Phone Number | | Organization | | | | + +---------+ + + | [facility] | | | | + +---------+ + + [place] Asp and/or Inj Major Joint Left (10/26/2018 16:07 PDT) + + | Specimen | + + | | + + + + + | Narrative | Performed At | + + + | 10/26/2018 LEFT | [facility] | | SUBSCAPULAR BURSA INJECTION CLINICAL HISTORY: ICD-10 CODE M75.50, | | | SUBSCAPULAR BURSITIS Gregory Acosta presents to the fluoroscopy | | | suite for a fluoroscopically-guided left subscapular bursa injection | | | as part of conservative management for chronic posterior shoulder pain | | | and left subscapular bursitis. After informed consent was | | | obtained, the patient laid in the prone position on the fluoroscopy | | | table. The area was located under fluoroscopic guidance. The area was | | | prepped and draped in a sterile fashion. Then a 25-gauge 1.5 inch | | | needle was inserted into this region and approximately 3 mL buffered | | | 1% lidocaine was infused. Next a 22-gauge spinal needle was | | | inserted under the left scapula under fluoroscopic guidance. | | | Confirmation into the appropriate location was obtained with infusion | | | of approximately 1 mL Omnipaque contrast, which showed no vascular | | | uptake. Then, a combination of 1 mL of 40 mg/mL Kenalog and 2 mL 1% | | | lidocaine was infused. The patient tolerated the procedure well | | | without complications. Pre- and post-procedure blood pressures were | | | stable. The patient was given verbal as well as written followup | | | instructions. Prior to the start of the procedure, the following were | | | performed or verified, including correct patient identity, correct | | | site/side marked and verified, agreement of the procedure to be done, | | | correct patient positioning and an accurate procedure consent form. | | | Any safety precautions based on clinical history and/or medication use | | | have been addressed. I personally performed the procedure above. | | | Estimated blood loss: MinimalComplications: NoneFindings: As | | | expectedAnesthesia: Local 1% Lidocaine | | |based on clinical history and/or medication use have been addressed. | | | | | |I personally performed the procedure above. | | | | | |Estimated blood loss: Minimal | | |Complications: None | | |Findings: As expected | | |Anesthesia: Local 1% Lidocaine | | | | | + + + + +---------+ + + | Performing | Address | City/State/Zipcode | Phone Number | | Organization | | | | + +---------+ + + | [facility] | | | | + +---------+ + + documented in this encounter Visit Diagnoses + + | Diagnosis | + + | Chronic bilateral thoracic back pain | + + | Subscapular bursitis Other bursitis disorders | + + documented in this encounter Administered Medications + +--------+ +-------+------+------+ | Medication Order | MAR | Action | Dose | Rate | Site | | | Action | Date | | | | + +--------+ +-------+------+------+ | iohexol (OMNIPAQUE 300) 300 | Given | 10/27/19 | 4 mLs | | | | mg/mL injection 4 mL 4 mL, | | 19 16:14 | | | | | Intra-articular, ONCE, Wed | | PDT | | | | | 10/26/18 at 1615, For 1 dose | | | | | | + +--------+ +-------+------+------+ +---+---+ | | | +---+---+ + +-------+ +-------+---+---+ | lidocaine (PF) 1% injection 2 | Given | 10/27/19 | 2 mLs | | | | mL 2 mL, Intra-articular, ONCE, | | 19 16:20 | | | | | 10/26/18 at 1615, For 1 dose | | PDT | | | | + +-------+ +-------+---+---+ +---+---+ | | | +---+---+ + +-------+ +-------+---+ + | lidocaine buffered 0.9% | Given | 10/27/19 | 6 mLs | | Other | | injection 6 mL 6 mL, | | 19 16:14 | | | (Comment | | Intradermal, ONCE, 10/26/18 at | | PDT | | | ) | | 1615, For 1 dose | | | | | | + +-------+ +-------+---+ + +---+---+ | | | +---+---+ + +-------+ +-------+---+---+ | triamcinolone acetonide | Given | 10/27/19 | 80 mg | | | | (KENALOG-40) 40 mg/mL injection | | 19 16:20 | | | | | 80 mg 80 mg, Intra-articular, | | PDT | | | | | ONCE, 10/26/18 at 1615, For 1 | | | | | | | dose, Shake well. Not for IV | | | | | | | use., | | | | | | + +-------+ +-------+---+---+ +---+---+ | | | +---+---+ documented in this encounter"
--- OUTSIDE RECORDS SUMMARY | ~2018-12-19 | XMS | Encounter Summary ---
Demographics + + + | Address | [address] | | | [place] [address] | + + + | Home Phone | | + + + | Preferred Language | Unknown | + + + | Marital Status | Single | + + + | Taoist Affiliation | Unknown | + + + | Race | White | + + + | Ethnic Group | Not or | + + + Author + + + | Author | [facility] | + + + | Organization | [facility] | + + + | Address | Unknown | + + + | Phone | Unavailable | + + + Support + + +---------+ + | Name | Relationship | Address | Phone | + + +---------+ + | Dandre Acosta | ECON | Unknown | | + + +---------+ + Care Team Providers + +------+ + | Care Sr. Media Manager Name | Role | Phone | + +------+ + | No Pcp Per Patient | PCP | Unavailable | + +------+ + Reason for Visit + + + | Reason | Comments | + + + | Follow-up visit | | + + + Office Visit - E/M Services (Routine) +--------+--------+ + + + + | Status | Reason | Specialty | Diagnoses / | Referred By | Referred To | | | | | Procedures | Contact | Contact | +--------+--------+ + + + + | Closed | | Spine | Diagnoses | Mario, | Jolynn, | | | | | Pain in | Julissa Toledo MD | Edward Cerda PA-C | | | | | thoracic | Rebound at | [address] | | | | | spine | [facility] | [address] | | | | | | [facility] | [place], [place] | | | | | | Physicians | [address] | | | | | | [address] | Phone: | | | | | | Mother | [phone] | | | | | | [address]et[address]ella | Fax: | | | | | | [address] | [phone] | | | | | | [place], | | | | | | | [place] [address] | | | | | | | Phone: | | | | | | | [phone] | | | | | | | Fax: | | | | | | | [phone] | | +--------+--------+ + + + + Encounter Details +--------+---------+ + + + | Date | Type | Department | Care Team | Description | +--------+---------+ + + + | 08/31/ | Office | [facility] at | Edward Neil, | Chronic pain | | 2018 | Visit | [facility] [address] | NONI [address] | syndrome (Primary | | | | Jhone Mailcode: | [place] [facility], [place] | Dx); Myofascial | | | | Center for [facility] | [address] | pain; Arachnoid cyst | | | | and Healing, | [phone] | | | | | [facility] [address] | | | | | | [place], [place] | | | | | | [address] | | | | | | [phone] | | | +--------+---------+ + + + [...] under the skin (SUBC). Sliding scale Insulin [place] (Disposable) 31 gauge x 5/16" needle 1 [...] issues). I spent at least 25 minutes [id number] with the patient. I spent more than 50% of this vi sit in coordination of care and counseling in which we discussed diagnosis, treatment, imagi ng studies and follow-up. Edward Neil PA-C [facility] [address] [place] [address] documented in this e ncounter Plan of Treatment +--------+---------+ + + + | Date | Type | Specialty | Care Team | Description | +--------+---------+ + + + | 12/30/ | Office | Dermatology | Clive Power, | | | 2018 | Visit | | Greg Hamm MD [address] | | | [address] | | | | | | [place], [place] | | | | | | [address] | | | | | | [phone] | | | | | | | | +--------+---------+ + + + | 02/27/ | Office | Endocrinology, | Daniella Tejeda | | | 2019 | Visit | Diabetes & | NONI Cox [address] | | | | | Metabolism | [address] | | | | | | Physician [place] | | | | | | [facility] [address] [place], | | | | | | [place] [address] | | | | | | [phone] | | | | | | | [...]
--- OUTSIDE RECORDS SUMMARY | ~2018-12-19 | XMS | Encounter Summary ---
Demographics + + + | Address | [address] | | | [place] [address] | + + + | Home Phone | | + + + | Preferred Language | Unknown | + + + | Marital Status | Single | + + + | Restorationist Affiliation | Unknown | + + + | Race | White | + + + | Ethnic Group | Not or | + + + Author + + + | Author | [facility] | + + + | Organization | [facility] | + + + | Address | Unknown | + + + | Phone | Unavailable | + + + Support + + +---------+ + | Name | Relationship | Address | Phone | + + +---------+ + | Dandre Acosta | ECON | Unknown | | + + +---------+ + Care Team Providers + +------+ + | Care Bridal Consultant Name | Role | Phone | + +------+ + | No Pcp Per Patient | PCP | Unavailable | + +------+ + Reason for Referral Physical Therapy (Routine) +--------+--------+ + + + + | Status | Reason | Specialty | Diagnoses / | Referred By | Referred To | | | | | Procedures | Contact | Contact | +--------+--------+ + + + + | Closed | | Physical | Diagnoses | Neil, | Krista Pt Chh1 | | | | Therapy | Myofascial | Edward D, | [address] | | | | | pain | PA-C [address] | | | | | Arachnoid | [address] | Mailcode: | | | | | cyst | [place], | [address] | | | | | Procedures | [place] | for Health | | | | | PHYSICAL | [address] | and Healing, | | | | | THERAPY | Phone: | Building 1, | | | | | REFERRAL | [phone] | [address] | | | | | | Fax: | 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 | | | | / Pain | Myofascial | Edward D, | [address] | | | | Management | pain | PA-Marcella [address] | [address] | | | | | Arachnoid | [address] | Mailcode: | | | | | cyst | [place], | [facility] | | | | | Procedures | [place] | for Health | | | | | CONSULT TO | [address] | and Healing, | | | | | PAIN | Phone: | Building | | | | | MANAGEMENT | [phone] | [address] Floor | | | | | | Fax: | [place], [place] | | | | | | [phone] | [address] | | | | | | | Phone: | | | | | | | [phone] | | | | | | | Fax: | | | | | | | [phone] | +--------+---------+ + + + + Consultation (Routine) +--------+--------+ + + + + | Status | Reason | Specialty | Diagnoses / | Referred By | Referred To | | | | | Procedures | Contact | Contact | +--------+--------+ + + + + | Closed | | | Diagnoses | Jolynn, | | | | | | Myofascial | Edward Cerda, | | | | | | pain | PA-C [address] | | | | | | [address] | [address] | | | | | | cyst | [place], | | | | | | Procedures | [place] | | | | | | ACUPUNCTURE | [address] | | | | | | - EXTERNAL | Phone: | | | | | | ONLY | [phone] | | | | | | | Fax: | | | | | | | [phone] | | +--------+--------+ + + + + Reason for Visit + + + | Reason | Comments | + + + | New Patient Visit | | + + + Consultation (Routine) +--------+--------+ + + + + | Status | Reason | Specialty | Diagnoses / | Referred By | Referred To | | | | | Procedures | Contact | Contact | +--------+--------+ + + + + | Closed | | Spine | Diagnoses | Martin, | Jolynn, | | | | | Pain in | Julissa Toledo MD | Edward Cerda PA-C | | | | | thoracic | [facility]bound at | [address] | | | | | spine | [facility] | [address] | | | | | | SW [facility] | [place], [place] | | | | | | Physicians | [address] | | | | | | [address] | Phone: | | | | | | Mother | [phone] | | | | | | [address]et[address] | Fax: | | | | | | [address] | [phone] | | | | | | [place], | | | | | | | [place] [address] | | | | | | | Phone: | | | | | | | [phone] | | | | | | | Fax: | | | | | | | [phone] | | +--------+--------+ + + + + Encounter Details +--------+---------+ + + + | Date | Type | Department | Care Team | Description | +--------+---------+ + + + | 08/17/ | Office | Spine Center at | Edward Neil, | Myofascial pain | | 2018 | Visit | [facility] [address] | NONI [address] | (Primary Dx); | | | | [address] Mailcode: | [place] [facility] [place] | Arachnoid cyst | | | | [facility] | [address] | | | | | and Healing, | [phone] | | | | | Building [address] | | | | | | [place], [place] | | | | | | [address] | | | | | | [phone] | | | +--------+---------+ + + + [...] Weight | 83.9 kg (185 lb) | 08/17/2017 7:59 AM | | | | | PDT | | + + + + + | Height | 182.9 cm (6') | 08/17/2017 7:59 AM | | | | | PDT | | + + + + + | Body Mass Index | 25.09 | 08/17/2017 7:59 AM | | | | | PDT | | + + + + + documented in this encounter Progress Notes Edward Neil PA-C - 08/17/2017 8:15 AM PDTFormatting of this note might be different fr om the original. NEUROLOGICAL SURGERY SPINE CLINIC - HISTORY & PHYSICAL Chief Complaint: Thoracic myofascial pain History of Present Illness: Mr. Acosta is a 37 year old male with a history of meth abuse (clean x 3 years) DMI, anxie ty and depression. He had diffuse BUE numbness and tingling 1.5 years ago without inciting i ncident that resolved but now persistent right sided intermittent myofascial pain that is li miting his ability to work. He reports this has overall improved with addition of magnesium and he is establishing with PCP to discuss antidepressants Pain is R sided thoracic periscapular and intermittent. It is aggravated by golfing and lif ting, but also reports direct association with anxiety and depression. Non-dermatomal pain r ight from arm pit that radiates down his ribs was last present 2 months ago. Denies thoracic numbness, BLE numbness, weakness, BLE coordination issues, falls, personal history of cance r, and loss of control of bowel/bladder The patient has tried: -Acupuncture with moderate relief -Physical Therapy, 4 months ago x 5 sessions without relief -NSAIDs with moderate relief -Heat and massage with moderate relief -Tylenol with moderate relief -Muscle relaxants with moderate relief -Gabapentin with moderate relief -Propanolol for anxiety and tachycardia, increased dizziness -Trigger point injection worsened symptoms The patient has not tried: -Cymbalta -Amitriptyline/Nortriptyline -Epidural steroid injections or medial branch blocks Review of Systems: All other systems were reviewed by me personally on a complete review of systems questionna cesar that will be scanned into Zipl[employer]. Current medication list: Current Outpatient Prescriptions Medication [...] under the skin (SUBC). Sliding scale Insulin Joliet (Disposable) 31 gauge x 5/16" needle 1 [...] is non-contributory for presenting complaint and findings. Physical Exam: Vital Signs: Ht 1.829 m (6') | Wt 83.9 kg (185 lb) | BMI 25.09 kg/(m^2) General Appearance: No acute distress, well-groomed Orientation: Alert and oriented x 3 Eyes: anicteric sclerae, moist conjunctivae HENT: Normocephalic, Atraumatic Neck: Trachea midline; no visible thyromegaly Lungs: CTA, with normal respiratory effort CV: RRR, no audible MRGs Skin: Normal temperature, no visible rashes Psych: Appropriate and cooperative Musculoskeletal: MOTOR SCORE [...] x 3 years) DMI, anxie ty and depression who presents for 1.5 years of intermittent right sided periscapular pain t hat is consistent with myofascial pain. MRI outlined above with T4 finding compatible with a rachnoid cyst, but he does not have neurological deficits or overt signs of myelopathy. Plan: -Counseled on diagnosis and prognosis of arachnoid cysts with the majority being incidental findings that do not progress -Counseled on multifactorial nature of axial spine pain including myofascial pain -Referral to Acupuncture -Referral to Physical Therapy -Continue management of pain medication by PCP, Cymbalta is an option for chronic pain, dep ression, and anxiety -Referral to Pain for chronic pain recs and pain psy, patient aware of OHP limitations -Follow up in 3 months with MRI Thoracic w/wo prior. -Patient counseled on urgent signs/symptoms and will seek immediate medical evaluation if n ew/worsening symptoms present. I spent at least 40 minutes oxuv-me-topj with the patient. I spent more than 50% of this vi sit in coordination of care and counseling in which we discussed diagnosis, treatment, imagi ng studies and follow-up. Edward Neil PA-C [facility] [address] [place] [address] [facility] OPEN NOTE [[id number]] documented in this e ncounter Plan of Treatment +--------+---------+ + + + | Date | Type | Specialty | Care Team | Description | +--------+---------+ + + + | 12/30/ | Office | Dermatology | Clive Power, | | | 2019 | Visit | | Greg Hamm MD [address] | | | | | [address] | | | | | | [place], [place] | | | | | | [address] | | | | | | [phone] | | | | | | | | +--------+---------+ + + + | 02/27/ | Office | Endocrinology, | Daniella Tejeda | | | 2019 | Visit | Diabetes & | NONI Cox [address] | | | | | Metabolism | [address] | | | | | | Physician Tiarra | | | | | | [address] [place], | | | | | | [place] [address] | | | | | | [phone] | | | | | | | | +--------+---------+ + + + + + +--------+ + + | Name | Type | Priori | Associated Diagnoses | Order Schedule | | | | ty | | | + + +--------+ + + | ACUPUNCTURE - | Procedures | Routin | Myofascial pain | Ordered: 08/17/2017 | | EXTERNAL ONLY | | e | Arachnoid cyst | | + + +--------+ + + documented as of this encounter Visit Diagnoses + + | Diagnosis | + + | Myofascial pain - Primary Mylagia and myositis, unspecified | + + | Arachnoid cyst Cerebral cysts | + + documented in this encounter
--- OUTSIDE RECORDS SUMMARY | ~2018-12-19 | XMS | Encounter Summary ---
Demographics + + + | Address | [address] | | | [place] [address] | + + + | Home Phone | | + + + | Preferred Language | Unknown | + + + | Marital Status | Single | + + + | Buddhist Affiliation | Unknown | + + + | Race | White | + + + | Ethnic Group | Not or | + + + Author + + + | Author | [facility] | + + + | Organization | [facility] | + + + | Address | Unknown | + + + | Phone | Unavailable | + + + Support + + +---------+ + | Name | Relationship | Address | Phone | + + +---------+ + | Dandre Acosta | ECON | Unknown | | + + +---------+ + Care Team Providers + +------+ + | Care Communications Station Manager Name | Role | Phone | + +------+ + | Sahil Billings PA-C | PCP | | + +------+ + Reason for Visit + + + | Reason | Comments | + + + | Discussion | | + + + Encounter Details +--------+ + + + + | Date | Type | Department | Care Team | Description | +--------+ + + + + | 11/28/ | Telephone | Dermatology | Clive Power, | Discussion | | 2018 | | Medical at [facility] | Greg Hamm MD [address] | | | | | Floor [address] | [facility] | | | | | [address] Mailcode: [id number] | [place], [place] | | | | | [facility] | [address] | | | | | and Healing, | [phone] | | | | | | | | | | | Floor [place], [place] | | | | | | [address] | | | | | | [phone] | | | +--------+ + + + [...] Visit | | Greg Hamm MD [address] | | | | | [address] | | | | | | [place], [place] | | | | | | [address] | | | | | | [phone] | | | | | | | | +--------+---------+ + + + | 02/27/ | Office | Endocrinology, | Daniella Tejeda | | | 2019 | Visit | Diabetes & | NONI Cox [address] | | | | | Metabolism | [address] | | | | | | Physician [place] | | | | | | [address], | | | | | | [place] [address] | | | | | | [phone] | | | | | | | | +--------+---------+ + + + documented as of this encounter Visit Diagnoses Not on filedocumented in this encounter"
--- OUTSIDE RECORDS SUMMARY | ~2018-12-19 | XMS | Encounter Summary ---
Demographics + + + | Address | [address] | | | [place] [address] | + + + | Home Phone | | + + + | Preferred Language | Unknown | + + + | Marital Status | Single | + + + | Mandaeism Affiliation | Unknown | + + + | Race | White | + + + | Ethnic Group | Not or | + + + Author + + + | Author | [facility] | + + + | Organization | [facility] | + + + | Address | Unknown | + + + | Phone | Unavailable | + + + Support + + +---------+ + | Name | Relationship | Address | Phone | + + +---------+ + | Dandre Acosta | ECON | Unknown | | + + +---------+ + Care Team Providers + +------+ + | Care Tool Analyst Name | Role | Phone | + +------+ + | Sailaja Washburn IMAGE SCIENTIST | PCP | | + +------+ + Reason for Visit Other (Routine) + +--------+ + + + + | Status | Reason | Specialty | Diagnoses / | Referred By | Referred To | | | | | Procedures | Contact | Contact | + +--------+ + + + + | New Request | | Endocrinology | Diagnoses | Chelsie | Dbt Diab Ed | | | | , Diabetes & | Type 1 | Lidia Cox, | [address] | | | | Metabolism | diabetes | [address] | [address] | | | | | mellitus | [address] | [address] | | | | | with | [address] | Mailcode: | | | | | complication | [place], [place] | [id number] | | | | | ([facility]) | [address] | Physician's | | | | | Nutrition - | Phone: | Tiarra Hernandez | | | | | Analyze carb | [phone] | [address] | | | | | intake at | Fax: | [place], [place] | | | | | meals, | [phone] | [address] | | | | | patterns, | | Phone: | | | | | dosing | | [phone] | | | | | strategy | | Fax: | | | | | Procedures | | [phone] | | | | | CONSULT TO [...] Description | +--------+---------+ + + + | 05/24/ | Office | Leobardo Pedroza | [address] | Type 1 diabetes | | 2019 | Visit | Diabetes Health | [address] [facility] | mellitus with | | | | Center at Physicians | [address] | complication (HCC) | | | | Pavilion [address] | [facility] [place] | (Primary Dx) | | | | [address] | [address] | | | | | Mailcode: [id number] | [phone] | | | | | [address] | | | | | | [address] [place], | | | | | | [place] [address] | | | | | | [phone] | | | +--------+---------+ + + + [...] + + documented as of this encounter Patient Instructions Patient Instructions Rosita Malik, RD - 05/24/2018 10:40 AM PDTKeep track of what activit ies are causing the lows and implement tips from the safe exercising with type 1 diabetes danielle ndout to help prevent them. Use caution when increasing basaglar dose at night. This is when you tend to run low. You c an try having a small bedtime snack with carbohydrate and protein or decreasing basaglar sli ghtly. Please wait at least three hours before giving yourself an additional injection of admelog to avoid insulin stacking. This may also be contributing to daytime lows. Goal: Don't stack insulin by waiting three hours to give a correction. Have a nighttime sna ck to help with overnight lows. 12: 13 PM PDT documented in this encounter Progress Notes Rosita Malik, LORA - 05/24/2018 10:40 AM PDT Patient Instructions Keep track of what activities are causing the lows and implement tips from the safe exercis ing with type 1 diabetes handout to help prevent them. Use caution when increasing basaglar dose at night. This is when you tend to run low. You c an try having a small bedtime snack with carbohydrate and protein or decreasing basaglar sli ghtly. Please wait at least three hours before giving yourself an additional injection of admelog to avoid insulin stacking. This may also be contributing to daytime lows. Goal: Don't stack insulin by waiting three hours to give a correction. Have a nighttime sna ck to help with overnight lows. Diagnosis: Type 1 Diabetes Reason for Visit: MNT - New Individual, Comprehensive &/or Initial Yearly assessment date: not today Gregory is a new patient to clinic and here today for diabetes education. Not sure what the ap pointment is for, but referral notes recommend analyzing carb intake at meals, patterns and dosing strategy. Diabetes Disease Process- diagnosed with diabetes in 1992 at age 13. Circumstance: ryna sosa, in [place] at the time, moved to [place] 14 years ago. Dad has type 1 diabetes. Intervention: none Not assessed Nutrition- Feels on top of meal planning. Reports eating very little starch, but does eat t hem in the form of fruit and veggies (corn, potato) and some oatmeal. Recently cut red meat out due to cyst on back. States meals are very consistent and that he eats almost the same t ana each day. Feels very in tune with how different carbohydrates affect his BG. Reports do sing 60-75 g for breakfast, but following analysis it appears to be closer to 30-40 g. Came with various nutrition questions. B: two boiled egg, 2 slices hemphill, 8 oz fresh fruit (seasonal) cooked down with 1/4 cup dry oats Intervention: Analyzed carb intake at breakfast. Discussed importance of accurate carb coun ting to prevent lows. Reviewed food label of protein bar he brought with him to visit. Mili ded him with guidelines for carb counting foods with sugar alcohols. Had discussion around s upplements. Verbalizes understanding Activity- Very active on most days. Activities include Martial Arts, swimming, yoga and fr ee weights. Swims 10 laps per day --- usually 30 minutes in the morning on a good day. Works in [employer], so job is also fairly active. Notices BG is much lower on days he is more active. Working on building muscle and getting into better shape. Interested in potentially meeting with Don to discuss exercise. Keeps banana and 8 oz oranges on him at all times. E ats two hours before the gym to try and be outside peak insulin window. Eats one banana befo re the gym. Having fairly frequent lows, especially on days where he is more active. Occasio zhao correcting for post-workout hyperglycemia. Intervention: Provided education on safe exercising with type 1 DM and strategies to preven t exercise induced lows. Discussed how different types of exercise affect BG. Requested he t rack his activity and make note of how various types of activity impact BG. Verbalizes understanding Monitoring- Using dexcom, states he is no longer having issues with supplies coming on time , however, still using meter regularly due to variable dexcom readings. Believes misreadings on dexcom are due to poor hydration from regular exercise as well as transmitter being comp ressed during sleep. Dexcom shows trend of overnight lows, while meter shows frequent daytim e lows. Checks dexcom frequently and endorses acting on data frequently when he sees blood g lucose rising. Intervention: Reviewed meter and dexcom download together. Believe overnight lows are parti ally due to time of activity as well as inconsistent basaglar dose at bedtime. Discussed str ategies to prevent overnight lows. Had conversation about how CHO affects blood glucose with or without diabetes and discussed how to use amount of data dexcom provides safely. Verbalizes understanding Medications- MDI, but interested in pump. Reports biggest challenge is figuring out long-ac ting dose. Typically gives anywhere between 20-26 units basaglar at night - doses based on a mount of activity, food consumption, types of food, caloric intake, etc. Reports giving adme log about 15 minutes before eating, but often trying to time insulin to type of food/quantit y he's eating. Will check dexcom 30-45 minutes following meal, if blood glucose is high will give a correction. ICR 1:15 - 1:20 CF: 1:40>140 Intervention: Discussed onset and duration of rapid-acting insulin and correct dosing time to best match action of insulin to BG rise following meal. Provided education on insulin sta cking and instructed him to wait at least three hours before giving an additional correction . Reviewed long-acting insulin. Believe Gregory is a good pump candidate. Verbalizes understanding Acute Complications- Has hypoglycemia unawareness. Typically doesn't feel lows until he is below 50. Believes lows are due to his "fast metabolism." Experiencing daytime and overnigh t lows. However, believes some of the overnight lows are false due to sleeping position. Cortes ps juice on him at all times. Intervention: Reviewed safety precautions to avoid overnight lows. See activity, monitoring and medication sections. Verbalizes understanding Chronic Complications- Intervention: none Not assessed Psychosocial/Behavioral Health- Keeps very tight control of diabetes. Intervention: Introduced him to clinic team members and services clinic has to offer includ [facility]. Offered my continued support and education to increase feelings of self-efficacy. Verbalizes understanding Readiness for Health/Behavior Change- Action: currently taking action Lab Results Component Value Date A1C 5.5 04/20/2018 Wt Readings from Last 3 Encounters: 04/20/18 86.6 kg (191 lb) 12/22/17 81.6 kg (180 lb) 10/27/17 83.9 kg (185 lb) Behavioral Goal set today: Using Medications Safely: Reducing Risks: acute complications: D on't stack insulin by waiting three hours to give a correction. Have a nighttime snack to he lp with overnight lows. Progress towards all goals: Using Medications Safely 0% and Reducing Risks: acute co mplications 0% Barriers to achievement: over-attention to data Barriers to education today: None After our 75 minute visit today, I believe the patient is Moderately Stable Follow-up: MNT/DSMT Rosita Malik RD [facility] [address]: [id number] [place] [address] documented in this enc ounter Plan of Treatment +--------+---------+ + + + | Date | Type | Specialty | Care Team | Description | +--------+---------+ + + + | 12/30/ | Office | Dermatology | Clive Power, | | | 2018 | Visit | | Greg Hamm MD [address] | | | | | | [facility] | | | | | | [place], [place] | | | | | | [address] | | | | | | [phone] | | | | | | | | +--------+---------+ + + + | 02/27/ | Office | Endocrinology, | Daniella Tejeda | | | 2019 | Visit | Diabetes & | NONI Cox [address] | | | | | Metabolism | [facility] | | | | | | Physician Shruthielena | | | | | | [address] [place], | | | | | | [place] [address] | | | | | | [phone] | | | | | | | | +--------+---------+ + + + documented as of this encounter Procedures + +--------+ + + + | Procedure Name | Priori | Date/Time | Associated Diagnosis | Comments | | | ty | | | | + +--------+ + + + | [place] MNT INITIAL | Routin | 05/25/2018 | Type 1 diabetes | | | ASSESSMNT X15MIN | e | 4:52 PM | mellitus with | | | | | PDT | complication [...]
--- OUTSIDE RECORDS SUMMARY | ~2018-12-19 | XMS | Encounter Summary ---
Demographics + + + | Address | [address] | | | [place] [address] | + + + | Home Phone | | + + + | Preferred Language | Unknown | + + + | Marital Status | Single | + + + | Mormon Affiliation | Unknown | + + + | Race | White | + + + | Ethnic Group | Not or | + + + Author + + + | Author | [facility] | + + + | Organization | [facility] | + + + | Address | Unknown | + + + | Phone | Unavailable | + + + Support + + +---------+ + | Name | Relationship | Address | Phone | + + +---------+ + | Dandre Acosta | ECON | Unknown | | + + +---------+ + Care Team Providers + +------+ + | Care Outsole Caser Name | Role | Phone | + [...] | | 2018 | | Medical at [facility] | Greg Hamm MD [address] | | | | | Floor [address] | [facility] | | | | | [address]ola Mailcode: CH16D | [place], [place] | | | | | [facility] | [address] | | | | | and Healing, | [phone] | | | | | | | | | | | Floor [place], [place] | | | | | | [address] | | | | | | [phone] | | | +--------+ + + + [...] Rd | | | | | | [place], [place] | | | | | | [address] | | | | | | [phone] | | | | | | | | +--------+---------+ + + + | 02/27/ | Office | Endocrinology, | Daniella Tejeda | | | 2019 | Visit | Diabetes & | NONI Cox [address] | | | | | Metabolism | [address] | | | | | | Physician [place] | | | | | | [address], | | | | | | [place] [address] | | | | | | [phone] | | | | | | | | +--------+---------+ + + + documented as of this encounter Visit Diagnoses Not on filedocumented in this encounter"
--- OUTSIDE RECORDS SUMMARY | ~2018-12-19 | XMS | Encounter Summary ---
Demographics + + + | Address | [address] | | | [place] [address] | + + + | Home Phone | | + + + | Preferred Language | Unknown | + + + | Marital Status | Single | + + + | Mormonism Affiliation | Unknown | + + + | Race | White | + + + | Ethnic Group | Not or | + + + Author + + + | Author | [facility] | + + + | Organization | [facility] | + + + | Address | Unknown | + + + | Phone | Unavailable | + + + Support + + +---------+ + | Name | Relationship | Address | Phone | + + +---------+ + | Dandre Acosta | ECON | Unknown | | + + +---------+ + Care Team Providers + +------+ + | Care Cnc Machinist Name | Role | Phone | + [...] (ED visit | | 2018 | | [facility] [address] | NONI [address] | yesterday) | | | | Ave Mailcode: CH[address]N | Ave [place], [place] | | | | | [facility] | [address] | | | | | and Charu, | [phone] | | | | | [facility] | | | | | | Floor [place], [place] | | | | | | [address] | | | | | | [phone] | | | +--------+ + + + [...] [address] | | | | | | [address] | | | | | | [place], [place] | | | | | | [address] | | | | | | [phone] | | | | | | | | +--------+---------+ + + + | 02/27/ | Office | Endocrinology, | Daniella Tejeda | | | 2018 | Visit | Diabetes & Morris Cox PA-C [address] | | | | | Metabolism | [address] | | | | | | Physician [place] | | | | | | [address], | | | | | | [place] [address] | | | | | | [phone] | | | | | | | | +--------+---------+ + + + documented as of this encounter Visit Diagnoses Not on filedocumented in this encounter"
--- OUTSIDE RECORDS SUMMARY | ~2018-12-19 | XMS | Encounter Summary ---
Demographics + + + | Address | [address] | | | [place] [address] | + + + | Home Phone | | + + + | Preferred Language | Unknown | + + + | Marital Status | Single | + + + | Jainism Affiliation | Unknown | + + + | Race | White | + + + | Ethnic Group | Not or | + + + Author + + + | Author | [facility] | + + + | Organization | [facility] | + + + | Address | Unknown | + + + | Phone | Unavailable | + + + Support + + +---------+ + | Name | Relationship | Address | Phone | + + +---------+ + | Dandre Acosta | ECON | Unknown | | + + +---------+ + Care Team Providers + +------+ + | Care Guest Experience Captain Name | Role | Phone | + +------+ + PCP | Unavailable | + +------+ + Encounter Details +--------+ + + + + | Date | Type | Department | Care Team | Description | +--------+ + + + + | 07/27/ | Document-Sc | UNKNOWN DEPARTMENT | Unknown . | | | 2013 | anned | [address] | | | | | | [address] | | | | | | [place], [place] | | | | | | [address] | | | +--------+ + + + + Social History + +-------+ +--------+------+ | Tobacco Use | Types | Packs/Day | Years | Date | | | | | Used | | + +-------+ +--------+------+ | Never Assessed | | | | | + +-------+ +--------+------+ + + + | Sex Assigned at [...] [address] | | | | | | [address] | | | | | | [place], [place] | | | | | | [address] | | | | | | [phone] | | | | | | | | +--------+---------+ + + + | 02/27/ | Office | Endocrinology, | Daniella Tejeda | | | 2019 | Visit | Diabetes & | [facility]I Cox [address] | | | | | Metabolism | [address] | | | | | | Physician [place] | | | | | | [address] | | | | | [place] [address] | | | | | | [phone] | | | | | | | | +--------+---------+ + + + documented as of this encounter Visit Diagnoses Not on filedocumented in this encounter"
--- OUTSIDE RECORDS SUMMARY | ~2018-12-19 | XMS | Encounter Summary ---
Demographics + + + | Address | [address] | | | [place] [address] | + + + | Home Phone | | + + + | Preferred Language | Unknown | + + + | Marital Status | Single | + + + | Holiness Affiliation | 1050 | + + + | Race | Unknown | + + + | Ethnic Group | Unknown | + + + Author + + + | Author | [facility] | | | and [place] | + + + | Organization | [facility] | | | and [place] | + + + | Address | Unknown | + + + | Phone | Unavailable | + + + Support + + + + + | Name | Relationship | Address | Phone | + + + + + | Naida Acosta | ECON | [place] [address] | | + + + + + Care Team Providers + +------+ + | Care Dairy Farmworker Name | Role | Phone | + +------+ + | Sina Law | PCP | | + +------+ + Reason for Visit + + + | Reason | Comments | + + + | Referral | Status | + + + Encounter Details +--------+ + + + + | Date | Type | Department | Care Team | Description | +--------+ + + + + | 11/28/ | Telephone | [facility] | Jerson Ruelas, | Referral (Status) | | 2019 | | INTERVENTIONAL PAIN | [address] | | | | | [place] [address] | [address] | | | | | [address], | [place] [address] | | | | | [place] [address] | [phone] | | | | | [phone] | | | +--------+ + + + [...]
--- OUTSIDE RECORDS SUMMARY | ~2018-12-19 | XMS | Clinical Summary ---
Demographics + + + | Address | [address] | | | [place] [address] | + + + | Home Phone | | + + + | Preferred Language | Unknown | + + + | Marital Status | Single | + + + | Religion Affiliation | 1050 | + + + | Race | Unknown | + + + | Ethnic Group | Unknown | + + + Author + + + | Author | [facility] (Historical as of | | | 10-15-18) | + + + | Organization | [facility] (Historical as of | | | 10-15-18) | + + + | Address | Unknown | + + + | Phone | Unavailable | + + + Support + + + + + | Name | Relationship | Address | Phone | + + + + + | Naida Acosta | ECON | [place] [address] | | + + + + + Care Team Providers + +------+ + | Care Gas Shovel Operator Name | Role | Phone | + +------+ + | Saihl Billings | PP | | + +------+ + Allergies + + + + + + | Active Allergy | Reactions | Severity | Noted | Comments | | | | | Date | | + + + + + + | Hydrocodone | Nausea Only | Low | 04/07/19 | | | | | | 16 | | + + + + + + | Molds & Smuts | Other (See Comments) | Medium | 10/06/19 | | | | | | 18 | | + + + + + + | Hydrocodone-Acetamin | Nausea Only | Low | 09/04/19 | | | ophen | | | 19 | | + + + + + + | Penicillins | Other (See Comments) | Medium | 09/04/19 | "my father is | | | | | 21 | allergic" | + + + + + + | Sulfites | Other (See Comments) | Medium | 10/06/19 | | | | | | 18 | | + + + + + + Current Medications + + +--------+---------+------+------+-------+ | Prescription | Sig. | Disp. | Refills | Star | End | Statu | | | | | | t | Date | s | | | | | | Date | | | + + +--------+---------+------+------+-------+ | naproxen | Take 500 mg by mouth | | | | | Activ | | (NAPROSYN) 500 MG | 2 (two) times daily | | | | | e | | tablet | with meals. | | | | | | + + +--------+---------+------+------+-------+ | baclofen | Take 10 mg by mouth | | | | | Activ | | (LIORESAL) 10 mg | 3 (three) times | | | | | e | | tablet | daily. | | | | | | + + +--------+---------+------+------+-------+ | DULoxetine | Take 60 mg by mouth | | | | | Activ | | (CYMBALTA) [address] | daily. | | | | | e | | capsule | | | | | | | + + +--------+---------+------+------+-------+ | mirtazapine | Take 15 mg by mouth | | | | | Activ | | (REMERON) 15 mg | nightly. | | | | | e | | tablet | | | | | | | + + +--------+---------+------+------+-------+ | gabapentin | Take 100 mg by mouth | | | | | Activ | | (NEURONTIN) 100 MG | 3 (three) times | | | | | e | | capsule | daily. | | | | | | + + +--------+---------+------+------+-------+ | Cholecalciferol | Take by mouth. | | | | | Activ | | (VITAMIN D3) 3000 | | | | | | e | | units TABS | | | | | | | + + +--------+---------+------+------+-------+ | Magnesium 70 MG | Take by mouth. | | | | | Activ | | CAPS | | | | | | e | + + +--------+---------+------+------+-------+ | insulin aspart | Inject into the | | | | | Activ | | (NOVOLOG) 100 | skin 3 (three) times | | | | | e | | UNIT/ML | daily before meals. | | | | | | | injectionIndications | | | | | | | | : CARB RATIO OF 17:1 | | | | | | | + + +--------+---------+------+------+-------+ | insulin glargine | Inject 22 Units into | | | | | Activ | | (LANTUS) 100 UNIT/ML | the skin nightly. | | | | | e | | injection | | | | | | | + + +--------+---------+------+------+-------+ | sucralfate | Take 1 tablet by | 60 | 0 | 07/0 | | Activ | | (CARAFATE) 1 g | mouth 4 (four) times | tablet | | 08/18 | | e | | tablet | daily for 15 days. | | | 19 | | | + + +--------+---------+------+------+-------+ Active Problems No known active problems Encounters +--------+---------+ + + + | Date | Type | Specialty | Care Team | Description | +--------+---------+ + + + | 10/10/ | Office | | Linda Llanos | Dermatitis, | | 2019 | Visit | | BRAYDON Lu | unspecified (Primary | | | | | | Dx); Suicidal | | | | | | ideation | +--------+---------+ + + + from Last 3 Months Immunizations + + + + | Name | Dates Previously Given | Next Due | + + + + | Pneumococcal | 10/08/2011 | | | Polysaccharide | | | | 23-valent | | | + + + + | Tdap | 10/08/2011 | | + + + + Social History + +-------+ +--------+ + | Tobacco Use | Types | Packs/Day | Years | Date | | | | | Used | | + +-------+ +--------+ + | Former Smoker | | | | Quit: 09/03/2016 | + +-------+ +--------+ + + +---+---+---+ | Smokeless Tobacco: | | | | | Current User | | | | + +---+---+---+ + + | Comments: Vape | + + + + +---------+ + | Alcohol Use | Drinks/We | oz/Week | Comments | | | ek | | | + + +---------+ + | No | | | | + + +---------+ + + + + | Sex Assigned at | Date Recorded | | | | + + + | Not on file | | + + + Last Filed Vital Signs + + + + | Vital Sign | Reading | Time Taken | + + + + | Blood Pressure | 119/82 | 09/03/2018 12:06 PM PDT | + + + + | Pulse | 56 | 09/03/2018 12:06 PM PDT | + + + + | Temperature | 36.8 C (98.2 F) | 09/03/2018 12:16 PM PDT | + + + + | Respiratory Rate | 16 | 09/03/2018 12:06 PM PDT | + + + + | Oxygen Saturation | 97% | 09/03/2018 12:06 PM PDT | + + + + | Inhaled Oxygen | - | - | | Concentration | | | + + + + | Weight | 83.9 kg (185 lb) | 10/10/2018 1:56 PM PDT | + + + + | Height | 185.4 cm (6' 1") | 10/10/2018 1:56 PM PDT | + + + + | Body Mass Index | 24.41 | 10/10/2018 1:56 PM PDT | + + + + Plan of Treatment + + + + + | Health Maintenance | Due Date | Last Done | Comments | + + + + + | Vaccine: Influenza | | | | | (#1) | 9 | | | + + + + + | Vaccine: | | 10/08/2011 | | | Dtap/Tdap/Td (2 - | 2 | | | | Td) | | | | + + + + + Results Not on filefrom Last 3 Months Insurance + +--------+ +------+-------+ + | Payer | Benefi | Subscriber | Type | Phone | Address | | | t Plan | ID | | | | | | / | | | | | | | Group | | | | | + +--------+ +------+-------+ + | MEDICAID | [place] | [id number] | | | [address] | | | [place] | | | | [place] | | | LOC | | | | [address] | | | [employer] | | | | | + +--------+ +------+-------+ + + +--------+ +--------+ + + | Guarantor Name | Accoun | Relation to | Date | Phone | Billing Address | | | t Type | Patient | of | | | | | | | | | | + +--------+ +--------+ + + | GREGORY ACOSTA | Person | Self [birth year] Home: | [address] | | | al/Fam | | 1980 | [phone] [place] [address] | | | vidal | | | [phone] | | + +--------+ +--------+ + +
--- OUTSIDE RECORDS SUMMARY | ~2018-12-19 | XMS | Encounter Summary ---
Demographics + + + | Address | [address] | | | [place] [address] | + + + | Home Phone | | + + + | Preferred Language | Unknown | + + + | Marital Status | Single | + + + | Roman Catholic Affiliation | Unknown | + + + | Race | White | + + + | Ethnic Group | Not or | + + + Author + + + | Author | [facility] | + + + | Organization | [facility] | + + + | Address | Unknown | + + + | Phone | Unavailable | + + + Support + + +---------+ + | Name | Relationship | Address | Phone | + + +---------+ + | Dandre Acosta | ECON | Unknown | | + + +---------+ + Care Team Providers + +------+ + | Care Boiler Riveter Name | Role | Phone | + [...] | | | | | cyst | [place], | [address] | | | | | Procedures | [place] | for Health | | | | | PHYSICAL | [address] | and Healing, | | | | | THERAPY | Phone: | Building [address], | | | | | REFERRAL | [phone] | [address] | | | | | | Fax: | [facility] [place] | | | | | | [phone] | [address] | | | | | | | Phone: | | | | | | | [phone] | | | | | | | Fax: | | | | | | | [phone] | +--------+--------+ + + + + Consultation (Routine) +--------+---------+ + + + + | Status | Reason | Specialty | Diagnoses / | Referred By | Referred To | | | | | Procedures | Contact | Contact | +--------+---------+ + + + + | Closed | Other | Pain Medicine | Diagnoses | Neil, | [facility] [employer] | | | | / Pain | Myofascial | Edward D, | [address] | | | | Management | pain | PA-Marcella [address] | | | | | Arachnoid | [address] | Mailcode: | | | | | cyst | [place], | [facility] | | | | | Procedures | [place] | for Health | | | | | CONSULT TO | [address] | and Healing, | | | | | PAIN | Phone: | Building | | | | | MANAGEMENT | [phone] | [address] Floor | | | | | | Fax: | [place], [place] | | | | | | [phone] | [address] | | | | | | | Phone: | | | | | | | [phone] | | | | | | | Fax: | | | | | | | [phone] | +--------+---------+ + + + + Consultation [...] | | | | pain | PA-C [address] | | | | | | Arachnoid | [address] | | | | | | cyst | [place], | | | | | | Procedures | [place] | | | | | | ACUPUNCTURE | [address] | | | | | | - EXTERNAL | Phone: | | | | | | ONLY | [phone] | | | | | | | Fax: | | | | | | | [phone] | | +--------+--------+ + + + + [...] | | | [facility] | [place], [place] | | | | | | Physicians | [address] | | | | | | [address] | Phone: | | | | | | Mother | [phone] | | | | | | Gaetano [address]ir | Fax: | | | | | | [address] | [phone] | | | | | | [place], | | | | | | | [place] [address] | | | | | | | Phone: | | | | | | | [phone] | | | | | | | Fax: | | | | | | | [phone] | | +--------+--------+ + + + + Encounter Details +--------+---------+ + + + | Date | Type | Department | Care Team | Description | +--------+---------+ + + + | 08/17/ | Office | [facility] | Edward Neil, | Myofascial pain | | 2018 | Visit | [facility] [address] | NONI [address] | (Primary Dx); | | | | Sola Mailcode: | [address] [facility] [place] | Arachnoid cyst | | | | [place] [facility] | [address] | | | | | and Healing, | [phone] | | | | | [address] | | | | | | [place], [place] | | | | | | [address] | | | | | | [phone] | | | +--------+---------+ + + + [...] questionna cesar that will be scanned into [employer]. Current medication list: Current Outpatient Prescriptions Medication [...] under the skin (SUBC). Sliding scale Insulin Prim (Disposable) 31 gauge x 5/16" needle 1 [...] present. I spent at least 40 minutes [id number] with the patient. I spent more than 50% of this vi sit in coordination of care and counseling in which we discussed diagnosis, treatment, imagi ng studies and follow-up. Edward Neil PA-C [facility] [address] [place] [address] [facility] OPEN NOTE [[id number]] documented in this e ncounter Plan of Treatment +--------+---------+ + + + | Date | Type | Specialty | Care Team | Description | +--------+---------+ + + + | 12/30/ | Office | Dermatology | Clive Power, | | | 2019 | Visit | | Greg Hamm MD [address] | | | [address] | | | | | | [place], [place] | | | | | | [address] | | | | | | [phone] | | | | | | | | +--------+---------+ + + + | 02/27/ | Office | Endocrinology, | Daniella Tejeda | | | 2019 | Visit | Diabetes & | NONI Cox [address] | | | | | Metabolism | [address] | | | | | | Physician Tiarra | | | | | | [address] [place], | | | | | | [place] [address] | | | | | | [phone] | | | | | | | [...]
--- OUTSIDE RECORDS SUMMARY | ~2018-12-19 | XMS | Encounter Summary ---
Demographics + + + | Address | [address] | | | [place] [address] | + + + | Home Phone | | + + + | Preferred Language | Unknown | + + + | Marital Status | Single | + + + | Muslim Affiliation | 1050 | + + + | Race | Unknown | + + + | Ethnic Group | Unknown | + + + Author + + + | Author | [facility] | | | and [place] | + + + | Organization | [facility] | | | and [place] | + + + | Address | Unknown | + + + | Phone | Unavailable | + + + Support + + + + + | Name | Relationship | Address | Phone | + + + + + | Naida Acosta | ECON | [place] [address] | | + + + + + Care Team Providers + +------+ + | Care Project Geophysicist Name | Role | Phone | + [...] Sonu, | | | | | | Bursitis of | NONI Cassidy | | | | | | left | [address] | | | | | | shoulder | [address] | | | | | | Procedures | [address] | | | | | | [place] Asp | [place], | | | | | | and/or Inj | [place] [address] | | | | | | Major Joint | Phone: | | | | | | Left | [phone] | | | | | | | Fax: | | | | | | | [phone] | | +--------+--------+ + + + + Reason for Visit + + + | Reason | Comments | + + + | Follow-up | Shoulder Pain | + + + Evaluate & Treat (Routine) +--------+ + + + + + | Status | Reason | Specialty | Diagnoses / | Referred By | Referred To | | | | | Procedures | Contact | Contact | +--------+ + + + + + | Closed | Specialty | Physical | Diagnoses | Kaushal, | Anita, | | | Services | Medicine and | Acute | Grant | Michele Bell MD | | | Required | Rehabilitatio | left-sided | MD Sina | [address] | | | | n | thoracic | [address] | [address] [place] | | | | | back pain | [place] | [place], [place] | | | | | | [place], [place] | [address] Phone: | | | | | | [phone] | [phone] | | | | | | Phone: | Fax: | | | | | | [phone] | [phone] | | | | | | Fax: | | | | | | | [phone] | | +--------+ + + + + + Encounter Details +--------+---------+ + + + | Date | Type | Department | Care Team | Description | +--------+---------+ + + + | 11/29/ | Office | [facility] | Khanh Ascencio, | Bursitis of left | | 2019 | Visit | PHYSIATRY [address] | PA-C [address] | shoulder (Primary | | | | [place], | [address] [place] | Dx); Thoracic spinal | | | | [place] [address] | [place] [address] | stenosis | | | | [phone] | [phone] | | | | | | | [...] + + + | Blood Pressure | 104/60 | 11/29/2018 1550 PDT | + + + + | Pulse | 70 | 11/29/2018 1550 PDT | + + + + | Temperature | - | - | + + + + | Respiratory Rate | - | - | + + + + | Oxygen Saturation | - | - | + + + + | Inhaled Oxygen | - | - | | Concentration | | | + + + + | Weight | 83.9 kg (185 lb) | 11/29/20181549 PDT | + + + + | Height | 185.4 cm (6' 1") | 11/29/20181549 PDT | + + + + | Body Mass Index | 24.41 | 11/29/2018 1550 PDT | + + + + documented in this encounter Patient Instructions Patient Instructions Khanh Ascencio PA-C - 11/29/2018 16:00 PDTFormatting of this note migh t be different from the original. Suprascapular/subscapular bursa injection ordered. Thoracic epidural steroid injection ordered. Injection orders usually take about a week for insurance to authorize my order. Once approv ed, we will call you for scheduling. Expect a call from our office in 7-10 days. Please remember to complete pain log form after having injection. This is an insurance requ irement and allows faster approval of any future injections. Follow-up at the hospital thirty minutes before your scheduled procedure to allow for time to check in. You may eat and drink as usual on the day of the procedure. If you are scheduled for an epidural injection do not take any blood thinning medications f or at least 5-7 days prior to your procedure unless you have been instructed by another phys ician not to discontinue blood thinning medications. If you are having a procedure other than an epidural injection (i.e. facet injection, media l branch block, SI joint injection or other joint injection) it is not absolutely necessary to discontinue blood thinning medications but doing so will decrease the risk of bruising or bleeding. If you have had a prior stroke, DVT or PE or if you are taking blood thinning medication be cause you have atrial fibrillation, a prosthetic cardiac valve replacement or heart stenting do not stop taking your blood thinning medications unless you have permission from your car diologist or primary care provider. All other medications should be taken as usual on the day of the procedure. Common blood thinning medications include: Aspirin (a baby aspirin is o.k.) Ibuprofen (Advil or Motrin) Naproxen (Aleve) Nabumetone (Relafen) Clopidogrel (Plavix) Dipyridamole/ASA (Aggrenox) Warfarin (Coumadin) Dabigatran (Pradaxa) Rivaroxaban (Xarelto) There are many others. If you have questions about your medications and whether or not you should stop any medications please contact our office. If you are having an epidural injection or if you take any medication for relaxation/sedati on on the day of the procedure you must provide a auto parts delivery driver to take you home. Common Spine and Disk Problems The most common serious back problemshappen when disks tear, bulge, or rupture. In such c ases, an injured disk can no longer cushion the vertebrae and absorb shock. As a result, the rest of your spine may also weaken. This can lead to pain, stiffness, and other symptoms. Torn annulus. A sudden movement may cause a tiny tear in an annulus. Nearby ligaments ma y stretch. Contained herniated disk. As a disk wears out, the nucleus may bulge into the annulus an d press on nerves. Extruded herniateddisk. When a disk ruptures, its nucleus can squeeze out and irritate a nerve. Arthritis. As disks wear out over time, bone spurs form. These growths can irritate nerv es and inflame facets. Instability. As a disk stretches, the vertebrae slip back and forth. This can put pressu re on the annulus. Spondylolisthesis.Thisis a condition in which one vertebra has moved forward or back espinoza, in relation to the one above or below it. Thiscauses a crack (stress fracture) in th e areas that link the vertebrae together. This may put pressure on the annulus, stretch the disk, and irritate nerves. Date Last Reviewed: 07/30/201719994842-9848 [employer]. [address] [place] [address]. All righ ts reserved. This information is not intended as a substitute for professional medical care. Always follow your healthcare professional's instructions. documented in this encounter Progress Notes Khanh Ascencio PA-C - 11/29/2018 1600 PDTFormatting of this note might be different from th e original. Khanh Ascencio PA-C [address] [place] [address], [address] [place] [address] FAX: CHIEF COMPLAINT: Chief Complaint Patient presents with Follow-up Shoulder Pain HISTORY OF PRESENT ILLNESS: The patient is a 38 y.o. male with the complaint of left mid t horacic and left shoulder pain that began approximately 2 years ago. At last visit it was r ecommended he have bilateral subacromial bursa injections for his bilateral scapular pain. H e reports the right bursa injection was 100% effective and the left bursa injection was 50% effective. These injections were completed on 10/26/18. Overall the patient reports that left shoulder/scapular pain is primarily near supraspinatu s or LEFT T3/4 dermatome. The patient rates his pain and discomfort as moderate. Since the s ymptoms began, he has noticed that symptoms have been monthly and gradually improving. He d escribes the pain as a numbing, pulsating, sharp, shooting and throbbing feeling. The patient does not report loss of strength. He does not indicate a history of loss of fi ne motor function. The patient does not reports bowel or bladder incontinence. The patient does not reports s addle paresthesias. His symptoms improve with rest. His symptoms worsen with changing positions, standing, running, kneeling, and bending. Treatments for these complaints have included physical therapy, narcotic medications, muscl e relaxer's, massage, antiinflammatories, chiropractor,steroid injections. Patient's medications, allergies, past medical, surgical, social and family histories were reviewed and updated as appropriate. PAST MEDICAL HISTORY: Past Medical History: Diagnosis Date Diabetes mellitus (HCC) MRSA cellulitis Pain of left scapula Shoulder weakness Superficial ulcerative lesion (HCC) PAST SURGICAL HISTORY: History reviewed. No pertinent surgical history. CURRENT MEDICATIONS: Current Outpatient Medications Medication Sig Dispense Refill cyclobenzaprine (FLEXERIL) 10 mg tablet Take 10 mg by mouth 3 times daily as needed for Muscle spasms. DULoxetine (CYMBALTA) [address] capsule Take 60 mg by mouth Daily. gabapentin (NEURONTIN) 100 mg capsule Take 200 mg by mouth 3 times daily. insulin glargine (LANTUS) 100 units/mL injection (vial) Inject 22 Units under the skin nightly. insulin lispro (ADMELOG) 100 units/mL injection (vial) Inject under the skin 3 times d aily (before meals). Sliding scale lamoTRIgine (LAMICTAL) 25 mg tablet Take 50 mg by mouth. mirtazapine (REMERON) 15 MG tablet Take 15 mg by mouth nightly. naproxen (NAPROSYN) 500 mg tablet Take 500 mg by mouth 2 times daily (with breakfast & dinner). sucralfate (CARAFATE) 1 g/10 mL suspension Take 1 g by mouth 4 times daily. No current facility-administered medications for this visit. ALLERGIES: Allergies Allergen Reactions Penicillins Other (See Comments) and Unknown "my father is allergic" Father is allergic. Pt unsure of own allergy Molds & Smuts Unknown Sulfites Unknown Hydrocodone Nausea Only Hydrocodone-Acetaminophen Nausea Only SOCIAL HISTORY: The patient reports that he has been smoking. He has never used smokeless tobacco. He rep orts that he has current or past drug history. Drug: Marijuana. He reports that he does not drink alcohol. FAMILY HISTORY: Family History Family history unknown: Yes REVIEW OF SYSTEMS: GENERALLY: No fever, no night sweats, no anemia, no fatigue, no recent profound weight ch anges. EYES: No eye problems, no use of corrective lenses, no eye injury, no double vision, no bl indness. EARS, NOSE, AND THROAT: no changes in taste or smell, + hearing difficulty, + ringing in t he ears, no ear drainage, no dizziness, no voice changes, no difficulty swallowing, no signi ficant snoring, no sleep apnea, no sinus problems, no major dental work. NEUROLOGICALLY: Please see the review of systems discussed above in the history of present illness. In addition, the patient has awake with numbness/pain, tremor/shaking, coordinati on difficulty, memory loss, confusion, pain in neck, pain in back. PSYCHIATRIC: + depression, no sleep disorders, + anxiety, no bipolar disorder, no psychotic episodes. CARDIOVASCULAR: No heart attacks, no heart murmur, no heart fluttering, no chest pain, no ankle swelling. LUNG DISEASE: No shortness of breath, no cough, no tuberculosis, no bloody cough, no asth ma, no emphysema/COPD. GASTROINTESTINAL: No bowel disease, no nausea or vomiting, no rectal bleeding, + constipat ion, no stool incontinence, no liver disease, no gallbladder disease, + abdominal pain, no u lcers. KIDNEY DISEASE: No urinary frequency, no painful or difficult urination, no incontinence. ENDOCRINE: + diabetes, no thyroid disease, no osteopenia or osteoporosis, no breast draina ge. SKIN: No breast lumps, no skin changes, no rashes, no itches. HEMATOLOGIC/LYMPHATIC: No enlarged lymph nodes, no easy or unusual bleeding, no personal h istory of cancer. RHEUMATOLOGIC: No joint arthritis, no rheumatoid arthritis. PHYSICAL EXAMINATION: Blood pressure 104/60, pulse 70, height 1.854 m (6' 1"), weight 83.9 kg (185 lb). Body mass index is 24.41 kg/m. GENERAL: The patient is well developed and well nourished. He does not appear uncomfortabl e when seated. HEENT: HEAD/FACE: EYES: Normocephalic and atraumatic. There are no areas of recent trauma. Normal sclerae without icterus. SKIN Limited skin exam shows no significant rashes or lesions. CHEST: The patient is in no acute respiratory distress with unlabored respirations. HEART: There is not lower extremity edema. ABDOMEN: Soft, non-tender, non-distended, and without palpable masses. The patient is not obese. MUSCULOSKELETAL: The cervical spine exam shows there is no tenderness over the C-3, C-4, C- 5, C-6 and C-7 region. Range of motion is limited. Rotation and extension does not cause s ymptoms to radiate into the extremities on both sides. Flexion and extension of the neck d oes not cause severe discomfort. No tenderness in the midline of the thoracic or lumbar spine. There is no major palpable d eformity of the spine. Bilateral upper extremity strength 5/5. Shoulder ROM does cause left scapular pain. NEUROLOGIC: The patient is awake, alert, and oriented to time, place, person. He follows simple and complex commands. His speech is fluent. He comprehends speech well. He has no apparent deficits with short or prison memory. He has appropriate fund of knowledge Cranial nerves 2-12 appear grossly intact. Coordination: Finger/Nose and heel/taylor is intact Rapid Alternating Movement in UE and LE is intact. Sensory exam with monofilament Does NOT show diminished sensation to light touch in the up per extremities. REFLEXES: (2 OR 2+ IS NORMAL) REFLEX: RIGHT LEFT BICEPS 2+ 2+ BRACHIORADIALIS 2+ 2+ TRICEPS 2+ 2+ PATELLAR 2+ 2+ ACHILLES 2+ 2+ REESE'S ABSENT ABSENT PLANTAR DOWNGOING DOWNGOING RADIOGRAPHIC REVIEW: The patient's imaging was reviewed in detail with the patient today during the visit. The thoracic MRI from 2019 shows moderate thoracic facet arthritis and posterior cord indentatio n at T4. ASSESSMENT: Encounter Diagnoses Name Primary? Thoracic spinal stenosis Bursitis of left shoulder Yes PLAN: 1) Today we discussed the patient's differential diagnosis with the likely primary issue be ing left subscapular bursitis and thoracic stenosis. patient's description of symptoms, phys ical exam, and imaging suggest this diagnosis at this time. 2) I counseled patient on treatment options which included conservative self management usi ng OTC NSAIDs/Ice and heat packs, physical therapy, prescription medications, epidural stero id injection, as well as possible surgical intervention. 3) Imaging: Reviewed above in radiology review section 4) The patient has had significant conservative care including medications (NSAIDS and narc otics), PT (multiple sessions over the years) and care mgr. Unfortunately Gregory Acosta continues to have significant discomfort. It appears to me that the pain is prim arily coming from subscapular region. I did feel that Gregory Acosta would be a good candidate for interventional procedu res and I offered a left subscapular bursa injection but to place the injection more superio r if possible. I did feel that Gregory Acosta would be a good candidate for FL guided T4/5 ILESI t o target the posterior located cyst causing posterior cord compression. 5) Patient will follow up with me 3 wks post injection/as needed to discuss any imaging and /or progress with today's treatment plan. I spent 30 minutes in visit with Gregory Acosta today with the majority of time spent counselling the patient on his diagnosis, options for his care, and coordinating his care. documented in this encou nter Plan of Treatment + +--------+ + + | Name | Priori | Associated Diagnoses | Order Schedule | | | ty | | | + +--------+ + + | FL SOFIE Cervical Thoracic | Routin | Thoracic spinal | Expected: | | Interlaminar | e | stenosis | 11/29/2018, Expires: | | | | | 11/30/2019 | + +--------+ + + | FL Asp and/or Inj Major Joint | Routin | Bursitis of left | Expected: | | Left | e | shoulder | 11/29/2018, Expires: | | | | | 11/30/2019 | + +--------+ + + documented as of this encounter Visit Diagnoses + + | Diagnosis | + + | Bursitis of left shoulder - Primary Disorders of bursae and tendons in shoulder | | region, unspecified | + + | Thoracic spinal stenosis Spinal stenosis of thoracic region | + + documented in this encounter
--- OUTSIDE RECORDS SUMMARY | ~2018-12-19 | XMS | Encounter Summary ---
Demographics + + + | Address | [address] | | | [place] [address] | + + + | Home Phone | | + + + | Preferred Language | Unknown | + + + | Marital Status | Single | + + + | Presybeterian Affiliation | Unknown | + + + | Race | White | + + + | Ethnic Group | Not or | + + + Author + + + | Author | [facility] | + + + | Organization | [facility] | + + + | Address | Unknown | + + + | Phone | Unavailable | + + + Support + + +---------+ + | Name | Relationship | Address | Phone | + + +---------+ + | Dandre Acosta | ECON | Unknown | | + + +---------+ + Care Team Providers + +------+ + | Care Staffing Associate Name | Role | Phone | + +------+ + | Sailaja Washburn HUMAN RESOURCES LEADER | PCP | | + +------+ + [...] Metabolism | diabetes | [address] | [address] | | | | | mellitus | [address] | [address] | | | | | with | [address] | Mailcode: | | | | | complication | [place], [place] | [id number] | | | | | (FORMERLY [facility]) | [address] | Physician's | | | | | Review | Phone: | Tiarra Hernandez | | | | | optimizing | [phone] | [address] | | | | | sensor | Fax: | [place], [place] | | | | | technology | [phone] | [address] | | | | | Procedures | | Phone: | | | | | CONSULT TO | | [phone] | | | | | ADULT | | Fax: | | | | | DIABETES - | | [phone] | | | | | EDUCATION | [...] | diabetes | MD [address] | [address] | | | | | mellitus | [address] | [address]encita Avalos | | | | | with | [address]ita Avalos | Mailcode: | | | | | complication | [place], [place] | [id number] | | | | | ([facility]) | [address] | Physician's | | | | | Nutrition - | Phone: | Tiarra Mary | | | | | Analyze carb | [phone] | 140 | | | | | intake at | Fax: | [place], [place] | | | | | meals, | [phone] | [address] | | | | | patterns, | | Phone: | | | | | dosing | | [phone] | | | | | strategy | | Fax: | | | | | Procedures | | [phone] | | | | | CONSULT TO | | | | | | | ADULT | | | | | | | DIABETES - | | | | | | | NUTRITION | | | | | | | (MNT) | | | + +--------+ + + + + Reason for Visit Benefits Check (Routine) +--------+--------+ + + + + | Status | Reason | Specialty | Diagnoses / | Referred By | Referred To | | | | | Procedures | Contact | Contact | +--------+--------+ + + + + | Closed | | Endocrinology | Diagnoses | Jennifer, | [facility] | | | | , Diabetes & | Type 1 | Christian ROMAIRA | Adult Ppv | | | | Metabolism | diabetes | [address] | [address] | | | | | mellitus | Dorie | [address] | | | | | with | Street | Rd | | | | | hypoglycemia | [place], [place] | Physician's | | | | | without | [address] | [facility] | | | | | coma Type 1 | Phone: | [address] | | | | | diabetes | [phone] | [place], [place] | | | | | mellitus | Fax: | [address] | | | | | without | [phone] | Phone: | | | | | complication | | [phone] | | | | | s | | Fax: | | | | | Procedures | | [phone] | | | | | CONSULT TO | | | | | | | DIABETES | | | | | | | ENDO | | | +--------+--------+ + + + + Encounter Details +--------+---------+ + + + | Date | Type | Department | Care Team | Description | +--------+---------+ + + + | 04/20/ | Office | Leobardo Pedroza | Lidia Holguin | Type 1 diabetes | | 2019 | Visit | Diabetes Health | MD Kenny [address] | mellitus with | | | | [facility] | [address] | complication (HCC) | | | | [address] | [place], [place] | (Primary Dx) | | | | [address] | [address] | | | | | Physician's | [phone] | | | | | Tiarra [address] | | | | | | [facility] [place] | | | | | | [address] | | | | | | [phone] | | | +--------+---------+ + + + [...] schedule as much as possible Please contact [facility] [phone] for any questions Lab Results Component Value Date A1C 5.5 04/20/2018 Schedule upcoming appointments: Nutrition visit to review meal patterns, activity and stress related trends Technology visit to refine use of sensor Sensor order --- You have history of testing 10 to 12 times daily when not on sensor and Keep up routine monitoring and use of current sensor Ask [place] to send us supply requests Follow hypoglycemic [...] a low blood sugar. Please visit the [facility] Website for information on what's new at our diabetes center. Let us know if you would like to sign up for a class or a one o n one diabetes education visit. Please meet with your primary care provider routinely for your medical care and annual [facility] k ups documented in this encounter Progress Notes Solange Lucas MA - 04/20/2018 9:49 AM PST Finger stick performed in clinic for a capillary A1c. idia Holguin M D - 04/20/2018 9:45 AM PST [facility] PCP: RODNEY Cardoso Referring Physician: Christian Rodriguez ND [address] [place] [address] Reason for referral: Evaluate Type 1 Diabetes HPI: Gregory is a 38 y.o. male referred for evaluation of Type 1 Diabetes. Diabetes history: He was diagnosed with diabetes in 1992 at age 13. Circumstance: hospitalized, in [place] at the time ---- moved to [place] 14 years ago Treatment history: Has been [...] diabetes care: Living situation: grew up in [place] ---- [place]--wanted to live somewhere that was health, mom when he was 23 He grew up with a lot of fried and fast food in the home. Dad has type 1 diabetes. Has t wo sisters. Lives in [place]. Lives alone. In physical therapy for cyst [...] mouth once daily at bedtime. Blood-Glucose Sensor (DEXCOM G5-G4 SENSOR) device 1 each by NOT APPLICABLE route. Cholecalciferol (Vitamin D3) 2,000 unit oral tablet TAKE 1 TABLET BY MOUTH EVERY DAY FO R dietary SUPPLEMENT DULoxetine 20 mg oral capsule,delayed release(DR/EC) Take 20 mg by mouth once daily at bedtime. Fish Oil-[place]-3 Fatty Acids 300-1,000 mg oral capsule Take [...] scale, up to 30 units daily Insulin [place] (Disposable) 31 gauge x 5/16" needle [...] ROS: Review of systems as stated in [place]. Other pertinent review of systems includes: Weight: [...] 1992 at age 13. Circumstance: hospitalized, in [place] at the time ---- moved to [place] 14 years ago Treatment history: Has been [...] 19 ---- attributes this to drugs, tiffany ellparminder, parents getting --- no recent hospitalization History of chronic complications: no known DR, neuropathy or microalbuminuria History of gastroparesis: unknown Dad has high insulin requirement, poor diet-- this made a significant impression on him Glycemic Control Glucose trends and insulin requirement likely impacted by activity--- encourage sensor use for awareness of trends In [employer] so very active throughout the day [...] as much as possible Please contact Leobardo [facility]3] [phone] for any questions Lab Results Component Value [...] a low blood sugar. Please visit the [facility] Website for information on what's new at our diabetes center. Let us know if you would like to sign up for a class or a one o n one diabetes education visit. Please meet with your primary care provider routinely for your medical care and annual chec k ups 2. See orders Orders Placed This Encounter MA Collection Capillary Blood Specimen [[id number]] only for Adults CONSULT TO ADULT DIABETES - NUTRITION (MNT) CONSULT TO ADULT DIABETES - EDUCATION (DIABETES SELF-MANAGEMENT) HEMOGLOBIN A1C,POC [[id number]}] Lidia Holguin MD [facility] 1ST FLOOR [address] [address] I spent 55 minutes with the [...] [address] | | | | | | [address] | | | | | | [place], [place] | | | | | | [address] | | | | | | [phone] | | | | | | | | +--------+---------+ + + + | 02/27/ | Office | Endocrinology, | Daniella Tejeda | | | 2018 | Visit | Diabetes & | NONI Cox [address] | | | | | Metabolism | [address] | | | | | | Physician Tiarra | | | | | | [address] | | | | | | [place] [address] | | | | | | [phone] | | | | | | | [...] | | | A1C,POC | | | [place] | | | | | | KARI [...] + | JOSE FRANCISCO CONLEY | [address] | [place], [place] | | | KARI RODRIGUEZ OF [place] | [address] | [address] | | | TESTS | | | [...]
--- OUTSIDE RECORDS SUMMARY | ~2018-12-19 | XMS | Encounter Summary ---
Demographics + + + | Address | [address] | | | [place] [address] | + + + | Home Phone | | + + + | Preferred Language | Unknown | + + + | Marital Status | Single | + + + | Catholic Affiliation | 1050 | + + + | Race | Unknown | + + + | Ethnic Group | Unknown | + + + Author + + + | Author | and [facility] | | | and [place] | + + + | Organization | and [facility] | | | and [place] | + + + | Address | Unknown | + + + | Phone | Unavailable | + + + Support + + + + + | Name | Relationship | Address | Phone | + + + + + | Naida Acosta | ECON | [place] [address] | | + + + + + Care Team Providers + +------+ + | Care Agricultural Education Instructor Name | Role | Phone | + [...] | Radiology | Diagnoses | Sonu, | FRANC[place] | | | | | Thoracic | NONI Cassidy | MARYANN | | | | | spinal | [address] | [facility] | | | | | stenosis | [address] | MEDICAL | | | | | Thoracic | [address] | CENTER [address] | | | | | radiculitis | [place], | [place] | | | | | Procedures | [place] [address] | [place], | | | | | MRI | Phone: | [place] [address] | | | | | Thoracic | [phone] | Phone: | | | | | Spine w wo | Fax: | [phone] | | | | | Contrast | [phone] | Fax: | | | | | | | [phone] | +--------+--------+ + + + + Encounter Details +--------+ + + + + | Date | Type | Department | Care Team | Description | +--------+ + + + + | 12/07/ | Orders Only | [facility] | Khanh Ascencio, | Thoracic spinal | | 2019 | | PHYSIATRY [address] | PA-C [address] | stenosis (Primary | | | | [place], | [address] [place] | Dx); Thoracic | | | | [place] [address] | [place] [address] | radiculitis | | | | [phone] | [phone] | | | | | | | | +--------+ + [...] documented as of this encounter Progress Notes Khanh Ascencio PA-C - 12/07/2018 0856 PDTThoracic MRI w contrast ordered to assess any joya ges in intrathecal cyst at T4. Dr Rubi and myself reviewed prior images and felt it was best to pursue imaging prior to any epidural thoracic injections. documented in this encou nter Plan of Treatment + +--------+ + + | Name | Priori | Associated Diagnoses | Order Schedule | | | ty | | | + +--------+ + + | MRI Thoracic Spine w wo Contrast | Routin | Thoracic spinal | Expected: | | | e | stenosis Thoracic | 12/07/2018, Expires: | | | | radiculitis | 12/08/2019 | + +--------+ + + documented as of this encounter Visit Diagnoses + + | Diagnosis | + + | Thoracic spinal stenosis - Primary Spinal stenosis of thoracic region | + + | Thoracic radiculitis Thoracic or lumbosacral neuritis or radiculitis, unspecified | + + documented in this encounter"
--- OUTSIDE RECORDS SUMMARY | ~2018-12-19 | XMS | Encounter Summary ---
Demographics + + + | Address | [address] | | | [place] [address] | + + + | Home Phone | | + + + | Preferred Language | Unknown | + + + | Marital Status | Single | + + + | Anabaptist Affiliation | Unknown | + + + [...] Team Providers + +------+ + | Care Dope Pourer Name | Role | Phone | + +------+ + | Linda Lizarraga RADIATION PHYSICIST | PCP | | + +------+ + [...] | Diagnoses | Jolynn, | Krista Pt Chh1 | | | | Therapy | Myofascial | Camelia Cerda, | [address] | | | | | pain | PA-C [address] | | | | | Arachnoid | [address] | Mailcode: | | | | | cyst | [place], | [address] | | | | | Procedures | [place] | for Health | | | | | PHYSICAL | [address] | and Healing, | | | | | THERAPY | Phone: | Building [address], | | | | | REFERRAL | [phone] | [address] | | | | | | Fax: | [place], [place] | | | | | | [phone] | [address] | | | | | | | Phone: | | | | | | | [phone] | | | | | | | Fax: | | | | | | | [phone] | +--------+--------+ + + + + Encounter Details +--------+---------+ + + + | Date | Type | Department | Care Team | Description | +--------+---------+ + + + | 09/20/ | Office | [place] [facility] | Vinny Chatman, | Back pain, | | 2018 | Visit | Therapy Services at | PT [place], [place] | unspecified back | | | | [facility] | [address] | location, | | | | [address] | | unspecified back | | | | Mailcode: CH3P | | pain laterality, | | | | [facility] | | unspecified | | | | and Healing, | | chronicity (Primary | | | | [address] | | Dx) | | | | Floor [place], [place] | | | | | | [address] | | | | | | [phone] | | | +--------+---------+ + + + [...] different fro m the original. Insurance: Payor: FUNDING SPECIALIST MEDICAID / Plan: FUNDING SPECIALIST CAREOR HEALTH SHARE / Product Type: Medicaid / Non-Medicare [facility] PHYSICAL THERAPY PROGRESS NOTE Past Medical History: [...] (SUBC). Sliding scale, Disp: , Rfl: Insulin [place] (Disposable) 31 gauge x 5/16" needle, 1 [...] counselo terri there, currently seeing someone at [place]. Tingling static electricity going down his lef [...] a multi level house. 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 Vinny Chatman DPT [facility] Outpatient Rehabilitation Services Mailcode: CH3T [facility] [facility], 1st Floor [facility] [address] Treatment began: 1130 Treatment ended: 1210 Therapeutic exercise 40 PLAN OF CARE (Established 08/19/2017 to be updated every 60 days): Treatment Plan Summary: Pain management strategies, strengthening, stretching, manual thera py Procedure Codes: Re-evaluation 01635, Therapeutic Exercise 39244, Manual Therapy 64930, Th erapeutic Activities 02100 and Neuromuscular Reeducation 23063 Minutes per session: 45 Total number of [...] chronicity Next progress report 11/19/2017 Insurance: Payor: FUNDING SPECIALIST MEDICAID / Plan: FUNDING SPECIALIST CAREOR HEALTH SHARE / Product Type: Medicaid [...] Rd | | | | | | [place], [place] | | | | | | [address] | | | | | | [phone] | | | | | | | | +--------+---------+ + + + | 02/27/ | Office | Endocrinology, | Daniella Tejeda | | | 2018 | Visit | Diabetes & Morris Cox PA-C [address] | | | | | Metabolism | [address] | | | | | | Physician Tiarra | | | | | | [address], | | | | | | [place] [address] | | | | | | [phone] | | | | | | | | +--------+---------+ + + + documented as of this encounter Procedures + +--------+ + + + | Procedure Name | Priori | Date/Time | Associated Diagnosis | Comments | | | ty | | | | + +--------+ + + + | [place] THERAPEUTIC | Routin | 09/20/2017 | Back [...]
--- OUTSIDE RECORDS SUMMARY | ~2018-12-19 | XMS | Encounter Summary ---
Demographics + + + | Address | [address] | | | [place] [address] | + + + | Home Phone | | + + + | Preferred Language | Unknown | + + + | Marital Status | Single | + + + | Shinto Affiliation | 1050 | + + + | Race | Unknown | + + + | Ethnic Group | Unknown | + + + Author + + + | Author | [facility] | | | and [place] | + + + | Organization | [facility] | | | and [place] | + + + | Address | Unknown | + + + | Phone | Unavailable | + + + Support + + + + + | Name | Relationship | Address | Phone | + + + + + | Naida Acosta | ECON | [place] [address] | | + + + + + Care Team Providers + +------+ + | Care Dispatch Clerk Name | Role | Phone | + +------+ + | Sahil Billings | PCP | | + +------+ + Encounter Details +--------+ + + + + | Date | Type | Department | Care Team | Description | +--------+ + + + + | 09/26/ | Abstract | [facility] | Provider, | | | 2019 | | PHYSIATRY [address] | MD [place] [address] | | | | | [place], | [address] | | | | | [place] [address] | [place] [address] | | | | | [phone] | | | +--------+ + + + [...]
--- OUTSIDE RECORDS SUMMARY | ~2018-12-19 | XMS | Encounter Summary ---
Demographics + + + | Address | [address] | | | [place] [address] | + + + | Home Phone | | + + + | Preferred Language | Unknown | + + + | Marital Status | Single | + + + | Hindu Affiliation | 1050 | + + + | Race | Unknown | + + + | Ethnic Group | Unknown | + + + Author + + + | Author | [facility] | | | and [place] | + + + | Organization | [facility] | | | and [place] | + + + | Address | Unknown | + + + | Phone | Unavailable | + + + Support + + + + + | Name | Relationship | Address | Phone | + + + + + | Naida Acosta | ECON | [place] [address] | | + + + + + Care Team Providers + +------+ + | Care Child Monitor Name | Role | Phone | + +------+ + | Sina Law PCP | | + +------+ + Reason for Visit +--------+ + | Reason | Comments | +--------+ + | Other | | +--------+ + Encounter Details +--------+ + + + + | Date | Type | Department | Care Team | Description | +--------+ + + + + | 12/07/ | Telephone | [facility] | Khanh Ascencio, | Other | | 2019 | | PHYSIATRY [address] | PA-C [address] | | | | | [place], | [address] [place] | | | | | [place] [address] | [place] [address] | | | | | [phone] | [phone] | | | | | | | [...]
--- OUTSIDE RECORDS SUMMARY | ~2018-12-19 | XMS | Encounter Summary ---
Demographics + + + | Address | [address] | | | [place] [address] | + + + | Home Phone | | + + + | Preferred Language | Unknown | + + + | Marital Status | Single | + + + | Bahai Affiliation | 1050 | + + + | Race | Unknown | + + + | Ethnic Group | Unknown | + + + Author + + + | Author | [facility] | | | and [place] | + + + | Organization | [facility] | | | and [place] | + + + | Address | Unknown | + + + | Phone | Unavailable | + + + Support + + + + + | Name | Relationship | Address | Phone | + + + + + | Naida Acosta | ECON | [place] [address] | | + + + + + Care Team Providers + +------+ + | Care Brilliandeer Lopper Name | Role | Phone | + [...] | | | | [place] | [place] [address] | | | | | | Right | Phone: | | | | | | | [phone] | | | | | | | Fax: | | | | | | | [phone] | | +--------+--------+ + + + + Encounter Details +--------+ + + + + | Date | Type | Department | Care Team | Description | +--------+ + + + + | 10/04/ | Orders Only | [facility] | Khanh Ascencio, | Subscapular bursitis | | 2019 | | PHYSIATRY [address] | PA-C [address] | (Primary Dx) | | | | [place], | [address] [place] | | | | | [place] [address] | [place] [address] | | | | | [phone] | [phone] | | | | | | | [...] Not on filedocumented as of this encounter Results [place] Asp and/or Inj [...] + + | Performing | Address | City[facility] | Phone Number | | Organization | | | | + +---------+ + + | [facility] | | | | + +---------+ + + documented in this encounter Visit Diagnoses + + | Diagnosis | + + | Subscapular bursitis - Primary Other bursitis disorders | + + documented in this encounter"
--- OUTSIDE RECORDS SUMMARY | ~2018-12-19 | XMS | Encounter Summary ---
Demographics + + + | Address | [address] | | | [place] [address] | + + + | Home Phone | | + + + | Preferred Language | Unknown | + + + | Marital Status | Single | + + + | Baptism Affiliation | 1050 | + + + | Race | Unknown | + + + | Ethnic Group | Unknown | + + + Author + + + | Author | [facility] | | | and [place] | + + + | Organization | [facility] | | | and [place] | + + + | Address | Unknown | + + + | Phone | Unavailable | + + + Support + + + + + | Name | Relationship | Address | Phone | + + + + + | Naida Acosta | ECON | [place] [address] | | + + + + + Care Team Providers + +------+ + | Care Spinner Cap Frame Name | Role | Phone | + [...] | | PHYSIATRY [address] | MD [address] | | | | | [place], | [address] | | | | | [place] [address] | [place] [address] | | | | | [phone] | | | +--------+ + + + [...]
--- OUTSIDE RECORDS SUMMARY | ~2018-12-19 | XMS | Encounter Summary ---
Demographics + + + | Address | [address] | | | [place] [address] | + + + | Home Phone [...] Author + + + | Author | [facility] | + + + | Organization | [facility] | + + + | Address | Unknown | + + + | Phone | Unavailable | + + + Support + + +---------+ + | Name | Relationship | Address | Phone | + + +---------+ + | Dandre Acosta | ECON | Unknown | | + + +---------+ + Care Team Providers + +------+ + | Care Order Fulfillment Specialist Name | Role | Phone | + +------+ + | Sahil Billings PA-C | PCP | | + +------+ + Encounter Details +--------+ + + + + | Date | Type | Department | Care Team | Description | +--------+ + + + + | 07/28/ | Sacha | Leobardo Pedroza | Lidia Holguin | 2 months of | | 2019 | Encounter | Diabetes Health | MD Kenny [address] | antibiotics | | | | [facility] | [address] | | | | | [address] | [place], [place] | | | | | [address] | [address] | | | | | Physician's | [phone] | | | | | [address] | | | | | | [place], [place] | | | | | | [address] | | | | | | [phone] | | | +--------+ + + + [...] Rd | | | | | | [place], [place] | | | | | | [address] | | | | | | [phone] | | | | | | | | +--------+---------+ + + + | 02/27/ | Office | Endocrinology, | Daniella Tejeda | | | 2018 | Visit | Diabetes & | NONI Cox [address] | | | | | Metabolism | [address] | | | | | | Physician [place] | | | | | | [address], | | | | | | [place] [address] | | | | | | [phone] | | | | | | | | +--------+---------+ + + + documented as of this encounter Visit Diagnoses Not on filedocumented in this encounter"
--- OUTSIDE RECORDS SUMMARY | ~2018-12-19 | XMS | Encounter Summary ---
Demographics + + + | Address | [address] | | | [place] [address] | + + + | Home Phone | | + + + | Preferred Language | Unknown | + + + | Marital Status | Single | + + + | Pentecostalism Affiliation | Unknown | + + + | Race | White | + + + | Ethnic Group | Not or | + + + Author + + + | Author | [facility] | + + + | Organization | [facility] | + + + | Address | Unknown | + + + | Phone | Unavailable | + + + Support + + +---------+ + | Name | Relationship | Address | Phone | + + +---------+ + | Dandre Acosta | ECON | Unknown | | + + +---------+ + Care Team Providers + +------+ + | Care Network Diagnostic Support Specialist Name | Role | Phone | + +------+ + | Maddison Sailajabettie PICKETTP | PCP | | + +------+ + Reason for Visit + + + | Reason | Comments | + + + | [facility] | [place] | | Equipment (DME) | | | Orders | | + + + Encounter Details +--------+--------+ + + + | Date | Type | Department | Care Team | Description | +--------+--------+ + + + | 06/03/ | Refill | Leobardo Pedroza | Lidia Holguin | [facility] | | 2019 | | Diabetes Health | MD Kenny [address] [facility] | Equipment (DME) | | | | [facility] | [address] | Orders ([place]) | | | | [address] | [facility] [place] | | | | | [address] | [address] | | | | | Physician's | [phone] | | | | | [address] | | | | | | [place], [place] | | | | | | [address] | | | | | | [phone] | | | +--------+--------+ + + + [...] Rd | | | | | | [place], [place] | | | | | | [address] | | | | | | [phone] | | | | | | | | +--------+---------+ + + + | 02/27/ | Office | Endocrinology, | Daniella Tejeda | | | 2018 | Visit | Diabetes & | NONI Cox [address] | | | | | Metabolism | [address] | | | | | | Physician [place] | | | | | | [address], | | | | | | [place] [address] | | | | | | [phone] | | | | | | | | +--------+---------+ + + + documented as of this encounter Visit Diagnoses Not on filedocumented in this encounter"
--- OUTSIDE RECORDS SUMMARY | ~2018-12-19 | XMS | Encounter Summary ---
Demographics + + + | Address | [address] | | | [place] [address] | + + + | Home Phone | | + + + | Preferred Language | Unknown | + + + | Marital Status | Single | + + + | Denominational Affiliation | 1050 | + + + | Race | Unknown | + + + | Ethnic Group | Unknown | + + + Author + + + | Author | [facility] | | | and [place] | + + + | Organization | [facility] | | | and [place] | + + + | Address | Unknown | + + + | Phone | Unavailable | + + + Support + + + + + | Name | Relationship | Address | Phone | + + + + + | Naida Acosta | ECON | [place] [address] | | + + + + + Care Team Providers + +------+ + | Care Car Checker Name | Role | Phone | + [...] | | radiculitis | [place], | [place] | | | | | Procedures | [place] [address] | [place], | | | | | MRI | Phone: | [place] [address] | | | | | Thoracic | [phone] | Phone: | | | | | Spine w wo | Fax: | [phone] | | | | | Contrast | [phone] | Fax: | | | | | | | [phone] | +--------+--------+ + + + + Encounter [...] | stenosis (Primary | | | | [place], | [address] [place] | Dx); Thoracic | | | | [place] [address] | [place] [address] | radiculitis | | | | [phone] | [phone] | | | | | | | [...]
--- OUTSIDE RECORDS SUMMARY | ~2018-12-19 | XMS | Encounter Summary ---
Demographics + + + | Address | [address] | | | [place] [address] | + + + | Home Phone | | + + + | Preferred Language | Unknown | + + + | Marital Status | Single | + + + | Rastafari Affiliation | 1050 | + + + | Race | Unknown | + + + | Ethnic Group | Unknown | + + + Author + + + | Author | [facility] | | | and [place] | + + + | Organization | [facility] | | | and [place] | + + + | Address | Unknown | + + + | Phone | Unavailable | + + + Support + + + + + | Name | Relationship | Address | Phone | + + + + + | Naida Acosta | ECON | [place] [address] | | + + + + + Care Team Providers + +------+ + | Care Cook Pickled Meat Name | Role | Phone | + [...] | | | | Major Joint | [place] [address] | | | | | | Right | Phone: | | | | | | | [phone] | | | | | | | Fax: | | | | | | | [phone] | | +--------+--------+ + + + + [...] | | | | Major Joint | [place] [address] | | | | | | Right | Phone: | | | | | | | [phone] | | | | | | | Fax: | | | | | | | [phone] | | +--------+--------+ + + + + [...] | | | | | bursitis | [place] [address] | | | | | | Procedures | Phone: | | | | | | FL Asp | [phone] | | | | | | and/or Inj | Fax: | | | | | | Major Joint | [phone] | | | | | | Left [...] | | | | bursitis | [place] [address] | | | | | | Procedures | Phone: | | | | | | FL Asp | [phone] | | | | | | and/or Inj | Fax: | | | | | | Major Joint | [phone] | | | | | | Left [...] | Subscapular | Anita, | [address] | | | | | bursitis | Michele Bell MD | [place], | | | | | Procedures | [address] | [place] | | | | | [place] | [place] | [address] | | | | | ARTHROCENTES | [facility], [place] | Phone: | | | | | [place] | [address] | [phone] | | | | | ASPIR&/INJ | Phone: | Fax: | | | | | MAJOR | [phone] | [phone] | | | | | JT/BATOOLA W/O | Fax: | | | | | | [place] | [phone] | | | | | | TRIAM[place]IN[place] [...] + + | 10/26/ | Hospital | [facility] | Khanh Ascencio, | Chronic bilateral | | 2019 | Encounter | MED CTR XRAY [address] | PA-C [address] | thoracic back pain; | | | | [place] | [address] [place] | Subscapular bursitis | | | | [place] [address] | [place] [address] | | | | | [phone] | [phone] | | | | | | | | | | | | Strategic Planning DirectorVanessa | | +--------+ + + + + [...]
--- OUTSIDE RECORDS SUMMARY | ~2018-12-19 | XMS | Encounter Summary ---
Demographics + + + | Address | [address] | | | [place] [address] | + + + | Home Phone | | + + + | Preferred Language | Unknown | + + + | Marital Status | Single | + + + | Amish Affiliation | Unknown | + + + | Race | White | + + + | Ethnic Group | Not or | + + + Author + + + | Author | [facility] | + + + | Organization | [facility] | + + + | Address | Unknown | + + + | Phone | Unavailable | + + + Support + + +---------+ + | Name | Relationship | Address | Phone | + + +---------+ + | Dandre Acosta | ECON | Unknown | | + + +---------+ + Care Team Providers + +------+ + | Care Aircraft Maintenance Engineer Name | Role | Phone | + +------+ + | Linda Lizarraga WEIGHER BULKER | PCP | | + +------+ + [...] | | Spine | | Jolynn, | Mario | | | | | | Edward Cerda, | Alvin Parham MD | | | | | | PA-C [address] | [address] | | | | | | [address] | Ave | | | | | | [place], | [place] | | | | | | [place] | [address] | | | | | | [address] | Phone: | | | | | | Phone: | [phone] | | | | | | [phone] | Fax: | | | | | | Fax: | [phone] | | | | | | [phone] | | +--------+--------+ + + + + Encounter Details +--------+---------+ + + + | Date | Type | Department | Care Team | Description | +--------+---------+ + + + | 10/27/ | Office | [facility] | Alvin Martin MD | Depressive disorder | | 2018 | Visit | [facility] [address] | [address] | (Primary Dx); Type [address] | | | | Ave Mailcode: | [place], [place] | diabetes mellitus | | | | [facility] | [address] | with complication | | | | and Healing, | [phone] | (HCC); Chest wall | | | | Building [address] | | pain; Anxiety; | | | | [place], [place] | | Tobacco use | | | | [address] | | disorder; Arachnoid | | | | 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 He does have well-controlled diabetes with a [...] under the skin (SUBC). Sliding scale Insulin Cidra (Disposable) 31 gauge x 5/16" needle 1 [...] use No Alcohol marijuana drugs Originally from [place], relocated to [place] because of health and environment in economics , lived briefly in [place]. He states that although he does not have any identified medical decision-maker a person by the name of Gurjit Digna (a executive chef assistant from [place]) would be that person. He does have 2 sister s and a father in [facility]. Physical Exam: Constitutional: There were [...] Alvin Martin MD I spent 45 minutes [id number] with the patient. I spent more than [...] Rd | | | | | | [place], [place] | | | | | | [address] | | | | | | [phone] | | | | | | | | +--------+---------+ + + + | 02/27/ | Office | Endocrinology, | Daniella Tejeda | | | 2018 | Visit | Diabetes & | NONI [address] | | | | | Metabolism | [address] | | | | | | Physician Tiarra | | | | | | [address] [place], | | | | | | [place] [address] | | | | | | [phone] | | | | | | | [...]
--- OUTSIDE RECORDS SUMMARY | ~2018-12-19 | XMS | Encounter Summary ---
Demographics + + + | Address | [address] | | | [place] [address] | + + + | Home Phone | | + + + | Preferred Language | Unknown | + + + | Marital Status | Single | + + + | Hindu Affiliation | 1050 | + + + | Race | Unknown | + + + | Ethnic Group | Unknown | + + + Author + + + | Author | [facility] | | | and [place] | + + + | Organization | [facility] | | | and [place] | + + + | Address | Unknown | + + + | Phone | Unavailable | + + + Support + + + + + | Name | Relationship | Address | Phone | + + + + + | Naida Acosta | ECON | [place] [address] | | + + + + + Care Team Providers + +------+ + | Care General Accounting Manager Name | Role | Phone | [...] | | | | and/or Inj | [place] [address] | | | | | | Major Joint | Phone: | | | | | | Left | [phone] | | | | | | | Fax: | | | | | | | [phone] | | +--------+--------+ + + + + [...] | | | | [place], [place] | [address] Phone: | | | | | | [address] | [phone] | | | | | | Phone: | Fax: | | | | | | [phone] | [phone] | | | | | | Fax: | | | | | | | [phone] | | +--------+ + + + + + Encounter Details +--------+---------+ + + + | Date | Type | Department | Care Team | Description | +--------+---------+ + + + | 11/29/ | Office | [facility] | Khanh Ascencio, | Bursitis of left | | 2019 | Visit | PHYSIATRY [address] | PA-C [address] | shoulder (Primary | | | | [place], | [address] [place] | Dx); Thoracic spinal | | | | [place] [address] | [place] [address] | stenosis | | | | [phone] | [phone] | | | | | | | [...] of the procedure you must provide a school bus driver/mechanic to take you home. Common Spine and [...] disk, and irritate nerves. Date Last Reviewed: 07/30/201719994695-6249 [employer]. [address] [place] [address]. All righ ts reserved. This information is not intended as a substitute for professional medical care. Always follow your healthcare professional's instructions. documented in this encounter Progress Notes Khanh Ascencio PA-C - 11/29/2018 1600 PDTFormatting of this note might be different from th e original. Khanh Ascencio PA-C [address] [place] [address], [address] [place] [address] FAX: CHIEF COMPLAINT: Chief Complaint Patient presents [...] has no apparent deficits with short or snf memory. He has appropriate fund of knowledge [...] PT (multiple sessions over the years) and senior care assistant. Unfortunately Gregory Acosta continues to have significant [...]
--- OUTSIDE RECORDS SUMMARY | ~2018-12-19 | XMS | Clinical Summary ---
Demographics + + + | Address | [address] | | | [place] [address] | + + + | Home Phone [...] + + + | Author | [facility] | | | and [place] | + + + | Organization | [facility] | | | and [place] | + + + | Address | Unknown | + + + | Phone | Unavailable | + + + Support + + + + + | Name | Relationship | Address | Phone | + + + + + | Naida Acosta | ECON | [place] [address] | | + + + + + Care Team Providers + +------+ + | Care Child Care Education Coordinator Name | Role | Phone | + +------+ + | Sina Law | PCP | | + +------+ + Allergies + [...] Hydrocodone-Acetamin | Nausea Only | Low | 11/04/19 | | | ophen | | | 13 | | + + + + + + | Molds & Smuts | Unknown | | 10/06/19 | | | | | | 18 | | + + + + + + | Penicillins | Other (See | Medium | 05/11/19 | "my father is | | | Comments), Unknown | | 15 | allergic" Father is | | | | | | allergic. Pt | | | | | | unsure of own | | | | | | allergy | + + + + + + | Sulfites | Unknown | | 10/06/19 | | | | | | 18 | | + + + + + + Medications + + + +---------+------+------+-------+ | Medication | Sig | Dispensed | Refills | Star | End | Statu | | | | | | t | Date | s | | | | | | Date | | | + + + +---------+------+------+-------+ | DULoxetine | Take 60 mg by mouth | | 0 | | | Activ | | (CYMBALTA) [address] | Daily. | | | | | e | | capsule | | | | | | | + + + +---------+------+------+-------+ | mirtazapine | Take 15 mg by mouth | | 0 | | | Activ | | (REMERON) 15 MG | nightly. | | | | | e | | tablet | | | | | | | + + + +---------+------+------+-------+ | gabapentin | Take 200 mg by mouth | | 0 | | | Activ | | (NEURONTIN) 100 mg | 3 times daily. | | | | | e | | capsule | | | | | | | + + + +---------+------+------+-------+ | cyclobenzaprine | Take 10 mg by mouth | | 0 | | | Activ | | (FLEXERIL) 10 mg | 3 times daily as | | | | | e | | tablet | needed for Muscle | | | | | | | | spasms. | | | | | | + + + +---------+------+------+-------+ | naproxen | Take 500 mg by mouth | | 0 | | | Activ | | (NAPROSYN) 500 mg | 2 times daily (with | | | | | e | | tablet | breakfast & | | | | | | | | dinner). | | | | | | + + + +---------+------+------+-------+ | insulin glargine | Inject 22 Units | | 0 | | | Activ | | (LANTUS) 100 | under the skin | | | | | e | | units/mL injection | nightly. | | | | | | | (vial) | | | | | | | + + + +---------+------+------+-------+ | insulin lispro | Inject under the | | 0 | | | Activ | | (ADMELOG) 100 | skin 3 times daily | | | | | e | | units/mL injection | (before meals). | | | | | | | (vial) | Sliding scale | | | | | | + + + +---------+------+------+-------+ | sucralfate | Take 1 g by mouth 4 | | 0 | | | Activ | | (CARAFATE) 1 g/10 mL | times daily. | | | | | e | | suspension | | | | | | | + + + +---------+------+------+-------+ | lamoTRIgine | Take 50 mg by mouth. | | 0 | | | Activ | | (LAMICTAL) 25 mg | | | | | | e | | tablet | | | | | | | + + + +---------+------+------+-------+ Active Problems + + + | Problem | Noted Date | + + + | Chronic bilateral low back pain with bilateral sciatica | 11/17/2017 | + + + | Chronic bilateral thoracic back pain | 11/17/2017 | + + + | Arachnoid cyst of spine | 10/27/2017 | + + + | Depressive disorder | 10/18/2017 | + + + | Rotator cuff syndrome of right shoulder | 09/30/2017 | + + + | Backache | 09/20/2017 | + + + | Myalgia | 09/14/2016 | + + + | Segmental and somatic dysfunction | 09/14/2016 | + + + | TOS (thoracic outlet syndrome) | 09/14/2016 | + + + | Anxiety | 08/18/2016 | + + + | Chest wall pain | 10/12/2014 | + + + + + | Overview: 10/12/14: Onset mid August 2014 with trauma to area. | | No x-rays, low concern for fracture on PE. Improving steadily. | | Ibuprofen for pain.10/12/14: Onset mid August 2014 with trauma to | | area. No x-rays, low concern for fracture on PE. Improving | | steadily. Ibuprofen for pain.Overview: Overview: 10/12/14: Onset | | August 2014 with trauma to area. No x-rays, low concern for | | fracture on PE. Improving steadily. Ibuprofen for pain.10/12/14: | | Onset mid August 2014 with trauma to area. No x-rays, low concern | | for fracture on PE. Improving steadily. Ibuprofen for pain. | + + + + + | Tobacco dependence syndrome | 06/22/2014 | + + + | Tobacco use disorder | 06/22/2014 | + + + | Posttraumatic stress disorder | 08/18/2013 | + + + + + | [...] to follow up in 2 | | weeks.Last Assessment & Plan: Gregory reports that he has been | | having acute anxiety over the last 6 [...] to follow up in 2 | | weeks.Last Assessment & Plan: Gregory reports that he has been | | having acute anxiety over the last 6 [...] | + + + + + | Examination of participant in clinical trial | 07/28/2013 | + + + + + | Overview: Per Care Everywhere . . . | + + + + + | Amphetamine and psychostimulant dependence | 07/20/2013 | + + + + + | Overview: Early remission. Last use was : 05/09/2013 | | Early remission. Last use was : 05/09/2013 | | | | Overview: | | Overview: | | Early remission. Last use was : 05/09/2013 | | Early remission. Last use was : 05/09/2013 | | | | Early remission. Last use was : 05/09/2013 | | Early remission. Last use was : 05/09/2013 | + + + + + | Type 1 diabetes mellitus | 11/20/2008 | + + + + + | Overview: T1DM - Uses HumaLOG and Lantus insulin.Currently | | uninsured.Last Assessment & Plan: History of Present | | Illness:CBGs:14-day avg = 31005-jzi avg = 197CBG this AM = | | 325Has new girlfriend - been going out to dinner a lot.Little | | exercise.Planning on taking a contract job for 3 months in | | [place].Needing to get supplies to cover him for this.Has not | | applied for Cover [place] because leaving to [place] soon. Will | | when he returns.Worried about getting his A1C done today because | | he is not ready for it.Assessment & Plan:1. Agrees to tomorrow | | A1C with other labs being measured.2. Discussed new studies and | | guidelines surrounding benefit of statin for patients with | | controlled cholesterol due to other CV risks.T1DM - Uses HumaLOG | | and Lantus insulin.Currently uninsured.Last Assessment & Plan: | | History of Present Illness:CBGs:14-day avg = 80536-ywt avg = | | 197CBG this AM = 325Has new girlfriend - been going out to | | dinner a lot.Little exercise.Planning on taking a contract job | | for 3 months in [place].Needing to get supplies to cover him for | | this.Has not applied for Cover [place] because leaving to [place] | | soon. Will when he returns.Worried about getting his A1C done | | today because he is not ready for it.Assessment & Plan:1. Agrees | | to tomorrow A1C with other labs being measured.2. Discussed new | | studies and guidelines surrounding benefit of statin for | | patients with controlled cholesterol due to other CV | | risks.Overview: Overview: T1DM - Uses HumaLOG and Lantus | | insulin.Currently uninsured.Last Assessment & Plan: History of | | Present Illness:CBGs:14-day avg = 49918-btw avg = 197CBG this AM | | = 325Has new girlfriend - been going out to dinner a lot.Little | | exercise.Planning on taking a contract job for 3 months in | | [place].Needing to get supplies to cover him for this.Has not | | applied for Cover [place] because leaving to [place] soon. Will | | when he returns.Worried about getting his A1C done today because | | he is not ready for it.Assessment & Plan:1. Agrees to tomorrow | | A1C with other labs being measured.2. Discussed new studies and | | guidelines surrounding benefit of statin for patients with | | controlled cholesterol due to other CV risks.T1DM - Uses HumaLOG | | and Lantus insulin.Currently uninsured.Last Assessment & Plan: | | History of Present Illness:CBGs:14-day avg = 71774-lfc avg = | | 197CBG this AM = 325Has new girlfriend - been going out to | | dinner a lot.Little exercise.Planning on taking a contract job | | for 3 months in [place].Needing to get supplies to cover him for | | this.Has not applied for Cover [place] because leaving to [place] | | soon. Will when he returns.Worried about getting his A1C done | | today because he is not ready for it.Assessment & Plan:1. Agrees | | to tomorrow A1C with other labs being measured.2. Discussed new | | studies and guidelines surrounding benefit of statin for | | patients with controlled cholesterol due to other CV risks. | |1. Agrees to tomorrow A1C with [...] a contract job for 3 months in [place]. | |Needing to get supplies to cover him for this. | |Has not applied for Cover [place] because leaving to [place] soon. Will when he returns. | | [...] cholesterol due to other CV risks. | |T1DM - Uses HumaLOG and Lantus [...] a contract job for 3 months in [place]. | |Needing to get supplies to cover him for this. | |Has not applied for Cover [place] because leaving to [place] soon. Will when he returns. | | [...] + + | 12/07/ | Telephone | Physical Medicine | Khanh Ascencio, | Other | | 2019 | | and Rehabilitation | PA-C | | +--------+ + + + + | 12/07/ | Orders Only | Physical Medicine | Khanh Ascencio, | Thoracic spinal | | 2019 | | and Rehabilitation | PA-C | stenosis (Primary | | | | | | Dx); Thoracic | | | | | | radiculitis | +--------+ + + + + | 11/29/ | Office | Physical Medicine | Khanh Ascencio, | Bursitis of left | | 2019 | Visit | and Rehabilitation | PA-C | shoulder (Primary | | | | | | Dx); Thoracic spinal | | | | | | stenosis | +--------+ + + + + | 11/28/ | Telephone | Pain Medicine | Jerson Ruelas, | Referral (Status) | | 2018 | | | MD | | +--------+ + + + + | 11/01/ | Telephone | Physical Medicine | Michele Howard | Injections (Left | 2018 | | and Rehabilitation | MD Ray | subscapular Bursa) | +--------+ + + + + | 10/27/ | Telephone | Physical Medicine | Michele Howard | Injections | | 2018 | | and Rehabilitation | MD Ray | | +--------+ + + + + | 10/26/ | Hospital | Radiology | Khanh Ascencio, | Chronic bilateral | 2018 | Encounter | | 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, | thoracic back pain; | | | | | [facility] | Subscapular bursitis | +--------+ + + + + | 10/19/ | Telephone | Plastic Surgery | Linda Llanos | | | 2018 | | | BRAYDON Lu | | +--------+ + + + + | 10/17/ | Telephone | Physical Medicine | Michele Howard | Other | | 2018 | | and Rehabilitation | MD Ray | | +--------+ + + + + | 10/04/ | Orders Only | Physical Medicine | Khanh Ascencio, | Subscapular bursitis | | 2018 | | and Rehabilitation | NONI | (Primary Dx) | +--------+ + + + + | 09/26/ | Office | Physical Medicine | Sonu Khanh, | Subscapular bursitis | | 2018 | Visit | and Rehabilitation | PA-Marcella | (Primary Dx); | | | | | | Chronic bilateral | | | | | | thoracic back pain; | | | | | | Chronic thoracic | | | | | | spine pain | +--------+ + + + + | 09/26/ | Abstract | Physical Medicine | Provider, | | | 2018 | | and Rehabilitation | MD Don | | +--------+ + + + + from Last 3 Months Social History + +-------+ +--------+------+ | Tobacco [...] | 36.8 C (98.2 F) | 09/03/2018 1216 PDT | + + + + | Respiratory Rate | 18 | 09/04/20181342 PDT | + + + + | Oxygen Saturation | 98% | 09/04/20181342 PDT | + + + + | [...] 1550 PDT | + + + + Plan of Treatment + + + + + | Health Maintenance | Due Date | Last Done | Comments | + + + + + | Diabetic Eye Exam | | | | | | 0 | | | + + + + + | Diabetic Foot Exam | | | | | | 0 | | | + + + + + | Hemoglobin A1c | | | | | Screening | 0 | | | + + + + + | Microalbumin | 07/24/201 | | | | Screening | 9 | | | + + + + + | Vaccine: Influenza | | 12/09/2011 | | | (#1) | 9 | | | + + + + + | Vaccine: | | 10/08/2011 | | | Dtap/Tdap/Td (2 - | 2 | | | | Td) | | | | + + + + + | Vaccine: | Completed | 10/08/2011 | | | Pneumococcal 19-64 | | | | | (PPSV23 only) Medium | | | | | Risk | | | | + + + [...] section. | + +--------+ + + + from Last 3 Months Results [place] Asp and/or Inj Major Joint [...] | | | + +---------+ + + from Last 3 Months Insurance + +--------+ +--------+ +---------+--------+ | Payer | Benefi | Subscriber | Effect | Phone | Address | Type | | | t Plan | ID | [place] | | | | | | / | | Dates | | | | | | Group | | | | | | + +--------+ +--------+ +---------+--------+ | [employer] | CAREOR | [id number] | 12/12/ | [phone] | | Medica | | HMO | [place]ON | | 2019-P | 0 | | id | | | HEALTH | | resent | | | | | | SHARE | | | | | | | | MDCD | | | | | | | | [place] | | | | | | + +--------+ +--------+ +---------+--------+ + +--------+ +--------+ + + | Guarantor Name | Accoun | Relation to | Date | Phone | Billing Address | | | t Type | Patient | of | | | | | | | | | | + +--------+ +--------+ + + | Gregory Acosta | Person | Self [birth year] | [address] | | | al/Fam | | 1979 | [phone] | [place] [address] | | | vidal | | | 8 (Home) | | + +--------+ +--------+ + + | Gregory Acosta | Person | Self [birth year] | [address] | | | al/Fam | | 1979 | [phone] | [place] [address] | | | vidal | | | 8 (Home) | | + +--------+ +--------+ + + Advance Directives Patient has advance care planning documents on file. For more information, please contact:[facility] [employer] [facility] [place] [address]
--- OUTSIDE RECORDS SUMMARY | ~2018-12-19 | XMS | Encounter Summary ---
Demographics + + + | Address | [address] | | | [place] [address] | + + + | Home Phone | | + + + | Preferred Language | Unknown | + + + | Marital Status | Single | + + + | Sabianism Affiliation | 1050 | + + + | Race | Unknown | + + + | Ethnic Group | Unknown | + + + Author + + + | Author | [facility] | | | and [place] | + + + | Organization | [facility] | | | and [place] | + + + | Address | Unknown | + + + | Phone | Unavailable | + + + Support + + + + + | Name | Relationship | Address | Phone | + + + + + | Naida Acosta | ECON | [place] [address] | | + + + + + Care Team Providers + +------+ + | Care Sales Recruitment Specialist Name | Role | Phone | [...] [address] | | | | | [place], | [address] [place] | | | | | [place] [address] | [place] [address] | | | | | [phone] | [phone] | | | | | | | [...]
--- OUTSIDE RECORDS SUMMARY | ~2018-12-19 | XMS | Encounter Summary ---
Demographics + + + | Address | [address] | | | [place] [address] | + + + | Home Phone | | + + + | Preferred Language | Unknown | + + + | Marital Status | Single | + + + | Methodist Affiliation | 1050 | + + + | Race | Unknown | + + + | Ethnic Group | Unknown | + + + Author + + + | Author | [facility] (Historical as of | | | 10-15-18) | + + + | Organization | [facility] (Historical as of | | | 10-15-18) | + + + | Address | Unknown | + + + | Phone | Unavailable | + + + Support + + + + + | Name | Relationship | Address | Phone | + + + + + | Naida Acosta | ECON | [place] [address] | | + + + + + Care Team Providers + +------+ + | Care Sole Layer Name | Role | Phone | + +------+ + | Sahil Billings | PCP | | + +------+ + Reason for Visit +--------+ + | Reason | Comments | +--------+ + | Other | | +--------+ + Consult and Treat (Urgent) + +--------+ + + + + | Status | Reason | Specialty | Diagnoses / | Referred By | Referred To | | | | | Procedures | Contact | Contact | + +--------+ + + + + | Authorized | | Dermatology / | Diagnoses | [facility] | [facility] | | | | Plastic | | LUANN Baxter | Surgery [address] | | | | Surgery | 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 | [address] | [address] | | | | | ulcer of | [place], | [place], [place] | | | | | skin of | [place] [address] | [address] | | | | | other sites | Phone: | Phone: | | | | | with | [phone] | [phone] | | | | | unspecified | Fax: | Fax: | | | | | severity | [phone] | [phone] | | | | | ([facility]) | | | | | | | Cellulitis, | | | | | | | unspecified | | | | | | | Type 1 | | | | | | | diabetes | | | | | | | mellitus | | | | | | | without | | | | | | | complication | | | | | | | s ([facility]) | | | + +--------+ + + + + Encounter Details +--------+---------+ + + + | Date | Type | Department | Care Team | Description | +--------+---------+ + + + | 10/10/ | Office | [facility] | Linda Llanos | Dermatitis, | | 2019 | Visit | Plastic Surgery and | [address] | unspecified (Primary | | | | Dermatology [address] | [address] | Dx); Suicidal | | | | [address] | [place] [address] | ideation | | | | [place], [place] | [phone] | | | | | [address] | | | | | | [phone] | | | +--------+---------+ + + + [...] + + + as of this encounter Last Filed Vital Signs + + + + | Vital Sign | Reading | Time Taken | + + + + | Blood Pressure | - | - | + + + + | Pulse | - | - | + + + + | Temperature [...] PM PDT | + + + + in this encounter Progress Notes Linda Llanos ARNP - 10/10/2018 2:00 PM PDTFormatting of this note may be differ ent from the original. Subjective: Patient ID: Gregory Acosta is a 38 y.o. male. New patient is here as a referral with spot of concern located on right jainism. Patient sta miky this spot has been present for over 3 months but that he had had multiple lesions and on ce they heal another occurs ed different area. Patient states he has recently treated with clindamycin capsule and mupircorin ointment. Previous other treatments have been: Keflex, Ba ctrim, and chlorhexidine wash(up to 5 times daily).He states it helps but once he gets it to at least 80% healed he runs out clindamycin and then area starts to get worse. He describes these areas to first have a white head and firm red tissue circumferentially. All lesions h ave only been on the face. 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 He describes that this issue causes him much distress and that he feels like nobody is treating him appropriately and that he has thoughts of suicide due to this issue. Patient is a type I diabetic and also has a history of methamphetamine use. The following portions of the patient's history were reviewed and updated as appropriate an d is available elsewhere in the record: allergies, current medications, past family history, past medical history, past social history, past surgical history and problem list. Review of Systems Constitutional: Negative. Skin: Positive for wound. SKIN Psychiatric/Behavioral: Positive for suicidal ideas. All other systems reviewed and are negative. Objective: Physical Exam Constitutional: He is oriented to person, place, and time. He appears well-developed and we ll-nourished. He appears distressed. HENT: Head: Normocephalic and atraumatic. Eyes: Pupils are equal, round, and reactive to light. Neurological: He is alert and oriented to person, place, and time. Skin: Skin is warm. Excoriated "picked at" papules of right upper forehead just above the eyebrow. There were o ther healed areas with scar tissue present on the central upper forehead and the left nasal sidewall. Psychiatric: Shortly into the examination the patient became very agitated and began yelling at this pro vider. He reported suicidally due to the issue with the lesions on his face but did not report a p tu upon which he was going to follow. When I explained that I would not be prescribing the antibiotic he was demanding I prescrib e to him without appropriate workup "Clindamycin" he then refused to answer my questions re garding suicidal thoughts. He reported that if I didn't write the prescription he would go t o urgent care and get a prescription. The patient proceeded to pharmacy picking technician his backpack and leave the room slamming the door behind harsha im. Assessment and Plan: Carter did not give me time to assess his thoughts of suicidality. Before he got up and walk ed out of the visit. The police were notified with a concern for his safety and information was provided to them here in the office when they arrived. Visit Diagnoses and Associated Orders: Gregory was seen today for other. Dermatitis, unspecified Comments: Is unclear to me if these are acne lesions, boils, or just neurotic excoriations. Suicidal ideation Comments: Patient would not answer my questions regarding his safety. Recommend complete the examina tion he got up and left the office. I, Marija Davis CMA, am scribing for, and in the presence of YANELY Sims , NON LINEAR EDITOR-BRIDGETTE, RON I, RODNEY Sims DCNP, personally performed the services described in this documen tation, as scribed by Marija Davis CMA, in my presence, and it is both accurate and complete. in this encounter Plan of Treatment Not on fileas of this encounter Visit Diagnoses + + | Diagnosis | + + | Dermatitis, unspecified - Primary | + + | Suicidal ideation | + + Administered Medications + +--------+ +------+------+------+ | Medication Order | MAR | Action | Dose | Rate | Site | | | Action | Date | | | | + +--------+ +------+------+------+ | PPD Test | Given | | | | | | | | 4 00:00 | | | | | | | PDT | | | | + +--------+ +------+------+------+ +---+---+ | | | +---+---+ in this encounter
--- OUTSIDE RECORDS SUMMARY | ~2018-12-19 | XMS | Encounter Summary ---
Demographics + + + | Address | [address] | | | [place] [address] | + + + | Home Phone | | + + + | Preferred Language | Unknown | + + + | Marital Status | Single | + + + | Spiritism Affiliation | Unknown | + + + | Race | White | + + + | Ethnic Group | Not or | + + + Author + + + | Author | [facility] | + + + | Organization | [facility] | + + + | Address | Unknown | + + + | Phone | Unavailable | + + + Support + + +---------+ + | Name | Relationship | Address | Phone | + + +---------+ + | Dandre Acosta | ECON | Unknown | | + + +---------+ + Care Team Providers + +------+ + | Care Sanitarian Inspector Name | Role | Phone | + +------+ + | MaddisonSailaja Brionna STEVENS | PCP | | + +------+ + Reason for Visit + + + | Reason | Comments | + + + | [facility] | [place] | | Equipment (DME) | | | Orders | | + + + | Refill Request | | + + + | Refill Request | | + + + Encounter Details +--------+--------+ + + + | Date | Type | Department | Care Team | Description | +--------+--------+ + + + | 07/11/ | Refill | Leobardo Pedroza | Lidia Holguin | [facility] | | 2019 | | Diabetes Health | MD Kenny [address] [facility] | Equipment (DME) | | | | Center at [facility] | [address] | Orders (Tosin); | | | | [address] | [place], [place] | Refill Request; | | | | [address] | [address] | Refill Request | | | | Physician's | [phone] | | | | | [address] | | | | | | [place], [place] | | | | | | [address] | | | | | | [phone] | | | +--------+--------+ + + + [...] Rd | | | | | | [place], [place] | | | | | | [address] | | | | | | [phone] | | | | | | | | +--------+---------+ + + + | 02/27/ | Office | Endocrinology, | Daniella Tejeda | | | 2019 | Visit | Diabetes & | NONI [address] | | | | | Metabolism | [address] | | | | | | Physician Tiarra | | | | | | [address] | | | | | [place] [address] | | | | | | [phone] | | | | | | | | +--------+---------+ + + + documented as of this encounter Visit Diagnoses Not on filedocumented in this encounter"
--- OUTSIDE RECORDS SUMMARY | ~2018-12-19 | XMS | Encounter Summary ---
Demographics + + + | Address | [address] | | | [place] [address] | + + + | Home Phone | | + + + | Preferred Language | Unknown | + + + | Marital Status | Single | + + + | Moravian Affiliation | Unknown | + + + | Race | White | + + + | Ethnic Group | Not or | + + + Author + + + | Author | [facility] | + + + | Organization | [facility] | + + + | Address | Unknown | + + + | Phone | Unavailable | + + + Support + + +---------+ + | Name | Relationship | Address | Phone | + + +---------+ + | Dandre Acosta | ECON | Unknown | | + + +---------+ + Care Team Providers + +------+ + | Care Shaft Tender Name | Role | Phone | + [...] | | | 2017 | on | [facility] [address] | [facility] [address] | | | | | Sola Mailcode: | [place], [place] | | | | | [facility] | [address] | | | | | and Healing, | [phone] | | | | | Building [address] | | | | | | [place], [place] | | | | | | [address] | | | | | | [phone] | | | +--------+ + + + [...] Rd | | | | | | CENTER [place], [place] | | | | | | [address] | | | | | | [phone] | | | | | | | | +--------+---------+ + + + | 02/27/ | Office | Endocrinology, | Daniella Tejeda | | | 2018 | Visit | Diabetes & Morris Cox PA-C [address] | | | | | Metabolism | [address] | | | | | | Physician [place] | | | | | | [address], | | | | | | [place] [address] | | | | | | [phone] | | | | | | | | +--------+---------+ + + + documented as of this encounter Visit Diagnoses Not on filedocumented in this encounter"
--- OUTSIDE RECORDS SUMMARY | ~2018-12-19 | XMS | Encounter Summary ---
Demographics + + + | Address | [address] | | | [place] [address] | + + + | Home Phone [...] Team Providers + +------+ + | Care Bleacher Lard Name | Role | Phone | + +------+ + | Linda Lizarraga OTOLARYNGOLOGY SURGEON | PCP | | + +------+ + [...] | | | [address] | [place], [place] | | | | | | Physicians | [address] | | | | | | [address] | Phone: | | | | | | Mother | [phone] | | | | | | [address]et[address] Carmella | Fax: | | | | | | [address] | [phone] | | | | | | [place], | | | | | | | [place] [address] | | | | | | | Phone: | | | | | | | [phone] | | | | | | | Fax: | | | | | | | [phone] | | +--------+--------+ + + + + Encounter Details +--------+---------+ + + + | Date | Type | Department | Care Team | Description | +--------+---------+ + + + | 12/22/ | Office | Spine Center at | Edward Neil, | Arachnoid cyst | | 2018 | Visit | [facility] [address] | [facility] [address] | (Primary Dx) | | | | Ave Mailcode: | Ave [facility], [place] | | | | | Center for Health | [address] | | | | | and Healing, | [phone] | | | | | [facility] [address] | | | | | | [place], [place] | | | | | | [address] | | | | | | [phone] | | | +--------+---------+ + + + [...] arachnoid cyst with chronic diffuse migratory symptoms. Sinc e his last appointment with me he was evaluated by [facility] spine Surgeon Dr. Martin who did not [...] branch blocks, not covered by [facility] -Pain Clinic referral for Pain Psy, [...] by mouth once daily at bedtime. Fish Oil-[place]-3 Fatty Acids 300-1,000 mg oral capsule Take [...] under the skin (SUBC). Sliding scale Insulin Ramona (Disposable) 31 gauge x 5/16" needle 1 [...] needed I spent at least 12 minutes [id number] with the patient. I spent more than 50% of this vi sit in coordination of care and counseling in which we discussed diagnosis, treatment, imagi ng studies and follow-up. Edward Neil PA-C SPINE CENTER AT [address] [address] documented in this e ncounter Plan [...] Rd | | | | | | [place], [place] | | | | | | [address] | | | | | | [phone] | | | | | | | | +--------+---------+ + + + | 02/27/ | Office | Endocrinology, | Daniella Tejeda | | | 2019 | Visit | Diabetes & Morris Cox PA-C [address] | | | | | Metabolism | [address] | | | | | | Physician Tiarra | | | | | | [facility] [address] [place], | | | | | | [place] [address] | | | | | | [phone] | | | | | | | | +--------+---------+ + + + documented as of this encounter Visit Diagnoses + + | Diagnosis | + + | Arachnoid cyst - Primary Cerebral cysts | + + documented in this encounter
--- OUTSIDE RECORDS SUMMARY | ~2018-12-19 | XMS | Encounter Summary ---
Demographics + + + | Address | [address] | | | [place] [address] | + + + | Home Phone [...] Team Providers + +------+ + | Care Sap Fico Business Analyst Name | Role | Phone | [...] (ED visit | | 2018 | | [facility] [address] | [address] | yesterday) | | | | Ave Mailcode: [address] | Ave [place], [place] | | | | | [facility] | [address] | | | | | and Charu, | [phone] | | | | | [facility] | | | | | | Floor [place], [place] | | | | | | [address] | | | | | | [phone] | | | +--------+ + + + [...] Rd | | | | | | [place], [place] | | | | | | [address] | | | | | | [phone] | | | | | | | | +--------+---------+ + + + | 02/27/ | Office | Endocrinology, | Daniella Tejeda | | | 2018 | Visit | Diabetes & Morris Cox PA-C [address] | | | | | Metabolism | [address] | | | | | | Physician Tiarra | | | | | | [address], | | | | | | [place] [address] | | | | | | [phone] | | | | | | | | +--------+---------+ + + + documented as of this encounter Visit Diagnoses Not on filedocumented in this encounter"
--- OUTSIDE RECORDS SUMMARY | ~2018-12-19 | XMS | Encounter Summary ---
Demographics + + + | Address | [address] | | | [place] [address] | + + + | Home Phone | | + + + | Preferred Language | Unknown | + + + | Marital Status | Single | + + + | Gnosticism Affiliation | Unknown | + + + | Race | White | + + + | Ethnic Group | Not or | + + + Author + + + | Author | [facility] | + + + | Organization | [facility] | + + + | Address | Unknown | + + + | Phone | Unavailable | + + + Support + + +---------+ + | Name | Relationship | Address | Phone | + + +---------+ + | Dandre Acosta | ECON | Unknown | | + + +---------+ + Care Team Providers + +------+ + | Care Airframe Technician Name | Role | Phone | + [...] | | | [address] | [place], [place] | | | | | [address] | [address] | | | | | Physician's | [phone] | | | | | [address] | | | | | | [place], [place] | | | | | | [address] | | | | | | [phone] | | | +--------+ + + + [...] Rd | | | | | | [place], [place] | | | | | | [address] | | | | | | [phone] | | | | | | | | +--------+---------+ + + + | 02/27/ | Office | Endocrinology, | Daniella Tejeda | | | 2018 | Visit | Diabetes & | NONI [address] | | | | | Metabolism | [address] | | | | | | Physician Tiarra | | | | | | [address], | | | | | | [place] [address] | | | | | | [phone] | | | | | | | | +--------+---------+ + + + documented as of this encounter Visit Diagnoses Not on filedocumented in this encounter"
--- OUTSIDE RECORDS SUMMARY | ~2018-12-19 | XMS | Encounter Summary ---
Demographics + + + | Address | [address] | | | [place] [address] | + + + | Home Phone | | + + + | Preferred Language | Unknown | + + + | Marital Status | Single | + + + | Anglican Affiliation | 1050 | + + + | Race | Unknown | + + + | Ethnic Group | Unknown | + + + Author + + + | Author | [facility] | | | and [place] | + + + | Organization | [facility] | | | and [place] | + + + | Address | Unknown | + + + | Phone | Unavailable | + + + Support + + + + + | Name | Relationship | Address | Phone | + + + + + | Naida Acosta | ECON | [place] [address] | | + + + + + Care Team Providers + +------+ + | Care Identification And Records Commander Name | Role | Phone | + +------+ + | Sina Law | PCP | | + +------+ + Encounter Details +--------+ + + + + | Date | Type | Department | Care Team | Description | +--------+ + + + + | 10/19/ | Telephone | [facility] | Linda Llanos | | | 2019 | | PLASTIC SURGERY AND | [address] | | | | | DERMATOLOGY [address] | [address] | | | | | [address] | [place] [address] | | | | | [place], [place] | [phone] | | | | | [address] | | | | | | [phone] | | | +--------+ + + + [...]
--- OUTSIDE RECORDS SUMMARY | ~2018-12-19 | XMS | Clinical Summary ---
Demographics + + + | Address | [address] | | | [place] [address] | + + + | Home Phone | | + + + | Preferred Language | Unknown | + + + | Marital Status | Single | + + + | Mandaeism Affiliation | 1050 | + + + | Race | Unknown | + + + | Ethnic Group | Unknown | + + + Author + + + | Author | [facility] | | | and [place] | + + + | Organization | [facility] | | | and [place] | + + + | Address | Unknown | + + + | Phone | Unavailable | + + + Support + + + + + | Name | Relationship | Address | Phone | + + + + + | Naida Acosta | ECON | [place] [address] | | + + + + + Care Team Providers + +------+ + | Care Record Changer Assembler Name | Role | Phone | + [...] of Present | | Illness:CBGs:14-day avg = [id number] avg = 197CBG this AM = | | 325Has new girlfriend - been going out to dinner a lot.Little | | exercise.Planning on taking a contract job for 3 months in | | [place].Needing to get supplies to cover him for this.Has not | | applied for Cover [place] because leaving to [place] soon. Will | | when he returns.Worried [...] | History of Present Illness:CBGs:14-day avg = [id number] avg = | | 197CBG this AM = 325Has new girlfriend - been going out to | | dinner a lot.Little exercise.Planning on taking a contract job | | for 3 months in [place].Needing to get supplies to cover him for | | this.Has not applied for Cover [place] because leaving to [place] | | soon. Will when he returns.Worried [...] of | | Present Illness:CBGs:14-day avg = [id number] avg = 197CBG this AM | | = 325Has new girlfriend - been going out to dinner a lot.Little | | exercise.Planning on taking a contract job for 3 months in | | [place].Needing to get supplies to cover him for this.Has not | | applied for Cover [place] because leaving to [place] soon. Will | | when he returns.Worried [...] | History of Present Illness:CBGs:14-day avg = 59542-yqk avg = | | 197CBG this AM = 325Has new girlfriend - been going out to | | dinner a lot.Little exercise.Planning on taking a contract job | | for 3 months in [place].Needing to get supplies to cover him for | | this.Has not applied for Cover [place] because leaving to [place] | | soon. Will when he returns.Worried [...] a contract job for 3 months in [place]. | |Needing to get supplies to cover him for this. | |Has not applied for Cover [place] because leaving to [place] soon. Will when he returns. | | [...] a contract job for 3 months in [place]. | |Needing to get supplies to cover him for this. | |Has not applied for Cover [place] because leaving to [place] soon. Will when he returns. | | [...] | 2018 | Encounter | | [facility] [employer] Spotter, | thoracic back pain; | | | [...] +---------+--------+ | [employer] | CAREOR | [id number] | 12/12/ | [phone] | | Medica [...] | 1979 | [id number] | [place] [address] | | | vidal | | | 8 (Home) | | + +--------+ +--------+ + + | Gregory Acosta | Person | Self | [birth year] | [address] | | | al/Fam | | 1979 | [phone] | [place] [address] | | | vidal | | | 8 (Home) | | + +--------+ +--------+ + + Advance Directives Patient has advance care planning documents on file. For more information, please contact:[email or web address] [email or web address] [facility] [place] [address]
--- OUTSIDE RECORDS SUMMARY | ~2018-12-19 | XMS | Encounter Summary ---
Demographics + + + | Address | [address] | | | [place] [address] | + + + | Home Phone | | + + + | Preferred Language | Unknown | + + + | Marital Status | Single | + + + | Hinduism Affiliation | Unknown | + + + | Race | White | + + + | Ethnic Group | Not or | + + + Author + + + | Organization | Unknown | + + + | Address | Unknown | + + + | Phone | Unavailable | + + + Support + + +---------+ + | Name | Relationship | Address | Phone | + + +---------+ + | Dandre Acosta | ECON | Unknown | | + + +---------+ + Care Team Providers + +------+ + | Care Technical Buyer Name | Role | Phone | + +------+ + | Sahil Billings PA-C | PCP | | + +------+ + Encounter Details +--------+--------+ + + + | Date | Type | Department | Care Team | Description | +--------+--------+ + + + | 11/25/ | Travel | | | | | 2018 | | | | | +--------+--------+ + + + [...] Rd | | | | | | [place], [place] | | | | | | [address] | | | | | | [phone] | | | | | | | | +--------+---------+ + + + | 02/27/ | Office | Endocrinology, | Daniella Tejeda | | | 2018 | Visit | Diabetes & | NONI [address] | | | | | Metabolism | [address] | | | | | | Physician [place] | | | | | | [address] | | | | | | [place] [address] | | | | | | [phone] | | | | | | | | +--------+---------+ + + + documented as of this encounter Visit Diagnoses Not on filedocumented in this encounter"
--- OUTSIDE RECORDS SUMMARY | ~2018-12-19 | XMS | Encounter Summary ---
Demographics + + + | Address | [address] | | | [place] [address] | + + + | Home Phone | | + + + | Preferred Language | Unknown | + + + | Marital Status | Single | + + + | Restorationism Affiliation | 1050 | + + + | Race | Unknown | + + + | Ethnic Group | Unknown | + + + Author + + + | Author | [facility] | | | and [place] | + + + | Organization | [facility] | | | and [place] | + + + | Address | Unknown | + + + | Phone | Unavailable | + + + Support + + + + + | Name | Relationship | Address | Phone | + + + + + | Naida Acosta | ECON | [place] [address] | | + + + + + Care Team Providers + +------+ + | Care Fishing Gear Mechanic Name | Role | Phone | + +------+ + | Sahil Billings | PCP | | + +------+ + Reason for Visit + + + | Reason | Comments | + + + | Injections | | + + + Encounter Details +--------+ + + + + | Date | Type | Department | Care Team | Description | +--------+ + + + + | 10/27/ | Telephone | [facility] | AshumillylakshmiMichele taveras | Injections | | 2019 | | PHYSIATRY [address] | T, [place] [address] | | | | | [place] [address], | [place], [place] | | | | | [place] [address] | [address] | | | | | [phone] | | | +--------+ + + + [...]
--- OUTSIDE RECORDS SUMMARY | ~2018-12-19 | XMS | Encounter Summary ---
Demographics + + + | Address | [address] | | | [place] [address] | + + + | Home Phone [...] + + + | Author | [facility] | + + + | Organization | [facility] | + + + | Address | Unknown | + + + | Phone | Unavailable | + + + Support + + +---------+ + | Name | Relationship | Address | Phone | + + +---------+ + | Dandre Acosta | ECON | Unknown | | + + +---------+ + Care Team Providers + +------+ + | Care Technical Photographer Name | Role | Phone | + +------+ + | Sahil Billings PA-C | PCP | | + +------+ + Reason for Visit + + + | Reason | Comments | + + + | [facility] | [facility] | | Equipment (DME) | | | Orders | | + + + | Refill Request | | + + + | Refill Request | | + + + Encounter Details +--------+--------+ + + + | Date | Type | Department | Care Team | Description | +--------+--------+ + + + | 12/13/ | Refill | Leobardo Pedroza | Lidia Holguin | [facility] | | 2019 | | [facility] | MD Kenny [address] [facility] | Equipment (DME) | | | | [facility] | [facility] [address] | Orders (Tosin); | | | | [address] | [place], [place] | Refill Request; | | | | [facility] [facility] [address] | [address] | Refill Request | | | | Physician's | [phone] | | | | | [address] | | | | | | [place], [place] | | | | | | [address] | | | | | | [phone] | | | +--------+--------+ + + + [...] Rd | | | | | | [place], [place] | | | | | | [address] | | | | | | [phone] | | | | | | | | +--------+---------+ + + + | 02/27/ | Office | Endocrinology, | Daniella Tejeda | | | 2019 | Visit | Diabetes & | NONI Cox [address] | | | | | Metabolism | [address] | | | | | | Physician [place] | | | | | | [address] | | | | | | [place] [address] | | | | | | [phone] | | | | | | | | +--------+---------+ + + + documented as of this encounter Visit Diagnoses Not on filedocumented in this encounter"
--- OUTSIDE RECORDS SUMMARY | ~2018-12-19 | XMS | Encounter Summary ---
Demographics + + + | Address | [address] | | | [place] [address] | + + + | Home Phone [...] + + + | Author | [facility] | | | and [place] | + + + | Organization | [facility] | | | and [place] | + + + | Address | Unknown | + + + | Phone | Unavailable | + + + Support + + + + + | Name | Relationship | Address | Phone | + + + + + | Naida Acosta | ECON | [place] [address] | | + + + + + Care Team Providers + +------+ + | Care Glue Cook Name | Role | Phone | [...] + | 10/27/ | Telephone | [facility] | AshumillylakshmiMichele taveras | Injections | | 2019 | | PHYSIATRY [address] | T, MD [address] | | | | | [place], | [place], [place] | | | | | [place] [address] | [address] | | | | | [phone] | | | +--------+ + + + [...]
--- OUTSIDE RECORDS SUMMARY | ~2018-12-19 | XMS | Encounter Summary ---
Demographics + + + | Address | [address] | | | [place] [address] | + + + | Home Phone | | + + + | Preferred Language | Unknown | + + + | Marital Status | Single | + + + | Confucianism Affiliation | 1050 | + + + | Race | Unknown | + + + | Ethnic Group | Unknown | + + + Author + + + | Author | [facility] | | | and [place] | + + + | Organization | [facility] | | | and [place] | + + + | Address | Unknown | + + + | Phone | Unavailable | + + + Support + + + + + | Name | Relationship | Address | Phone | + + + + + | Naida Acosta | ECON | [place] [address] | | + + + + + Care Team Providers + +------+ + | Care Territory Business Manager Name | Role | Phone | [...] | | | | bursitis | [place] [address] | | | | | | Procedures | Phone: | | | | | | FL Asp | [phone] | | | | | | and/or Inj | Fax: | | | | | | Major Joint | [phone] | | | | | | Left | | | +--------+--------+ + + + + Reason for Visit + + + | Reason | Comments | + + + | New Patient | Left Mid Thoracic Pain | + + + Evaluate & [...] | | | | [place], [place] | [address] Phone: | | | | | | [address] | [phone] | | | | | | Phone: | Fax: | | | | | | [phone] | [phone] | | | | | | Fax: | | | | | | | [phone] | | +--------+ + + + + + Encounter Details +--------+---------+ + + + | Date | Type | Department | Care Team | Description | +--------+---------+ + + + | 09/26/ | Office | [facility] | Khanh Ascencio, | Subscapular bursitis | | 2019 | Visit | PHYSIATRY [address] | PA-C [address] | (Primary Dx); | | | | [facility], | [address] [place] | Chronic bilateral | | | | [place] [address] | [place] [address] | thoracic back pain; | | | | [phone] | [phone] | Chronic thoracic | | | | | | spine pain | +--------+---------+ + + + Social History [...] + + + | Blood Pressure | 112/64 | 09/26/2018 1259 PDT | + + + + | Pulse | 68 | 09/26/2018 1259 PDT | + + + + | Temperature | - | - | + + + + | Respiratory Rate | - | - | + + + + | Oxygen Saturation | - | - | + + + + | Inhaled Oxygen | - | - | | Concentration | | | + + + + | Weight | 83.5 kg (184 lb) | 09/26/20181258 PDT | + + + + | Height | 185.4 cm (6' 1") | 09/26/20181258 PDT | + + + + | Body Mass Index | 24.28 | 09/26/2018 1259 PDT | + + + + documented in this encounter Patient Instructions Patient Instructions Khanh Ascencio PA-C - 09/26/2018 13:00 PDTFormatting of this note migh t be different from the original. LEFT subscapular bursa injection ordered. Understanding Trochanteric Bursitis A bursa is a thin, slippery, sac-like film. It contains a small amount of fluid. This struc ture is found between bones and soft tissues in and around joints. A bursa cushions and prot ects a joint. It keeps parts of a joint from rubbing against each other. If a bursa becomes inflamed and irritated, it is known as bursitis. The trochanteric bursa is found on the hip joint. It lies on top of the bump at the top of the thighbone called the greater trochanter. Inflammation of this bursa is called trochanter ic bursitis. How to say it [id number]-TVQY-ik Causes of trochanteric bursitis Causes may include: Overuse of the hip during running or other sports, dance, or work Falling on or irritation to the side of the hip This condition may occur along with other problems, such as osteoarthritis of the hip or kn ee, or low back problems. In rare cases, it may occur after hip surgery. Symptoms of trochanteric bursitis Pain or aching on the side of the hip. The pain may travel down the leg. Swelling, tenderness, or warmth on the side of the hip at the bony bump at the top of th e thigh Treatment for trochanteric bursitis These may include: Resting the hip. This allows the bursa to heal. Prescription or znsh-upb-xovgoda pain medicines. These help reduce inflammation, swellin g, and pain. Cold packs and heat packs. These help reduce pain and swelling. Stretching and strengthening exercises. These improve flexibility and strength around th e hip. Physical therapy. This includes exercises or other treatments. Injections of medicine into the bursa. This may help reduce inflammation and relieve sym ptoms. Possible complications If you don t give your hip time to heal, the problem may not go away, may return, or may get worse. Rest and treat your hip as directed. When to call your healthcare provider Call your healthcare provider right away if you have any of these: Fever of 100.4F (38C) or higher, or as directed Redness, swelling, or warmth that gets worse Symptoms that don t get better with prescribed medicines, or get worse New symptoms Date Last Reviewed: 05/28/201519997155-5655 [employer] [place] [address], [place] [address]. All righ ts reserved. This information is not intended as a substitute for professional medical care. Always follow your healthcare professional's instructions. documented in this encounter Progress Notes Khanh Ascencio PA-C - 09/26/2018 1300 PDTFormatting of this note might be different from th e original. Khanh Ascencio PA-C [address] [facility], [address] [place] [address] FAX: CHIEF COMPLAINT: Chief Complaint Patient presents with New Patient Left Mid Thoracic Pain HISTORY OF PRESENT ILLNESS: The patient is a 38 y.o. male with the complaint of left mid t horacic and left shoulder pain that began approximately 2 years ago. The patient states carlitos t the symptoms began after no inciting event. The patient rates his pain and discomfort as severe. Since the symptoms began, he has noticed that symptoms have been monthly and gradual ly improving. He describes the pain as a numbing, pulsating, sharp, shooting and throbbing feeling. The patient also describes left scapular pain. The patient does not report loss of strengt h. He does not indicate a history of loss of fine motor function. The patient does not reports [...] times d aily (before meals). Sliding scale mirtazapine (REMERON) 15 MG tablet Take 15 [...] Family history unknown: Yes REVIEW OF SYSTEMS: REVIEW OF SYSTEMS: GENERALLY: No fever, no [...] no rheumatoid arthritis. PHYSICAL EXAMINATION: Blood pressure 112/64, pulse 68, height 1.854 m (6' 1"), weight 83.5 kg (184 lb). Body mass index is 24.28 kg/m. GENERAL: The patient is well developed [...] has no apparent deficits with short or longterm memory. 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 ASSESSMENT: Encounter Diagnoses Name Primary? Chronic bilateral thoracic back pain Chronic thoracic spine pain Subscapular bursitis Yes PLAN: It was a pleasure meeting and evaluating this patient today, and I greatly appreciate the r eferral. 1) Today we discussed the patient's differential diagnosis with the likely primary issue be ing left subscapular bursitis. patient's description of symptoms, physical exam, and imagin g suggest this diagnosis at this time. 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 Unfortunately Gregory Acosta continues to have significant discomfort. It appears to me that the pain is prim arily coming from subscapular region. I did feel that Gregory Acosta would be a good candidate for interventional procedu res and I offered a left subscapular bursa injection. I did feel that Gregory Acosta would be a good candidate for medication: none added today. 5) Patient will follow up with me 3 wks post injection/as needed to discuss any imaging and /or progress with today's treatment plan. I spent 30 minutes in visit with Gregory Acosta today with the majority of time spent counselling the patient on his diagnosis, options for his care, and coordinating his care. : LUANN Ng documented in this enc nter Plan of Treatment Not on filedocumented as of this encounter Results FL Asp and/or Inj Major Joint Left [...] Primary Other bursitis disorders | + + | Chronic bilateral thoracic back pain | + + | Chronic thoracic spine pain Pain in thoracic spine | + + documented in this encounter
--- OUTSIDE RECORDS SUMMARY | ~2018-12-19 | XMS | Encounter Summary ---
Demographics + + + | Address | [address] | | | [place] [address] | + + + | Home Phone [...] + + + | Author | [facility] | | | and [place] | + + + | Organization | [facility] | | | and [place] | + + + | Address | Unknown | + + + | Phone | Unavailable | + + + Support + + + + + | Name | Relationship | Address | Phone | + + + + + | Naida Acosta | ECON | [place] [address] | | + + + + + Care Team Providers + +------+ + | Care Pediatrician Name | Role | Phone | + [...] | | | | Major Joint | [place] [address] | | | | | | Right | Phone: | | | | | | | [phone] | | | | | | | Fax: | | | | | | | [phone] | | +--------+--------+ + + + + [...] | (Primary Dx) | | | | [place] [address], | [address] [place] | | | | | [place] [address] | [place] [address] | | | | | [phone] | [phone] | | | | | | | [...] + + | Performing | Address | City[facility]State[facility] | Phone Number | | Organization | | | | + +---------+ + + | [facility] | | | | + +---------+ + + documented in this encounter Visit Diagnoses + + | Diagnosis | + + | Subscapular bursitis - Primary Other bursitis disorders | + + documented in this encounter"
--- OUTSIDE RECORDS SUMMARY | ~2018-12-19 | XMS | Encounter Summary ---
Demographics + + + | Address | [address] | | | [place] [address] | + + + | Home Phone | | + + + | Preferred Language | Unknown | + + + | Marital Status | Single | + + + | Scientology Affiliation | Unknown | + + + [...] Team Providers + +------+ + | Care Armature Repairer Name | Role | Phone | + +------+ + | Sahil Billings PA-C | PCP | | + +------+ + Encounter Details +--------+--------+ + + + | Date | Type | Department | Care Team | Description | +--------+--------+ + + + | 11/16/ | Travel [...] Rd | | | | | | [place], [place] | | | | | | [address] | | | | | | [phone] | | | | | | | | +--------+---------+ + + + | 02/27/ | Office | Endocrinology, | Daniella Tejeda | | | 2018 | Visit | Diabetes & | NONI Cox [address] | | | | | Metabolism | [address] | | | | | | Physician [place] | | | | | | [address] | | | | | | [place] [address] | | | | | | [phone] | | | | | | | | +--------+---------+ + + + documented as of this encounter Visit Diagnoses Not on filedocumented in this encounter"
--- OUTSIDE RECORDS SUMMARY | ~2018-12-19 | XMS | Encounter Summary ---
Demographics + + + | Address | [address] | | | [place] [address] | + + + | Home Phone | | + + + | Preferred Language | Unknown | + + + | Marital Status | Single | + + + | Mandaen Affiliation | Unknown | + + + [...] Team Providers + +------+ + | Care Principal Accounts Clerk Name | Role | Phone | [...] | | | Sola Mailcode: | [place], [place] | | | | | [facility] | [address] | | | | | and Healing, | [phone] | | | | | [address] | | | | | | [place], [place] | | | | | | [address] | | | | | | [phone] | | | +--------+ + + + [...] Rd | | | | | | [place], [place] | | | | | | [address] | | | | | | [phone] | | | | | | | | +--------+---------+ + + + | 02/27/ | Office | Endocrinology, | Daniella Tejeda | | | 2018 | Visit | Diabetes & Morris Cox PA-C [address] | | | | | Metabolism | [address] | | | | | | Physician [place] | | | | | | [address], | | | | | | [place] [address] | | | | | | [phone] | | | | | | | | +--------+---------+ + + + documented as of this encounter Visit Diagnoses Not on filedocumented in this encounter"
--- OUTSIDE RECORDS SUMMARY | ~2018-12-19 | XMS | Encounter Summary ---
Demographics + + + | Address | [address] | | | [place] [address] | + + + | Home Phone | | + + + | Preferred Language | Unknown | + + + | Marital Status | Single | + + + | Adventist Affiliation | Unknown | + + + [...] Team Providers + +------+ + | Care Superintendent Horticulture Name | Role | Phone | + [...] | Myofascial | Camelia D, | [address] | | | | | pain | PA-C [address] | | | | | Arachnoid | [address] | Mailcode: | | | | | cyst | [place], | [address] | | | | | Procedures | [place] | for Health | | | | | PHYSICAL | [address] | and Healing, | | | | | THERAPY | Phone: | Building 1, | | | | | REFERRAL | [phone] | [address] | | | | | | Fax: | [facility] [place] | | | | | | [phone] | [address] | | | | | | | Phone: | | | | | | | [phone] | | | | | | | Fax: | | | | | | | [phone] | +--------+--------+ + + + + Encounter Details +--------+---------+ + + + | Date | Type | Department | Care Team | Description | +--------+---------+ + + + | 08/19/ | Office | [place] [facility] | Dissinger, | Chronic right-sided | | 2018 | Visit | Therapy Services at | Keely, PT [address] | thoracic back pain | | | | [facility] | [address] | (Primary Dx); Cyst | | | | [address] | [place], [place] | of spinal meninges | | | | Mailcode: CH3P | [address] | | | | | [facility] | | | | | | and Healing, | | | | | | Building | | | | | | Floor [place], [place] | | | | | | [address] | | | | | | [phone] | | | +--------+---------+ + + + [...] - 08/19/2017 10:00 AM PDT Insurance: Payor: [facility] [place] / Plan: [facility] Funding [employer] SHARE / Product Type: Medicaid / Non-Medicare [facility] PHYSICAL THERAPY EVALUATION Past Medical History: [...] (SUBC). Sliding scale, Disp: , Rfl: Insulin [place] (Disposable) 31 gauge x 5/16" needle, 1 [...] counselo r there, currently seeing someone at [place]. Tingling static electricity going down his lef [...] stretches Education: Rehabilitation diagnosis and plan of alf program: Exercise Date given Cat/Cow stretch 08/19/2017 Cross body shoulder stretch 08/19/2017 Hamstring stretch seated 08/19/2017 ASSESSMENT: Pt presents with right upper thoracic and low back pain that has been ongoing since last ye ar despite trying many avenues to address it. Suggested pt report his "freezing"/weakness/fa lling symptoms from previous day, in addition to ongoing limb heaviness, to his physician, aure cox these were somewhat concerning given the recent [...] Moderate - Moderate complexity Complexity: Moderate - 76762 The patient requires services that can be [...] status. Keely Davis, PT [facility] 1ST FLOOR Scheduled Appointment time: 10:00 [...] stretching, manual thera py Procedure Codes: Re-evaluation 87070, Therapeutic Exercise 39282, Manual Therapy 04413, Th erapeutic Activities 61994 and Neuromuscular Reeducation 90677 Minutes per session: 45 Total number of [...] meninges Next progress report 10/19/2017 Insurance: Payor: [employer] MEDICAID / Plan: APPLICATION DEFENSE MANAGER C[employer]OR HEALTH SHARE / Product Type: Medicaid [...] Rd | | | | | | [place], [place] | | | | | | [address] | | | | | | [phone] | | | | | | | | +--------+---------+ + + + | 02/27/ | Office | Endocrinology, | Daniella Tejeda | | | 2019 | Visit | Diabetes & | NONI Cox [address] | | | | | Metabolism | [address] | | | | | | Physician [place] | | | | | | [address] | | | | | [place] [address] | | | | | | [phone] | | | | | | | | +--------+---------+ + + + documented as of this encounter Procedures + +--------+ + + + | Procedure Name | Priori | Date/Time | Associated Diagnosis | Comments | | | ty | | | | + +--------+ + + + | [facility] | Routin | 08/20/2017 | Chronic [...]
--- OUTSIDE RECORDS SUMMARY | ~2018-12-19 | XMS | Encounter Summary ---
Demographics + + + | Address | [address] | | | [place] [address] | + + + | Home Phone [...] + | Author | [facility] | | | and [place] | + + + | Organization | [facility] | | | and [place] | + + + | Address | Unknown | + + + | Phone | Unavailable | + + + Support + + + + + | Name | Relationship | Address | Phone | + + + + + | Naida Acosta | ECON | [place] [address] | | + + + + + Care Team Providers + +------+ + | Care Hose Builder Name | Role | Phone | + [...] + + | 10/17/ | Telephone | [facility] | Michele Howard | Other | | 2019 | | PHYSIATRY [address] | T, MD [address] | | | | | [place], | [place], [place] | | | | | [place] [address] | [address] | | | | | [phone] | | | +--------+ + + + [...]
--- OUTSIDE RECORDS SUMMARY | ~2018-12-19 | XMS | Encounter Summary ---
Demographics + + + | Address | [address] | | | [place] [address] | + + + | Home Phone | | + + + | Preferred Language | Unknown | + + + | Marital Status | Single | + + + | Protestant Affiliation | 1050 | + + + | Race | Unknown | + + + | Ethnic Group | Unknown | + + + Author + + + | Author | [facility] | | | and [place] | + + + | Organization | [facility] | | | and [place] | + + + | Address | Unknown | + + + | Phone | Unavailable | + + + Support + + + + + | Name | Relationship | Address | Phone | + + + + + | Naida Acosta | ECON | [place] [address] | | + + + + + Care Team Providers + +------+ + | Care Outside Energy Sales Representatives Name | Role | Phone | + [...] + + | 11/28/ | Telephone | [facility] | Jerson Ruelas, | Referral (Status) | | 2019 | | INTERVENTIONAL PAIN | [address] | | | | | [place] [address] | [address] | | | | | [address], | [place] [address] | | | | | [place] [address] | [phone] | | | | | [phone] | | | +--------+ + + + [...]
--- OUTSIDE RECORDS SUMMARY | ~2018-12-19 | XMS | Encounter Summary ---
Demographics + + + | Address | [address] | | | [place] [address] | + + + | Home Phone | | + + + | Preferred Language | Unknown | + + + | Marital Status | Single | + + + | Moravian Affiliation | 1050 | + + + | Race | Unknown | + + + | Ethnic Group | Unknown | + + + Author + + + | Author | [facility] | | | and [place] | + + + | Organization | [facility] | | | and [place] | + + + | Address | Unknown | + + + | Phone | Unavailable | + + + Support + + + + + | Name | Relationship | Address | Phone | + + + + + | Naida Acosta | ECON | [place] [address] | | + + + + + Care Team Providers + +------+ + | Care Photo Print Specialist Name | Role | Phone | [...] | | | | bursitis | [place] [address] | | | | | | Procedures | Phone: | | | | | | FL Asp | [phone] | | | | | | and/or Inj | Fax: | | | | | | Major Joint | [phone] | | | | | | Left [...] | | | | [place], [place] | [address] Phone: | | | | | | [address] | [phone] | | | | | | Phone: | Fax: | | | | | | [phone] | [phone] | | | | | | Fax: | | | | | | | [phone] | | +--------+ + + + + + Encounter Details +--------+---------+ + + + | Date | Type | Department | Care Team | Description | +--------+---------+ + + + | 09/26/ | Office | [facility] | Khanh Ascencio, | Subscapular bursitis | | 2019 | Visit | PHYSIATRY [address] | PA-C [address] | (Primary Dx); | | | | [place], | [address] [place] | Chronic bilateral | | | | [place] [address] | [place] [address] | thoracic back pain; | | | | [phone] | [phone] | Chronic thoracic | | | | [...] trochanter ic bursitis. How to say it xxiy-fpm-CTIR-ik Causes of trochanteric bursitis Causes may include: [...] allows the bursa to heal. Prescription or dooy-ycg-tlbywpe pain medicines. These help reduce inflammation, swellin [...] get worse New symptoms Date Last Reviewed: 05/28/201519991762-5846 [employer]. [address] [place] [address], [place] [address]. All righ ts reserved. This information is not intended as a substitute for professional medical care. Always follow your healthcare professional's instructions. documented in this encounter Progress Notes Khanh Ascencio PA-C - 09/26/2018 1300 PDTFormatting of this note might be different from th e original. 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 Unfortunately Gregory Acosta continues to have significant [...]
--- OUTSIDE RECORDS SUMMARY | ~2018-12-19 | XMS | Encounter Summary ---
Demographics + + + | Address | [address] | | | [place] [address] | + + + | Home Phone [...] Author + + + | Author | [facility] | + + + | Organization | [facility] | + + + | Address | Unknown | + + + | Phone | Unavailable | + + + Support + + +---------+ + | Name | Relationship | Address | Phone | + + +---------+ + | Dandre Acosta | ECON | Unknown | | + + +---------+ + Care Team Providers + +------+ + | Care Steel Analyst Name | Role | Phone | + +------+ + | Sahil Billings PA-C | PCP | | + +------+ + Encounter Details +--------+ + + + + | Date | Type | Department | Care Team | Description | +--------+ + + + + | 11/09/ | Documentati | Spine Center at | Edward Neil, | | | 2018 | on | [facility] [address] | NONI [address] | | | | | Sola Mailcode: | [place], [place] | | | | | [facility] | [address] | | | | | [address], | [phone] | | | | | Building [address] | | | | | | [place], [place] | | | | | | [address] | | | | | | [phone] | | | +--------+ + + + [...] Rd | | | | | | [place], [place] | | | | | | [address] | | | | | | [phone] | | | | | | | | +--------+---------+ + + + | 02/27/ | Office | Endocrinology, | Daniella Tejeda | | | 2018 | Visit | Diabetes & | NONI Cox [address] | | | | | Metabolism | [address] | | | | | | Physician Tiarra | | | | | | [address], | | | | | | [place] [address] | | | | | | [phone] | | | | | | | | +--------+---------+ + + + documented as of this encounter Visit Diagnoses Not on filedocumented in this encounter"
--- OUTSIDE RECORDS SUMMARY | ~2018-12-19 | XMS | Encounter Summary ---
Demographics + + + | Address | [address] | | | [place] [address] | + + + | Home Phone [...] Team Providers + +------+ + | Care Dog Handler Or Trainer Name | Role | Phone | + +------+ + | MaddisonSailaja Brionna STEVENS | PCP | | + +------+ + Reason for Visit + + + | Reason | Comments | + + + | Durable Medical | [place] | | Equipment (DME) | | | [...] | Diabetes Health | MD Kenny [address] [facility] | Equipment (DME) | | | | Center at [facility] | [facility] [address] | Orders (Tosin); | | | | [address] | [place], [place] | Refill Request; | | | | [address] | [address] | Refill Request | | | | Physician's | [phone] | | | | | [address] | | | | | | [place], [place] | | | | | | [address] | | | | | | [phone] | | | +--------+--------+ + + + [...] Rd | | | | | | [place], [place] | | | | | | [address] | | | | | | [phone] | | | | | | | | +--------+---------+ + + + | 02/27/ | Office | Endocrinology, | Daniella Tejeda | | | 2019 | Visit | Diabetes & | NONI Cox [address] | | | | | Metabolism | [address] | | | | | | Physician Tiarra | | | | | | [address] | | | | | [place] [address] | | | | | | [phone] | | | | | | | | +--------+---------+ + + + documented as of this encounter Visit Diagnoses Not on filedocumented in this encounter"
--- OUTSIDE RECORDS SUMMARY | ~2018-12-19 | XMS | Encounter Summary ---
Demographics + + + | Address | [address] | | | [place] [address] | + + + | Home Phone | | + + + | Preferred Language | Unknown | + + + | Marital Status | Single | + + + | Restoration Affiliation | 1050 | + + + | Race | Unknown | + + + | Ethnic Group | Unknown | + + + Author + + + | Author | [facility] | | | and [place] | + + + | Organization | [facility] | | | and [place] | + + + | Address | Unknown | + + + | Phone | Unavailable | + + + Support + + + + + | Name | Relationship | Address | Phone | + + + + + | Naida Acosta | ECON | [place] [address] | | + + + + + Care Team Providers + +------+ + | Care Supervisor Lead Refinery Name | Role | Phone | + [...] | 10/17/ | Telephone | [facility] | Michele Howard | Other | | 2019 | | PHYSIATRY [address] | T, MD [address] | | | | | [place], | [place], [place] | | | | | [place] [address] | [address] | | | | | [phone] | | | +--------+ + + + [...]
--- OUTSIDE RECORDS SUMMARY | ~2018-12-19 | XMS | Encounter Summary ---
Demographics + + + | Address | [address] | | | [place] [address] | + + + | Home Phone [...] Author + + + | Author | [facility] | + + + | Organization | [facility] | + + + | Address | Unknown | + + + | Phone | Unavailable | + + + Support + + +---------+ + | Name | Relationship | Address | Phone | + + +---------+ + | Dandre Acosta | ECON | Unknown | | + + +---------+ + Care Team Providers + +------+ + | Care Judicial Law Clerk Name | Role | Phone | [...] Diabetes Health | MD Kenny [address] [facility] | Equipment (DME) | | | | Center at Physicians | [address] | Orders (Tosin); | | | | [address] | [place], [place] | Refill Request; | | | | [facility] | [address] | Refill Request | | | | Physician's | [phone] | | | | | [address] | | | | | | [place], [place] | | | | | | [address] | | | | | | [phone] | | | +--------+--------+ + + + [...] Rd | | | | | | [place], [place] | | | | | | [address] | | | | | | [phone] | | | | | | | | +--------+---------+ + + + | 02/27/ | Office | Endocrinology, | Daniella Tejeda | | | 2019 | Visit | Diabetes & | NONI Cox [address] | | | | | Metabolism | [address] | | | | | | Physician Tiarra | | | | | | [address] | | | | | | [place] [address] | | | | | | [phone] | | | | | | | | +--------+---------+ + + + documented as of this encounter Visit Diagnoses Not on filedocumented in this encounter"
--- OUTSIDE RECORDS SUMMARY | ~2018-12-19 | XMS | Encounter Summary ---
Demographics + + + | Address | [address] | | | [place] [address] | + + + | Home Phone | | + + + | Preferred Language | Unknown | + + + | Marital Status | Single | + + + | Muslim Affiliation | Unknown | + + + | Race | White | + + + | Ethnic Group | Not or | + + + Author + + + | Author | [facility] | + + + | Organization | [facility] | + + + | Address | Unknown | + + + | Phone | Unavailable | + + + Support + + +---------+ + | Name | Relationship | Address | Phone | + + +---------+ + | Dandre Acosta | ECON | Unknown | | + + +---------+ + Care Team Providers + +------+ + | Care Licensing Officer Name | Role | Phone | + +------+ + | Sahil Billings PA-C | PCP | | + +------+ + Encounter Details +--------+ + + + + | Date | Type | Department | Care Team | Description | +--------+ + + + + | 11/09/ | Documentati | Spine Center at | Edward Neil, | | | 2018 | on | [facility] [address] | NONI [address] | | | | | Sola Mailcode: | [place], [place] | | | | | [facility] | [address] | | | | | [address], | [phone] | | | | | Building [address] | | | | | | [place], [place] | | | | | | [address] | | | | | | [phone] | | | +--------+ + + + [...] Rd | | | | | | [place], [place] | | | | | | [address] | | | | | | [phone] | | | | | | | | +--------+---------+ + + + | 02/27/ | Office | Endocrinology, | Daniella Tejeda | | | 2018 | Visit | Diabetes & | NONI Cox [address] | | | | | Metabolism | [address] | | | | | | Physician Tiarra | | | | | | [address], | | | | | | [place] [address] | | | | | | [phone] | | | | | | | | +--------+---------+ + + + documented as of this encounter Visit Diagnoses Not on filedocumented in this encounter"
--- OUTSIDE RECORDS SUMMARY | ~2018-12-19 | XMS | Encounter Summary ---
Demographics + + + | Address | [address] | | | [place] [address] | + + + | Home Phone [...] + + + | Author | [facility] | + + + | Organization | [facility] | + + + | Address | Unknown | + + + | Phone | Unavailable | + + + Support + + +---------+ + | Name | Relationship | Address | Phone | + + +---------+ + | Dandre Acosta | ECON | Unknown | | + + +---------+ + Care Team Providers + +------+ + | Care Vp Marketing Services And Skin Name | Role | Phone | + +------+ + | Linda Lizarraga SEED EXPERT | PCP | | + +------+ + [...] | | | | | cyst | [place], | [address] | | | | | Procedures | [place] | for Health | | | | | PHYSICAL | [address] | and Healing, | | | | | THERAPY | Phone: | Building 1, | | | | | REFERRAL | [phone] | [address] | | | | | | Fax: | [place], [place] | | | | | | [phone] | [address] | | | | | | | Phone: | | | | | | | [phone] | | | | | | | Fax: | | | | | | | [phone] | +--------+--------+ + + + + Encounter Details +--------+---------+ + + + | Date | Type | Department | Care Team | Description | +--------+---------+ + + + | 09/20/ | Office | [place] Physical | Vinny Chatman, | Back pain, | | 2018 | Visit | Therapy Services at | PT [place], [place] | unspecified back | | | | [facility] | [address] | location, | | | | [address] | | unspecified back | | | | Mailcode: CH3P | | pain laterality, | | | | [facility] | | unspecified | | | | and Healing, | | chronicity (Primary | | | | [address] | | Dx) | | | | Floor [place], [place] | | | | | | [address] | | | | | | [phone] | | | +--------+---------+ + + + [...] different fro m the original. 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 Sliding scale, Disp: , Rfl: Insulin [place] (Disposable) 31 gauge x 5/16" needle, 1 [...] counselo terri there, currently seeing someone at [facility]. Tingling static electricity going down his lef [...] in their status. Vinny Chatman DPT [facility] Outpatient Rehabilitation Services Mailcode: CH3T [address] [facility], 1st Floor [facility] [address] Treatment began: 1130 Treatment ended: 1210 Therapeutic exercise 40 PLAN OF CARE (Established 08/19/2017 to be updated every 60 days): Treatment Plan Summary: Pain management strategies, strengthening, stretching, manual thera py Procedure Codes: Re-evaluation 55173, Therapeutic Exercise 68057, Manual Therapy 38398, Th erapeutic Activities 69705 and Neuromuscular Reeducation 02635 Minutes per session: 45 Total number of [...] chronicity Next progress report 11/19/2017 Insurance: Payor: BEAUTY OPERATOR MEDICAID / Plan: BEAUTY OPERATOR CAREOR HEALTH SHARE / Product Type: [...] Rd | | | | | | [place], [place] | | | | | | [address] | | | | | | [phone] | | | | | | | | +--------+---------+ + + + | 02/27/ | Office | Endocrinology, | Daniella Tejeda | | | 2018 | Visit | Diabetes & Morris Cox PA-C [address] | | | | | Metabolism | [address] | | | | | | Physician Tiarra | | | | | | [address], | | | | | | [place] [address] | | | | | | [phone] | | | | | | | | +--------+---------+ + + + documented as of this encounter Procedures + +--------+ + + + | Procedure Name | Priori | Date/Time | Associated Diagnosis | Comments | | | ty | | | | + +--------+ + + + | [place] THERAPEUTIC | Routin | 09/20/2017 | Back [...]
--- OUTSIDE RECORDS SUMMARY | ~2018-12-19 | XMS | Clinical Summary ---
Demographics + + + | Address | [address] | | | [place] [address] | + + + | Home Phone | | + + + | Preferred Language | Unknown | + + + | Marital Status | Single | + + + | Latter Day Affiliation | 1050 | + + + | Race | Unknown | + + + | Ethnic Group | Unknown | + + + Author + + + | Author | [facility] (Historical as of | | | 10-15-18) | + + + | Organization | [facility] (Historical as of | | | 10-15-18) | + + + | Address | Unknown | + + + | Phone | Unavailable | + + + Support + + + + + | Name | Relationship | Address | Phone | + + + + + | Naida Acosta | ECON | [place] [address] | | + + + + + Care Team Providers + +------+ + | Care Wheel Worker Name | Role | Phone | + +------+ + | Sahil Billings | PP | | + +------+ [...] +------+-------+ + | MEDICAID | [place] | [id number] | | | [address] | | | N | | | | [place] | | | LOC | | | | [address] | | | ENGINE INSTALLER | | | | | + +--------+ [...] | 1980 | [phone] | [place] [address] | | | vidal | | | [phone] | | + +--------+ +--------+ + +
--- OUTSIDE RECORDS SUMMARY | ~2018-12-19 | XMS | Clinical Summary ---
Demographics + + + | Address | [address] | | | [place] [address] | + + + | Home Phone [...] Providers + +------+ + | Care Supervisor Long Goods Name | Role | Phone | + +------+ + | Sahil Billings PA-C | PCP | | + +------+ + Source Comments JOSE FRANCISCO is fully live on both [facility] and [facility] Allergies + + + + + [...] | + + + +---------+------+------+-------+ | Insulin [place] | 1 each. | | 0 | [...] | + + + +---------+------+------+-------+ | Fish Oil-Bandera-3 | Take by mouth. | | 0 [...] of | | Present Illness:CBGs:14-day avg = 67211-eit avg = 197CBG this AM | | = 325Has new girlfriend - been going out to dinner a lot.Little | | exercise.Planning on taking a contract job for 3 months in | | [place].Needing to get supplies to cover him for this.Has not | | applied for Cover [place] because leaving to [place] soon. Will | | when he returns.Worried [...] of Present Illness:CBGs:14-day avg = | | 19017-tfm avg = 197CBG this AM = 325Has new girlfriend - been | | going out to dinner a lot.Little exercise.Planning on taking a | | contract job for 3 months in [place].Needing to get supplies to | | cover him for this.Has not applied for Cover [place] because | | leaving to [place] soon. Will when he returns.Worried about | [...] a contract job for 3 months in [place]. | |Needing to get supplies to cover him for this. | |Has not applied for Cover [place] because leaving to [place] soon. Will when he returns. | | [...] | Visit | | Greg Hamm MD [address] | | | | | | [address] | | | | | | [place], [place] | | | | | | [address] | | | | | | [phone] | | | | | | | | +--------+---------+ + + + | 02/27/ | Office | Endocrinology, | Daniella Tejeda | | | 2019 | Visit | Diabetes & | NONI Cox [address] | | | | | Metabolism | [address] | | | | | | Physician Tiarra | | | | | | [address] [place], | | | | | | [place] [address] | | | | | | [phone] | | | | | | | [...] | + +--------+ + + + | [place] COLLECTION | Routin | 11/25/2018 | Type [...] [place] | [address] | [place], [place] | | | KARI RODRIGUE[facility] [place] | [address] | [address] | | | TESTS | | | [...] | | | + +--------+ +--------+-------+---------+--------+ | DIRECTOR OF HOSPITALITY MEDICAID | DIRECTOR OF HOSPITALITY | [id number] | | | | Medica [...] | | al/Fam | | 1980 | [phone] | [place] [address] | | | vidal | | | 1 (Home) | | + +--------+ +--------+ + +
--- OUTSIDE RECORDS SUMMARY | ~2018-12-19 | XMS | Encounter Summary ---
Demographics + + + | Address | [address] | | | [place] [address] | + + + | Home Phone [...] Author + + + | Author | [facility] | + + + | Organization | [facility] | + + + | Address | Unknown | + + + | Phone | Unavailable | + + + Support + + +---------+ + | Name | Relationship | Address | Phone | + + +---------+ + | Dandre Acosta | ECON | Unknown | | + + +---------+ + Care Team Providers + +------+ + | Care Bath Solution Maker Name | Role | Phone | [...] | | | [facility] | [place], [place] | | | | | | Physicians | [address] | | | | | | [address] | Phone: | | | | | | Mother | [phone] | | | | | | Gaetano Carmella | Fax: | | | | | | [address] | [phone] | | | | | | [place], | | | | | | | [place] [address] | | | | | | | Phone: | | | | | | | [phone] | | | | | | | Fax: | | | | | | | [phone] | | +--------+--------+ + + + + Encounter Details +--------+---------+ + + + | Date | Type | Department | Care Team | Description | +--------+---------+ + + + | 08/31/ | Office | Spine Center at | Edward Neil, | Chronic pain | | 2018 | Visit | [facility] [address] | NONI [address] | syndrome (Primary | | | | Jhone Mailcode: | [place] [facility], [place] | Dx); Myofascial | | | | Center for [facility] | [address] | pain; Arachnoid cyst | | | | and Healing, | [phone] | | | | | [facility] [address] | | | | | | [place], [place] | | | | | | [address] | | | | | | [phone] | | | +--------+---------+ + + + [...] under the skin (SUBC). Sliding scale Insulin [place] (Disposable) 31 gauge x 5/16" needle 1 [...] issues). I spent at least 25 minutes [id number] with the patient. I spent more than 50% of this vi sit in coordination of care and counseling in which we discussed diagnosis, treatment, imagi ng studies and follow-up. Edward Neil PA-C [facility] [address] [place] [address] documented in this e ncounter Plan of Treatment +--------+---------+ + + + | Date | Type | Specialty | Care Team | Description | +--------+---------+ + + + | 12/30/ | Office | Dermatology | Clive Power, | | | 2018 | Visit | | Greg Hamm MD [address] | | | | | [address] | | | | | | [place], [place] | | | | | | [address] | | | | | | [phone] | | | | | | | | +--------+---------+ + + + | 02/27/ | Office | Endocrinology, | Daniella Tejeda | | | 2019 | Visit | Diabetes & | NONI Cox [address] | | | | | Metabolism | [address] | | | | | | Physician [place] | | | | | | [facility] [address] [place], | | | | | | [place] [address] | | | | | | [phone] | | | | | | | [...]
--- OUTSIDE RECORDS SUMMARY | ~2018-12-19 | XMS | Encounter Summary ---
Demographics + + + | Address | [address] | | | [place] [address] | + + + | Home Phone | | + + + | Preferred Language | Unknown | + + + | Marital Status | Single | + + + | Mu-Ism Affiliation | Unknown | + + + | Race | White | + + + | Ethnic Group | Not or | + + + Author + + + | Author | [facility] | + + + | Organization | [facility] | + + + | Address | Unknown | + + + | Phone | Unavailable | + + + Support + + +---------+ + | Name | Relationship | Address | Phone | + + +---------+ + | Dandre Acosta | ECON | Unknown | | + + +---------+ + Care Team Providers + +------+ + | Care Validation Specialist Name | Role | Phone | [...] | | | | | cyst | [place], | [address] | | | | | Procedures | [place] | for Health | | | | | PHYSICAL | [address] | and Healing, | | | | | THERAPY | Phone: | Building 1, | | | | | REFERRAL | [phone] | [address] Floor | | | | | | Fax: | [facility] [place] | | | | | | [phone] | [address] | | | | | | | Phone: | | | | | | | [phone] | | | | | | | Fax: | | | | | | | [phone] | +--------+--------+ + + + + Encounter Details +--------+---------+ + + + | Date | Type | Department | Care Team | Description | +--------+---------+ + + + | 08/19/ | Office | [place] Physical | Dissinger, | Chronic right-sided | | 2018 | Visit | Therapy Services at | Keely, PT [address] | thoracic back pain | | | | [facility] | [address] | (Primary Dx); Cyst | | | | [address] | [place], [place] | of spinal meninges | | | | Mailcode: CH3P | [address] | | | | | [facility] | | | | | | and Healing, | | | | | | Building | | | | | | Floor [place], [place] | | | | | | [address] | | | | | | [phone] | | | +--------+---------+ + + + [...] 10:00 AM PDT Insurance: Payor: [facility] MEDICAID / Plan: [facility] [employer] SHARE / Product Type: Medicaid / Non-Medicare [facility] PHYSICAL THERAPY EVALUATION Past Medical History: Diagnosis [...] (SUBC). Sliding scale, Disp: , Rfl: Insulin [place] (Disposable) 31 gauge x 5/16" needle, 1 [...] counselo r there, currently seeing someone at [facility]. Tingling static electricity going down his lef [...] stretches Education: Rehabilitation diagnosis and plan of USP program: Exercise Date given Cat/Cow stretch 08/19/2017 [...] Moderate - Moderate complexity Complexity: Moderate - 85940 The patient requires services that can be [...] status. Keely Davis, PT [facility] 1ST FLOOR Scheduled Appointment time: 10:00 [...] stretching, manual thera py Procedure Codes: Re-evaluation 58319, Therapeutic Exercise 55025, Manual Therapy 94874, Th erapeutic Activities 73630 and Neuromuscular Reeducation 99729 Minutes per session: 45 Total number of [...] meninges Next progress report 10/19/2017 Insurance: Payor: [employer] FINISH OP[employer] MEDICAID / Plan: [employer]EWEL [employer] FINISH OPENER CAREOR HEALTH SHARE / Product Type: Medicaid [...] Rd | | | | | | [place], [place] | | | | | | [address] | | | | | | [phone] | | | | | | | | +--------+---------+ + + + | 02/27/ | Office | Endocrinology, | Daniella Tejeda | | | 2019 | Visit | Diabetes & | NONI Cox [address] | | | | | Metabolism | [address] | | | | | | Physician Tiarra | | | | | | [address] | | | | | [place] [address] | | | | | | [phone] | | | | | | | | +--------+---------+ + + + documented as of this encounter Procedures + +--------+ + + + | Procedure Name | Priori | Date/Time | Associated Diagnosis | Comments | | | ty | | | | + +--------+ + + + | [place] THERAPEUTIC | Routin | 08/20/2017 | Chronic [...]
--- OUTSIDE RECORDS SUMMARY | ~2018-12-19 | XMS | Encounter Summary ---
Demographics + + + | Address | [address] | | | [place] [address] | + + + | Home Phone | | + + + | Preferred Language | Unknown | + + + | Marital Status | Single | + + + | Voodoo Affiliation | Unknown | + + + | Race | White | + + + | Ethnic Group | Not or | + + + Author + + + | Author | [facility] | + + + | Organization | [facility] | + + + | Address | Unknown | + + + | Phone | Unavailable | + + + Support + + +---------+ + | Name | Relationship | Address | Phone | + + +---------+ + | Dandre Acosta | ECON | Unknown | | + + +---------+ + Care Team Providers + +------+ + | Care Clerical Associate Name | Role | Phone | + +------+ + | Linda Lizarraga OTHER SPORTS COACH OR INSTRUCTOR | PCP | | + +------+ + [...] | | | [facility] | [place], [place] | | | | | | Physicians | [address] | | | | | | [address] | Phone: | | | | | | Mother | [phone] | | | | | | Gaetano Carmella | Fax: | | | | | | [address] | [phone] | | | | | | [place], | | | | | | | [place] [address] | | | | | | | Phone: | | | | | | | [phone] | | | | | | | Fax: | | | | | | | [phone] | | +--------+--------+ + + + + Encounter Details +--------+---------+ + + + | Date | Type | Department | Care Team | Description | +--------+---------+ + + + | 12/22/ | Office | Spine Center at | Edward Neil, | Arachnoid cyst | | 2018 | Visit | [facility] [address] | NON[address] | (Primary Dx) | | | | Ave Mailcode: | Ave [facility] [place] | | | | | [facility] | [address] | | | | | and Healing, | [phone] | | | | | [facility] [address] | | | | | | [place], [place] | | | | | | [address] | | | | | | [phone] | | | +--------+---------+ + + + [...] appointment with me he was evaluated by [facility] spine Surgeon Dr. Martin who did not [...] medial branch blocks, not covered by [facility] referral for Pain Psy, insurance [...] by mouth once daily at bedtime. Fish Oil-Emmet-3 Fatty Acids 300-1,000 mg oral capsule Take [...] under the skin (SUBC). Sliding scale Insulin [place] (Disposable) 31 gauge x 5/16" needle 1 [...] needed I spent at least 12 minutes ukto-sm-bqps with the patient. I spent more than 50% of this vi sit in coordination of care and counseling in which we discussed diagnosis, treatment, imagi ng studies and follow-up. Edward Neil PA-C SPINE C[facility] AT [address] [address] documented in this e ncounter [...] Rd | | | | | | [place], [place] | | | | | | [address] | | | | | | [phone] | | | | | | | | +--------+---------+ + + + | 02/27/ | Office | Endocrinology, | Daniella Tejeda | | | 2019 | Visit | Diabetes & Morris Cox PA-C [address] | | | | | Metabolism | [address] | | | | | | Physician Tiarra | | | | | | [facility] [address] [place], | | | | | | [place] [address] | | | | | | [phone] | | | | | | | | +--------+---------+ + + + documented as of this encounter Visit Diagnoses + + | Diagnosis | + + | Arachnoid cyst - Primary Cerebral cysts | + + documented in this encounter
--- OUTSIDE RECORDS SUMMARY | ~2018-12-19 | XMS | Encounter Summary ---
Demographics + + + | Address | [address] | | | [place] [address] | + + + | Home Phone [...] | Author | [facility] | + + + | Organization | [facility] | + + + | Address | Unknown | + + + | Phone | Unavailable | + + + Support + + +---------+ + | Name | Relationship | Address | Phone | + + +---------+ + | Dandre Acosta | ECON | Unknown | | + + +---------+ + Care Team Providers + +------+ + | Care Ear Specialist Name | Role | Phone | + +------+ + | Sahil Billings PA-C | PCP | | + +------+ + Reason for Visit +--------+ + | Reason | Comments | +--------+ + | Lesion | possible infection on face | +--------+ + Intake Referral (Routine) + + + + + + + | Status | Reason | Specialty | Diagnoses / | Referred By | Referred To | | | | | Procedures | Contact | Contact | + + + + + + + | Authorized | Specialty | Dermatology | Diagnoses | [place], | Duffy | | | Services | | | NONI Baxter | Greg Power | | | Required | | Non-pressure | [address] | [address] | | | | | chronic | [place] | [address] | | | | | ulcer of | [address] | [place] | | | | | skin of | [place], | Rd [place], | | | | | other sites | [place] [address] | [place] | | | | | with | Phone: | [address] | | | | | unspecified | [phone] | Phone: | | | | | severity | Fax: | [phone] | | | | | Cellulitis, | [phone] | Fax: | | | | | unspecified | | [phone] | | | | | Methicillin | | | | | | | resistant | | | | | | | Staphylococc | | | | | | | us aureus | | | | | | | infection as | | | | | | | the cause | | | | | | | of diseases | | | | | | | classified | | | | | | | elsewhere | | | | | | | Procedures | | | | | | | Office | | | | | | | Visits x10 | | | + + + + + + + Encounter Details +--------+---------+ + + + | Date | Type | Department | Care Team | Description | +--------+---------+ + + + | 11/16/ | Office | Dermatology | Clive Power, | Other specified | | 2019 | Visit | Medical at [facility] | Greg Hamm MD [address] | follicular disorders | | | | Floor [address] | [address] | (Primary Dx) | | | | Ave Mailcode: CH16D | [place], [place] | | | | | [facility] | [address] | | | | | and [place], | [phone] | | | | | [facility] | | | | | | Floor [place], [place] | | | | | | [address] | | | | | | [phone] | | | +--------+---------+ + + + [...] Last Filed Vital Signs + +---------+ + + | Vital Sign | Reading | Time Taken | Comments | + +---------+ + + | Blood Pressure | 118/68 | 11/16/2018 2:00 PM | | | | | PDT | | + +---------+ + + | Pulse | 53 | 11/16/2018 2:00 PM | | | | | PDT | | + +---------+ + + | Temperature | - | - | | + +---------+ + + | Respiratory Rate | 14 | 11/16/2018 2:00 PM | | | | | PDT | | + +---------+ + + | Oxygen Saturation | - | - | | + +---------+ + + | Inhaled Oxygen | - | - | | | Concentration | | | | + +---------+ + + | Weight | - | - | | + +---------+ + + | Height | - | - | | + +---------+ + + | Body Mass Index | - | - | | + +---------+ + + documented in this encounter Patient Instructions Patient Instructions Rosemary Hair MA - 11/16/2018 2:00 PM PDT-- Wash with Panoxyl was h 1-2 times daily -- Apply plain vaseline to the affected area and cover with bandage. Provided samples of Al leyvn -- Start Fluconazole 150 mg once weekly for 3 months documented in this encounter Progress Notes Rosemary Hair MA - 11/16/2018 2:00 PM PDTFormatting of this note might be different fr om the original. I, ROSEMARY HAIR MA, am functioning as a scribe for Greg Power MD. DERMATOLOGY New Patient VISIT Primary Care Provider: Sahil Billings PA-C Referring Provider: Sahil Billings PA-C CHIEF COMPLAINT: persistent facial infection HISTORY OF PRESENT ILLNESS: Gregory Acosta is a 38 y.o. male with type 1 diabetes who presents for a suspected persistent skin infection. He reports it first started about six-eight months ago. In March he was d iagnosed with a cyst on his spine (T4) and was recommended aqua therapy. He then went to a [facility] aqua therapy (notes multiple attended this place). He notes the areas are tender and danielle ve a burning sensation. Admits he will express fluid when they develop "white heads". Curren tly he is applying tumeric oil daily, mupirocin and washes with alcohol daily. Has tried mul tiple antibiotics amoxicillin, Doxycycline and several others with no improvement. Also note s mild improvement with clindamycin however, was concerned about developing resistance Is interested in food allergy testing as well. Concerned infection could be a second cause of outbreaks. 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 Currently he is on Lamictal, Mirtazapine and Cymbal ta REVIEW OF SYSTEMS: No fever, no weight loss, good appetite . No pruritus. No joint pain. The patient's dermatology intake form was reviewed, signed, and dated. 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 BLOOD-GLUCOSE SENSOR DEVICE 1 each by NOT APPLICABLE route. CHOLECALCIFEROL (VITAMIN D3) 2,000 UNIT TABLET TAKE 1 TABLET BY MOUTH EVERY DAY FOR dietary SUPPLEMENT DULOXETINE 20 MG CAPSULE,DELAYED RELEASE Take 60 mg by mouth once daily at bedtime. OMEGA-3 FATTY ACIDS-FISH OIL 300 MG-1,000 MG CAPSULE Take by mouth. GABAPENTIN 100 MG CAPSULE Take 100 mg by mouth once daily at bedtime. IBUPROFEN 800 MG TABLET Take by mouth. BASAGLAR KWIKPEN U-100 INSULIN SUBQ Inject 22 Units under the skin (SUBC) once daily at bed time. INSULIN LISPRO (U-100) 100 UNIT/ML SUBCUTANEOUS PEN Inject under the skin (SUBC). Sliding s mari, up to 30 units daily PEN NEEDLE, DIABETIC 31 GAUGE X 5/16" 1 each. LAMOTRIGINE 25 MG TABLET Take 25 mg by mouth once daily. MAGNESIUM 64 MG (MAGNESIUM CHLORIDE) TABLET,DELAYED RELEASE Take by mouth. MELATONIN 3 MG DISINTEGRATING TABLET Dissolve on tongue and swallow. MIRTAZAPINE 15 MG TABLET Take 15 mg by mouth once daily in the evening. ALLERGIES: Allergies Allergen Reactions Penicillins Unknown Hydrocodone-Acetaminophen Nausea PHYSICAL EXAMINATION: BP 118/68 | Pulse 53 | Resp 14 Well-developed, well-nourished male in no acute distress. Awake, alert and oriented. Plea kash and cooperative mood. A skin examination was performed including the scalp/hair, head/face, eyelids, lips, neck, chest Findings were within normal limits except for the following: - Scattered excoriated papules on face. ASSESSMENT AND PLAN: 1. Folliculitis --addressed patients concern for possible infection. Informed we can manage the outbreaks however, we are not able to cure him of outbreaks. Explained this can be a lo ng term condition that waxes/wanes -- Wash with Panoxyl wash 1-2 times daily -- Apply plain vaseline to the affected area and cover with bandage. Provided samples of Diogo chiu -- Start Fluconazole 150 mg once weekly for 3 months for possible yeast compnonent -- Encouraged to continue seeing mental health provider Patient verbalized understanding and agreed with the plan. RETURN VISIT: 6 weeks ROSEMARY HAIR MA for Greg Power MD Department of Dermatology [facility] 11/16/2018 I have personally interviewed, examined, and assessed the patient, developed the treatment plan, and treated, counseled and discussed the follow-up plan with the patient. I have revie wed and edited the scribed note to reflect the clinic visit and agree with the documentation . Greg Power M.D. Encephalographer of [facility]ron[facility] signed by Greg Power MD at 12:53 PM PDTdocumented in this encounter Plan of Treatment +--------+---------+ + + + | Date | Type | Specialty | Care Team | Description | +--------+---------+ + + + | 12/30/ | Office | Dermatology | Clive Power, | | | 2018 | Visit | | Greg Hamm MD [address] | | | | | | [facility] [address] | | | | | | [place], [place] | | | | | | [address] | | | | | | [phone] | | | | | | | | +--------+---------+ + + + | 02/27/ | Office | Endocrinology, | Daniella Tejeda | | | 2019 | Visit | Diabetes & | NONI Cox [address] | | | | | Metabolism | [address] | | | | | | Physician Tiarra | | | | | | [address] [place], | | | | | | [place] [address] | | | | | | [phone] | | | | | | | | +--------+---------+ + + + documented as of this encounter Visit Diagnoses + + | Diagnosis | + + | Other specified follicular disorders - Primary | + + documented in this encounter
--- OUTSIDE RECORDS SUMMARY | ~2018-12-19 | XMS | Encounter Summary ---
Demographics + + + | Address | [address] | | | [place] [address] | + + + | Home Phone | | + + + | Preferred Language | Unknown | + + + | Marital Status | Single | + + + | Lutheran Affiliation | Unknown | + + + [...] Team Providers + +------+ + | Care Staff Air Defense Officer Name | Role | Phone | [...] Rd | | | | | | [place], [place] | | | | | | [address] | | | | | | [phone] | | | | | | | | +--------+---------+ + + + | 02/27/ | Office | Endocrinology, | Daniella Tejeda | | | 2018 | Visit | Diabetes & | NONI Cox [address] | | | | | Metabolism | [address] | | | | | | Physician [place] | | | | | | [address] | | | | | | [place] [address] | | | | | | [phone] | | | | | | | | +--------+---------+ + + + documented as of this encounter Visit Diagnoses Not on filedocumented in this encounter"
--- OUTSIDE RECORDS SUMMARY | ~2018-12-19 | XMS | Encounter Summary ---
Demographics + + + | Address | [address] | | | [place] [address] | + + + | Home Phone | | + + + | Preferred Language | Unknown | + + + | Marital Status | Single | + + + | Cheondoism Affiliation | 1050 | + + + | Race | Unknown | + + + | Ethnic Group | Unknown | + + + Author + + + | Author | [facility] | | | and [place] | + + + | Organization | [facility] | | | and [place] | + + + | Address | Unknown | + + + | Phone | Unavailable | + + + Support + + + + + | Name | Relationship | Address | Phone | + + + + + | Naida Acosta | ECON | [place] [address] | | + + + + + Care Team Providers + +------+ + | Care Promotions Assistant Name | Role | Phone | + +------+ + | Sina Law | PCP | | + +------+ + Encounter Details +--------+ + + + + | Date | Type | Department | Care Team | Description | +--------+ + + + + | 10/19/ | Telephone | [facility] | Linda Llanos | | | 2019 | | PLASTIC SURGERY AND | [address] | | | | | DERMATOLOGY [address] | [address] | | | | | [address] | [place] [address] | | | | | [place], [place] | [phone] | | | | | [address] | | | | | | [phone] | | | +--------+ + + + [...]
--- OUTSIDE RECORDS SUMMARY | ~2018-12-19 | XMS | Encounter Summary ---
Demographics + + + | Address | [address] | | | [place] [address] | + + + | Home Phone [...] Team Providers + +------+ + | Care Jewelry Sorter Name | Role | Phone | + [...] Rd | | | | | | [place], [place] | | | | | | [address] | | | | | | [phone] | | | | | | | | +--------+---------+ + + + | 02/27/ | Office | Endocrinology, | Daniella Tejeda | | | 2018 | Visit | Diabetes & | NONI Cox [address] | | | | | Metabolism | [address] | | | | | | Physician [place] | | | | | | [address] | | | | | | [place] [address] | | | | | | [phone] | | | | | | | | +--------+---------+ + + + documented as of this encounter Visit Diagnoses Not on filedocumented in this encounter"
--- OUTSIDE RECORDS SUMMARY | ~2018-12-19 | XMS | Encounter Summary ---
Demographics + + + | Address | [address] | | | [place] [address] | + + + | Home Phone [...] Team Providers + +------+ + | Care Software Applications Specialist Name | Role | Phone | + +------+ + | Linda Lizarraga OXIDATION OPERATOR | PCP | | + +------+ [...] | | | | | [place] | [address] | | | | | | [address] | Phone: | | | | | | Phone: | [phone] | | | | | | [phone] | Fax: | | | | | | Fax: | [phone] | | | | | | [phone] | | +--------+--------+ + + + + [...] | | | | Ave Mailcode: | [place], [place] | diabetes mellitus | | | | [place] [facility] | [address] | with complication | | | | and Healing, | [phone] | (HCC); Chest wall | | | | [address] | | pain; Anxiety; | | | | [place], [place] | | Tobacco use | | | | [address] | | disorder; Arachnoid | | | | [phone] | | cyst of spine | +--------+---------+ [...] be like biofeedback garry whatley his social worker clinical/therapist. He does have well-controlled diabetes with a [...] under the skin (SUBC). Sliding scale Insulin [place] (Disposable) 31 gauge x 5/16" needle [...] marijuana drugs Originally from [place], relocated to [place] because of health and environment in economics , lived briefly in [place]. He states that although he does not have any identified medical decision-maker a person by the name of Gurjit Digna (a glass forming engineer from [place]) would be that person. He does have 2 sister s and a father in [facility]. Physical Exam: Constitutional: There were no [...] Alvin Martin MD I spent 45 minutes frce-ze-fwvi with the patient. I spent more than [...] Rd | | | | | | [place], [place] | | | | | | [address] | | | | | | [phone] | | | | | | | | +--------+---------+ + + + | 02/27/ | Office | Endocrinology, | Daniella Tejeda | | | 2018 | Visit | Diabetes & | NONI Cox [address] | | | | | Metabolism | [address] | | | | | | Physician Tiarra | | | | | | [address] [place], | | | | | | [place] [address] | | | | | | [phone] | | | | | | | [...]
--- OUTSIDE RECORDS SUMMARY | ~2018-12-19 | XMS | Encounter Summary ---
Demographics + + + | Address | [address] | | | [place] [address] | + + + | Home Phone [...] Team Providers + +------+ + | Care Switchboard Wire Worker Helper Name | Role | Phone | + [...] Rd | | | | | | [place], [place] | | | | | | [address] | | | +--------+ + + + [...] Rd | | | | | | [place], [place] | | | | | | [address] | | | | | | [phone] | | | | | | | | +--------+---------+ + + + | 02/27/ | Office | Endocrinology, | Daniella Tejeda | | | 2019 | Visit | Diabetes & | NONI Cox [address] | | | | | Metabolism | [address] | | | | | | Physician Tiarra | | | | | | [address] | | | | | [place] [address] | | | | | | [phone] | | | | | | | | +--------+---------+ + + + documented as of this encounter Visit Diagnoses Not on filedocumented in this encounter"
--- OUTSIDE RECORDS SUMMARY | ~2018-12-19 | XMS | Encounter Summary ---
Demographics + + + | Address | [address] | | | [place] [address] | + + + | Home Phone | | + + + | Preferred Language | Unknown | + + + | Marital Status | Single | + + + | Adventism Affiliation | 1050 | + + + | Race | Unknown | + + + | Ethnic Group | Unknown | + + + Author + + + | Author | [facility] (Historical as of | | | 10-15-18) | + + + | Organization | [facility] (Historical as of | | | 10-15-18) | + + + | Address | Unknown | + + + | Phone | Unavailable | + + + Support + + + + + | Name | Relationship | Address | Phone | + + + + + | Naida Acosta | ECON | [place] [address] | | + + + + + Care Team Providers + +------+ + | Care Quality Process Engineer Name | Role | Phone | [...] Surgery | Non-pressure | [address] | [address] | | | | | chronic | [address] | [address] | | | | | ulcer of | [place], | [place], [place] | | | | | skin of | [place] [address] | [address] | | | | | other sites | Phone: | Phone: | | | | | with | [phone] | [phone] | | | | | unspecified | Fax: | Fax: | | | | | severity | [phone] | [phone] | | | | | ([facility]) | | | | | [...] | | | | | | s ([facility]) | | | + +--------+ [...] | | | [address] | [place] [address] | ideation | | | | [place], [place] | [phone] | | | | | [address] | | | | | | [phone] | | | +--------+---------+ + + + [...] with spot of concern located on right oriental orthodox. Patient sta miky this spot has been [...] the face. 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 The patient proceeded to tack picker his backpack and leave the room slamming [...] in the presence of YANELY Sims , LEASE ADMINISTRATOR-BRIDGETTE, RON I, RODNEY Sims DCNP, personally performed [...]
--- OUTSIDE RECORDS SUMMARY | ~2018-12-19 | XMS | Encounter Summary ---
Demographics + + + | Address | [address] | | | [place] [address] | + + + | Home Phone [...] Author | [facility] | + + + | Organization | [facility] | + + + | Address | Unknown | + + + | Phone | Unavailable | + + + Support + + +---------+ + | Name | Relationship | Address | Phone | + + +---------+ + | Dandre Acosta | ECON | Unknown | | + + +---------+ + Care Team Providers + +------+ + | Care Mft Name | Role | Phone | + +------+ + | Sailaja Washburn RESIDENT CARE ASSOCIATE | PCP | | + +------+ + [...] | | | | | complication | [place], [place] | PPV05 | | | | | ([facility]LY [facility]) | [address] | Physician's | | | | | Review | Phone: | Tiarra Hernandez | | | | | optimizing | [phone] | 140 | | | | | sensor | Fax: | [place], [place] | | | | | technology | [phone] | [address] | | | | | Procedures | | Phone: | | | | | CONSULT TO | | [phone] | | | | | ADULT | | Fax: | | | | | DIABETES - | | [phone] | | | | | EDUCATION | [...] | | | | | complication | [place], [place] | PPV05 | | | | | ([facility]LY [facility]) | [address] | Physician's | | | | | Nutrition - | Phone: | Tiarra Mary | | | | | Analyze carb | [phone] | 140 | | | | | intake at | Fax: | [place], [place] | | | | | meals, | [phone] | [address] | | | | | patterns, | | Phone: | | | | | dosing | | [phone] | | | | | strategy | | Fax: | | | | | Procedures | | [phone] | | | | | CONSULT TO [...] | | mellitus | Dorie | [address] | | | | | with | Street | Rd | | | | | hypoglycemia | [place], [place] | Physician's | | | | | without | [address] | [address] [facility] | | | | | coma Type 1 | Phone: | 140 | | | | | diabetes | [phone] | [place], [place] | | | | | mellitus | Fax: | [address] | | | | | without | [phone] | Phone: | | | | | complication | | [phone] | | | | | s | | Fax: | | | | | Procedures | | [phone] | | | | | CONSULT TO [...] Visit | Diabetes Health | MD Kenny [address] | mellitus with | | | | [facility] | [address] | complication (HCC) | | | | [address] | [place], [place] | (Primary Dx) | | | | [address] | [address] | | | | | Physician's | [phone] | | | | | Tiarra [address] | | | | | | [facility] [place] | | | | | | [address] | | | | | | [phone] | | | +--------+---------+ + + + [...] schedule as much as possible Please contact [facility] [phone] for any questions Lab Results Component Value Date A1C 5.5 04/20/2018 Schedule upcoming appointments: Nutrition visit to review meal patterns, activity and stress related trends Technology visit to refine use of sensor Sensor order --- You have history of testing 10 to 12 times daily when not on sensor and Keep up routine monitoring and use of current sensor Ask [place] to send us supply requests Follow hypoglycemic [...] a low blood sugar. Please visit the [facility] Website for information on what's new at our diabetes center. Let us know if you would like to sign up for a class or a one o n one diabetes education visit. Please meet with your primary care provider routinely for your medical care and annual [facility] k ups documented in this encounter Progress Notes Solange Lucas MA - 04/20/2018 9:49 AM PST Finger stick performed in clinic for a capillary A1c. idia Holguin M D - 04/20/2018 9:[address] [facility] PCP: RODNEY Cardoso Referring Physician: Christian Rodriguez ND [address] [place] [address] Reason for referral: Evaluate Type 1 Diabetes HPI: Gregory is a 38 y.o. male referred for evaluation of Type 1 Diabetes. Diabetes history: He was diagnosed with diabetes in 1992 at age 13. Circumstance: hospitalized, in [place] at the time ---- moved to [place] 14 years ago Treatment history: Has been [...] diabetes care: Living situation: grew up in [place] ---- moved to [place]--wanted to live somewhere that was health, mom when he was 23 He grew up with a lot of fried and fast food in the home. Dad has type 1 diabetes. Has t wo sisters. Lives in [place]. Lives alone. In physical therapy for cyst [...] by mouth once daily at bedtime. Fish Oil-[place]-3 Fatty Acids 300-1,000 mg oral capsule Take [...] scale, up to 30 units daily Insulin [place] (Disposable) 31 gauge x 5/16" needle 1 [...] ROS: Review of systems as stated in EEK. Other pertinent review of systems includes: Weight: [...] 1992 at age 13. Circumstance: hospitalized, in [place] at the time ---- moved to [place] 14 years ago Treatment history: Has been [...] sensor use for awareness of trends In [employer] so very active throughout the day [...] as much as possible Please contact Leobardo [facility] [phone] for any questions Lab Results Component Value [...] a low blood sugar. Please visit the [facility] Website for information on what's new at our diabetes center. Let us know if you would like to sign up for a class or a one o n one diabetes education visit. Please meet with your primary care provider routinely for your medical care and annual chec k ups 2. See orders Orders Placed This Encounter [facility] Collection Capillary Blood Specimen [[id number]] only for Adults CONSULT TO ADULT DIABETES - NUTRITION (MNT) CONSULT TO ADULT DIABETES - EDUCATION (DIABETES SELF-MANAGEMENT) HEMOGLOBIN A1C,POC [[id number]}] Lidia Holguin MD [facility] AT [facility] 1ST FLOOR [address] [address] I spent 55 minutes with [...] Rd | | | | | | [place], [place] | | | | | | [address] | | | | | | [phone] | | | | | | | | +--------+---------+ + + + | 02/27/ | Office | Endocrinology, | Daniella Tejeda | | | 2018 | Visit | Diabetes & | NONI Cox [address] | | | | | Metabolism | [address] | | | | | | Physician Tiarra | | | | | | [address] | | | | | | [place] [address] | | | | | | [phone] | | | | | | | [...] + +--------+ + + + | [facility] COLLECTION | Routin | 04/20/2018 | Type [...] FRANCISCO CONLEY | [address] | [place], [place] | | | KARI RODRIGUEZ OF [facility] | [address] | [address] | | | TESTS | | | [...]
--- OUTSIDE RECORDS SUMMARY | ~2018-12-19 | XMS | Encounter Summary ---
Demographics + + + | Address | [address] | | | [place] [address] | + + + | Home Phone [...] Providers + +------+ + | Care Senior Technical Specialist Name | Role | Phone | [...] | | | | | chronic | [place] | [address] | | | | | ulcer of | [address] | [address] | | | | | skin of | [address], | Rd [place], | | | | | other sites | [place] [address] | [place] | | | | | with | Phone: | [phone] | | | | | unspecified | [phone] | Phone: | | | | | severity | Fax: | [phone] | | | | | Cellulitis, | [phone] | Fax: | | | | | unspecified | | [phone] | | | | | Methicillin | [...] | 2019 | Visit | [facility] at [facility] | Greg Hamm MD [address] | follicular disorders | | | | Floor [address] | [address] | (Primary Dx) | | | | Ave Mailcode: CH16D | [place], [place] | | | | | [facility] | [address] | | | | | and Charu, | [phone] | | | | | [facility] | | | | | | Floor [place], [place] | | | | | | [address] | | | | | | [phone] | | | +--------+---------+ + + + [...] aqua therapy. He then went to a [facility] aqua therapy (notes multiple attended this place). [...] cause of outbreaks. 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 I have revie wed and edited the scribed note to reflect the clinic visit and agree with the documentation . Greg Power M.D. Lab Intern [facility] Derm[facility] signed by Greg Power MD at 12:53 PM PDTdocumented in this encounter Plan of Treatment +--------+---------+ + + + | Date | Type | Specialty | Care Team | Description | +--------+---------+ + + + | 12/30/ | Office | Dermatology | Clive Power, | | | 2018 | Visit | | Greg Hamm MD [address] | | | | | | [facility] [address] | | | | | | [place], [place] | | | | | | [address] | | | | | | [phone] | | | | | | | | +--------+---------+ + + + | 02/27/ | Office | Endocrinology, | Daniella Tejeda | | | 2019 | Visit | Diabetes & | NONI Cox [address] | | | | | Metabolism | [address] | | | | | | Physician Tiarra | | | | | | [address] [place], | | | | | | [place] [address] | | | | | | [phone] | | | | | | | | +--------+---------+ + + + documented as of this encounter Visit Diagnoses + + | Diagnosis | + + | Other specified follicular disorders - Primary | + + documented in this encounter
--- OUTSIDE RECORDS SUMMARY | ~2018-12-19 | XMS | Encounter Summary ---
Demographics + + + | Address | [address] | | | [place] [address] | + + + | Home Phone [...] Author + + + | Author | [facility] | + + + | Organization | [facility] | + + + | Address | Unknown | + + + | Phone | Unavailable | + + + Support + + +---------+ + | Name | Relationship | Address | Phone | + + +---------+ + | Dandre Acosta | ECON | Unknown | | + + +---------+ + Care Team Providers + +------+ + | Care Air Drier Name | Role | Phone | + +------+ + | Sailaja Washburn BURLAP SPREADER | PCP | | + +------+ + [...] | | | | | complication | [place], [place] | [address] | | | | | ([facility]) | [address] | Physician's | | | | | Nutrition - | Phone: | Tiarra Hernandez | | | | | Analyze carb | [phone] | 140 | | | | | intake at | Fax: | [place], [place] | | | | | meals, | [phone] | [address] | | | | | patterns, | | Phone: | | | | | dosing | | [phone] | | | | | strategy | | Fax: | | | | | Procedures | | [phone] | | | | | CONSULT TO [...] Visit | Diabetes Health | [address] [facility] | mellitus with | | | | Center at Physicians | [address] | complication (HCC) | | | | [address] | [facility] [place] | (Primary Dx) | | | | [address] | [address] | | | | | Mailcode: PPV05 | [phone] | | | | | [address] | | | | | | [address] [place], | | | | | | [place] [address] | | | | | | [phone] | | | +--------+---------+ + + + [...] at age 13. Circumstance: ryan sosa, in [place] at the time, moved to [place] 14 years ago. Dad has type 1 [...] morning on a good day. Works in [employer], so job is also fairly active. Notices [...] and services clinic has to offer includ [facility] [employer] [facility] [employer]. Offered my continued support and education to [...] Moderately Stable Follow-up: MNT/DSMT Rosita Malik RD [facility] [address] [facility] Mailcode: [address] [place] [address] documented in this enc ounter Plan of Treatment +--------+---------+ + + + | Date | Type | Specialty | Care Team | Description | +--------+---------+ + + + | 12/30/ | Office | Dermatology | Clive Power, | | | 2018 | Visit | | Greg Hamm MD [address] | | | | | | [facility] | | | | | | [place], [place] | | | | | | [address] | | | | | | [phone] | | | | | | | | +--------+---------+ + + + | 02/27/ | Office | Endocrinology, | Daniella Tejeda | | | 2019 | Visit | Diabetes & | NONI Cox [address] | | | | | Metabolism | [facility] | | | | | | Physician Shruthielena | | | | | | [address] [place], | | | | | | [place] [address] | | | | | | [phone] | | | | | | | | +--------+---------+ + + + documented as of this encounter Procedures + +--------+ + + + | Procedure Name | Priori | Date/Time | Associated Diagnosis | Comments | | | ty | | | | + +--------+ + + + | MA MNT INITIAL | Routin | 05/25/2018 | [...]
--- OUTSIDE RECORDS SUMMARY | ~2018-12-19 | XMS | Encounter Summary ---
Demographics + + + | Address | [address] | | | [place] [address] | + + + | Home Phone [...] + + + | Author | [facility] | + + + | Organization | [facility] | + + + | Address | Unknown | + + + | Phone | Unavailable | + + + Support + + +---------+ + | Name | Relationship | Address | Phone | + + +---------+ + | Dandre Acosta | ECON | Unknown | | + + +---------+ + Care Team Providers + +------+ + | Care Breakdown Man Name | Role | Phone | + +------+ + | Maddison Sailajabettie PICKETTP | PCP | | + +------+ + Reason for Visit + + + | Reason | Comments | + + + | [facility] | [place] | | Equipment (DME) | | | Orders | | + + + Encounter Details +--------+--------+ + + + | Date | Type | Department | Care Team | Description | +--------+--------+ + + + | 06/03/ | Refill | Leobardo Pedroza | Lidia Holguin | [facility] | | 2019 | | Diabetes Health | MD Kenny [address] [facility] | Equipment (DME) | | | | Center [facility] | [address] | Orders ([place]) | | | | [address] | [facility] [place] | | | | | [address] [facility] [address] | [address] | | | | | Physician's | [phone] | | | | | [address] | | | | | | [place], [place] | | | | | | [address] | | | | | | [phone] | | | +--------+--------+ + + + [...] Rd | | | | | | [place], [place] | | | | | | [address] | | | | | | [phone] | | | | | | | | +--------+---------+ + + + | 02/27/ | Office | Endocrinology, | Daniella Tejeda | | | 2018 | Visit | Diabetes & | NONI Cox [address] | | | | | Metabolism | [address] | | | | | | Physician Tiarra | | | | | | [address], | | | | | | [place] [address] | | | | | | [phone] | | | | | | | | +--------+---------+ + + + documented as of this encounter Visit Diagnoses Not on filedocumented in this encounter"
--- OUTSIDE RECORDS SUMMARY | ~2018-12-19 | XMS | Encounter Summary ---
Demographics + + + | Address | [address] | | | [place] [address] | + + + | Home Phone [...] + + + | Author | [facility] | + + + | Organization | [facility] | + + + | Address | Unknown | + + + | Phone | Unavailable | + + + Support + + +---------+ + | Name | Relationship | Address | Phone | + + +---------+ + | Dandre Acosta | ECON | Unknown | | + + +---------+ + Care Team Providers + +------+ + | Care General Medical Practitioner Name | Role | Phone | + [...] | | | mellitus | [address]ie | [facility] | | | | | with | Street | Rd | | | | | hypoglycemia | [place], [place] | Physician's | | | | | without | [address] | [address] | | | | | coma Type 1 | Phone: | [address] | | | | | diabetes | [phone] | [facility] [place] | | | | | mellitus | Fax: | [address] | | | | | without | [phone] | Phone: | | | | | complication | | [phone] | | | | | s | | Fax: | | | | | Procedures | | [phone] | | | | | CONSULT TO [...] | | | [address] | [place], [place] | (Primary Dx); Other | | | | [address] | [address] | chronic pain; | | | | Physician's | [phone] | Anxiety about health | | | | [address] | | | | | | [place], [place] | | | | | | [address] | | | | | | [phone] | | | +--------+---------+ + + + [...] 6. Foot exam completed recently Please contact [facility] [phone] for any questions Lab Results Component Value [...] a low blood sugar. Please visit the [facility] Website for information on what's new [...] Rivera MD - 11/25/2018 11:05 AM PDT [facility] PCP: RODNEY Cardoso Referring Physician: Christian Rodriguez ND [address] [place], [place] [address] Reason for referral: Evaluate Type 1 Diabetes HPI: Gregory is a 38 y.o. male referred for evaluation of Type 1 Diabetes. Diabetes history: He was diagnosed with diabetes in 1992 at age 13. Circumstance: hospitalized, in [place] at the time ---- moved to [place] [...] HTN and hyperlipidemia Interval history: Moved to [facility]. Health updates He reports multiple health concerns. [...] August 2018--- acute on chronic left scapular pain---[facility], visit at [facility] day prior--was treated with percocet, medrol [...] by mouth once daily at bedtime. Fish Oil-[place]-3 Fatty Acids 300-1,000 mg oral capsule Take [...] delievery. Previously well controlled on humalog Insulin [place] (Disposable) 31 gauge x 5/16" needle 1 [...] file Gets together: Not on file Attends quaker service: Not on file Active member of club or organization: Not on file Attends meetings of clubs or organizations: Not on file Relationship status: Not on file Other Topics Concern Not on file Social History Narrative 2019 notes--- Living situation: grew up in [place] ---- moved to [place]--wanted to live somewhere carlitos t was health, mom when he was 23 He grew up with a lot of fried and fast food in the home. Dad has type 1 diabetes. Has two sisters. Lives in [place]. Lives alone. ROS: Review of systems as stated in [place]. Other pertinent review of systems includes: Weight: [...] 1992 at age 13. Circumstance: hospitalized, in [place] at the time ---- moved to [place] [...] Foot exam completed recently Please contact Leobardo [facility] [phone] for any questions Lab Results Component Value [...] a low blood sugar. Please visit the [facility] Website for information on what's new at our diabetes center. Let us know if you would like to sign up for a class or a one o n one diabetes education visit. Please meet with your primary care provider routinely for your medical care and annual [facility] k ups 2. See orders Orders Placed This Encounter [place] Collection Capillary Blood Specimen [26211] only for Adults HEMOGLOBIN A1C,POC [[id number]}] glucagon 1 mg injection kit insulin lispro (Human) (HUMALOG KWIKPEN INSULIN) 100 unit/mL subcutaneous insulin pen I am Amparo Cross functioning as a scribe for Lidia Holgiun MD at 11:58 AM on 11/26/19 19 I have reviewed and verified the above scribed note of my visit with this patient as record ed by Amparo Cross. Lidia Holguin MD [facility] AT [facility]PV 1ST FLOOR [address] [address] I spent 31 minutes with [...] Rd | | | | | | [place], [place] | | | | | | [address] | | | | | | [phone] | | | | | | | | +--------+---------+ + + + | 02/27/ | Office | Endocrinology, | Daniella Tejeda | | | 2018 | Visit | Diabetes & Morris Cox PA-C [address] | | | | | Metabolism | [address] | | | | | | Physician [place]en | | | | | | [address], | | | | | | [place] [address] | | | | | | [phone] | | | | | | | [...] | + +--------+ + + + | [place] COLLECTION | Routin | 11/25/2018 | Type [...] + + + + | [facility]SE [facility] | [address] | [place], [place] | | | [facility] | [address] | [address] | | | TESTS | | | [...]
[~2018-12-19 19:38] MED LIST changes: +CLINDAMYCIN HC150 MG PO; +CYCLOBENZAPRINE10 MG PO; +LAMOTRIGINE25 MG PO
--- OUTSIDE RECORDS SUMMARY | 2018-12-19 19:40 | XMS ---
PreManage Notification: DOREEN GRIFFIN Security Optical Engineering Manager Events 1 event(s) in the past 18 months Most recent security events: Elopement at [facility] 06/07/2018 19:01 - Other Details: PATIENT LWBS. CRITERIA MET - 6 ED Visits in 6 Months - [facility] - Has Care Guidelines CARE PROVIDERS [facility]/Center: Federal Qualified 11/28/2017-Current [facility] ([facility]) PHONE: [phone] YECENIA MCBRIDE Physician 07/18/2018-Current PHONE: [phone] Alessandra Rosenbaum Gasser Machine Operator: Clinical Current PHONE: [phone] EDITH GIRON Current PHONE: [phone] CINTHYA MCKEONor: Mental Health Current PHONE: [phone] [facility] Health Provider 06/21/2017-12/21/2017 PHONE: Unknown KADI BIANCHI Primary Care 11/29/2017-[facility] PHONE: [phone] [facility] Care 02/15/2018-[facility] PRIMARY CARE PHONE: [phone] Simran Merrill Primary Care Current PHONE: Unknown [facility] Primary Care Current PHONE: Unknown [facility] Health Provider 09/15/2017-Current PHONE: Unknown [facility] Primary Care 08/18/2017-Current [facility] PHONE: [phone] BERNARD SHAFFER Primary [facility] Current PHONE: Unknown RODNEY MARTINEZ Primary Care Current PHONE: Unknown [facility] 05/05/2017-Current [facility] INTERNAL [facility] PHONE: [phone] [facility] Primary Care Current PHONE: Unknown [facility] 10/31/2015-Benita JARVIS PHONE: Unknown JEANNINE YORK Primary [facility] [place] Current PHONE: Unknown SARABJIT JEAN Primary Care 10/29/2014-Current PHONE: [phone] MANPREET MANRIQUEZ Primary Care Current PHONE: Unknown Brayden has no Care Guidelines for this patient. Care History Medical/Surgical 08/09/2018 [facility] - PATIENT DECLINED [facility] CASE MANAGEMENT. 07/26/2018 [facility] - [facility] REFERRAL MADE- DUE TO PATIENT CHRONIC HEALTH CONDITIONS. 06/24/2018 [facility] - CHW SPOKE WITH PATIENT- PATIENT HAS BEEN WAITING FOR [facility] TO RECEIVE AND REVIEW MEDICAL RECORDS SINCE APRIL. - W PROVIDED [facility] CONTACT NUMBER AND ADDRESS TO ESTABLISH CARE. PATIENT STATED HE WOULD BE IN CONTACT WITH [facility] ON Wednesday06/27/18 AND WILL CALL CHW WITH UPDATES. E.D. VISIT COUNT (12 MO.) [address] [facility] [address] [facility] 1 [facility] ED 9 [facility] TOTAL 12 NOTE: Visits indicate total known visits. ED/UCC VISIT TRACKING (12 MO.) 12/19/2018 19:38 [facility]ERNANDA Castelan [place] TYPE: Emergency COMPLAINT: - SKIN PROBLEM 10/11/2018 00:04 FERNANDA Manzano TYPE: Emergency COMPLAINT: - MEDICAL CLEARANCE DIAGNOSES: - Allergy status to narcotic agent status - Anxiety disorder, unspecified - Other terminal press operator (current) drug therapy - Allergy status to penicillin - Cellulitis of face - Major depressive disorder, single episode, unspecified - 1 Type 1 diabetes mellitus without complications [facility] DIAGNOSES: - Back Pain - Pain in thoracic spine - muscle spasms 09/03/2018 10:31 [facility] Sudarshan WILSON TYPE: Emergency DIAGNOSES: - Acute gastritis without bleeding - Muscle spasm of back 09/03/2018 09:51 [facility] Lavell WILSON TYPE: Emergency DIAGNOSES: - Back Spasms - Muscle spasm of back - Acute gastritis without bleeding 09/01/2018 14:47 FERNANDA Manzano TYPE: Emergency COMPLAINT: - ABD PAINY DIAGNOSES: - 1 Type 1 diabetes mellitus without complications - Other terminal press operator (current) drug therapy - Personal history of nicotine dependence - Pain in thoracic spine - Allergy status to penicillin - Allergy status to narcotic agent status 08/06/2018 16:45 [facility]ERNANDA Castelan [place] TYPE: Emergency COMPLAINT: - FACIAL INFECTION DIAGNOSES: - Other terminal press operator (current) drug therapy - Allergy status to narcotic agent status - 1 Type 1 diabetes mellitus without complications - [...] - Allergy status to penicillin - Other intermediate (current) drug therapy - Other specified diabetes mellitus with hyperglycemia - alf (current) use of insulin - Disorder of the skin and subcutaneous tissue, unspecified 07/11/2018 13:19 [facility]ERNANDA Castelan [place] TYPE: Emergency COMPLAINT: - HEADACHE DIAGNOSES: - Headache - alf (current) use of insulin - Other terminal press operator (current) drug therapy - Cellulitis of face - Allergy status to penicillin - Personal history of nicotine dependence - Allergy status to narcotic agent status - 1 Type 1 diabetes mellitus without complications 07/08/2018 14:46 [facility]ERNANDA Castelan [place] TYPE: Emergency COMPLAINT: - POSS INFECTION DIAGNOSES: - Local infection of the skin and subcutaneous tissue, unsp - Allergy status to narcotic agent status - Local infection of the skin and subcutaneous tissue, unsp - Other terminal press operator (current) drug therapy - 1 Type 1 diabetes mellitus without complications - Unspecified open wound of nose, initial encounter - Exposure to other specified factors, initial encounter - Personal history of nicotine dependence - Unspecified open wound of other part of head, init encntr - alf (current) use of insulin - Allergy status to penicillin 06/22/2018 14:41 [facility]ERNANDA Castelan [place] TYPE: Emergency COMPLAINT: - POSS STAPH INFECTION DIAGNOSES: - Methicillin resis staph infection, unsp site Methicill - Personal history of nicotine dependence - Other intermediate (current) drug therapy - Disorder of the skin and subcutaneous tissue, unspecified - Methicillin resis staph infct causing diseases classd elswhr - 1 Type 1 diabetes mellitus without complications - Allergy status to narcotic agent status - alf (current) use of insulin - Allergy status to penicillin 06/07/2018 19:01 [facility]ERNANDA Castelan [place] TYPE: Emergency COMPLAINT: - ANXIETY DIAGNOSES: - Proc/trtmt not crd out d/t pt lv bef seen by [facility] INPATIENT VISIT TRACKING (12 MO.) No inpatient visits to display in this time frame [email or web address]
[2018-12-19] MEDS ORDERED: ADMELOG SO100 UNIT/1 (20:11)
== END 2018-12-19 20:47 | disposition left against medical advice (07) ==
LOC: ED 19:38
DX: L08.9 Local infection of the skin and subcutaneous tissue, unspecified (principal); Z53.21 Procedure and treatment not carried out due to patient leaving prior to being seen by health care provider